=== PATIENT | male | born 1955 | race Caucasian/White ===

== ENCOUNTER 2022-03-17 12:44 | Outpatient (CLI) | payer BC, SELFPAY ==
--- NOTE | 2022-03-17 13:00 | CRLHL7_ITS ---
For Patients: As a result of the Century Cures Act, medical imaging exams and procedure reports are released immediately into your electronic medical record. You may view this report before your referring provider. If you have questions, please contact your health care provider. INDICATION: Malignant neoplasm of left kidney. TECHNIQUE: Multiplanar multisequence MR imaging acquired through the brain prior to and following intravenous contrast. COMPARISON: None. FINDINGS: Prominence of the ventricles and sulci compatible with mild diffuse cerebral volume loss. No mass effect or midline shift. Scattered T2 FLAIR hyperintensities in the supratentorial white matter, typical for mild chronic microvascular ischemic changes. No pathologic intracranial enhancement. No intracranial hemorrhage or pathologic extra-axial fluid collection. No diffusion restriction to suggest acute infarction. The major arterial flow voids of the skullbase are preserved. The globes are symmetric. Moderately severe right frontal and ethmoid sinus mucosal thickening. The mastoid air cells are clear. IMPRESSION: 1. No acute intracranial abnormality or evidence for intracranial metastatic disease. 2. Mild chronic microvascular changes and diffuse cerebral volume loss. Dictated by Luis M Bonner MD @ 03/17/2022 7:59:02 PM (Electronically Signed)
--- NOTE | 2022-03-17 14:00 | CRLHL7_ITS ---
For Patients: As a result of the Century Cures Act, medical imaging exams and procedure reports are released immediately into your electronic medical record. You may view this report before your referring provider. If you have questions, please contact your health care provider. Indication: MALIGNANT NEOPLASM OF LEFT URETER. ASSESS TREATMENT RESPONSE Technique: Postcontrast CT chest, abdomen and pelvis. 98 cc Isovue 370 intravenous contrast. Please note that all CT scans at this facility use dose modulation, iterative reconstruction, and/or weight-based dosing when appropriate to reduce radiation dose to as low as reasonably achievable. Comparison: 10/06/2021 Findings: In the chest, no significant change in 2 millimeter nodule left lower lobe, 83/141. Stable pleural-based density within the right anterior lung, 55/141. Mild atelectasis. Mild emphysematous changes in both lung apices. No dense infiltrate. No pleural effusion or pneumothorax. Stable appearance of incidental pericardial recess. No destructive osseous lesion or fracture. In the abdomen, no intrahepatic mass is present. Gallbladder normal. Spleen unremarkable. Similar appearance to the left retroperitoneum status post left nephrectomy. Stable tiny retroperitoneal lymph nodes are similar to the prior study. No enlarged lymph nodes. Stable simple renal cortical cysts on the right. Duplicated right renal collecting system with normal appearance of both right ureters. Pancreatic atrophy. Vascular calcifications. No bowel obstruction. Incidental ventral abdominal wall hernia in the supraumbilical space measuring 2.4 cm containing a non inflamed loop of bowel. In the pelvis, the bladder is normal. Normal prostate. Colonic diverticulosis involving the sigmoid colon. No diverticulitis. Postop changes appendectomy. No pelvic or inguinal adenopathy. Discogenic spurring. No fracture. Impression: Stable exam. No significant interval change in 2 millimeter left lower lobe pulmonary nodule and subcentimeter retroperitoneal lymph nodes status post left nephrectomy. Please note that all CT scans at this facility use dose modulation, iterative reconstruction, and/or weight-based dosing when appropriate to reduce radiation dose to as low as reasonably achievable. Dictated by Avelino Pacheco MD @ 03/17/2022 3:03:53 PM (Electronically Signed)
== END 2022-03-17 12:45 | disposition home or self-care (01) ==
LOC: MRI 12:45
PROVIDERS: PCP Family Medicine; Visit Provider Nurse Practitioner Family
DX: C64.2 Malignant neoplasm of left kidney, except renal pelvis (principal); C67.9 Malignant neoplasm of bladder, unspecified; I67.82 Cerebral ischemia; R91.8 Other nonspecific abnormal finding of lung field
CPT/HCPCS: 70553; 71260; 74177; A9575; Q9967

== ENCOUNTER 2022-03-23 10:45 | Outpatient (RCR) | payer BC, SELFPAY ==
--- OUTSIDE RECORDS SUMMARY | 2022-02-20 11:00 | XMS_ITS | Continuity of Care Document ---
:1955 Author Care Team Providers Name Role Phone MD Nusrat D Primary Care Physician MD Tanya H Attending Physician Allergies, Adverse Reactions, Alerts No known allergies Social History Smoking Status Status Start Date End Date Date of Observat ion Ex-smoker (finding) July 9:23am Additional Data Assigned Sex Male Problems Active Problems Medical Problem Onset Date Status Tobacco Use April 15, 2010 Active Erectile Dysfunction April 15, 2010 Active Ostructive Sleep Apnea April 15, 2010 Active PERSONAL HISTORY OF COLONIC April 15, 2010 Active POLYPS Obesity July 02, 2011 Active History of appendectomy July 02, 2011 Resolved Vasectomy July 02, 2011 Resolved Bladder Cancer November 16, 2012 Active White coat syndrome without Active hypertension Irritation of left eye Active HTN (hypertension) Active Hyperlipidemia Active Left renal mass Active Encounter for screening Active laboratory testing for COVID-19 virus 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 Renal insufficiency Active History of left nephrectomy Active Medications Medication Status Dose Units Route Directions Qty Days Start End Ins tructions Date Date Amlodipine Active 10 MG PO Daily 90 Decembe Besylate r 2020 9:01am Chlorthalidon Active 25 MG PO Daily 90 Decembe e r 2020 9:01am Ibuprofen Active 400 MG PO Twice A Day 30 as needed Lisinopril Active 5 MG PO Daily 30 Decembe r 2020 9:09am Lorazepam Active 0.5-1 MG PO Every 4 PRN Hours as NAUSEA/VOMI TI needed NG Potassium Active 20 MEQ PO Twice A Day August Chloride 2021 12:32pm Prochlorperaz Active 10 MG PO Every 4-6 30 P RN ine Maleate Hours as Nause a/vomiti needed ng Simvastatin Active 1 TABLET PO Bedtime 90 Decembe (Zocor) 20 Mg r 1st, TAB 2020 9:01am Tadalafil Active 10 MG PO Daily 10 Novembe limit 1 tab per 24 hrs. Take at least 1 hr prior to any planed (Cialis) 10 r , sexual activity. Mg TAB 2019 2:22pm Acetaminophen Disconti 500-1 MG PO Every 6 January N O MORE THAN (Tylenol nued 000 Hours as 6th, 4000 MG/ DAY Extra needed 2021 Strength) 500 1:49pm Mg TAB Amlodipine Disconti 10 MG PO Daily 30 Novem Decemb Besylate nued r , er 2020 08, 10:32am 2020 9:01am Amlodipine Disconti 10 MG PO Daily 90 Novem Novemb Besylate nued r , er 2019, 2:22pm 2020 10:32a m Amlodipine Disconti 10 MG PO Daily 90 mbe Novemb Besylate nued r , er 2019 07, 8:20am 2019 2:22pm Amlodipine Disconti 10 MG PO Daily Decemb Besylate nued y , er 2018, 2:40pm 2018 8:20am Amlodipine Disconti 10 MG PO Daily August Besylate nued , ry 2018, 10:23am 2018 2:40pm Amlodipine Disconti 10 MG PO Daily Mayuar Besylate nued , y 2017 8:10am 10:23a m Amlodipine Disconti 10 MG PO Daily May Octobe Besylate nued , r 2017, 12:21pm 2017 8:10am Amlodipine Disconti 10 MG PO Daily Octobe Besylate nued er r , 2017 12:21p 9:17am m Amlodipine Disconti 10 MG PO Daily Septem Besylate nued er valencia 2016, 9:45am 2016 9:17am Amlodipine Disconti 5 MG PO Daily 28 March Septem Besylate nued , valencia 2016 12, 9:19am 2016 9:45am Cephalexin Disconti 500 MG PO Three Times 17 January Novem nued A Day , er 2013, 11:12am 2013 9:52am Chlorthalidon Disconti 25 MG PO Daily 30 Decemb e nued r 24, er 2020 08, 10:32am 2020 9:01am Chlorthalidon Disconti 25 MG PO Daily b e nued r , er 2019, 2:22pm 2020 10:32a m Chlorthalidon Disconti 25 MG PO Daily 90 Decembe Novemb e nued r , er 2019 07, 8:20am 2019 2:22pm Chlorthalidon Disconti 25 MG PO Daily 90 Decembe Decemb e nued r , er 2017, 7:42am 2018 8:20am Chlorthalidon Disconti 25 MG PO Daily 30 Decemb e nued r , er 2018 01, 7:50am 2017 7:42am Chlorthalidon Disconti 12.5 MG PO Daily May e nued , er 2017, 8:10am 2017 7:50am Cpap Supplies Disconti 1 : One Time March b CPAP supplies nued 17, er 2009 09, 3:54pm 2010 12:47p m Diphtheria/Te Disconti 0.5 ML IM Once 1 Decembe Decemb tanus/Acell nued r , er Pertussis 2018, (Adacel) 0.5 8:20am 2018 Ml INJ 8:36am Fexofenadine Disconti 1 TABLET PO Twice A Day Mar ust Hcl/Pseudoeph nued , edr 2009 (Milady-D 12 2:33pm Hour) 60 Mg/120 Mg TABSR Hydrochloroth Disconti 12.5 MG PO Daily January iazide nued , 2011, 9:45am 2012 2:04pm Hydrochloroth Disconti 12.5 MG PO Daily August iazide nued , 2011 2:08pm 9:45am Influenza Disconti 0.7 ML IM Once 1 b Virus Vac nued r , er Split High 2020 07, (Fluzone 1:53pm 2019 High-Dose Pf 2:36pm 2019 0.7 Ml) 1 Inj INJ Influenza Disconti 0.5 ML IM Once 1 b Virus Vaccine nued r 28th, er (Fluzone Pf 2010, [id number] 2:08pm 2010 (0.5 Ml)) 0.5 2:23pm Ml INJ Influenza Disconti 0.5 ML IM Once 1 Virus Vaccine nued er valencia Split , , (Fluzone (3 2012 2012 Years And 1:32pm 1:52pm Older) [id number]) 1 Ml INJ Loperamide Disconti 2 MG PO as needed Februa Hcl (Imodium nued ry A-D) 2 Mg CAP 2021 2:00pm Lorazepam Disconti 0.5-1 MG PO Every 4 50 Novembe Februa DE N nued Hours as r , ry Nausea/vo miti needed for 2020, ng Nausea/Vomi 5:12pm 2021 ting 2:00pm No Home Meds Disconti October nued 2012 1:43pm Pneumococcal Disconti 0.5 ML IM Once 1 Decembe Decemb Polyvalent nued r , er Vaccine 2018, (Pneumovax 8:20am 2018) 25 8:36am Mcg/0.5 Ml INJ Pneumococcal Disconti 0.5 ML IM Once Mayobe Polyvalent nued , r Vaccine 2017, (Prevnar 13) 8:13am 2017 0.5 Ml INJ 8:20am Potassium Disconti 10 MEQ PO Daily 90 Decembe Auguar Chloride nued r , y 6th, (Potassium 2020 2021 Chloride Cr) 9:01am 9:01am 10 Meq TAB Potassium Disconti 10 MEQ PO Daily October Decemb Chloride nued , er (Potassium 2020 08, Chloride Cr) 8:45am 2020 10 Meq TAB 9:01am Potassium Disconti 10 MEQ PO Daily 90 Novemoctober Chloride nued r , , (Potassium 2019 2020 Chloride Cr) 2:22pm 8:45am 10 Meq TAB Potassium Disconti 10 MEQ PO Daily 90 Decembe Novemb Chloride nued r , er (Potassium 2019 07, Chloride Cr) 8:20am 2019 10 Meq TAB 2:22pm Potassium Disconti 10 MEQ PO Daily 90 ua Decemb Chloride nued y , er (Potassium 2018, Chloride Cr) 3:47pm 2018 10 Meq TAB 8:20am Prednisone Disconti 20 MG PO Twice A Day 10 mb nued er er , 2015 9:29am 7:57am Prochlorperaz Disconti 10 MG PO Every 4-6 30 Sep niyah PRN ine Maleate nued Hours as r , ry Mack sea/vomiti needed for 2020, ng Nausea/Vomi 5:12pm 2021 ting 2:00pm Simvastatin Disconti 1 TABLET PO Bedtime 90 mb (Zocor) 20 Mg nued r , er TAB 2019 08, 2:22pm 2020 9:01am Simvastatin Disconti 1 TABLET PO Bedtime 90 Novemb (Zocor) 20 Mg nued r , er TAB 2019 07, 8:20am 2019 2:22pm Simvastatin Disconti 1 TABLET PO Bedtime 30 Decemb (Zocor) 20 Mg nued r , er TAB 2018, 10:33am 2018 8:20am Simvastatin Disconti 1 TABLET PO Bedtime May (Zocor) 20 Mg nued , er TAB 2017 09, 8:13am 2018 10:33a m Simvastatin Disconti 1 TABLET PO Bedtime Octobe (Zocor) 20 Mg nued r , r TAB 2016, 11:05am 2017 7:22am Tadalafil Disconti 10 MG PO Daily 10 b limi t 1 tab per 24 hrs. Take at least 1 hr prior to any planed (Cialis) 10 nued r , er sexual activity. Mg TAB 2019 07, 8:20am 2019 2:22pm Tadalafil Disconti 10 MG PO Daily May limi t 1 tab per 24 hrs. Take at least 1 hr prior to any planed (Cialis) 10 , er sexual a ctivity. Mg TAB 2017, 8:10am 2018 8:20am Tadalafil Disconti 10 MG PO Daily Mayobe limi t 1 tab per 24 hrs. Take at least 1 hr prior to any planed (Cialis) 10 nued er , r sexual activity. Mg TAB 2016, 9:49am 2017 8:10am Tadalafil Disconti 1 TABLET PO Daily March PRN (Cialis) 20 nued 17th, er Mg TAB 2010 02, 3:24pm 2010 3:35pm Tadalafil Disconti 1 TABLET PO Daily May PRN (Cialis) 20 nued 8th, 17th, Mg TAB 2006 2009 3:13pm 2:33pm Tamsulosin Disconti 0.4 MG PO Daily 30 Novemb Hcl nued er 2013 9:52am Tamsulosin Disconti 0.4 MG PO Daily 30 Novem Februa Hcl (Flomax) nued r 7th, ry 0.4 Mg CAP 2010, 4:19pm 2012 2:03pm Varenicline Disconti 0.5 - MG PO As Directed a TAKE (Chantix nued 1 ry ACCORDING T O Starter Pack) PACKAG E 0.5 Mg/1 Mg 2012 DIRECTIO NS TAB 2:04pm Varenicline Disconti 0.5 - MG PO As Directed August niyah TAKE (Chantix nued 1 31, ry ACCORDING T O Starter Pack) 2011, PACKAG E 0.5 Mg/1 Mg 2:09pm 2011 DIRECTI ONS TAB 7:27am Varenicline Disconti 1 MG PO Twice A Day August niyah (Chantix nued 31st, ry Continuing 2011, Pack) 1 Mg 2:09pm 2011 KIRK 7:27am Varenicline Disconti 0.5 - MG PO As Directed 28 April Shant mb TAKE (Chantix nued 1 17, er ACCORDING T O Starter Pack) 2009 10, PACKAG E 0.5 Mg/1 Mg 3:23pm 2010 DIRECTI ONS TAB 2:33pm Varenicline Disconti 1 MG PO Twice A Day Marchhailee mb (Chantix nued 17th, er Continuing 2009 10, Pack) 1 Mg 3:23pm 2010 KIRK 2:33pm Varenicline Disconti 0.5 - MG PO As Directed May tem TAKE (Chantix nued 1 8th, valencia ACCORDING T O Starter Pack) 2006, PACKAG E 0.5 Mg/1 Mg 3:14pm 2008 DIRECTI ONS TAB 11:37a m Varenicline Disconti 1 MG PO Twice A Day Novembere m (Chantix nued 4th, valencia Continuing 2007, Pack) 1 Mg 10:11am 2008 KIRK 11:37a m Varenicline Disconti 1 MG PO Twice A Day May il (Chantix nued , 3rd, Continuing 2006 2007 Pack) 1 Mg 3:14pm 1:45pm KIRK Immunizations Immunization Event Date Not Given Dose Digital Marketing Assistant Lot Vac cine Reason Number Number Informatio n Statement (VIS) Deta il COVID-19 Pfizer November 12, PFIZER-BIONTECH [id number] 2020 COVID-19 Pfizer December 03, PFIZER-BIONTECH [id number] 2020 COVID-19 Pfizer July 02 [id number] 2020 Influenza June 30 Sanofi Pasteur [id number] 2010 Influenza September 08, [id number] 2012 Influenza May 02 Sanofi [id number] 2012 Influenza July 03 [id number] 2013 Influenza May 04 [id number] 2016 Influenza July 05 SANOFI [id number] 2019 Influenza July 06 [id number] 2020 Prevnar Adult June 23, WYETH [id number] 2017 Pneumovax Adult July 30 MERCK [id number] 2018 Tetanus/Diptheri February 11, 1 a 2009 Tdap February 11 (adolescent/adul 2009 t) Tdap July 31 SANOFI (adolescent/adul 2018 t) Relevant Diagnostic Tests and/or Laboratory Data Laboratory Results Test Date/Time Result Interpretation Reference Result Comment Performing Range Site White Blood February 02, 5.57 5.00-10.00 [facility] Count 2021 [address] [facility] 11:48am [facility] [address] Red Blood Count February 02, 4.10 4.32-5.72 [facility] 2021 [address] [facility] 11:48am [facility] [address] Hemoglobin February 02, 14.1 13.5-17.5 [facility] 2021 [address] [facility] 11:48am [facility] [address] Hematocrit February 02, 40.6 38.8-50.0 [facility] 2021 [address] [facility] 11:48am [facility] [address] Mean February 02, 99 81-95 [facility] Corpuscular 2021 1999 [facility] Volume 11:48[place] [address] Mean February 02, 34 27-34 [facility] Corpuscular 2021 1999 [facility] Hemoglobin 11:48[place] [address] Mean February 02, 35 32-36 [facility] Corpuscular 2021 [address] [facility] Hemoglobin 11:48[place] [address] Concent Platelet Count February 02, 164 150-450 [facility] 2021 [address] [facility] 11:48am [place] [address] RDW Coefficient February 02, 13.2 11.5-15.3 [facility] Lab of Variation 2021 1999 [facility] 11:48am [place] [address] Neutrophils (%) February 02, 69.4 50.0-70.0 [facility] Lab (Auto) 2021 [address] [facility] 11:48am [place] [address] Lymphocytes (%) February 02, 14.5 25.0-45.0 [facility] (Auto) 2021 [address] [facility] 11:48am [place] [address] Monocytes (%) February 02, 9.7 0.00-11.0 [facility] Lab (Auto) 2021 [address] [facility] 11:48am [place] [address] Eosinophils (%) February 02, 5.7 0.0-7.0 [facility] (Auto) 2021 [address] [facility] 11:48am [place] [address] Basophils (%) February 02, 0.5 0.0-3.0 [facility] Lab (Auto) 2021 [address] [facility] 11:48am [place] [address] Immature February 02, 0.2 [facility] Granulocyte % [address] [facility] (Auto) 11:48[place] [address] RDW Coefficient May 12.8 11.5-15.3 [facility] Lab of Variation 2020 [facility] 10:56am [place] [address] Neutrophils # February 02, 3.86 1.70-7.00 [facility] Lab (Auto) 2021 [address] [facility] 11:48am [place] [address] Lymphocytes # February 02, 0.81 0.90-2.90 [facility] Lab (Auto) 2021 [address] [facility] 11:48am [place] [address] Monocytes # February 02, 0.54 0.30-0.90 [facility] (Auto) 2021 [address] [facility] 11:48am [facility] [address] Eosinophils # February 02, 0.32 0.00-0.50 [facility] (Auto) 2021 [address] [facility] 11:48am [facility] [address] Basophils # February 02, 0.03 0.00-0.20 [facility] (Auto) 2021 [address] [facility] 11:48am [facility] [address] Immature February 02, 0.01 [facility] Granulocyte # [address] [facility] (Auto) 11:48am [facility] [address] Random Glucose February 09, 93 60-115 [facility] 2021 [address] [facility] 11:42am [place] [address] Blood Urea February 09, 22 7-30 [facility] Nitrogen 2021 [address] [facility] 11:42am [facility] [address] Creatinine February 09, 1.7 0.5-1.5 [facility] 2021 [address] [facility] 11:42am [place] [address] Estimated February 09, 40.650 [facility] Creatinine 2021 1999 [facility] Clearance 11:42am [facility] [address] Sodium Level February 09, 134 135-149 [facility] 2021 [address] [facility] 11:42am [place] [address] Potassium Level February 09, 4.0 3.6-5.1 [facility] 2021 [address] [facility] 11:42am [facility] [address] Chloride Level February 09, 99 96-114 [facility] 2021 [address] [facility] 11:42am [facility] [address] Carbon Dioxide February 09, 30 20-32 [facility] Level 2021 [address] [facility] 11:42am [facility] [address] Calcium Level February 09, 9.1 8.4-10.6 [facility] 2021 [address] [facility] 11:42am [facility] [address] Total Protein February 09, 6.9 6.0-8.3 The use of [facility] 2021 Eltrombopag, a [address] [facility] 11:42am [place] [address] stimulant used to treat thrombocytopenia and aplastic anemia, interferes with this measurement of total protein. A 5% bias has been observed. Albumin February 09, 4.0 3.3-5.0 [facility] 2021 [address] [facility] 11:42am [facility] [address] Total Bilirubin February 09, 1.1 0.1-1.5 [facility] 2021 [address] [facility] 11:42am [facility] [address] Aspartate Amino February 09 12-35 [facility] Transf 2021 [address] [facility] (AST/SGOT) 11:42am [facility] [address] Alanine February 09 4-50 [facility] Aminotransferas 2021 [address] [facility] e (ALT/SGPT) 11:42am [facility] [address] Alkaline February 09 40-150 [facility] Phosphatase 2021 [address] [facility] 11:42am [facility] [address] Thyroid January 05, 2.060 0.270-4.20 Patients taking a [facility] Stimulating 2021 0 high dose [address] [facility] Hormone (TSH) 11:40am (>5mg/day) of No [place] [id number] Biotin supplement (vitamin B7) will demonstrate a >10% negative bias for TSH testing. Advance Directives Advance Directive Response Recorded Date/Time Does Pt have Health Care No July 18, 2014 7:13am Directive? Has patient completed a Yes July 30 9:23am Health Care Directive? Insurance Providers Guarantor Aniceto Rincon Jr Address [id number] [place], [place] [address] Contact Info. Home Phone: CELL Payer Policy Id Coverage Id Subscriber's Subscriber Id Effective E xpiration Name Date Date Blue [id number] Mckenzie Machado, August 30 27 Aniceto Benton 2011 [id number] Encounters Encounter Location(s) Arrival/Admit Date Discharge/Depart Date Provider(s) Registered [place] February 09, 2022 [facility] 7:09am Plan of Treatment Future Tests Future scheduled test information is unavailable Pending Tests Pending diagnostic test information is unavailable Future Visits Future appointment information is unavailable Referrals to Other Providers Reason for Referral Start Provider Provider Contact Provider Address Referral Date Information Dmitri Silverio Work Phone: [facility] TYREL Carrillo MD [address] [facility] [phone] Future Procedures Future procedure information is unavailable Future Medications Future medication information is unavailable Patient Instructions Avelumab (By injection) Thrombocytopenia (DC) Thrombocytopenia (GEN)
--- NOTE | 2022-03-05 16:37 | ONC.NURNOTE ---
Authorization: User: Alicia Jamison Date: 02/10/22 12:46 Type: Eligibility Determination Note... Received request for prior authorization of Avelumab [id number]. Patient carries [employer] as primary insurance. Per [facility] Avelumab 800 mg every 2 weeks has been approved for total 8 treatments from 02/23/2022-06/15/2022 (800mg Days 1,15 Cycles 1,2,3,4) Amendment 1 - Alicia Jamison - 02/10/22 @ 1248 Order ID: [id number]
[2022-03-09 10:49] LABS: Basophils Absolute Auto 0.03 K/uL (0.00-0.30); Basophils Percent Auto 0.5 % (0.0-3.0); Eosinophils Absolute Auto 0.33 K/uL (0.00-0.50); Eosinophils Percent Auto 5.3 % (0.0-7.0); Hematocrit 39.7 % (37.0-53.0); Hemoglobin* 13.9 gm/dL (13.5-17.5); Mean Corpuscular HGB Conc 35 gm/dL (32-36); Mean Corpuscular Hemoglobin 35 pg (26-34); Mean Corpuscular Volume 100 fL (80-100); Monocytes Percent Auto 8.8 % (0.0-11.0); Neutrophils Absolute Auto 4.45 K/uL (1.7-7.0); Neutrophils Percent Auto 71.4 % (42.0-72.0); Platelet Count* 167 K/uL (140-440); RDW Coefficient of Variation % 14.5 % (11.5-15.5); Red Blood Count 3.98 m/uL (4.30-5.90); White Blood Count* 6.23 K/uL (4.50-11.00)
[2022-03-09 10:52] LABS: Slide Review Reflex No
[2022-03-09 12:29] VITALS: BP 149/76; PULSE 55; RESP 16; TEMP 36.3; O2SAT 95
[2022-03-09 13:11] LABS: Chloride* 103 mmol/L (96-114); Potassium* 3.5 mmol/L (3.6-5.1); Sodium* 132 mmol/L (135-149)
[2022-03-09 13:14] LABS: Alanine Aminotransferase* 21 U/L (4-50); Alkaline Phosphatase* 97 U/L (40-150); Aspartate Amino Transferase* 29 U/L (12-35); Blood Urea Nitrogen* 26 mg/dL (7-30); Carbon Dioxide* 24 mmol/L (20-32); Creatinine* 1.7 mg/dL (0.5-1.5); Est. Creatinine Clearance* 40.24; Estimated Glomerular Filt Rate 43.37; Glucose* 103 mg/dL (60-115); Total Protein* 7.1 g/dL (6.0-8.3)
[2022-03-09 13:15] LABS: Calcium* 9.4 mg/dL (8.4-10.6)
[2022-03-09] MEDS: ACETAMINOPHEN 325 MG TABLET 650 MG PO (13:34)
[2022-03-09] MEDS: FAMOTIDINE 20 MG, diphenhydrAMINE 50 MG in 0.9 % SODIUM CHLORIDE 100 ml 100 ML 412 MG IVPB (13:50)
[2022-03-23 10:28] LABS: Basophils Absolute Auto 0.03 K/uL (0.00-0.30); Basophils Percent Auto 0.6 % (0.0-3.0); Eosinophils Absolute Auto 0.22 K/uL (0.00-0.50); Hematocrit 39.8 % (37.0-53.0); Immature Granulocytes Abs Auto 0.01 K/uL (0.00-0.30); Lymphocytes Percent Auto 14.2 % (20-44); Mean Corpuscular HGB Conc 35 gm/dL (32-36); Mean Corpuscular Hemoglobin 36 pg (26-34); Mean Corpuscular Volume 101 fL (80-100); Monocytes Percent Auto 10.7 % (0.0-11.0); Neutrophils Absolute Auto 3.83 K/uL (1.7-7.0); Neutrophils Percent Auto 70.3 % (42.0-72.0); Platelet Count* 187 K/uL (140-440); RDW Coefficient of Variation % 14.5 % (11.5-15.5); Red Blood Count 3.94 m/uL (4.30-5.90); White Blood Count* 5.44 K/uL (4.50-11.00)
[2022-03-23 10:31] LABS: Slide Review Reflex No
[2022-03-23 10:41] LABS: Albumin* 3.9 g/dL (3.3-5.0)
[2022-03-23 10:42] LABS: Chloride* 101 mmol/L (96-114); Potassium* 3.9 mmol/L (3.6-5.1); Sodium* 132 mmol/L (135-149)
[2022-03-23 10:44] LABS: Aspartate Amino Transferase* 34 U/L (12-35); Bilirubin Total* 1.1 mg/dL (0.1-1.5); Carbon Dioxide* 23 mmol/L (20-32); Creatinine* 1.7 mg/dL (0.5-1.5); Est. Creatinine Clearance* 40.24; Estimated Glomerular Filt Rate 43 ml/min; Total Protein* 7.2 g/dL (6.0-8.3)
[2022-03-23 10:45] LABS: Alanine Aminotransferase* 19 U/L (4-50); Alkaline Phosphatase* 83 U/L (40-150); Blood Urea Nitrogen* 22 mg/dL (7-30); Calcium* 8.4 mg/dL (8.4-10.6); Glucose* 96 mg/dL (60-115)
[2022-03-23] MEDS: ACETAMINOPHEN 325 MG TABLET 650 MG PO (12:22)
== END 2022-03-29 23:59 | disposition home or self-care (01) ==
LOC: CCIC 10:45
PROVIDERS: Clinical Nurse Specialist; PCP Family Medicine; Visit Provider Nurse Practitioner Family
DX: Z51.11 Encounter for antineoplastic chemotherapy (principal); C66.2 Malignant neoplasm of left ureter
CPT/HCPCS: 36415; 80053; 84443; 85025; 96411; 96413; 99212; 99215; A9270; J1200; J7050; J9023; S0028

== ENCOUNTER 2022-08-13 10:56 | Outpatient (CLI) | payer BC, SELFPAY ==
--- OUTSIDE RECORDS SUMMARY | 2022-08-13 07:42 | XMS_ITS | Encounter Summary ---
:1955 Author Care Team Providers Name Role Phone Dmitri Silverio MD Primary Care Provider [phone] Reason for Visit None recorded. Assessment and Plan 1. Malignant tumor of kidney 1. Urothelial carcinoma - Left kidney ( pT3 Nx) and bladder (Ta - high grade, superficial) - s/p Left LEATHA nephroureterectomy (07/18) - margins were negative - last TUR-BT (05/22/13) - complete salvage XRT - (09/05/21) - no recurrence seen in bladder on Cysto scopy today - check urine cytology - reviewed CT scan (06/03/22) images - no convincing evidence of metastatic disease - has follow-up with Oncology - Follow-up in [address] scan (ab d/pelvis) withot IV dye, Cystoscopy, and urine cytology ? urinalysis, dipstick ? cystoscopy (PROC) ? CT, abdomen + pelvis, w/o contrast - f/u with Dr. Curry on 12/01/22 @ 2:20PM 2. Primary erectile dysfunction H/O ED - continue Cialis 20 mg prn ? tadalafil 20 mg tablet Discussion Note: None recorded.Patient educational handouts: No information available. Plan of Care Reminders Provider Appointments Ct Scan 30 12/01/2022 Ct 11:00AM ? Established 10 12/01/2022 Bala marino MD 2:20PM Lab Urinalysis, Dipstick 06/03/2022 [facility] Referral None recorded. ? ? Procedures Cystoscopy (PROC) 06/03/2022 ? Surgeries None recorded. ? ? Imaging CT, Abdomen + Pelvis, W/o 06/03/2022 [facility] Contrast Medications Name Start Date ? ? amlodipine 10 mg tablet ? TAKE 1 TABLET BY MOUTH DAILY amoxicillin 500 mg capsule ? TAKE 1 CAPSULE BY MOUTH THREE TIMES DAILY UNTIL ALL T AKEN amoxicillin 875 mg-potassium clavulanate 125 mg tablet ? TAKE 1 TABLET BY MOUTH TWICE DAILY UNTIL ALL TAKEN chlorhexidine gluconate 0.12 % mouthwash ? SWISH AND SPIT 1/2 OZ BY MOUTH TWICE DAILY FOR 7 DAYS chlorthalidone 25 mg tablet ? TAKE 1 TABLET BY MOUTH DAILY famotidine 20 mg tablet ? TAKE 1 TABLET BY MOUTH EVERY DAY hydrocodone 5 mg-acetaminophen 325 mg tablet ? TAKE 1 TABLET BY MOUTH EVERY 6 HOURS NEEDED FOR PA IN ibuprofen 600 mg tablet ? TAKE 1 TABLET BY MOUTH EVERY 6 HOURS NEEDED FOR PA IN lisinopril 5 mg tablet ? TAKE 1 TABLET BY MOUTH DAILY lorazepam 0.5 mg tablet ? TAKE 1 TO 2 TABLETS BY MOUTH EVERY 4 HOURS NEEDED FORNAUSEA AND VOMITING methylprednisolone 4 mg tablets in a dose pack ? TAKE PER PACKAGE DIRECTIONS. TAKE WITH FOOD ondansetron HCl 8 mg tablet ? TAKE 1 TABLET BY MOUTH EVERY 8 HOURS NEEDED FOR NAUSEA OR VOMITING. TAKE 45 MINUTES PRIOR TO DAILY RADIATION TREATMENTS TO PREVENT NAUSEA. potassium chloride ER 10 mEq tablet,extended release ? TAKE 1 TABLET BY MOUTH DAILY potassium chloride ER 20 mEq tablet,extended release(p art/cryst) ? TAKE 1 TABLET BY MOUTH TWICE DAILY prednisone 10 mg tablet ? prednisone 2.5 mg tablet ? prochlorperazine maleate 10 mg tablet ? TAKE 1 TABLET BY MOUTH EVERY 4 TO 6 HOURS NEEDED F OR NAUSEA OR VOMITING Senexon-S 8.6 mg-50 mg tablet ? simvastatin 20 mg tablet ? TAKE 1 TABLET BY MOUTH AT BEDTIME tadalafil 10 mg tablet ? tadalafil 20 mg tablet ? TAKE 1 TABLET BY MOUTH EVERY DAY Medications Administered None recorded. Vitals Height Weight BMI 5 ft 10 in 208 lbs 29.8 kg/m2 Results Lab Results Date Name Specimen Result Interpretation Description Value Range Status Address ? 06/03/2022 Urinalysis, ? Color-Status Yellow ? ? [facility]: [address], [place] Allergies Code Code System Name Reaction Severity Onset NKDA ? ? ? Problems None recorded. Procedures Date Name Performed by ? 07/18/2020 Nephroureterectomy, Hand Assisted Inform ation not available Laparoscopic (Surg) 06/19/2020 Cystoscopy, with Ureteroscopy (Surg) Inf ormation not available 08/30/2015 Colonoscopy Information not yamilka gonzalez Notes: done 5 yrs ago and getting one on 06/2021 ? Appendectomy Information not avai lable 06/03/2022 CT, Abdomen + Pelvis, W/o Contrast [facility] [address] [id number] (Work Place) Notes: bladder TURBT Vaccine List Vaccine Type influenza, injectable, quadrivalent 07/04/2020 Social History Tobacco Smoking Status Former Smoker Notes: 2012 What is your level of alcohol Occasional consumption? Marital status Single Are you sexually active? Y What was the date of your most recent 06/03/2022 tobacco screening? Do you or have you ever used any other N forms of tobacco or nicotine? What is your level of caffeine None consumption? Do you use any illicit or recreational N drugs? When did you quit smoking? 11-15yearssincelastcigarette Recreational Drug Use N Functional Status Unknown. Past Encounters Encounter Date Diagnosis Provider 06/03/2022 Malignant Tumor of Kidney; Primary Bala Curry MD: [address] [place] [address], Ph. History of Present Illness Note: <p>66 yo male with H/O 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 </p><div>- s/p TUR-BT - (08/03/11) - HG Ta</div><div>- s/p TUR-BT - (11/07/12) - HG Ta</div><div>- s/p TUR-BT - (05/22/13) - HG Ta</div><div>- BCG (6 weeks) - complete Jul 2013</div><div>- s/p Left LEATHA nephroureterectomy (07/18/20) - pT3 Nx - margins were negative</div><div>- s/p Salvage radiation (for periaoritc lymph nodes) - completed (09/05/21)</div><div>
</div><div>12/03/21 - He presents for follow-up on Urothelial carcinoma of the kidney (clinical stage IV). He is feeling better - more energy. He denies trouble with urination - no hematuria, urgency, or dysuria. </div><div>- UA - trace blood - no LE</div><div>- CT scan - no contrast (12/03/21) - no convincing evidence of metastatic diseases - 1.4 cm hypoattenuating cyst on Right mid-kidney (posterior)</div><div>
</div><div>06/03/22 - He presents for follow-up on Left kidney cancer / Bladder cancer (Urothelial cell carcinoma). He denies abdominal or flank pain. He denies gross hematuria - no complaints with urination. He does reports trouble with Bilateral hand cramps / arm cramps from his chemotherapy. </div><div>- UA - no blood - no LE</div><div>- CT (non-contrast) - no evidence of new disease - Right renal cysts (stable) -3.4 cm pulmonary nodule (left lower lung) - stable</div><div> __</div><div>PSA - 2.78 (09/26/14)</div><div>- 2.82 (10/14/16)</div><div>- 2.38 (04/29/20)</div><div>
</div><div>CT Urogram (05/08/20) - Left - 1.4 cm filling defect in lower pole and proximal ureter</div><div>- Right - duplicated collecting system - no hydronephrosis, stones, or filling defects</div><div>
</div><div>12/03/20 - CT scan - no hydronephrosis - Left kidney is absent</div><div>- no metastatic disease seen</div><div>
</div><div> CT scan (06/04/21) - enlarging (1.4 cm) Left sided retroperitoneal lymph node (near Left renal vascular stump)&l t;/div><div>
</div><div>CT scan - no contrast (12/03/21) - no convincing evidence of metastatic diseases - 1.4 cm hypoattenuating cyst on Right mid- kidney (posterior)</div> Review of Systems ? Comprehensive General Adult ROS Reported By: Patient Constitutional: Constitutional: no fever, no chills Eyes: Eyes: no dry eyes, no vision change, no irritation Endocrine: Endocrine: no fatigue, no in creased thirst Cardiovascular: Cardiovascular: no chest rupa n, no palpitations Integumentary: Skin: no rashes, no change i n skin color Respiratory: Respiratory: no wheezing, no cough, no shortness of breath Genitourinary: Genitourinary: no incontinen ce, no difficulty urinating Physical Exam ? Urology Male Reported By: Patient Constitutional: General Appearance: healthy- appearing, overweight. Level of Distress: no acute distress Abdomen: Inspection and Palpation: so ft, no tenderness, no masses, no CVA tenderness Male : Penis: no discharge, no lesi ons, circumcised. Scrotum: no cysts, no lesions, no edema, no tender ness. Testes: normal testes, no swelling Skin: General Appearance of extrem ities: no edema. Inspection and palpation: normal temperatur e, no rash, no lesions
--- OUTSIDE RECORDS SUMMARY | 2022-08-13 07:42 | XMS_ITS ---
:1955 Author Care Team Providers Name Role Phone KEN GOODMAN MD Primary Care Provider [phone] Allergies Code Code System Name Reaction Severity Status Onset NKDA ? Medications Name Status Start Date Stop Date ? ? amlodipine 10 mg tablet Active ? Not avai lable TAKE 1 TABLET BY MOUTH DAILY amoxicillin 500 mg capsule Active ? Not a vailable TAKE 1 CAPSULE BY MOUTH THREE TIMES DAILY UNTIL ALL TAKEN amoxicillin 875 mg-potassium clavulanate 125 mg tablet Active ? Not available TAKE 1 TABLET BY MOUTH TWICE DAILY UNTIL ALL TAKEN Bactrim DS 800 mg-160 mg tablet Completed ? 06/04/2021 Take 1 tablet twice a day by oral route. cefuroxime axetil 500 mg tablet Completed ? 06/04/2021 TAKE 1 TABLET BY MOUTH TWICE DAILY FOR 10 DAYS chlorhexidine gluconate 0.12 % mouthwash Active ? Not available SWISH AND SPIT 1/2 OZ BY MOUTH TWICE DAILY FOR 7 DAYS chlorthalidone 25 mg tablet Active ? Not available TAKE 1 TABLET BY MOUTH DAILY famotidine 20 mg tablet Active ? Not avai lable TAKE 1 TABLET BY MOUTH EVERY DAY hydrocodone 5 mg-acetaminophen 325 mg tablet Active ? Not available TAKE 1 TABLET BY MOUTH EVERY 6 HOURS NEEDED FOR PAIN ibuprofen 600 mg tablet Active ? Not avai lable TAKE 1 TABLET BY MOUTH EVERY 6 HOURS NEEDED FOR PAIN lisinopril 5 mg tablet Active ? Not avail able TAKE 1 TABLET BY MOUTH DAILY lorazepam 0.5 mg tablet Active ? Not avai lable TAKE 1 TO 2 TABLETS BY MOUTH EVERY 4 HOURS NEEDED FORNAUSEA AND VOMITING methylprednisolone 4 mg tablets in a dose pack Active ? Not available TAKE PER PACKAGE DIRECTIONS. TAKE WITH FOOD ondansetron HCl 8 mg tablet Active ? Not available TAKE 1 TABLET BY MOUTH EVERY 8 HOURS NEEDED FOR NAUSEA OR VOMITING. TAKE 45 MINUTES PRIOR TO DAILY RADIATION TREATMENTS TO PREVENT NAUSEA. oxycodone 5 mg tablet Completed ? 06/04/2021 potassium chloride ER 10 mEq tablet,extended release Active ? Not available TAKE 1 TABLET BY MOUTH DAILY potassium chloride ER 20 mEq tablet,extended release(part/cryst) Active ? Not available TAKE 1 TABLET BY MOUTH TWICE DAILY prednisone 10 mg tablet Active ? Not avai lable prednisone 2.5 mg tablet Active ? Not marita ilable prochlorperazine maleate 10 mg tablet Active ? Not available TAKE 1 TABLET BY MOUTH EVERY 4 TO 6 HOURS NEEDED FOR NAUSEA OR VOMITING Senexon-S 8.6 mg-50 mg tablet Active ? No t available simvastatin 20 mg tablet Active ? Not marita ilable TAKE 1 TABLET BY MOUTH AT BEDTIME tadalafil 10 mg tablet Active ? Not avail able tadalafil 20 mg tablet Active ? Not avail able TAKE 1 TABLET BY MOUTH EVERY DAY Problems None recorded. Procedures Date Name Performed by ? 07/18/2020 Nephroureterectomy, Hand Assisted Inform ation not available Laparoscopic (Surg) 06/19/2020 Cystoscopy, with Ureteroscopy (Surg) Inf ormation not available 08/30/2015 Colonoscopy Information not avai [facility] Notes: done 5 yrs ago and getting one on 06/2021 ? Appendectomy Information not avai lable 07/24/2020 CT, Cystogram Information not avai lable 11/28/2020 CT, Abdomen + Pelvis, W/ Contrast Inform ation not available 11/26/2021 CT, Abdomen + Pelvis, W/ Contrast Inform ation not available 12/03/2021 CT, Abdomen + Pelvis, W/ Contrast Inform ation not available 06/03/2022 CT, Abdomen + Pelvis, W/o Contrast [facility] [address] [phone] (Work Place) Notes: bladder TURBT Results Lab Results Date Name Specimen Result Interpretation Description Value Range Status Address ? 06/03/2022 Urinalysis, ? Color-Status Yellow ? ? [facility]: [address] 06/03/2022 Urinalysis, ? No observation ? ? ? Dipstick recorded. 12/03/2021 Urinalysis, ? Color-Status Yellow ? ? Dipstick ? ? ? pH-Status 5.0 ? Blood-Status Trace ? Leuko-Status Negative ? ? 12/03/2021 Urinalysis, ? No observation ? ? ? Dipstick recorded. 06/04/2021 Urinalysis, Urine ? Color-Status Yellow ? ? Dipstick ? ? Urine ? pH-Status 5.5 ? Urine ? Nitrates-Stat negative ? ? us ? ? Urine ? Blood-Status Trace ? Urine ? Leuko-Status Negative ? ? 06/04/2021 Urinalysis, ? No observation ? ? ? Dipstick recorded. 12/03/2020 Cytology, UR ? Apresult AP results ? Fin al [place] [facility] b: [address], [place] 07/18/2020 Pathology ? No observation ? ? ? Study recorded. Past Encounters Encounter Date Diagnosis Provider 06/03/2022 Malignant Tumor of Kidney; Primary Bala Curry MD: [address], [place] [address], Ph. [phone] 12/03/2021 Malignant Tumor of Kidney; Primary Bala Curry MD: [address], [place] [address], Ph. [phone] 06/04/2021 Malignant Tumor of Kidney; Renal Bala monisha Curry MD: [address]; [address], [place], [place] Dysfunction [address], Ph. [phone] Social History Tobacco Smoking Status Former Smoker Notes: 2012 Vaccine List Vaccine Type influenza, injectable, quadrivalent 07/04/2020 Plan of Care Reminders Provider Appointments None recorded. ? ? Lab None recorded. ? ? Referral None recorded. ? ? Procedures None recorded. ? ? Surgeries None recorded. ? ? Imaging None recorded. ? ? Vitals 06/03/2022 02:20PM ESTABLISHED 20 Height Weight BMI 5 ft 10 in 208 lbs 29.8 kg/m2 12/03/2021 01:30PM ESTABLISHED 20 Height Weight BMI 5 ft 10 in 208 lbs 29.8 kg/m2 06/04/2021 01:30PM ESTABLISHED 20 Height Weight BMI 5 ft 10 in 208 lbs 29.8 kg/m2 12/03/2020 02:10PM ESTABLISHED 10 Height Weight BMI 5 ft 10 in 210 lbs 30.1 kg/m2 07/30/2020 11:50AM POST OP 10 Height Weight BMI 5 ft 10 in 210 lbs 30.1 kg/m2 06/26/2020 03:30PM ESTABLISHED 10 Height Weight BMI 5 ft 10 in 205 lbs 29.4 kg/m2 05/29/2020 04:00PM CA TALK Height Weight BMI 5 ft 10 in 216 lbs 31 kg/m2
--- OUTSIDE RECORDS SUMMARY | 2022-08-13 07:42 | XMS_ITS | Clinical Summary ---
:1955 Author Organization [facility] Address [address] [place] [address] Care Team Providers Name Role Phone Dmitri Silverio Primary Care Provider Allergies No known active allergies Medications Medication Sig Dispensed Refills Start Date End Date Status simvastatin (ZOCOR) 20 Take 20 mg by 0 Active MG tablet mouth At Bedtime amLODIPine (NORVASC) 10 Take 10 mg by 0 Active MG tablet mouth daily POTASSIUM CHLORIDE PO Take 10 mEq by 0 Active mouth daily chlorthalidone Take 25 mg by 0 A ctive (HYGROTON) 25 MG tablet mouth daily tadalafil (CIALIS) 10 Take 10 mg by 0 Active MG tablet mouth daily as needed ibuprofen Take 400 mg by 0 Activ e (ADVIL/MOTRIN) 200 MG mouth 2 times tablet daily as needed for mild pain HYDROcodone-acetaminoph Take 1-2 tablets 15 tablet 0 0 Active en (NORCO) 5-325 MG by mouth every 6 tabletIndications: hours as needed Post-operative state for moderate to severe pain Social History Tobacco Use Types Packs/Day Years Used Date Smoking Tobacco: Former Cigarettes Smokeless Tobacco: Never Comments: 1 cigarettes every couple of [facility] Alcohol Use Standard Drinks/Week Comments Yes 0 (1 standard drink = 0.6 oz pure alcoho l) 3 per night wine Sex Assigned at Date Recorded Not on file Last Filed Vital Signs Vital Sign Reading Time Taken Comments Blood Pressure 157/86 06/19/2020 1:45 PM CDT Pulse 57 06/19/2020 1:00 PM CDT Temperature 36.4 ??C (97.5 ??F) 06/19/2020 1:00 PM CDT Respiratory Rate 16 06/19/2020 1:45 PM CDT Oxygen Saturation 96% 06/19/2020 1:45 PM CDT Inhaled Oxygen Concentration - - Weight 94.8 kg (209 lb 1.6 oz) 06/19/2020 9:04 AM CDT Height 177.8 cm (5' 10) 06/19/2020 9:04 AM CDT Body Mass Index 30 06/19/2020 9:04 AM CDT Plan of Treatment Health Maintenance Due Date Last Done Comments ADVANCE CARE PLANNING 1955 ANNUAL REVIEW OF HM ORDERS [address] CT COLONOGRAPHY 1955 FIT-DNA (Cologuard) 1955 FIT 1955 FLEX SIG 1955 COVID-19 Vaccine (#1) 1955 COLONOSCOPY 1963 COLORECTAL CANCER SCREENING 1963 HEPATITIS C SCREENING 1971 LIPID 1988 LUNG CANCER SCREENING 2003 ZOSTER IMMUNIZATION (1 of 2) 2003 AORTIC ANEURYSM SCREENING 2018 (SYSTEM ASSIGNED) FALL RISK ASSESSMENT 2018 MEDICARE ANNUAL WELLNESS 2018 VISIT DTAP/TDAP/TD IMMUNIZATION (2 02/12/2020 02/11/2010 - Td or Tdap) PHQ-2 (once per calendar 08/30/2021 year) INFLUENZA VACCINE (#1) 2022 05/12/2013, 09/08/2012, 07/27/2011 Pneumococcal Vaccine: 65+ Completed 08/21/2019, Years 06/23/2018 IPV IMMUNIZATION Aged Out No longer eligi ble based on patient's age to complete this to pic MENINGITIS IMMUNIZATION Aged Out No longe r eligible based on patient's age to complete this to pic Medical Devices Implanted Type Area Hog Dropper Device Shelf Model / Identifier Expiration Serial / Date Lot Stent Ureteral Contour Soft Percuflex [id number] Stent Left: DIMAS TON 04/05/2023 [id number] / Implanted: Qty: 1 on 06/19/2020 by Bala Cordero MD at [facility] [employer] / [id number] Insurance Payer Benefit Plan / Subscriber ID Effective Dates Phone Addre ss Type Group BCBS BCBS OUT OF [id number] 2019-Present [phone] [address] [address] [place] [address] Care Teams Teaching Assistant Relationship Specialty Start Date End Date Dmitri Silverio PCP - General Family Practice 06/10/20 [facility] [place] [address] [place] [address]
--- OUTSIDE RECORDS SUMMARY | 2022-08-13 07:42 | XMS_ITS | Encounter Summary ---
:1955 Author Organization [facility] Address [address] [place] [address]. [place] [address] Care Team Providers Name Role Phone Dmitri Silverio Primary Care Provider Reason for Visit Auth/Cert Specialty Diagnoses / Procedures Referred By Contact Refer red To Contact Surgery Diagnoses Bladder cancer (H) Bladder cancer (H) [C67.9] Sh Periop Services Procedures HC CYSTOSCOPY,INSERT URETERAL STENT HC CYSTOURETHROSCOPY W/ URETEROSCOPY &/OR PYELOSCOPY, DIAGNOSTIC HC UROGRAPHY, RETROGRADE W/WO KUB CYSTOSCOPY, LEFT URETEROSCOPY, POSSIBLE BIOPSY AND LEFT STENT INSERTION [address] [place] [address] Phone: Referral ID Status Reason Start Date Expiration Date Visits Requ ested Visits Authorized [id number] 1 1 Encounter Details Date Type Department Care Team Description 06/19/2020 Anesthesia Event [facility] Jaiver Aldridge [place] [facility] jarred [facility] [address] [place] [address] [facility] [place] [phone] [phone] [place] [address] Anesthesia Record Procedure Summary Procedure Name Responsible Anesthesia Start Anesthesia Stop Time Anesthesiologist Time CYSTOSCOPY, LEFT Javier Aldridge MD 06/19/20 1045 06/19/20 1211 URETEROSCOPY, LEFT RETROGRADE, LEFT KIDNEY BIOPSY, LEFT STENT INSERTION, BILATERAL URETERAL WASHINGS (Left: Urethra) Events Date Time Event Comment 06/19/2020 1020 1045 An Start 1045 An Start Data 1053 MD Present 1053 An Induction 1056 MD Present 1056 An LMA 1106 AN INCISION 1156 MD Present 1205 LMA Removed 1206 an stop data 1211 An Stop Electronically s igned by Rosalio J. Kraska, PERFORMANCE MANAGER [employer]DER on June 19, 2020 12:11 PM Name Total dexamethasone 4mg/mL 4 mg fentaNYL (SUBLIMAZE) injection 100 mcg lidocaine 2% 100 mg midazolam 1mg/mL 2 mg ondansetron 2mg/mL 4 mg propofol (DIPRIVAN) injection 10 mg/mL vial 200 mg ciprofloxacin (CIPRO) infusion 400 mg 400 mg Provider ordered ALTERNATE pre op antibiotic. 1 each LR 600 mL Agents Name NO HELIOX O2 N2O Air Exp Sevoflurane Exp Isoflurane Exp Desflurane Exp N2O O2 Delivery Device Ins Sevoflurane Ins Isoflurane Ins Desflurane O2 Auxiliary Blood No blood administrations on file. Lines, Drains, and Airways Type Details Placement Removal Peripheral IV 06/19/20; 0931; 20 G; 06/19/20 0931 by 06/19/20 1344 by Left; Hand; Brittany Shields RN Goldsby, Marilyn, RN Chlorhexidine; Injectable; Tolerated well Supraglottic Airway Placement Date: 06/19/20 1056 by 06/19/20 12 05 by 06/19/20; Placement Rosalio Miranda Kraska, E rik John, Time: 1056; Airway PERFORMANCE MANAGER [employer] DISPLAY BUILDER PERFORMANCE MANAGER [employer] DISPLAY BUILDER Type: Standard LMA; Mask Ventilation: 0; LMA Size: 5; Airway Brand: Classic; Attempts: 1 documented in this encounter Social History Tobacco Use Types Packs/Day Years Used Date Smoking Tobacco: Former Cigarettes Smokeless Tobacco: Never Comments: 1 cigarettes every couple of m [facility] Alcohol Use Standard Drinks/Week Comments Yes 0 (1 standard drink = 0.6 oz pure alcoho l) 3 per night wine Sex Assigned at Date Recorded Not on file COVID-19 Exposure Response Date Recorded In the last month, have you been in contact with No / Unsure 06/19/2020 8:30 AM CDT someone who was confirmed or suspected to have Coronavirus / COVID-19? documented as of this encounter OR Notes Anesthesia Postprocedure Evaluation - Javier Aldridge MD - 06/19/2020 1:30 PM CDT Patient: Reza Rincon Procedure(s): CYSTOSCOPY, LEFT URETEROSCOPY, LEFT RETROGRADE, LEFT KIDNEY BIOPSY, LEFT STENT INSERTION, BILATERAL URETERAL WASHINGS Biopsy kidney Diagnosis:Bladder cancer (H) [C67.9] Diagnosis Additional Information: No value filed. Anesthesia Type: General Note: Anesthesia Post Evaluation Patient location during evaluation: Bedside Patient participation: Able to fully participate in evaluation Level of consciousness: awake and alert Pain management: adequate Airway patency: patent Cardiovascular status: acceptable Respiratory status: acceptable Hydration status: acceptable PONV: none Last vitals: Vitals: 06/19/20 1230 06/19/20 1245 06/19/20 1300 BP: 139/85 (!) 141/82 (!) 145/83 Pulse: 59 56 57 Resp: 25 10 15 Temp: 36.6 ??C (97.9 ??F) 36.4 ??C (97.5 ??F) 36.4 ??C (97.5 ??F) SpO2: 93% 92% 93% Electronically Signed By: Javier Aldridge MD June 19, 2020 1:30 PM Anesthesia Preprocedure Evaluation - Javier Aldridge MD - 06/19/2020 7:45 AM CDT Anesthesia Pre-Procedure Evaluation Patient: Reza Rincon : 1955 Preoperative Diagnosis: Bladder cancer (H) [C67.9] Procedure(s): CYSTOSCOPY, LEFT URETEROSCOPY, POSSIBLE BIOPSY AND LEFT STENT INSERTION Past Medical History: Diagnosis Date ??? Bladder cancer (H) ??? Colon polyps ??? Erectile dysfunction ??? Hyperlipidemia ??? Irritation of left eye ??? Obese ??? Sleep apnea ??? White coat syndrome without hypertension Past Surgical History: Procedure Laterality Date ??? APPENDECTOMY ??? GENITOURINARY SURGERY vasectomy Anesthesia Evaluation . ROS/MED HX ENT/Pulmonary: (+)sleep apnea, tobacco use, Past use uses CPAP , . . (-) asthma and COPD Neurologic: (-) seizures, CVA and TIA Cardiovascular: (+) Dyslipidemia, hypertension----. : . . . :. . (-) CAD, CHF and arrhythmias METS/Exercise Tolerance: Hematologic: Musculoskeletal: GI/Hepatic: (-) GERD Renal/Genitourinary: (-) renal disease Endo: Comment: BMI 30 (+) Obesity, . (-) Type I DM and Type II DM Psychiatric: Infectious Disease: Malignancy: (+) Malignancy History of Other Other CA Bladder status post Other: Physical Exam Normal systems: dental Airway Mallampati: II TM distance: >3 FB Neck ROM: full Dental Cardiovascular Rhythm and rate: regular Pulmonary breath sounds clear to auscultation No results found for: WBC, HGB, HCT, PLT, CRP, SED, NA, POTASSIUM, CHLORIDE, CO2, BUN, CR, GLC, TAY,PHOS, MAG, ALBUMIN, PROTTOTAL, ALT, AST, GGT, ALKPHOS, BILITOTAL, BILIDIRECT, LIPASE, AMYLASE, RO[place]IE, PTT, INR, FIBR, TSH, T4, T3, HCG, HCGS, CKTOTAL, CKMB, TROPN Preop Vitals BP Readings from Last 3 Encounters: No data found for BP Pulse Readings from Last 3 Encounters: No data found for Pulse Resp Readings from Last 3 Encounters: No data found for Resp SpO2 Readings from Last 3 Encounters: No data found for SpO2 Temp Readings from Last 1 Encounters: No data found for Temp Ht Readings from Last 1 Encounters: No data found for Ht Wt Readings from Last 1 Encounters: No data found for Wt There is no height or weight on file to calculate BMI. Anesthesia Plan History & Physical Review History and physical reviewed and following examination; no interval change. ASA Status: 2 . NPO Status: > 8 hours Plan for General (LMA) with Intravenous and Propofol induction. Maintenance will be Balanced. PONV prophylaxis: Ondansetron (or other 5HT-3) and Dexamethasone or Solumedrol Postoperative Care Postoperative pain management: Multi-modal analgesia. Consents Anesthetic plan, risks, benefits and alternatives discussed with: Patient.. Javier Aldridge MD documented in this encounter Miscellaneous Notes Anesthesia Care Transfer Note - Rosalio Miranda APRN [employer]ILDER - 06/19/2020 12:10 PM CDT Patient: Reza Rincon Procedure(s): CYSTOSCOPY, LEFT URETEROSCOPY, LEFT RETROGRADE, LEFT KIDNEY BIOPSY, LEFT STENT INSERTION, BILATERAL URETERAL WASHINGS Biopsy kidney Diagnosis: Bladder cancer (H) [C67.9] Diagnosis Additional Information: No value filed. Anesthesia Type: General Note: Airway :Face Mask Patient transferred to:PACU Comments: At end of procedure, spontaneous respirations, adequate tidal volumes, followed commands to voice, LMA removed atraumatically, oropharynx suctioned, airway patent after LMA removal. Oxygen via facemask at 10 liters per minute to PACU. Oxygen tubing connected to wall O2 in PACU, SpO2, NiBP, and EKG monitors and alarms on and functioning, Meidna Hugger warmer connected to patient gown, report on patient's clinical status given to COOK JELLY, RN questions answered.Handoff Report: Identifed the Patient, Identified the Reponsible Provider, Reviewed the pertinent medical history, Discussed the surgical course, Reviewed Intra-OP anesthesia mangement and issues during anesthesia, Set expectations forpost-procedure period and Allowed opportunity for questions and acknowledgement of understanding Vitals: (Last set prior to Anesthesia Care Transfer) SCI[employer]ENTER DISPLAY BUILDER VITALS 06/19/2020 1136 - 06/19/2020 1210 06/19/2020 Resp Rate (observed): 16 EKG: Sinus rhythm Electronically Signed By: Rosalio Miranda APRN CRNA June 19, 2020 12:10 PM documented in this encounter Plan of Treatment Not on filedocumented as of this encounter Visit Diagnoses Not on filedocumented in this encounter Administered Medications Inactive Administered Medications - up to 3 most recent administrations Medication Order MAR Action Action Date Dose Rate Site ciprofloxacin (CIPRO) infusion Given 06/19/2020 10:59 AM CDT 400 mg 400 mg Routine, 400 mg, Intravenous, ONCE, On Wed06/19/20 at 0900, For 1 dose, Irritant., Indications: Perioperative Pharmacoprophylaxis, Pre-procedure dexamethasone (DECADRON) injection Given 06/19/2020 10:59 AM CDT 4 mg PRN, Administer over 1 Minutes, Starting on Wed06/19/20 at 1059, Anesthesia Intra-op fentaNYL (PF) (SUBLIMAZE) injection Given 06/19/2020 11:19 AM CDT 50 mcg PRN, Administer over 3-5 Minutes, Starting on Wed06/19/20 at 1054, Anesthesia Intra-op Given 06/19/2020 10:54 AM CDT 50 mcg lactated ringers infusion New Bag 06/19/2020 10:45 AM CDT Intravenous, CONTINUOUS PRN, Anesthesia Intra-op, Starting on Wed06/19/20 at 1045, Until Wed06/19/20 at 1211 lidocaine 2% injection (MDV) Given 06/19/2020 10:54 AM CDT 100 mg PRN, Starting on Wed06/19/20 at 1054, Anesthesia Intra-op midazolam (VERSED) injection Given 06/19/2020 10:46 AM CDT 2 mg Administer over 2 Minutes, PRN, Starting on Wed06/19/20 at 1046, Anesthesia Intra-op ondansetron (ZOFRAN) injection Given 06/19/2020 10:59 AM CDT 4 mg PRN, Administer over 2-5 Minutes, Starting on Wed06/19/20 at 1059, Anesthesia Intra-op propofol (DIPRIVAN) injection 10 mg/mL v ial Given 06/19/2020 10:54 AM CDT 200 mg PRN, Starting on Wed06/19/20 at 1054, Anesthesia Intra-op Provider ordered ALTERNATE pre op Given 06/19/2020 10:59 AM CDT 1 each antibiotic. CONTINUOUS, Starting on Wed06/19/20 at 0900, Until Wed06/19/20 at 1209, Pre-procedure documented in this encounter Care Teams Medical Administrative Relationship Specialty Start Date End Date Dmitri Silverio PCP - General Family Practice 06/10/[address] [address] documented as of this encounter
--- OUTSIDE RECORDS SUMMARY | 2022-08-13 07:42 | XMS_ITS | Encounter Summary ---
:1955 Author Organization [facility] Address [address] [place] [address]. [place] [address] Care Team Providers Name Role Phone Dmitri Silverio Primary Care Provider Encounter Details Date Type Department Care Team Description 06/19/2020 Travel Social History Tobacco Use Types Packs/Day Years Used Date Smoking Tobacco: Former Cigarettes Smokeless Tobacco: Never Comments: 1 cigarettes [facility] of [facility] Alcohol Use Standard Drinks/Week Comments Yes [...] / COVID-19? documented as of this encounter Plan of Treatment Not on filedocumented as of this encounter Visit Diagnoses Not on filedocumented in this encounter Care Teams Technical Recruiter Relationship Specialty Start Date End Date Dmitri Silverio PCP - General Family Practice 06/10/[address] [address] documented as of this encounter
--- OUTSIDE RECORDS SUMMARY | 2022-08-13 07:43 | XMS_ITS | Encounter Summary ---
:1955 Author Organization [facility] Address [address] [place] [address] Care Team Providers Name Role Phone Dmitri Silverio Primary Care Provider Reason for Visit Auth/Cert Specialty Diagnoses / Procedures Referred By Contact Refer red To Contact Surgery Diagnoses Bladder cancer (H) Bladder cancer (H) [C67.9] Periop Services Procedures HC CYSTOSCOPY,INSERT URETERAL STENT HC CYSTOURETHROSCOPY W/ URETEROSCOPY &/OR PYELOSCOPY, DIAGNOSTIC HC UROGRAPHY, RETROGRADE W/WO KUB CYSTOSCOPY, LEFT URETEROSCOPY, POSSIBLE BIOPSY AND LEFT STENT INSERTION [address] [place] [address] Phone: Referral ID Status Reason Start Date Expiration Date Visits Requ ested Visits Authorized [id number] 1 1 Encounter Details Date Type Department Care Team Description 06/19/2020 Surgery [facility] Bala Curry CYSTOSCOPY , LEFT [facility] PeriOP MD Evin URETEROSCOPY, LEFT Services [facility] RETROGRADE, LEFT KIDNEY [address] BIOPSY, LEFT STENT [address] [place] [address] INSERTION, BILATERAL [place] [address] URETERAL WASHINGS [phone] Surgery Details Date/Time Status Location OR Service Patient Case Class Case Tr auma Class Type Case? 06/19/20 10:55 Posted [facility] OR [facility] Urology Same Day AM Surgery Panel 1 Procedure LRB Anes Op Region Wound Class Commen ts CYSTOSCOPY, LEFT URETEROSCOPY, Left General Urethra II-Cl tg Contaminated LEFT RETROGRADE, LEFT KIDNEY BIOPSY, LEFT STENT INSERTION, BILATERAL URETERAL WASHINGS Biopsy kidney Kidney II-Clean Contaminated Surgeon Surgeon Role Service Panel Bala Curry MD Primary Urology 1 Special Needs DIGITAL FLEXIBLE URETEROSCOPELeft latera lity confirmed documented in this encounter Social History Tobacco Use Types Packs/Day Years Used Date Smoking Tobacco: Former Cigarettes Smokeless Tobacco: Never Comments: 1 cigarettes every couple of m [facility] Alcohol Use Standard Drinks/Week Comments Yes 0 [...] / COVID-19? documented as of this encounter Last Filed Vital Signs Vital Sign Reading Time Taken Comments Blood Pressure 141/90 06/19/2020 12:15 PM CDT Pulse 61 06/19/2020 12:15 PM CDT Temperature 36.6 ??C (97.9 ??F) 06/19/2020 12:15 PM CDT Respiratory Rate 14 06/19/2020 12:15 PM CDT Oxygen Saturation 98% 06/19/2020 12:15 PM CDT Inhaled Oxygen Concentration - - Weight 94.8 kg (209 lb 1.6 oz) 06/19/2020 9:04 AM CDT Height 177.8 cm (5' 10) 06/19/2020 9:04 AM CDT Body Mass Index 30 06/19/2020 9:04 AM CDT documented in this encounter Discharge Instructions Discharge InstructionsJuan Muro RN - 06/19/2020 12:05 PM CDT Today you were given 975 mg of Tylenol at 9:49am. The recommended daily maximum dose is 4000 mg. Same Day Surgery Discharge Instructions for Sedation and General Anesthesia ?? It's not unusual to feel dizzy, light-headed or faint for up to 24 hours after surgery or while taking pain medication. If you have these symptoms: sit for a few minutes before standing and have someone assist you when you get up to walk or use the bathroom. ?? You should rest and relax for the next 24 hours. We recommend you make arrangements to have an adult stay with you for at least 24 hours after your discharge. Avoid hazardous and strenuous activity. ?? DO NOT DRIVE any vehicle or operate mechanical equipment for 24 hours following the end of your surgery. Even though you may feel normal, your reactions may be affected by the medication you have received. ?? Do not drink alcoholic beverages for 24 hours following surgery. ?? Slowly progress to your regular diet as you feel able. It's not unusual to feel nauseated and/or vomit after receiving anesthesia. If you develop these symptoms, drink clear liquids (apple juice, aura carri, broth, 7-up, etc. ) until you feel better. If your nausea and vomiting persists for 24 hours, please notify your surgeon. ?? All narcotic pain medications, along with inactivity and anesthesia, can cause constipation. Drinking plenty of liquids and increasing fiber intake will help. ?? For any questions of a medical nature, call your surgeon. ?? Do not make important decisions for 24 hours. ?? If you had general anesthesia, you may have a sore throat for a couple of days related to the breathing tube used during surgery. You may use Cepacol lozenges to help with this discomfort. If it worsens or if you develop a fever, contact your surgeon. ?? If you feel your pain is not well managed with the pain medications prescribed by your surgeon, please contact your surgeon's office to let them know so they can address your concerns. CoVid 19 Information We want to give you information regarding Covid. Please consult your primary care provider with any questions you might have. Patient who have symptoms (cough, fever, or shortness of breath), need to isolate for 7 days from when symptoms started OR 72 hours after fever resolves (without fever reducing medications) AND improvement of respiratory symptoms (whichever is longer). ?? Isolate yourself at home (in own room/own bathroom if possible) ?? Do Not allow any visitors ?? Do Not go to work or school ?? Do Not go to orthodoxy, children's choir director centers, shopping, or other public places. ?? Do Not shake hands. ?? Avoid close and intimate contact with others (hugging, kissing). ?? Follow CDC recommendations for household cleaning of frequently touched services. After the initial 7 days, continue to isolate yourself from household members as much as possible. To continue decrease the risk of community spread and exposure, you and any members of your household should limit activities in public for 14 days after starting home isolation. You can reference the following CDC link for helpful home isolation/care tips: https://www.cdc.gov/coronavirus/2019-ncov/downloads/10Things.pdf Protect Others: ?? Cover Your Mouth and Nose with a mask, disposable tissue or wash cloth to avoid spreading germs to others. ?? Wash your hands and face frequently with soap and water Call Your Primary Doctor If: Breathing difficulty develops or you become worse. For more information about COVID19 and options for caring for yourself at home, please visit the CDCwebsite at https://www.cdc.gov/coronavirus/2019-ncov/about/luvyi-nqsu-news.html For more options for care at [facility], please visit our website at [email or web address] Because you had anesthesia today and your history of sleep apnea, it is extremely important that you use your CPAP machine for the next 24 hours while napping or sleeping. Cystoscopy and Stent Placement Discharge Instructions During surgery, a stent was placed in the ureter. The ureter is the tube that drains urine from the kidney to the bladder. The stent is placed to dilate (open) the ureter so the stone fragments can pass easily through the ureter or to decrease ureteral swelling after surgery, or to relieve an obstruction. The stent is made of rubber. The upper end of the stent curls in the kidney while the lower end rests in the bladder Diet: ??? Return to the diet that you were on before the procedure, unless you are given specific diet instructions. ??? It is important to drink 6-8 glasses of fluids per day at home - at least 3- 4 glasses should be water. Activity: ??? Walk short distances and increase as your strength allows. ??? You may climb stairs. ??? Do not do strenuous exercise or heavy lifting until approved by surgeon. ??? Do not drive while taking narcotic pain medications. Bathing: ??? You may take a shower. While the stent is in place you may experience the following symptoms: ??? Blood and/or small blood clots in urine. ??? Bladder spasm (frequency and urgency of urination). ??? Discomfort or aching in the back or side where the stent is. ??? Burning or discomfort at the end of urine stream. To decrease these symptoms you should: ??? Take pain medication as prescribed. ??? Drink plenty of fluids. ??? If you experience pain at the end of urination try not emptying your bladder completely. ??? If having discomfort in back or side, decrease activity. Call your physician if these signs/symptoms are present: ??? Pain that is not relieved by a short rest or ordered pain medications. ??? Temperature at or above 101.0??F or chills. ??? Inability or difficulty urinating. ??? Excessive blood in urine. ??? Any questions or concerns. If you have questions or concerns about your procedure, call Dr. Curry at [phone] documented in this encounter Medications at Time of Discharge Medication Sig Dispensed Refills Start Date End Date amLODIPine (NORVASC) 10 MG Take 10 mg by mouth 0 tablet daily chlorthalidone (HYGROTON) Take 25 mg by mouth 0 25 MG tablet daily HYDROcodone-acetaminophen Take 1-2 tablets by 15 tablet 0 1 (NORCO) 5-325 MG mouth every 6 hours tabletIndications: as needed for Post-operative state moderate to severe pain ibuprofen (ADVIL/MOTRIN) Take 400 mg by 0 200 MG tablet mouth 2 times daily as needed for mild pain POTASSIUM CHLORIDE PO Take 10 mEq by 0 mouth daily simvastatin (ZOCOR) 20 MG Take 20 mg by mouth 0 tablet At Bedtime tadalafil (CIALIS) 10 MG Take 10 mg by mouth 0 tablet daily as needed cefuroxime (CEFTIN) 500 MG Take 1 tablet (500 6 tablet 0 1 06/22/2020 tabletIndications: mg) by mouth 2 Post-operative state times daily for 3 days documented as of this encounter Nursing Notes Juan Muro, SURENDRA - 06/19/2020 1:01 PM CDT PNDS met, po per I&O sheet. Pt dressed, up in recliner and transported to Phase 2. documented in this encounter Miscellaneous Notes Op Note - Bala Curry MD - 06/19/2020 12:18 PM CDT Procedure Date: 06/19/2020 PREOPERATIVE DIAGNOSES: Hematuria, left renal tumor. POSTOPERATIVE DIAGNOSES: Hematuria, left renal tumor. PROCEDURES: Cystoscopy, bilateral ureteral washings, left ureteroscopy with biopsy of renal tumor, left retrograde pyelogram, and left ureteral stent placement. SURGEON: Bala Curry MD ANESTHESIA: General. ESTIMATED BLOOD LOSS: 3 mL. SPECIMENS: Ureteral washings from right and left ureter sent for cytology. Biopsy of Left renal tumor sent to Pathology. FINDINGS: Narrowing in the distal Left ureter at the ureterovesical junction. Multiple polypoid tumors seen in the left kidney, renal pelvis and in the mid pole jaspal. INDICATIONS: The patient is a 65-year-old gentleman with history of bladder cancer (Ta high-grade superficial) treated with a bladder tumor resection on 08/03/2011. He had recurrences resected twice [id number]. He was treated with a 6- week course of BCG therapy completed in 07/2013. Recent cystoscopy on 04/29/2020 showed no tumors. Urine cytology showed high-grade urothelial carcinoma. A CT urogram was performed on 05/08/2020 which showed a 1.4 cm filling defect in the lower pole of the left kidney. 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 He presents today to undergo further evaluation of the mass seen on the CT urogram. The risks and benefits of surgery were discussed with the patient prior to surgery. DESCRIPTION PROCEDURE: The patient was brought to the operating room, placed in a supine position. After undergoing general anesthetic, he was placed in a low lithotomy position. His genitalia were prepped and draped in the usual sterile fashion. A 22-Trinidadian rigid cystoscope was inserted in the bladder. There were no urethral lesions or strictures. The prostate shows 1+ lateral enlargement. Inspection of bladder showed normal trigone. The right ureteral orifice was quite wide in appearance from prior resection. There were no tumors seen in the bladder. A 6-Trinidadian ureteral catheter was used to perform ureteral washings in both the right and left ureter. Normal saline was irrigated into the appropriate ureters and then drainage was collected through the ureteral catheter. These were sent off for cytology (Pathology). Next, the left ureteral orifice was identified and a 0.035 Sensor wire was passed up the left ureterunder fluoroscopic guidance. The cystoscope was removed. Attempts were made to pass a dual-lumen catheter without success. It met significant resistance at the left ureterovesical junction. Next, a left rigid ureteroscope was advanced up into the bladder under direct vision. Left orifice was identified and the ureteroscope was advanced up the area. It was quite narrow in the distal ureter, but the scope could be advanced roughly 3 cm up. This end showed a more dilated ureter. The AmplatzSuper Stiff wire was then passed through the ureteroscope up the left ureter into the kidney under fluoroscopic guidance. The ureteroscope was removed. The left ureter was then dilated from 6-Trinidadian upto 10-Trinidadian using sequential ureteral dilators. This was also done under fluoroscopic imaging. The 12-Trinidadian dilator would not advance over the wire. Next, the digital flexible ureteroscope was advanced over the Super Stiff wire into the kidney under fluoroscopic guidance. The super stiff was then removed. The kidney was explored. Multiple polypoid tumors involving the renal pelvis and the mid/lowerpole jaspal. These have appearance of a urothelial cell carcinoma. The Escape basket was used to snare part of the tissue of the tumor and extract it. This was sent off to Pathology. In the process of removing the ureteroscope, the Sensor wire was dislodged into the bladder. The cystoscope was again inserted in the bladder. The 6-Trinidadian ureteral catheter was used to advance the Sensor wire up the leftureter into the kidney. With contrast in there, there was some extravasation from the ureter. A second Sensor wire was advanced up the ureter through a 6-Trinidadian ureteral catheter. The second Sensor wire was then exchanged for a 0.035 Super Stiff wire. The cystoscope was removed. The flexible ureteroscope was advanced over the wire again into the kidney under fluoroscopic guidance. The cystoscope was then removed. The kidney was reexplored. No significant bleeding was seen from the biopsy site of thetumor. The entire left ureter was visualized. I do not see any perforations or injury to the ureter.It is narrow in the distal portion near the bladder. Contrast was injected into the kidney to note the renal pelvis location. The ureteroscope was removed. The cystoscope was again inserted in the bladder. A 6 Trinidadian x 26 cm Contour stent was then placed in the left ureter. The stent could be seen curled in the kidney and in the bladder. The patient's bladder was emptied. Cystoscope was removed. He was placed back in a supine position, awoken from anesthesia, and transferred to the recovery room in good condition. PLAN: Await biopsy results. I am sure it will show urothelial carcinoma. Ward treatment would be a left nephroureterectomy. We will discuss this at followup. BALA CURRY MD MT: YOEL Name: ANICETO RINCON Account: [id number] : 1955 Procedure Date: 06/19/2020 Document: [id number] cc: Dmitri Silverio MD [facility] Brief Op Note - Bala Curry MD - 06/19/2020 12:07 PM CDT [facility] Brief Operative Note Pre-operative diagnosis: Hematuria Post-operative diagnosis: Same Tumor in Left kidney Procedure: Procedure(s): CYSTOSCOPY, LEFT URETEROSCOPY, LEFT RETROGRADE, LEFT KIDNEY BIOPSY, LEFT STENT INSERTION, BILATERAL URETERAL WASHINGS Biopsy kidney Surgeon: BALA CURRY MD Flight Operations Coordinator(s): None Anesthesia: General endotracheal anesthesia Estimated blood loss: Less than 10 ml Total IV fluids: (See anesthesia record) Blood transfusion: No transfusion was given during surgery Total urine output: Not measured Drains: None Specimens: Bilateral ureteral washings - cytology Biopsy of Left renal pelvic mass Implants: 6 Fr x 26 cm stent in Left ureter Findings: Numerous polypoid tumors in Left kidney Complications: None Condition: Stable Comments: See dictated operative report for full details documented in this encounter Plan of Treatment Not on filedocumented as of this encounter Procedures Procedure Name Priority Date/Time Associated Diagnosis Comme nts XR SURGERY ANTHONY Routine 06/19/2020 12:07 PM Resul ts for this FLUORO LESS THAN 5 CDT procedure are in MIN W STILLS the results section. SURGICAL PATHOLOGY Routine 06/19/2020 11:36 AM Re sults for this EXAM CDT procedure are i n the results section. CYTOLOGY NON SCRAPER MEAT Routine 06/19/2020 11:12 AM Resu lts for this CDT procedure are i n the results section. CYTOLOGY NON SCRAPER MEAT Routine 06/19/2020 11:10 AM Resu lts for this CDT procedure are i n the results section. BIOPSY, KIDNEY 06/19/2020 10:35 AM Bladder cancer (H) CDT Special Needs DIGITAL FLEXIBLE URETEROSCOP ELeft laterality confirmed CYSTOURETEROSCOPY, WITH RETROGRADE 06/19/2020 10:35 AM CDT Bladder cancer (H) PYELOGRAM AND STENT INSERTION Special Needs DIGITAL FLEXIBLE URETEROSCOP ELeft laterality confirmed LAB RESULT - HIM SCAN 06/14/2020 12:00 AM CDT LAB RESULT - HIM SCAN 06/11/2020 12:00 AM CDT documented in this encounter Results XR Surgery ANTHONY L/T 5 Min Fluoro w Stills (06/19/2020 12:07 PM CDT) Anatomical Region Laterality Modality Abdomen/Pelvis Radio Fluoroscopy Specimen (Source) Anatomical Location Collection Method / Collectio n Time Received Time / Laterality Volume Impressions 06/19/2020 1:21 PM CDT IMPRESSION: Five images during cystoscopy with retrograde opacification of the left ureter and sav al collecting system with subsequent retrograde stent placement. T here appears to be extravasation from the proximal location of the left ureteropelvic junction. Correlate with operative repor t. NORMA STERN MD Narrative 06/19/2020 1:21 PM CDT SURGERY C-ARM FLUORO LESS THAN 5 MIN W STILLS June 19, 2020 12:07 PM HISTORY: Bladder cancer. Fluoro time 44 seconds five images. COMPARISON: None. NUMBER OF IMAGES ACQUIRED: Five. VIEWS: AP. FLUOROSCOPY TIME: .8 Procedure Note Norma Stern MD - 06/19/2020Forma tting of this note might be different from the original. SURGERY C-ARM FLUORO LESS THAN 5 MIN W S TILLS June 19, 2020 12:07 PM HISTORY: Bladder cancer. Fluoro time 44 seconds five images. COMPARISON: None. NUMBER OF IMAGES ACQUIRED: Five. VIEWS: AP. FLUOROSCOPY TIME: .8 IMPRESSION: Five images during cystoscop y with retrograde opacification of the left ureter and sav al collecting system with subsequent retrograde stent placement. T here appears to be extravasation from the proximal location of the left ureteropelvic junction. Correlate with operative repor tTiti STERN MD Bala Curry MD IMG DIAGNOSTIC IMAGING ORDER BETHANY Surgical pathology exam (06/19/2020 11:36 AM CDT) Component Value Ref Test Analysis Performed At [facility] Range Method Time Signature Copath Report Patient Name: ANICETO RINCON MR#: [id number] Specimen #: [id number] Collected: 06/19/2020 Received: 06/19/2020 Reported: 06/20/2020 15:05 Ordering Phy(s): BALA CURRY For improved result formatting, select 'View Enhanced Report Format' under Linked Documents section. SPECIMEN(S): Left kidney tumor FINAL DIAGNOSIS: Kidney, left, biopsy: -High-grade, papillary pattern, urothelial carcinoma, noninv asive in tissue sample, multiple levels examined microscopically -Sample shows subepithelial connective tissue but no muscle Electronically signed out by: Mitzy Aquino M.D. CLINICAL HISTORY: Bladder cancer. ??Per surgical note as high grade and init ially resected in July 2011 with two subsequent resections in 2012. Recently, a 1.4 cm filling defect was id entified in the lower pole of the left kidney. GROSS: The specimen is received in formalin, labeled with the patie nt's name and date of , and designated left kidney tumor. It consists of a 0.4 cm pink-red soft tissue fragment. Entirely submitted in one cassette. (Dictated by: LOKI Begum([facility])CM 06/19/2020 02:03 PM ) MICROSCOPIC: A formal microscopic examination has been performed. The technical component of this testing was completed at the [facility], with the professional compo nent performed at the [facility], [address] [place] [address] ??[phone] ([phone]) CPT Codes: A: 68423-UE6 COLLECTION SITE: Client: [facility] Location: SHOR (S) Specimen (Source) Anatomical Collection Method Collection Time Re ceived Time Location / / Volume Laterality Tissue specimen LEFT KIDNEY 06/19/2020 11:36 (specimen) STRUCTURE / AM CDT Unknown [facility] Performing Organization Address City/State/ZIP Code Phon e Number [place] Cytology non urogynaecologist (06/19/2020 11:12 AM CDT) Component Value Ref Test Analysis Performed At [facility] gist Range Method Time Signature Copath Report Patient Name: ANICETO RINCON MR#: [id number] Specimen #: [id number] Collected: 06/19/2020 Received: 06/20/2020 Reported: 06/20/2020 15:22 Ordering Phy(s): BALA CURRY For improved result formatting, select 'View Enhanced Report Format' under Linked Documents section. SPECIMEN/STAIN PROCESS: Urinary tract, left ureteral wash , urine ? Pap-Cyto x 1 ---- CYTOLOGIC INTERPRETATION: Urinary tract, left ureteral wash , urine: ?? Atypical urot helial cells Specimen Adequacy: Satisfactory for evaluation. I have personally reviewed all specimens and/or slides, incl uding the listed special stains, and used them with my medical judgement to determine or confirm the final diagnosis. Electronically signed out by: Raheem Bradford M.D. CLINICAL HISTORY: , GROSS: Urinary tract, left ureteral wash , urine: ??Received 2 ml o f coloress,cloudy fluid, processed as 1 Pap stained Autocyte.. CPT Codes: A: 84378-[id number] COLLECTION SITE: Client: ??[facility] Location: ??[place] (S) The technical component of this testing was completed at the [facility], with the professional compo nent performed at the [facility], [address] [place] [phone] ) Specimen (Source) Anatomical Collection Method Collection Time Re ceived Time Location / / Volume Laterality Fluid specimen TOPOGRAPHY UNKNOWN 06/19/2020 11:12 (specimen) / Unknown AM CDT Bala Curry MD LAB - [facility] SPECIM EN Performing Organization Address City/State/ZIP Code Phon e Number BERTRAM Cytology non urogynaecologist (06/19/2020 11:10 AM CDT) Component Value Ref Test Analysis Performed At [facility] Range Method Time Signature Copath Report Patient Name: ANICETO RINCON MR#: [id number] Specimen #: [id number] Collected: 06/19/2020 Received: 06/20/2020 Reported: 06/20/2020 15:21 Ordering Phy(s): BALA CURRY For improved result formatting, select 'View Enhanced Report Format' under Linked Documents section. SPECIMEN/STAIN PROCESS: Urinary tract, right ureteral wash, urine ? Pap-Cyto x 1 ---- CYTOLOGIC INTERPRETATION: Urinary tract, right ureteral wash, urine: ?? Negative for High-Grade Urothelial Carcinoma Specimen Adequacy: Satisfactory for evaluation. I have personally reviewed all specimens and/or slides, incl uding the listed special stains, and used them with my medical judgement to determine or confirm the final diagnosis. Electronically signed out by: Raheem Bradford M.D. CLINICAL HISTORY: , GROSS: Urinary tract, right ureteral wash, urine: ??Received 2 ml o f colorless, cloudy fluid, processed as 1 Pap stained Autocyte.. CPT Codes: A: 11299-[id number] COLLECTION SITE: Client: ??[facility] Location: ??[place] (S) The technical component of this testing was completed at the [facility], with the professional compo nent performed at the [facility], [address] [place] [phone] ) Specimen (Source) Anatomical Collection Method Collection Time Re ceived Time Location / / Volume Laterality Fluid specimen TOPOGRAPHY UNKNOWN 06/19/2020 11:10 (specimen) / Unknown AM CDT Bala Curry MD LAB - [facility] SPEC[facility] EN Performing Organization Address City/State/ZIP Code Phon e Number [place] LAB RESULT - HIM SCAN (06/14/2020 12:00 AM CDT) Specimen (Source) Anatomical Location Collection Method / Collectio n Time Received Time / Laterality Volume 06/14/2020 Narrative This result has an attachment that is no t available. Provider Outside NON-BEAKER LAB TESTING LAB RESULT - HIM SCAN (06/11/2020 12:00 AM CDT) Specimen (Source) Anatomical Location Collection Method / Collectio n Time Received Time / Laterality Volume 06/11/2020 Narrative This result has an attachment that is no t available. Provider Outside NON-BEAKER LAB TESTING documented in this encounter Visit Diagnoses Diagnosis Post-operative state - Primary Other postprocedural status Bladder cancer (H) Malignant neoplasm of bladder, part unsp ecified documented in this encounter Administered Medications Inactive Administered Medications - up to 3 most recent administrations Medication Order MAR Action Action Date Dose Rate Site acetaminophen (TYLENOL) tablet 975 Given 06/19/2020 9:48 AM CDT 975 mg mg 975 mg, Oral, ONCE, On Wed06/19/20 at 0900, For 1 dose, Maximum acetaminophen dose from all sources = 75 mg/kg/day not to exceed 4 grams/day., Pre-procedure iopamidol (ISOVUE-300) IV solution 61% Given 06/19/2020 11:45 AM CDT 3 mLs PRN, Starting on Wed06/19/20 at 1145, Intra-procedure sodium chloride 0.9% Given 06/19/2020 11:21 AM 1,000 mLs Operative (bottle) irrigation CDT Site/Surgical S ite PRN, Starting on Wed06/19/20 at 1121, Intra-procedure sterile water (bottle) Given 06/19/2020 11:22 AM 3,000 mLs Operative irrigation CDT Site/Surgical S ite PRN, Intra-procedure, Starting on Wed06/19/20 at 1122, Until Wed06/19/20 at 1314 Given 06/19/2020 11:00 AM CDT 1,000 mLs Oper ative Site/Surgical Site documented in this encounter Active and Recently Administered Medications Times are shown in CDT. Scheduled Medication Order 06/17/2020 2020 06/19/2020 acetaminophen (TYLENOL) tablet 975 mg (COMPLETED) 0948 (Given - Provider: Brittany Shields RN) 975 mg, Oral, ONCE, Wed06/19/20 at 0900 , For 1 dose, Maximum acetaminophen dose from all sources = 75 mg/kg/day not to exceed 4 grams/day., Pre-procedure ciprofloxacin (CIPRO) infusion 400 mg (COMPLETED) 0948 (Handoff - Provider: Brittany Shields RN)1059 (Given - Provider: Rosalio Miranda APRN CRNA) Routine, 400 mg, Intravenous, ONCE, Wed06/19/20 at 0900, For 1 dose, Irritant., Indications: Perioperative Pharmacoprophylaxis, Pre-procedure HYDROcodone-acetaminophen (NORCO) 5-325 MG per tablet 1 tablet 1330 (Canceled Entry - Provider: Orders Generic Provider - Comment: Automatically canceled at discontinue of medication order) 1 tablet, Oral, ONCE, Wed06/19/20 at 13 30, For 1 dose, May administer ONCE as needed for pain control or improvement in physical function. Notify provider to assess for uncontrolled pain or??analgesic side effects. Maximum acetaminophen dose from all sources= 75 mg/kg/day not to exceed 4 grams, Post-procedure Continuous Medication Order 06/17/2020 2020 06/19/2020 Provider ordered ALTERNATE pre op antibiotic. (CANCELED) 1059 (Given - Provider: Rosalio Miranda APRN CRNA) CONTINUOUS, Starting Wed06/19/20 at 090 0, Until Wed06/19/20 at 1209, Pre-procedure PRN Medication Order 06/17/2020 2020 06/19/2020 iopamidol (ISOVUE-300) IV solution 61% (CANCELED) 1145 (Given - Provider: Bala Curry MD) PRN, Starting Wed06/19/20 at 1145, Intra-procedure opium-belladonna (B&O SUPPRETTES) 30-16.2 MG per suppository 1 s uppository 1 suppository, Rectal, ONCE PRN, Startin g Wed06/19/20 at 1317, For 1 dose, One time prior to discharge., moderate pain, Post-procedure sodium chloride 0.9% (bottle) irrigation (CANCELED) 1121 (Given - Provider: Bala Curry MD) PRN, Starting Wed06/19/20 at 1121, Intra-procedure sterile water (bottle) irrigation (CANCELED) 1100 (Given - Provider: Bala Curry MD - Comment: bottle)1122 (Given - Provider: Bala Curry MD - Comment: bag) PRN, Intra-procedure, Starting Wed06/19/20 at 1122, U ntil Wed06/19/20 at 1314 documented in this encounter Care Teams Electrolysis Operator Relationship Specialty Start Date End Date Dmitri Silverio PCP - General Family Practice 06/10/[address] [address] documented as of this encounter
--- OUTSIDE RECORDS SUMMARY | 2022-08-13 07:43 | XMS_ITS | Encounter Summary ---
:1955 Author Organization [facility] Address [address] [place] [address] Care Team Providers Name Role Phone Unavailable Primary Care Provider Unavailable Reason for Referral Radiation Therapy (Routine) - Closed Specialty Diagnoses / Procedures Referred By Contact Refer red To Contact Diagnoses Secondary Malignant Neoplasm Lymph Node (HCC) Matthias Purdy M.D. [facility] Procedures Management Visit [address] [place] [address] Referral ID Status Reason Start Date Expiration Date Visits Requ ested Visits Authorized [id number] Closed 07/16/2021 07/16/2022 10 10 ADMINISTRATOR Reason for Visit Radiation Therapy (Routine) - Closed Specialty Diagnoses / Procedures Referred By Contact Refer red To Contact Diagnoses Secondary Malignant Neoplasm Lymph Node (HCC) Matthias Purdy M.D. [facility] Procedures Management Visit [address] [place] [address] Referral ID Status Reason Start Date Expiration Date Visits Requ ested Visits Authorized [id number] Closed 07/16/2021 07/16/2022 10 10 Encounter Details Date Type Department Care Team Description 08/26/2021 Hospital Encounter Department of Maite Leung Malignant Radiation Oncology Lawrence Sawyer Neoplasm Lymph Node in [place], [address] [facility] ([facility]) [place], [place] [address] [facility] [address] [place], [place] [phone] (Work) [phone] Social History Tobacco Use Types Packs/Day Years Used Date Smoking Tobacco: Never Assessed Sex Assigned at Date Recorded Not on file documented as of this encounter Last Filed Vital Signs Vital Sign Reading Time Taken Comments Blood Pressure 136/86 08/26/2021 1:51 PM HOME ADMINISTRATOR Pulse 79 08/26/2021 1:51 PM HOME ADMINISTRATOR Temperature 35.9 ??C (96.7 ??F) 08/26/2021 1:51 PM HOME ADMINISTRATOR Respiratory Rate - - Oxygen Saturation - - Inhaled Oxygen Concentration - - Weight 93.4 kg (205 lb 14.6 oz) 08/26/2021 1:51 PM HOME ADMINISTRATOR Height - - Body Mass Index - - documented in this encounter Medications at Time of Discharge Medication Sig Dispensed Refills Start Date End Date amLODIPine (NORVASC) 10 amlodipine 10 mg tablet 0 12/18/2017 mg tablet TAKE 1 TABLET BY MOUTH DAILY chlorthalidone chlorthalidone 25 mg tablet 0 05/01 (HYGROTON) 25 mg tablet TAKE 1 TABLET BY MOUTH DAILY ibuprofen Take 400 mg by mouth. 0 (ADVIL,MOTRIN) 200 mg tablet lisinopriL Take 5 mg by mouth 0 07/30/2021 (PRINIVIL,ZESTRIL) 5 mg daily. tablet LORazepam (ATIVAN) 0.5 Every 4 Hours as 0 021 mg tablet needed for Nausea/Vomiting potassium chloride potassium chloride ER 10 mEq tablet,extended rel ease 0 02/27/2020 (KLORCON/K-TAB) 10 mEq TAKE 1 TABLET BY MOUTH DAILY ER tablet sennosides-docusate Senexon-S 8.6 mg-50 mg 0 07/01 sodium (Senexon-S) tablet 8.6-50 mg per tablet simvastatin (ZOCOR) 20 simvastatin 20 mg tablet 0 12/18/2019 mg tablet TAKE 1 TABLET BY MOUTH AT BEDTIME tadalafiL (CIALIS) 10 tadalafil 10 mg tablet 0 mg tablet ondansetron (ZOFRAN) 8 Take 1 tablet (8 mg 30 tablet 2 07/0107/21/2022 mg tablet total) by mouth every 8 (eight) hours as needed for nausea or vomiting. Take 45 minutes prior to daily radiation treatments to prevent nausea documented as of this encounter Progress Notes Maite Leung M.D. - 08/26/2021 1:45 PM CST ATTESTATION FOR MANAGEMENT VISIT I saw and evaluated the patient and participated in the jauregui portions of the service as noted below. I reviewed the documentation of Ms. Magui Kauffman RN and agree with the findings and plan. The patient appears well on exam. We will continue with radiation as planned and monitor weekly. Maite Leung M.D., 08/26/2021 SUBJECTIVE REASON FOR VISIT Evaluation for side effects while receiving radiation treatment for 1. Secondary Malignant Neoplasm Lymph Node (HCC) SUPERVISED BY: Dr. Leung HISTORY OF PRESENT ILLNESS Mr. Reza Rincon Jr. is a 66 y.o. male with margarita recurrence of urothelial carcinoma of the leftrenal pelvis. He is now undergoing intensity modulated radiotherapy. Weekly taxol and carbo are being administered under the care of Dr. Mcneill. Treatment Course: 1x Abdomen Plan ID Fractions Dose / Fraction (cGy) Dose Treated (cGy) Dose Planned (cGy) First Treatment Last Treatment Elapsed Days F1_Abdomen 225 [id number] 07/31/2021 08/26/2021 Course Summary 07/31/2021 08/26/2021 The patient was seen and examined today with Dr. Leung. The patient reports that he is doing well overall. He denies fevers, chills, vomiting, diarrhea, hematuria, rectal bleeding or changes in urination. Stools are looser. He has mild nausea and does have anti-emetics on hand. LABS August 07, 2021: WBC 3.42; Hgb 14.1; Plt 201,000; ANC 1.86 August 14, 2021: WBC 2.08; Hgb 14.1; Plt 127,000; ANC 1.28 PATIENT REPORTED SYMPTOM SCREEN FATIGUE (Scale: 0 = no fatigue; 10 = worst fatigue you can imagine): 5 PAIN (Scale: 0 = no pain; 10 = worst pain you can imagine): 0, lower back discomfort, abdomen gaseous bloating OVERALL QUALITY OF LIFE (Scale: 0 = as bad as can be; 10 = as good as can be): 6 OBJECTIVE BP 136/86 (BP Location: Right arm, Patient Position: Sitting, Cuff Size: Regular) Pulse 79 Temp (!) 35.9 ??C (Temporal) Wt 93.4 kg PHYSICAL EXAM General: Alert and oriented in no apparent distress. 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 He can continue to take Gas-X for gaseous bloating. We will review weekly labs from [facility]. He will contact us with any questions or concerns. We will continue with radiation treatment as planned. Signed by: Magui Kauffman R.N. 08/26/2021 2:09 PM HOME ADMINISTRATOR ADMINISTRATOR documented in this encounter Plan of Treatment Scheduled Orders Name Type Priority Associated Diagnoses Order S chedule Management Visit Radiation Oncology Routine Secondary Malignan t Once for 1 Neoplasm Lymph Node Occurren evelyn starting (HCC) 08/26/2021 unti l 08/26/2021 documented as of this encounter Visit Diagnoses Diagnosis Secondary Malignant Neoplasm Lymph Node (HCC) documented in this encounter
--- OUTSIDE RECORDS SUMMARY | 2022-08-13 07:43 | XMS_ITS | Encounter Summary ---
:1955 Author Organization [facility] Address [address] [place] [address] Care Team Providers Name Role Phone Unavailable Primary Care Provider Unavailable Reason for Visit Reason Comments Radiation Encounter Details Date Type Department Care Team Description 09/05/2021 Documentation Department of Radiation Matthias Purdy, [facility] [place] [address] [facility] [address] [place] [phone] (Wo rk) Social History Tobacco Use Types Packs/Day Years Used Date Smoking Tobacco: Never Assessed Sex Assigned at Date Recorded Not on file documented as of this encounter Miscellaneous Notes Radiation Completion Notes - Eugenia Alejo RLiliam - 09/05/2021 11:59 PM FILM PROCESS OPERATOR DIAGNOSIS: 1. Secondary Malignant Neoplasm Lymph Node (HCC) Attending Physician: Matthias Purdy M.D. ([phone]) Treatment Intent: Curative Concomitant Therapy: Chemotherapy Single Plan Treatment Course: 1x Abdomen Plan ID Fractions Dose / Fraction (cGy) Dose Treated (cGy) Dose Planned (cGy) First Treatment Last Treatment Elapsed Days F1_Abdomen 225 [id number] 07/31/2021 09/05/2021 36 Course Summary 07/31/2021 09/05/2021 36 Radiation Modality: Photons CLINICAL SUMMARY Mr. Reza Rincon Jr. completed radiation treatment as planned without interruptions. The course of treatment was tolerated well and with anticipated side effects. The patient experienced toxicitiesof grade 1 diarrhea, grade 1 anorexia, grade 1 fatigue, grade 1 nausea, and grade 1 abdominal pain. during radiation treatment. TREATMENT RESPONSE: Response to treatment will be determined by post-treatment imaging and/or laboratory work. RECOMMENDED FOLLOW UP: Primary Medical Oncologist. He has a follow-up 09/04/2021 with Kimberly Sorto CNP. He then has imaging and follow-up with Dr. Curry in early November. Signed by: Eugenia Alejo R.N., 09/18/2021 4:50 PM FILM PROCESS OPERATOR [facility] [address] [place] [address] PROCESS OPERATOR documented in this encounter Plan of Treatment Not on filedocumented as of this encounter Visit Diagnoses Not on filedocumented in this encounter
--- OUTSIDE RECORDS SUMMARY | 2022-08-13 07:43 | XMS_ITS | Encounter Summary ---
:1955 Author Organization [facility] Address [address] [place] [address] Care Team Providers Name Role Phone Unavailable Primary Care Provider Unavailable Reason for Visit Radiation Therapy (Routine) - Closed Specialty Diagnoses / Procedures Referred By Contact Refer red To Contact Radiation Oncology Diagnoses Secondary Malignant Neoplasm Lymph Node (HCC) Matthias Purdy McHs Rao Nfrt Procedures Prior Auth Rad Tx [place] [facility] [address] [place] [address] [address] [place] [phone] Referral ID Status Reason Start Date Expiration Date Visits Requ ested Visits Authorized [id number] Closed 07/16/2021 09/29/2021 25 25 Encounter Details Date Type Department Care Team Description 09/02/2021 Hospital Encounter Department of Radiation Roosevelt Pur[facility] [place] 200 [facility] 1 [place] [phone] Social History Tobacco Use Types Packs/Day Years Used Date Smoking Tobacco: Never Assessed Sex Assigned at Date Recorded Not on file documented as of this encounter Medications at Time of Discharge Medication Sig Dispensed Refills Start Date End Date amLODIPine (NORVASC) 10 amlodipine 10 mg tablet 0 12/18/2017 mg tablet TAKE 1 TABLET BY MOUTH DAILY chlorthalidone chlorthalidone 25 mg tablet 0 09/2 12/2018 (HYGROTON) 25 mg tablet TAKE 1 TABLET [...] prevent nausea documented as of this encounter Plan of Treatment Not on filedocumented as of this encounter Visit Diagnoses Not on filedocumented in this encounter
--- OUTSIDE RECORDS SUMMARY | 2022-08-13 07:43 | XMS_ITS | Encounter Summary ---
:1955 Author Organization [facility] Address [address] [place] [address] Care Team Providers Name Role Phone Unavailable Primary Care Provider Unavailable Reason for Visit Radiation Therapy (Routine) - Closed Specialty Diagnoses / Procedures Referred By Contact Refer red To Contact Radiation Oncology Diagnoses Secondary Malignant Neoplasm Lymph Node (HCC) Matthias Purdy McHs Rao Nfrt Procedures Prior Auth Rad Tx [place] [facility] [address] [place] [address] [address] [place] [phone] Referral ID Status Reason Start Date Expiration Date Visits Requ ested Visits Authorized [id number] Closed 07/16/2021 09/29/2021 25 25 Encounter Details Date Type Department Care Team Description 09/04/2021 Hospital Encounter Department of Radiation Roosevelt Pur[facility] [place] 200 [facility] 1 [place] [phone] Social History Tobacco Use Types Packs/Day Years [...]
--- OUTSIDE RECORDS SUMMARY | 2022-08-13 07:43 | XMS_ITS | Encounter Summary ---
:1955 Author Organization [facility] Address [address] [place] [address] Care Team Providers Name Role Phone Unavailable Primary Care Provider Unavailable Reason for Visit Radiation Therapy (Routine) - Closed Specialty Diagnoses / Procedures Referred By Contact Refer red To Contact Radiation Oncology Diagnoses Secondary Malignant Neoplasm Lymph Node (HCC) Matthias Purdy McHs Rao Nfrt Procedures Prior Auth Rad Tx [facility] [address] [place] [address] [address] [place] [phone] Referral ID Status Reason Start Date Expiration Date Visits Requ ested Visits Authorized [id number] Closed 07/16/2021 09/29/2021 25 25 Encounter Details Date Type Department Care Team Description 08/26/2021 Hospital Encounter Department of Radiation Roosevelt Purdy, [facility] [place] 200 [facility] 1 [place] [phone] Social History Tobacco Use Types Packs/Day Years [...]
--- OUTSIDE RECORDS SUMMARY | 2022-08-13 07:43 | XMS_ITS | Encounter Summary ---
:1955 Author Organization [facility] Address [address] [place] [address] Care Team Providers Name Role Phone Unavailable Primary Care Provider Unavailable Reason for Referral Radiation Therapy (Routine) - Closed Specialty Diagnoses / Procedures Referred By Contact Refer red To Contact Diagnoses Secondary Malignant Neoplasm Lymph Node (HCC) Matthias Purdy M.D. [facility] Procedures Management Visit [address] [place] [address] Referral ID Status Reason Start Date Expiration Date Visits Requ ested Visits Authorized [id number] Closed 07/16/2021 07/16/2022 10 10 YER HELPER Reason for Visit Radiation Therapy (Routine) - Closed Specialty Diagnoses / Procedures Referred By Contact Refer red To Contact Diagnoses Secondary Malignant Neoplasm Lymph Node (HCC) Matthias Purdy M.D. [facility] Procedures Management Visit [address] [place] [address] Referral ID Status Reason Start Date Expiration Date Visits Requ ested Visits Authorized [id number] Closed 07/16/2021 07/16/2022 10 10 Encounter Details Date Type Department Care Team Description 08/19/2021 Hospital Encounter Department of Matthias Purdy Malignant Radiation Oncology Lawrence Lemus Neoplasm Lymph Node in [place], [address] [facility] (H[facility]) [place], [place] [address] [facility] [address] [place], [place] [phone] (Work) [phone] Social History Tobacco Use Types Packs/Day Years Used Date Smoking Tobacco: Never Assessed Sex Assigned at Date Recorded Not on file documented as of this encounter Last Filed Vital Signs Vital Sign Reading Time Taken Comments Blood Pressure 122/74 08/19/2021 1:34 PM ASSAYER HELPER Pulse 74 08/19/2021 1:34 PM ASSAYER HELPER Temperature 36.9 ??C (98.4 ??F) 08/19/2021 1:34 PM ASSAYER HELPER Respiratory Rate - - Oxygen Saturation - - Inhaled Oxygen Concentration - - Weight 94.9 kg (209 lb 3.5 oz) 08/19/2021 1:34 PM ASSAYER HELPER Height - - Body Mass Index - [...] documented as of this encounter Progress Notes Matthias Purdy M.D. - 08/19/2021 1:30 PM CST SUBJECTIVE REASON FOR VISIT Evaluation for side effects while receiving radiation treatment for 1. Secondary Malignant Neoplasm Lymph Node (HCC) SUPERVISED BY: Dr. Purdy HISTORY OF PRESENT ILLNESS Mr. Reza Rincon [...] Treatment Last Treatment Elapsed Days F1_Abdomen 225 [id number] 07/31/2021 08/19/2021 19 Course Summary 07/31/2021 08/19/2021 19 The patient was seen and examined today with Dr. Purdy. The patient reports that he is doing well overall. He denies fevers, chills, vomiting or changes in urination. Diarrhea being well managed with diet modifications and Imodium AD. He has mild nausea anddoes have anti-emetics on hand. LABS August 07, 2021: WBC 3.42; Hgb 14.1; Plt 201,000; ANC 1.86 August 14, 2021: WBC 2.08; Hgb 14.1; Plt 127,000; ANC 1.28 PATIENT REPORTED SYMPTOM SCREEN FATIGUE (Scale: 0 = no fatigue; 10 = worst fatigue you can imagine): 5-6 PAIN (Scale: 0 = no pain; 10 = worst pain you can imagine): 3 OVERALL QUALITY OF LIFE (Scale: 0 = as bad as can be; 10 = as good as can be): 6 OBJECTIVE BP 122/74 (BP Location: Right arm, Patient Position: Sitting, Cuff Size: Small) Pulse 74 Temp 36.9 ??C (Temporal) Wt 94.9 kg PHYSICAL EXAM General: Alert and oriented in no apparent distress. 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 We will review weekly labs from [facility]. He will contact us with any questions or concerns. We will continue with radiation treatment as planned. Signed by: Magui Kauffman R.N. 08/19/2021 1:49 PM ASSAYER HELPER I saw and evaluated the patient and participated in the jauregui portions of the service. I reviewed the documentation of Magui Kauffman R.N. and agree with the findings and plan. The patient appears well onexam. He is tolerating treatment well. He will continue with treatment as planned. Signed by: Matthias Purdy M.D. 08/19/2021 5:39 PM ASSAYER HELPER [facility] [address] [place] [address] YER HELPER documented in this encounter Plan of Treatment Scheduled Orders Name Type Priority Associated Diagnoses Order S chedule Management Visit Radiation Oncology Routine Secondary Malignan t Once for 1 Neoplasm Lymph Node Occurren evelyn starting (HCC) 08/19/2021 unti l 08/19/2021 documented as of this encounter Visit Diagnoses Diagnosis Secondary Malignant Neoplasm Lymph Node (HCC) documented in this encounter
--- OUTSIDE RECORDS SUMMARY | 2022-08-13 07:43 | XMS_ITS | Encounter Summary ---
:1955 Author Organization [facility] Address [address] [place] [address] Care Team Providers Name Role Phone Unavailable Primary Care Provider Unavailable Reason for Visit Radiation Therapy (Routine) - Closed Specialty Diagnoses / Procedures Referred By Contact Refer red To Contact Radiation Oncology Diagnoses Secondary Malignant Neoplasm Lymph Node (HCC) Matthias Purdy McHs Rao Nfrt Procedures Prior Auth Rad [facility]x [place] [facility] [address] [place] [address] [address] [place] [phone] Referral ID Status Reason Start Date Expiration Date Visits Requ ested Visits Authorized [id number] Closed 07/16/2021 09/29/2021 25 25 Encounter Details Date Type Department Care Team Description 08/28/2021 Hospital Encounter Department of Radiation Roosevelt Purdy, [facility] [place] 200 [facility] 1 [place] [phone] Social History Tobacco Use Types Packs/Day Years [...]
--- OUTSIDE RECORDS SUMMARY | 2022-08-13 07:43 | XMS_ITS | Encounter Summary ---
:1955 Author Organization [facility] Address [address] [place] [address] Care Team Providers Name Role Phone Unavailable Primary Care Provider Unavailable Reason for Referral Radiation Therapy (Routine) - Closed Specialty Diagnoses / Procedures Referred By Contact Refer red To Contact Diagnoses Secondary Malignant Neoplasm Lymph Node (HCC) Matthias Purdy M.D. [facility] Procedures Management Visit [address] [place] [address] Referral ID Status Reason Start Date Expiration Date Visits Requ ested Visits Authorized [id number] Closed 07/16/2021 07/16/2022 10 10 SFORMATION CONSULTANT Reason for Visit Radiation Therapy (Routine) - Closed Specialty Diagnoses / Procedures Referred By Contact Refer red To Contact Diagnoses Secondary Malignant Neoplasm Lymph Node (HCC) Matthias Purdy M.D. [facility] Procedures Management Visit [address] [place] [address] Referral ID Status Reason Start Date Expiration Date Visits Requ ested Visits Authorized [id number] Closed 07/16/2021 07/16/2022 10 10 Encounter Details Date Type Department Care Team Description 08/12/2021 Hospital Encounter Department of Maite Leung Malignant Radiation Oncology Lawrence Sawyer Neoplasm Lymph Node in [place], [address] [facility] (HCC) [place], [place] [address] [facility] [address] [place], [place] [phone] [address] (Work) [phone] Social History Tobacco Use Types Packs/Day Years Used Date Smoking Tobacco: Never Assessed Sex Assigned at Date Recorded Not on file documented as of this encounter Last Filed Vital Signs Vital Sign Reading Time Taken Comments Blood Pressure - - Pulse - - Temperature 36.4 ??C (97.6 ??F) 08/12/2021 3:42 PM TRANSFORMATION CONSULTANT Respiratory Rate - - Oxygen Saturation - - Inhaled Oxygen Concentration - - Weight 96 kg (211 lb 10.3 oz) 08/12/2021 3:42 PM TRANSFORMATION CONSULTANT Height - - Body Mass Index - [...] encounter Progress Notes Maite Leung M.D. - 08/12/2021 3:30 PM CST ATTESTATION FOR MANAGEMENT VISIT I saw and evaluated the patient and participated in the jauregui portions of the service as noted below. I reviewed the documentation of Ms. Magui Kauffman RN and agree with the findings and plan. The patient appears well on exam. We will continue with radiation as planned and monitor weekly. Maite Leung M.D., 08/12/2021 SUBJECTIVE REASON FOR VISIT Evaluation for side [...] First Treatment Last Treatment Elapsed Days F1_Abdomen 2024 5625 07/31/2021 08/12/2021 12 Course Summary 07/31/2021 08/12/2021 12 The patient was seen and examined today with Dr. Leung. The patient reports that he is doing well overall. He denies fevers, chills, vomiting or changes in urination. Diarrhea being well managed with diet modifications. LABS August 07, 2021: WBC 3.42; Hgb 14.1; Plt 201,000; ANC 1.86 PATIENT REPORTED SYMPTOM SCREEN FATIGUE (Scale: 0 = no fatigue; 10 = worst fatigue you can imagine): a little PAIN (Scale: 0 = no pain; 10 = worst pain you can imagine): 0 OVERALL QUALITY OF LIFE (Scale: 0 = as bad as can be; 10 = as good as can be): 8 OBJECTIVE Temp 36.4 ??C (Temporal) Wt 96 kg PHYSICAL EXAM General: Alert and oriented in no apparent distress. ASSESSMENT / PLAN 1. 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 Stage III (rpT3, pNX, cM0) urothelial carcinoma of the left kidney/renal pelvis, status post margin negative nephrectomy on July 18, 2020 3. 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 Nicotine dependence with efforts at cessation 5. Intensity modulated radiotherapy to the para-aortic/common iliac lymph nodes initiated on July 31, 2021; anticipated completion on September 05, 2021 The patient is tolerating radiation treatment well overall. He will contact us with any questions orconcerns. We will continue with radiation treatment as planned. Signed by: Magui Kauffman R.N. 08/12/2021 3:54 PM TRANSFORMATION CONSULTANT SFORMATION CONSULTANT documented in this encounter Plan of Treatment Scheduled Orders Name Type Priority Associated Diagnoses Order S chedule Management Visit Radiation Oncology Routine Secondary Malignan t Once for 1 Neoplasm Lymph Node Occurren evelyn starting (HCC) 08/12/2021 unti l 08/12/2021 documented as of this encounter Visit Diagnoses Diagnosis Secondary Malignant Neoplasm Lymph Node (HCC) documented in this encounter
--- OUTSIDE RECORDS SUMMARY | 2022-08-13 07:43 | XMS_ITS | Encounter Summary ---
:1955 Author Organization [place] Address [address] [facility] [place] [address] Care Team Providers Name Role Phone Dmitri [...] URETEROSCOPY, POSSIBLE BIOPSY AND LEFT STENT INSERTION [address], [address] [place] [address] Phone: Referral ID Status Reason Start Date Expiration Date Visits Requ ested Visits Authorized [id number] 1 1 Encounter Details Date Type Department Care Team Description 06/19/[address] [facility] Bala Curry Post -operative [facility] Miladys Cleary MD (Primary Dx) PreOP/Phase II [place] [address], UROLOGY [address] [place] [address] S [phone] [place] [id number] Social History Tobacco Use Types Packs/Day Years Used Date Smoking Tobacco: Former Cigarettes Smokeless Tobacco: Never Comments: 1 cigarettes every couple of [facility] Alcohol Use Standard Drinks/Week Comments Yes [...] or school ?? Do Not go to [facility], child psychologist centers, shopping, or other public places. ?? [...] at home, please visit the CDCwebsite at https://www.cdc.gov/coronavirus/2019-ncov/about/zkbek-noqn-iyfy.html For more options for care at [facility], please visit our website at [email or web address] Because you had anesthesia today and your [...] about your procedure, call Dr. Curry at [phone] documented in this encounter Medications at Time [...] as of this encounter Nursing Notes Juan Muro RN - 06/19/2020 1:01 PM CDT PNDS met, po per I&O sheet. Pt dressed, up in recliner and transported to [facility] 2. documented in this encounter Miscellaneous Notes [...] on 08/03/2011. He had recurrences resected twice [id number]. He was treated with a 6- week [...] draped in the usual sterile fashion. A 22-Eritrean rigid cystoscope was inserted in the bladder. There were no urethral lesions or strictures. The prostate shows 1+ lateral enlargement. Inspection of bladder showed normal trigone. The right ureteral orifice was quite wide in appearance from prior resection. There were no tumors seen in the bladder. A 6-Eritrean ureteral catheter was used to perform ureteral [...] The left ureter was then dilated from 6-Eritrean upto 10-Eritrean using sequential ureteral dilators. This was also done under fluoroscopic imaging. The 12-Eritrean dilator would not advance over the wire. [...] was again inserted in the bladder. The 6-Eritrean ureteral catheter was used to advance the Sensor wire up the leftureter into the kidney. With contrast in there, there was some extravasation from the ureter. A second Sensor wire was advanced up the ureter through a 6-Eritrean ureteral catheter. The second Sensor wire was [...] again inserted in the bladder. A 6 Eritrean x 26 cm Contour stent was then [...] am sure it will show urothelial carcinoma. Tony treatment would be a left nephroureterectomy. We will discuss this at followup. BALA CURRY MD MT: YOEL Name: ANICETO RINCON MRN: [id number] Account: [id number] : 1955 Procedure Date: 06/19/2020 Document: [id number] cc: Dmitri Silverio MD [facility] Brief Op Note - Bala Curry MD - 06/19/2020 12:07 PM CDT [facility] Brief Operative Note Pre-operative diagnosis: Hematuria Post-operative diagnosis: Same Tumor in Left kidney Procedure: Procedure(s): CYSTOSCOPY, LEFT URETEROSCOPY, LEFT RETROGRADE, LEFT KIDNEY BIOPSY, LEFT STENT INSERTION, BILATERAL URETERAL WASHINGS Biopsy kidney Surgeon: BALA CURRY MD Blaster Helper(s): None Anesthesia: General endotracheal anesthesia Estimated blood [...] i n the results section. CYTOLOGY NON SCARFING MACHINE OPERATOR Routine 06/19/2020 11:12 AM Resu lts for this CDT procedure are i n the results section. CYTOLOGY NON SCARFING MACHINE OPERATOR Routine 06/19/2020 11:10 AM Resu lts for [...] with operative repor t. NORMA STERN MD Bala Curry MD IMG DIAGNOSTIC IMAGING ORDER BETHANY Surgical pathology exam (06/19/2020 11:36 AM CDT) Component Value Ref Test Analysis Performed At [facility] Method Time Signature Copath Report Patient Name: ANICETO RINCON MR#: [id number] Specimen #: [id number] Collected: 06/19/2020 Received: 06/19/2020 Reported: 06/20/2020 15:05 [...] submitted in one cassette. (Dictated by: LOKI Begum([facility]) 06/19/2020 02:03 PM ) MICROSCOPIC: A formal microscopic examination has been performed. The technical component of this testing was completed at the [facility], with the professional compo nent performed at the [facility], [address] [place] [address] ??[phone] ([phone]) CPT Codes: A: 69030-IP4 COLLECTION SITE: Client: [facility] Location: [place] (S) Specimen (Source) Anatomical Collection Method Collection Time Re ceived Time Location / / Volume Laterality Tissue specimen LEFT KIDNEY 06/19/2020 11:36 (specimen) STRUCTURE / AM CDT Unknown Bala Curry MD [facility] Performing Organization Address City/State/ZIP Code Phon e Number [place] Cytology non wildlife control agent (06/19/2020 11:12 AM CDT) Component Value Ref Test Analysis Performed At [facility] Range Method Time Signature Copath Report Patient Name: ANICETO RINCON MR#: [id number] Specimen #: [id number] Collected: 06/19/2020 Received: 06/20/2020 Reported: 06/20/2020 15:22 [...] 1 Pap stained Autocyte.. CPT Codes: A: 33366-NFNZWVE COLLECTION SITE: Client: ??[facility] Location: ??[place] (S) The technical component of this testing was completed at the [facility], with the professional compo nent performed at the [facility], [address] [place] [phone] ( [phone]) Specimen (Source) Anatomical Collection Method Collection Time Re ceived Time Location / / Volume Laterality Fluid specimen TOPOGRAPHY UNKNOWN 06/19/2020 11:12 (specimen) / Unknown AM CDT Bala Curry MD LAB - OPTIME CLINICAL SPECIM EN Performing Organization Address City/State/ZIP Code Phon e Number [place] Cytology non wildlife control agent (06/19/2020 11:10 AM CDT) Component Value Ref Test Analysis Performed At [facility] Method Time Signature Copath Report Patient Name: ANICETO RINCON MR#: [id number] Specimen #: [id number] Collected: 06/19/2020 Received: 06/20/2020 Reported: 06/20/2020 15:21 [...] 1 Pap stained Autocyte.. CPT Codes: A: 21445-WPLKRMK COLLECTION SITE: Client: ??[facility] Location: ??[place] (S) The technical component of this testing was completed at the [facility], with the professional compo nent performed at the [facility], [address] [place] [phone] ( [phone]) Specimen (Source) Anatomical Collection Method Collection Time [...] Post-operative state - Primary Other postprocedural status documented in this encounter Administered Medications Inactive Administered Medications - up to 3 most recent administrations Medication Order MAR Action Action Date Dose Rate Site acetaminophen (TYLENOL) tablet 975 Given 06/19/2020 9:48 AM CDT 975 mg mg 975 mg, Oral, ONCE, On Wed06/19/20 at 0900, For 1 dose, Maximum acetaminophen dose from all sources = 75 mg/kg/day not to exceed 4 grams/day., Pre-procedure documented in this encounter Active and Recently Administered Medications Times are shown in CDT. Scheduled Medication Order 06/17/2020 2020 06/19/2020 acetaminophen (TYLENOL) tablet 975 mg (COMPLETED) 0948 (Given - Provider: Brittany Shields, RN) 975 mg, Oral, ONCE, Wed06/19/20 at 0900 , For 1 dose, Maximum acetaminophen dose from all sources = 75 mg/kg/day not to exceed 4 grams/day., Pre-procedure ciprofloxacin (CIPRO) infusion 400 mg (COMPLETED) 0948 (Handoff - Provider: Brittany Shields, SURENDRA)1059 (Given - Provider: Rosalio Miranda APRN CRNA) [...] Provider ordered ALTERNATE pre op antibiotic. (CANCELED) 1052 (Given - Provider: Rosalio Miranda APRN CRNA) [...] 1314 documented in this encounter Care Teams Deployment Manager Relationship Specialty Start Date End Date Dmitri Silverio PCP - General Family Practice 06/10/[address] [address] documented as of this encounter
--- OUTSIDE RECORDS SUMMARY | 2022-08-13 07:43 | XMS_ITS | Encounter Summary ---
:1955 Author Organization [facility] Address [address] [place] [address] Care Team Providers Name Role Phone Unavailable Primary Care Provider Unavailable Reason for Visit Radiation Therapy (Routine) - Closed Specialty Diagnoses / Procedures Referred By Contact Refer red To Contact Radiation Oncology Diagnoses Secondary Malignant Neoplasm Lymph Node (HCC) Matthias Purdy McHs Rao Nfrt Procedures Prior Auth Rad [facility]x [place] [facility] [address] [place] [address] [address] [place] [phone] Referral ID Status Reason Start Date Expiration Date Visits Requ ested Visits Authorized [id number] Closed 07/16/2021 09/29/2021 25 25 Encounter Details Date Type Department Care Team Description 08/14/2021 Hospital Encounter Department of Radiation Roosevelt Purdy[facility] [place] [address] [facility] [address] [place] [phone] Social History Tobacco Use Types Packs/Day Years [...]
--- OUTSIDE RECORDS SUMMARY | 2022-08-13 07:43 | XMS_ITS | Encounter Summary ---
:1955 Author Organization [facility] Address [address] [place] [address] Care Team Providers Name Role Phone Unavailable Primary Care Provider Unavailable Encounter Details Date Type Department Care Team Description 09/05/2021 Hospital Encounter Department of Radiation Roosevelt Purdy, Oncology in [facility] [address] [facility] [address] [place] [phone] Social History Tobacco Use Types Packs/Day Years [...]
--- OUTSIDE RECORDS SUMMARY | 2022-08-13 07:43 | XMS_ITS | Encounter Summary ---
:1955 Author Organization [place] Address [address] [place] [address]. [place] [address] Care Team Providers Name Role Phone Dmitri Silverio Primary Care Provider Encounter Details Date Type Department Care Team Description 06/16/2020 Orders Only [facility] for screening [facility] for other viral diseases [address] [place] [address] Social History Tobacco Use Types Packs/Day Years Used Date Smoking Tobacco: Never Assessed Sex Assigned at Date Recorded Not on file COVID-19 Exposure Response Date Recorded In the last month, have you been in contact with No / Unsure 06/16/2020 11:00 AM CDT someone who was confirmed or suspected to have Coronavirus / COVID-19? documented as of this encounter Plan of Treatment Not on filedocumented as of this encounter Procedures Procedure Name Priority Date/Time Associated Diagnosis Comme nts COVID-19 VIRUS Routine 06/16/2020 11:11 AM Encounter for Resul ts for this (CORONAVIRUS) BY CDT screening for other proc edure are in PCR viral diseases the results section. documented in this encounter Results Asymptomatic COVID-19 Virus (Coronavirus) by PCR (06/16/2020 11:11 AM CDT) [facility] Method Time Signature COVID-19 Nasopharyngeal 06/16/2020 [facility] Virus PCR to 11:13 AM [facility]INICS [facility] - CD[facility] [place] Source COVID-19 Not Detected 06/17/2020 [facility] Virus PCR to 4:31 PM CDT [facility] - DIAGNOSTIC Result LABORATORY, [facility] Comment: Collection of multiple specimens from th e same patient may be necessary to detect the virus. The possibility of a f alse negative should be considered if the patient's recent exposure or clinica l presentation suggests 2019 nCOV infection and diagnostic tests for other causes of illness are negative. Repeat testing may be considered in this setting. Patient sample was heat inactivated and amplified using the HDPCR SARS-CoV-2 assay ([employer] The HDPCRTM OLLIE S-CoV-2 assay is a reverse seam checker real-time polymerase chain reaction (qRT-PCR) test intended for the qualitative detection of nucleic aci d from SARS-CoV-2 in human nasopharyngeal swabs, oropharyngeal swabs, anterior nasal swabs, mid-turbinate nasal swabs a s well as nasal aspirate, nasal wash, and bronchoalveolar lavage (BAL) specime ns from individuals who are suspected of COVID-19 by their healthcare provider . A negative result does not rule out the presence of real-time PCR inhibitors in the specimen or COVID-19 RNA in chinmay ntrations below the limit of detection of the assay. The possibility of a fals e negative should be considered if the patients recent exposure or clinical pr esentation suggests COVID-19. Additional testing or repeat testing req uires consultation with the laboratory. Nasopharyngeal specimen is the preferred choice for swab-based SARS CoV2 testing. When collection of a nasopharyn geal swab is not possible the following are acceptable alternatives: an oropharyngeal (OP) specimen collected by a healthcare professional, or a nasal mid-turbinate (NMT) swab collected by a healthcare professional or by onsite self-collection (using a flocked tapered swab), or an anterior nares specimen collected by a healthcare profe ssional or by onsite self-collection (using a round foam swab). (Centers for Disease Control) Testing performed by [facility] ([facility]) [address] [place] [address] [place] [phone] The test performance characteristics wer e determined by [facility]. It has not been cleared or approved by the FDA. The laboratory is regulated under the Cl inical Laboratory Improvement Amendments of 1988 (CLIA-88) as qualifie d to perform high-complexity testing. This test is used for clinical purposes. It should not be regarded as investigational or for research. Specimen (Source) Anatomical Collection Method Collection Time Re ceived Time Location / / Volume Laterality Specimen from 06/16/2020 11:11 06/16/2020 nasopharyngeal AM CDT 11:13 AM CDT structure (specimen) Bala Curry MD LAB - MICRO GENERAL ORDERABL ES Performing Organization Address City/State/ZIP Code Phon e Number [facility] [place] [address] DIAGNOSTIC LABORATORY, [address] [facility] [address] [place] [address] [place] [address] documented in this encounter Visit Diagnoses Diagnosis Encounter for screening for other viral diseases documented in this encounter Care Teams Tc Operator Relationship Specialty Start Date End Date Dmitri Silverio PCP - General Family Practice 06/10/20 [facility] [address] [place] [phone] documented as of this encounter
--- OUTSIDE RECORDS SUMMARY | 2022-08-13 07:43 | XMS_ITS | Encounter Summary ---
:1955 Author Organization [facility] Address [address] [place] [address] Care Team Providers Name Role Phone Unavailable Primary Care Provider Unavailable Reason for Visit Radiation Therapy (Routine) - Closed Specialty Diagnoses / Procedures Referred By Contact Refer red To Contact Radiation Oncology Diagnoses Secondary Malignant Neoplasm Lymph Node (HCC) Matthias Purdy McHs Rao Nfrt Procedures Prior Auth Rad Tx [place] [facility] [address] [place] [address] [address] [place] [phone] Referral ID Status Reason Start Date Expiration Date Visits Requ ested Visits Authorized [id number] Closed 07/16/2021 09/29/2021 25 25 Encounter Details Date Type Department Care Team Description 08/21/2021 Hospital Encounter Department of Radiation Roosevelt Purdy[facility] [place] [address] [facility] 1 [place] [phone] Social History Tobacco Use Types Packs/Day Years [...]
--- OUTSIDE RECORDS SUMMARY | 2022-08-13 07:43 | XMS_ITS | Encounter Summary ---
:1955 Author Organization [facility] Address [address] [place] [address] Care Team Providers Name Role Phone Unavailable Primary Care Provider Unavailable Reason for Visit Radiation Therapy (Routine) - Closed Specialty Diagnoses / Procedures Referred By Contact Refer red To Contact Radiation Oncology Diagnoses Secondary Malignant Neoplasm Lymph Node (HCC) Matthias Purdy McHs Rao Nfrt Procedures Prior Auth Rad Tx [place] IMRT [facility] [address] [place] [address] [address] [place] [phone] Referral ID Status Reason Start Date Expiration Date Visits Requ ested Visits Authorized [id number] Closed 07/16/2021 09/29/2021 25 25 Encounter Details Date Type Department Care Team Description 08/13/2021 Hospital Encounter Department of Radiation Roosevelt Pur[facility] [place] [address] [facility] 1 [place] [phone] Social History Tobacco Use Types Packs/Day Years [...]
--- OUTSIDE RECORDS SUMMARY | 2022-08-13 07:43 | XMS_ITS | Encounter Summary ---
:1955 Author Organization [facility] Address [address] [place] [address] Care Team Providers Name Role Phone Unavailable Primary Care Provider Unavailable Reason for Visit Radiation Therapy (Routine) - Closed Specialty Diagnoses / Procedures Referred By Contact Refer red To Contact Radiation Oncology Diagnoses Secondary Malignant Neoplasm Lymph Node (HCC) Matthias Purdy McHs Rao Nfrt Procedures Prior Auth Rad Tx [place] IMRT [facility] [address] [place] [address] [address] [place] [phone] Referral ID Status Reason Start Date Expiration Date Visits Requ ested Visits Authorized [id number] Closed 07/16/2021 09/29/2021 25 25 Encounter Details Date Type Department Care Team Description 08/15/2021 Hospital Encounter Department of Radiation Roosevelt Purdy, [facility] [place] [address] [facility] 1 [place] [phone] Social History Tobacco Use Types Packs/Day Years [...]
--- OUTSIDE RECORDS SUMMARY | 2022-08-13 07:43 | XMS_ITS | Encounter Summary ---
:1955 Author Organization [facility] Address [address] [place] [address] Care Team Providers Name Role Phone Unavailable Primary Care Provider Unavailable Reason for Visit Radiation Therapy (Routine) - Closed Specialty Diagnoses / Procedures Referred By Contact Refer red To Contact Radiation Oncology Diagnoses Secondary Malignant Neoplasm Lymph Node (HCC) Matthias Purdy McHs Rao Nfrt Procedures Prior Auth Rad Tx [place] [facility] [address] [place] [address] [address] [place] [phone] Referral ID Status Reason Start Date Expiration Date Visits Requ ested Visits Authorized [id number] Closed 07/16/2021 09/29/2021 25 25 Encounter Details Date Type Department Care Team Description 08/25/2021 Hospital Encounter Department of Radiation [facility] Pur[facility] [place] [address] [place] [phone] Social History Tobacco Use Types Packs/Day Years [...]
--- OUTSIDE RECORDS SUMMARY | 2022-08-13 07:43 | XMS_ITS | Encounter Summary ---
:1955 Author Organization [facility] Address [address] [place] [address] Care Team Providers Name Role Phone Unavailable Primary Care Provider Unavailable Reason for Visit Radiation Therapy (Routine) - Closed Specialty Diagnoses / Procedures Referred By Contact Refer red To Contact Radiation Oncology Diagnoses Secondary Malignant Neoplasm Lymph Node (HCC) Matthias Purdy McHs Rao Nfrt Procedures Prior Auth Rad [facility]x [place] [facility] [address] [place] [address] [address] [place] [phone] Referral ID Status Reason Start Date Expiration Date Visits Requ ested Visits Authorized [id number] Closed 07/16/2021 09/29/2021 25 25 Encounter Details Date Type Department Care Team Description 09/03/2021 Hospital Encounter Department of Radiation Roosevelt Purdy[facility] [place] [address] [facility] 1 [place] [phone] Social History Tobacco Use Types Packs/Day Years [...]
--- OUTSIDE RECORDS SUMMARY | 2022-08-13 07:43 | XMS_ITS | Encounter Summary ---
:1955 Author Organization [facility] Address [address] [facility] [address] Care Team Providers Name Role Phone Unavailable Primary Care Provider Unavailable Encounter Details Date Type Department Care Team Description 06/06/2020 Orders Only [employer] Bala Curry Encounter for Miladys Crowley OR MD Evin screening for other [address] [place] [facility] viral diseases CARLEY ASENCIO [address] [address] (Primary Dx) [phone] CARLEY ASENCIO [id number] Social History Tobacco Use Types Packs/Day Years Used Date Smoking Tobacco: Never Assessed Sex Assigned at Date Recorded Not on file documented as of this encounter Plan of Treatment Not on filedocumented as of this encounter Results Asymptomatic COVID-19 Virus (Coronavirus) by PCR (06/16/2020 11:11 AM CDT) [facility] Method Time Signature COVID-19 Nasopharyngeal 06/16/2020 TOM BEAN Virus PCR to 11:13 AM CLINICS [facility] - CDT LUTTS Source COVID-19 Not Detected 06/17/2020 ADVANCED Virus PCR to 4:31 PM CDT RESEARCH AND [facility] - DIAGNOSTIC Result LABORATORY, [facility] Comment: Collection of multiple specimens from th [...] and amplified using the HDPCR SARS-CoV-2 assay ([employer] The HDPCRTM OLLIE S-CoV-2 assay is a reverse server software engineer real-time polymerase chain reaction (qRT-PCR) test intended [...] (Centers for Disease Control) Testing performed by [facility] ([facility]) [address] [facility] [address] [facility] [address] The test performance characteristics wer e determined [...] Organization Address City/State/ZIP Code Phon e Number [facility] [address] DIAGNOSTIC LABORATORY, [address] [place] [address] [address] [address] documented in this encounter Visit Diagnoses Diagnosis Encounter for screening for other viral diseases - Primary documented in this encounter
--- OUTSIDE RECORDS SUMMARY | 2022-08-13 07:43 | XMS_ITS | Encounter Summary ---
:1955 Author Organization [facility] Address [address] [place] [address] Care Team Providers Name Role Phone Unavailable Primary Care Provider Unavailable Reason for Visit Radiation Therapy (Routine) - Closed Specialty Diagnoses / Procedures Referred By Contact Refer red To Contact Radiation Oncology Diagnoses Secondary Malignant Neoplasm Lymph Node (HCC) Matthias Purdy McHs Rao Nfrt Procedures Prior Auth Rad Tx [place] [facility] [address] [place] [address] 200 [place] [phone] Referral ID Status Reason Start Date Expiration Date Visits Requ ested Visits Authorized [id number] Closed 07/16/2021 09/29/2021 25 25 Encounter Details Date Type Department Care Team Description 08/18/2021 Hospital Encounter Department of Radiation [facility] Pur[facility] [place] [address] [facility] 1 [place] [phone] Social History Tobacco Use Types Packs/Day Years [...]
--- OUTSIDE RECORDS SUMMARY | 2022-08-13 07:43 | XMS_ITS | Encounter Summary ---
:1955 Author Organization [facility] Address [address] [place] [address] Care Team Providers Name Role Phone Unavailable Primary Care Provider Unavailable Reason for Visit Radiation Therapy (Routine) - Closed Specialty Diagnoses / Procedures Referred By Contact Refer red To Contact Radiation Oncology Diagnoses Secondary Malignant Neoplasm Lymph Node (HCC) Matthias Purdy McHs Rao Nfrt Procedures Prior Auth Rad Tx [place] [facility] [address] [place] [address] 200 [place] [phone] Referral ID Status Reason Start Date Expiration Date Visits Requ ested Visits Authorized [id number] Closed 07/16/2021 09/29/2021 25 25 Encounter Details Date Type Department Care Team Description 08/12/2021 Hospital Encounter Department of Radiation Roosevelt Pur[facility] [place] [address] [facility] 1 [place] [phone] Social History Tobacco Use Types Packs/Day Years [...]
--- OUTSIDE RECORDS SUMMARY | 2022-08-13 07:43 | XMS_ITS | Encounter Summary ---
:1955 Author Organization [facility] Address [address] [place] [address] Care Team Providers Name Role Phone Unavailable Primary Care Provider Unavailable Reason for Visit Radiation Therapy (Routine) - Closed Specialty Diagnoses / Procedures Referred By Contact Refer red To Contact Radiation Oncology Diagnoses Secondary Malignant Neoplasm Lymph Node (HCC) Matthias Purdy McHs Rao Nfrt Procedures Prior Auth Rad Tx [place] [facility] [address] [place] [address] 200 [place] [phone] Referral ID Status Reason Start Date Expiration Date Visits Requ ested Visits Authorized [id number] Closed 07/16/2021 09/29/2021 25 25 Encounter Details Date Type Department Care Team Description 08/19/2021 Hospital Encounter Department of Radiation Roosevelt Pur[facility] [place] 200 [facility] 1 [place] [phone] Social History Tobacco Use Types Packs/Day Years [...]
--- OUTSIDE RECORDS SUMMARY | 2022-08-13 07:43 | XMS_ITS | Encounter Summary ---
:1955 Author Organization [facility] Address [address] [place] [address]. [place] [address] Care Team Providers Name Role Phone Dmitri Silverio Primary Care Provider Encounter Details Date Type Department Care Team Description 06/16/2020 Travel Social History Tobacco Use Types Packs/Day [...] on filedocumented in this encounter Care Teams Pellet Machine Operator Relationship Specialty Start Date End Date Dmitri Silverio PCP - General Family Practice 06/10/[address] [address] documented as of this encounter
--- OUTSIDE RECORDS SUMMARY | 2022-08-13 07:43 | XMS_ITS | Encounter Summary ---
:1955 Author Organization [facility] Address [address] [place] [address] Care Team Providers Name Role Phone Unavailable Primary Care Provider Unavailable Reason for Visit Radiation Therapy (Routine) - Closed Specialty Diagnoses / Procedures Referred By Contact Refer red To Contact Radiation Oncology Diagnoses Secondary Malignant Neoplasm Lymph Node (HCC) Matthias Purdy McHs Rao Nfrt Procedures Prior Auth Rad Tx [place] [facility] [address] [place] [address] 200 [place] [phone] Referral ID Status Reason Start Date Expiration Date Visits Requ ested Visits Authorized [id number] Closed 07/16/2021 09/29/2021 25 25 Encounter Details Date Type Department Care Team Description 08/27/2021 Hospital Encounter Department of Radiation Roosevelt Pur[facility] [place] 200 [facility] 1 [place] [phone] Social History Tobacco Use Types Packs/Day Years [...]
--- OUTSIDE RECORDS SUMMARY | 2022-08-13 07:43 | XMS_ITS | Clinical Summary ---
:1955 Author Organization [facility] Address [address] [place] [address] Care Team Providers Name Role Phone Unavailable Primary Care Provider Unavailable Source Comments Patient records contain information from all sites at [facility]. For routine questions regarding patient records, call [phone] during business hours, M-F 8:00 AM - 5:00 PM Central Time. Record requests for emergency care only can be directed to [phone] at any time.[facility] Allergies No known active allergies Medications Medication Sig Dispensed Refills Start Date End Date Status amLODIPine (NORVASC) amlodipine 10 mg tablet 0 12/18 Active 10 mg tablet TAKE 1 TABLET BY MOUTH DAILY chlorthalidone chlorthalidone 25 mg tablet 0 019 Active (HYGROTON) 25 mg TAKE 1 TABLET BY MOUTH DAILY tablet ibuprofen Take 400 mg by 0 Activ e (ADVIL,MOTRIN) 200 mouth. mg tablet potassium chloride potassium chloride ER 10 mEq tablet,extended rel ease 0 02/27/2020 Active (KLORCON/K-TAB) 10 TAKE 1 TABLET BY MOUTH DAILY mEq ER tablet simvastatin (ZOCOR) simvastatin 20 mg tablet 0 12/17 Active 20 mg tablet TAKE 1 TABLET BY MOUTH AT BEDTIME tadalafiL (CIALIS) tadalafil 10 mg 0 02/27/2020 Active 10 mg tablet tablet sennosides-docusate Senexon-S 8.6 mg-50 0 07/19/2020 Active sodium (Senexon-S) mg tablet 8.6-50 mg per tablet lisinopriL Take 5 mg by mouth 0 07/30/2021 Active (PRINIVIL,ZESTRIL) 5 daily. mg tablet LORazepam (ATIVAN) Every 4 Hours as 0 07/21/2021 Active 0.5 mg tablet needed for Nausea/Vomiting ondansetron (ZOFRAN) Take 1 tablet (8 mg 30 tablet 2 1 8 mg tablet total) by mouth 2 every 8 (eight) hours as needed for nausea or vomiting. 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 Social History Tobacco Use Types Packs/Day Years Used Date Smoking Tobacco: Never Assessed Sex Assigned at Date Recorded Not on file Last Filed Vital Signs Vital Sign Reading Time Taken Comments Blood Pressure 126/69 09/03/2021 1:09 PM [employer] CLE[employer] PRESSER Pulse 65 09/03/2021 1:09 PM [employer] Temperature 36.3 ??C (97.4 ??F) 09/03/2021 1:09 PM [employer] PR[employer]ER Respiratory Rate - - Oxygen Saturation - - Inhaled Oxygen Concentration - - Weight 93 kg (205 lb 0.4 oz) 09/03/2021 1:09 PM [employer] PR[employer]ER Height - - Body Mass Index - - Plan of Treatment Health Maintenance Due Date Last Done Comments CT Colonography 1955 Cologuard 1955 Colonoscopy 1955 Colorectal Cancer Screening 1955 FIT 1955 Hepatitis C Screening 1955 Zoster Vaccines (1 of 2) 1972 Creatinine Level 07/19/2021 07/19/2020, 05/08/2020 Potassium Level 07/19/2021 07/19/2020 Sodium Level 07/19/2021 07/19/2020 Depression Screening (Annual 08/30/2021 PHQ-2) Fall Risk Screen (Annual) 08/30/2021 COVID-19 Vaccine (4 - Booster for 09/10/2021 07/16/2021, , Pfizer series) 11/12/2020 Influenza Vaccine (#1) 2022 07/16/2021, 07/11/2020, 07/04/2020, Additional history exists Fasting Glucose for Diabetes 07/19/2023 07/19/2020 Screening DTaP,Tdap,and Td Vaccines (2 - Td 08/21/2029 08/21/2019, or Tdap) Pneumococcal vaccine (65+ years) Completed 08/21/2019, Insurance Payer Benefit Plan / Subscriber ID Effective Dates Phone Addre ss Type Group [facility] [id number] 2019-Presen [phone] [address] [id number] PPO [facility] [address] [place] [address]
--- OUTSIDE RECORDS SUMMARY | 2022-08-13 07:43 | XMS_ITS ---
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 Past Plans No past plan information found. Radiation Treatments Plan Last Treated Elapsed Days Fractions Prescribed Prescribed Total On Treated Fraction Dose Dose F1_Abdomen 09/05/2021 36 25 of 25 225 cGy 5,625 cGy Reference Point Last Treated On Elapsed Days Session Dose Total Dos e [id number] 09/05/2021 36 225 cGy 5,625 cGy
--- OUTSIDE RECORDS SUMMARY | 2022-08-13 07:43 | XMS_ITS | Encounter Summary ---
:1955 Author Organization [facility] Address [address] [place] [address] Care Team Providers Name Role Phone Unavailable Primary Care Provider Unavailable Reason for Visit Radiation Therapy (Routine) - Closed Specialty Diagnoses / Procedures Referred By Contact Refer red To Contact Radiation Oncology Diagnoses Secondary Malignant Neoplasm Lymph Node (HCC) Matthias Purdy McHs Rao Nfrt Procedures Prior Auth Rad Tx [place] [facility] [address] [place] [address] [address] [place] [phone] Referral ID Status Reason Start Date Expiration Date Visits Requ ested Visits Authorized [id number] Closed 07/16/2021 09/29/2021 25 25 Encounter Details Date Type Department Care Team Description 08/20/2021 Hospital Encounter Department of Radiation Roosevelt Purdy[facility] [place] 200 [facility] 1 [place] [phone] Social History Tobacco Use Types Packs/Day Years [...]
--- OUTSIDE RECORDS SUMMARY | 2022-08-13 07:43 | XMS_ITS | Encounter Summary ---
:1955 Author Organization [facility] Address [address] [place] [address] Care Team Providers Name Role Phone Unavailable Primary Care Provider Unavailable Reason for Visit Radiation Therapy (Routine) - Closed Specialty Diagnoses / Procedures Referred By Contact Refer red To Contact Radiation Oncology Diagnoses Secondary Malignant Neoplasm Lymph Node (HCC) Matthias Purdy McHs Rao Nfrt Procedures Prior Auth Rad Tx [place] [facility] [address] [place] [address] 200 [place] [phone] Referral ID Status Reason Start Date Expiration Date Visits Requ ested Visits Authorized [id number] Closed 07/16/2021 09/29/2021 25 25 Encounter Details Date Type Department Care Team Description 09/01/2021 Hospital Encounter Department of Radiation Roosevelt Pur[facility] [place] 200 [facility] 1 [place] [phone] Social History Tobacco Use Types Packs/Day Years [...]
--- OUTSIDE RECORDS SUMMARY | 2022-08-13 07:43 | XMS_ITS | Encounter Summary ---
:1955 Author Organization [facility] Address [address] [place] [address] Care Team Providers Name Role Phone Unavailable Primary Care Provider Unavailable Reason for Referral Radiation Therapy (Routine) - Closed Specialty Diagnoses / Procedures Referred By Contact Refer red To Contact Diagnoses Secondary Malignant Neoplasm Lymph Node (HCC) Matthias Purdy [facility].D. [facility] Procedures Management Visit [address] [place], [place] [phone] Referral ID Status Reason Start Date Expiration Date Visits Requ ested Visits Authorized [id number] Closed 07/16/2021 07/16/2022 10 10 TZ MINER Reason for Visit Radiation Therapy (Routine) - Closed Specialty Diagnoses / Procedures Referred By Contact Refer red To Contact Diagnoses Secondary Malignant Neoplasm Lymph Node (HCC) Matthias Purdy [facility].D. [facility] Procedures Management Visit [address] [place], [place] [phone] Referral ID Status Reason Start Date Expiration Date Visits Requ ested Visits Authorized [id number] Closed 07/16/2021 07/16/2022 10 10 Encounter Details Date Type Department Care Team Description 09/03/2021 Hospital Encounter Department of Matthias Purdy Malignant Radiation Oncology [place] Neoplasm Lymph Node in [place], [address] [facility] (HCC) [place], [place] [address] [facility] [address] [place], [place] [phone] (Work) [phone] Social History Tobacco Use Types Packs/Day Years Used Date Smoking Tobacco: Never Assessed Sex Assigned at Date Recorded Not on file documented as of this encounter Last Filed Vital Signs Vital Sign Reading Time Taken Comments Blood Pressure 126/69 09/03/2021 1:09 PM QUARTZ MINER Pulse 65 09/03/2021 1:09 PM QUARTZ MINER Temperature 36.3 ??C (97.4 ??F) 09/03/2021 1:09 PM QUARTZ MINER Respiratory Rate - - Oxygen Saturation - - Inhaled Oxygen Concentration - - Weight 93 kg (205 lb 0.4 oz) 09/03/2021 1:09 PM QUARTZ MINER Height - - Body Mass Index - [...] encounter Progress Notes Matthias Purdy M.D. - 09/03/2021 1:10 PM CST SUBJECTIVE REASON FOR VISIT Evaluation [...] Treatment Last Treatment Elapsed Days [id number] 07/31/2021 09/03/2021 34 Course Summary 07/31/2021 09/03/2021 34 His oncologic history is as follows: 1. August 03, 2011: ??High-grade superficial bladder carcinoma status post TURBT. 2. 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 ??Muscular propria was present. ??Carcinoma in-situ was absent. 3. December 27, 2012 through January 31, 2013: BCG therapy x 6. 4. May 22, 2013: ??TURBT for recurrent high-grade TCC. ??No cis. 5. July 11, 2013 through August 15, 2013: ??BCG therapy x 6. 6. April 29, 2020: ??Appointment with Dr. Bala Curry where the patient reported intermittent grosshematuria and intermittent right flank pain. ??Cystoscopy was negative with no tumors or erythema noted. ??Urine cytology was positive for high-grade urothelial carcinoma. ??The UroVysion FISH Panel rev ealed a polysomy result. 7. May 08, 2020: ??CT urogram demonstrated an irregular filling defect within the left renal lower pole pelvis measuring 1.4 cm with additional filling defects in the left proximal ureter concerning for uroepithelial malignancy. ??No renal or ureteral stone. ??No hydronephrosis. ??Duplicated right renal collecting system. ??Incomplete bladder distension. ??Diffuse lateral wall thickening was present measuring up to 6 mm. ??Chronic sigmoid diverticulosis, diffuse hepatic steatosis, and left adrenal adenoma. 8. June 19, 2020: Cystoscopy, bilateral ureteral washings, left ureteroscopy with biopsy of renaltumor, left retrograde pyelogram, and left ureteral stent placement was performed by Dr. Curry. ??Pathology of the left kidney demonstrated high-grade, papillary pattern, urothelial carcinoma, noninvasive in tissue sample, multiple levels examined microscopically. ??Sample showed subepithelial connective tissue, but no muscle. 9. July 18, 2020: ??Left hand assisted nephroureterectomy with cystoscopy and resection of ureteral orifice was performed by Dr. Dinesh Johnson. ??Pathology demonstrated invasive, high-grade papillary urothelial carcinoma, forming mass lesion measuring 2.2 cm in greatest dimension with tumor invasion into underlying renal parenchyma (pT3). ??Two additional foci of noninvasive papillary urothelial carcinoma, high-grade within collecting system, 1.0 and 0.7 cm. ??Background urothelial carcinoma in-situ was present. ??Benign adrenal gland. ??Renal parenchyma showed changes consistent with hypertension. ??Surgical margins were negative for malignancy. ??pT3 pNX 10. June 04, 2021:?? CT scan of the abdomen and pelvis demonstrated a retroperitoneal left-sided lymph node that measured 1.4 x 1.0 cm, previously 0.6 cm. ??Other small retroperitoneal lymph nodes also appeared slightly increased in size. 11. June 26, 2021: PET/CT scan demonstrated retroperitoneal left periaortic lymph nodes with increased FDG uptake. ??Most prominent with SUV max 9.3 measured 0.9 cm. ??Smaller lymph node inferior tothis with SUV max 3.1 measured 0.7 cm. ??Faint small focus of mild FDG uptake in the medial aspect of the spleen with SUV max 3.6 measuring 0.6 cm. ??No additional sites of FDG avid metastases identified. 12. July 11, 2021: Appointment with Dr. Rincon who did not recommend CT- guided biopsy at this time. ??He discussed treatment options including systemic chemotherapy or possibly single agent immunotherapy. ??The patient inquired about possible radiation treatment. 13. July 31, 2021 anticipated through September 05, 2021: Patient treated with intensity modulated radiotherapy to the recurrent para-aortic and common iliac lymph nodes to a dose of 50??Gy in 25??fractions??as a simultaneous integrated boost with larger expansions to the regional lymph nodes to a dose of 45 Gy in 25 fractions. Concurrent weekly taxol and carbo concurrently administered under the care of Dr. Mcneill at [facility]. The patient was seen and examined today with Dr. Purdy. The patient reports that he is doing well overall. He denies fevers, chills, vomiting, hematuria, rectal bleeding, pelvic pain, rectal pain, dysuria, incontinence or changes in urination. Diarrhea up to 4 times a day. He is taking up to 2-3 Imodium a day. He has mild nausea and does have anti-emetics on hand. He does describe 3 out of 10 abdominal discomfort/bloating pain. Gas-X has not provided him relief. LABS August 07, 2021: WBC 3.42; Hgb [...] 10 = as good as can be): 7 OBJECTIVE BP 126/69 (BP Location: Left arm, Patient Position: Sitting, Cuff Size: Small) Pulse 65 Temp 36.3 ??C (Temporal) Wt 93 kg PHYSICAL EXAM General: Alert and oriented in no apparent distress. ASSESSMENT / PLAN #1 Superficial papillary urothelial carcinoma of the bladder, status post multiple TURBTs and BCG [id number] and 2012 #2 Stage III (rpT3, pNX, [...] tolerating radiation treatment well overall. He can take up to 4 tablets of Imodium as needed for further diarrhea management. Radiation related side effects should start to heal in the coming weeks. Kimberly Sorto CNP will see patient tomorrow at [facility]. We will hold off on ordering formal follow up in Radiation Oncology Clinic. He has been encouraged to contact us with any questions or concerns. We will continue with radiation treatment as planned. Patient stated a full understanding to the plan of care discussed today. Toxicities reviewed with Dr. Purdy today. Signed by: Magui Kauffman R.N. 09/03/2021 2:09 PM QUARTZ MINER I saw and evaluated the patient and participated in the jauregui portions of the service. I reviewed the documentation of Magui Kauffman R.N. and agree with the findings and plan. The patient appears well onexam. He finishes on Wednesday. He is tolerating treatment reasonably well with anticipated side effects including grade 1 diarrhea, grade 1 anorexia, grade 1 fatigue, grade 1 nausea, and grade 1 abdominal pain. He has a follow-up tomorrow with Kimberly Sorto CNP. He then has imaging and follow-up with Dr. Curry in early November. We will not schedule formal follow-up in Radiation Oncology Clinic, the patient knows he can contact us at any time with questions or concerns. He verbalized satisfaction with this plan. Signed by: Matthias Purdy M.D. 09/03/2021 5:02 PM QUARTZ MINER [facility] [address] [place] [address] TZ MINER documented in this encounter Miscellaneous Notes Addendum Note - Deirdre Mejia, C.N.A. - 09/03/2021 1:10 PM QUARTZ MINER Encounter addended by: Deirdre Mejia C.N.ATiti on: 09/04/2021 8:45 AM Actions taken: SmartForm saved, Letter saved TZ MINER documented in this encounter Plan of Treatment Scheduled Orders Name Type Priority Associated Diagnoses Order S chedule Management Visit Radiation Oncology Routine Secondary Malignan t Once for 1 Neoplasm Lymph Node Occurren evelyn starting (HCC) 09/03/2021 unti l 09/03/2021 documented as of this encounter Visit Diagnoses Diagnosis Secondary Malignant Neoplasm Lymph Node (HCC) documented in this encounter
--- OUTSIDE RECORDS SUMMARY | 2022-08-13 07:44 | XMS_ITS | Encounter Summary ---
:[address] [facility] Address [address] [place] [address] Care Team Providers Name Role Phone Unavailable Primary Care Provider Unavailable Encounter Details Date Type Department Care Team Description 07/29/2021 Clinical Communication Department of Matthias Purdy Radiation Oncology in [facility] [address] [facility] [address] [place] [phone] Social History Tobacco Use Types Packs/Day Years Used Date Smoking Tobacco: Never Assessed Sex Assigned at Date Recorded Not on file documented as of this encounter Miscellaneous Notes Telephone Encounter - Magui Kauffman R.N. - 07/30/2021 10:51 AM CST PLAN The following information was provided: I explained to patient that Zofran may potentially interact with his pre chemotherapy medications. Therefore, we want him to hold off on taking Zofran. He should pre medication before radiation treatments with Compazine instead. Information/Education: patient/caller able to teach back The following references were used: provider Yamilet Garza PA-C SOFTWARE ENGINEER Telephone Encounter - Alicia Claudio - 07/29/2021 3:17 PM CST Caller: Angela at [facility] Is there a valid authorization to speak with caller? Yes and n/a Primary Radiation Oncologist: Dr. Purdy Reason for call: Angela is calling with some questions regarding this mutual patient. Patient is starting radiation treatment on 07/31. Angela states we gave the patient a prescription for ondansetron but that the patient cannot take that medication due to its' interaction with the patient's chemo.She is also wondering if we want to adjust the patient's chemo to a different day. Please give her acall back to discuss. Phone number: [phone] Is it okay to leave a voicemail on answering machine with test results? No Pharmacy (if medication related): N/A Alicia Claudio SOFTWARE ENGINEER documented in this encounter Plan of Treatment Not on filedocumented as of this encounter Visit Diagnoses Not on filedocumented in this encounter
--- OUTSIDE RECORDS SUMMARY | 2022-08-13 07:44 | XMS_ITS | Encounter Summary ---
:1955 Author Organization [facility] Address [address] [place] [address] Care Team Providers Name Role Phone Unavailable Primary Care Provider Unavailable Reason for Referral Specialty Diagnoses / Procedures Referred By Contact Refer red To Contact Matthias Purdy M .D. 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 [address] [place] [phone] Secondary Malignant Radiation Oncology Magui Kauffman R.N. 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
--- OUTSIDE RECORDS SUMMARY | 2022-08-13 07:44 | XMS_ITS | Encounter Summary ---
:1955 Author Organization [facility] Address [address] [place] [address] Care Team Providers Name Role Phone Unavailable Primary Care Provider Unavailable Reason for Visit Radiation Therapy (Routine) - Closed Specialty Diagnoses / Procedures Referred By Contact Refer red To Contact Radiation Oncology Diagnoses Secondary Malignant Neoplasm Lymph Node (HCC) Matthias Purdy McHs Rao Nfrt Procedures Prior Auth Rad [facility]x [facility] [address] [place] [address] [address] [place] [phone] Referral ID Status Reason Start Date Expiration Date Visits Requ ested Visits Authorized [id number] Closed 07/16/2021 09/29/2021 25 25 Encounter Details Date Type Department Care Team Description 08/07/2021 Hospital Encounter Department of Radiation [facility] Pur[facility] [place] [address] [facility] [address] [place] [phone] Social History Tobacco Use Types Packs/Day Years [...]
--- OUTSIDE RECORDS SUMMARY | 2022-08-13 07:44 | XMS_ITS | Encounter Summary ---
:1955 Author Organization [facility] Address [address] [place] [address] Care Team Providers Name Role Phone Unavailable Primary Care Provider Unavailable Reason for Visit Radiation Therapy (Routine) - Closed Specialty Diagnoses / Procedures Referred By Contact Refer red To Contact Radiation Oncology Diagnoses Secondary Malignant Neoplasm Lymph Node (HCC) Matthias Purdy McHs Rao Nfrt Procedures Prior Auth Rad Tx [place] [facility] [address] [place] [address] [address] [place] [phone] Referral ID Status Reason Start Date Expiration Date Visits Requ ested Visits Authorized [id number] Closed 07/16/2021 09/29/2021 25 25 Encounter Details Date Type Department Care Team Description 08/04/2021 Hospital Encounter Department of Radiation Roosevelt Purdy[facility] [place] [address] [facility] 1 [place] [phone] Social History Tobacco Use Types Packs/Day Years [...]
--- OUTSIDE RECORDS SUMMARY | 2022-08-13 07:44 | XMS_ITS | Encounter Summary ---
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) (Primary Dx); Radiation Oncology Lawrence Lemus Malignant Neoplasm Of Kidney Pelvis Left (HCC) in [place], [address] [place], [place] [address] [facility] [address] [place], [place] [phone] (Work) [phone] Social History Tobacco Use Types Packs/Day Years Used Date Smoking Tobacco: Never Assessed Sex Assigned at Date Recorded Not on file documented as of this encounter Last Filed Vital Signs Vital Sign Reading Time Taken Comments Blood Pressure 136/72 07/21/2021 10:24 AM PROCESS INSPECTOR Pulse 63 07/21/2021 10:24 AM PROCESS INSPECTOR Temperature 36.4 ??C (97.6 ??F) 07/21/2021 10:24 AM PROCESS INSPECTOR Respiratory Rate - - Oxygen Saturation - - Inhaled Oxygen Concentration - - Weight 99.2 kg (218 lb 11.1 oz) 07/21/2021 10:24 AM PROCESS INSPECTOR Height - - Body Mass Index - - documented in this encounter Medications at Time of Discharge Medication Sig Dispensed Refills Start Date End Date amLODIPine (NORVASC) 10 amlodipine 10 mg tablet 0 12/18/2017 mg tablet TAKE 1 TABLET BY MOUTH DAILY chlorthalidone chlorthalidone 25 mg tablet 0 05/01 (HYGROTON) 25 mg tablet TAKE 1 TABLET BY MOUTH DAILY ibuprofen (ADVIL,MOTRIN) Take 400 mg by mouth. 0 200 mg tablet LORazepam (ATIVAN) 0.5 Every 4 Hours as needed 0 07/21/2021 mg tablet for Nausea/Vomiting potassium chloride potassium chloride ER 10 mEq tablet,extended rel ease 0 02/27/2020 (KLORCON/K-TAB) 10 mEq TAKE 1 TABLET BY MOUTH DAILY ER tablet sennosides-docusate Senexon-S 8.6 mg-50 mg 0 07/01 sodium (Senexon-S) tablet 8.6-50 mg per tablet simvastatin (ZOCOR) 20 simvastatin 20 mg tablet 0 12/18/2019 mg tablet TAKE 1 TABLET BY MOUTH AT BEDTIME tadalafiL (CIALIS) 10 mg tadalafil 10 mg tablet 0 02/27/2020 tablet documented as of this encounter Consult Notes Matthias Purdy M.D. - 07/21/2021 10:30 AM CST SUBJECTIVE REQUESTING PROVIDER Tim Rincon M.D. REASON FOR CONSULT 1. 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 Reza Rincon Jr. is a 66 y.o. male with margarita recurrence of urothelial carcinoma of the leftrenal pelvis. I am asked by Dr. Rincon to evaluate the patient for radiotherapy. His oncologic history is as follows: 1. August 03, 2011: High-grade superficial bladder carcinoma status post TURBT. 2. November 07, 2012: TURBT for recurrent high-grade noninvasive papillary urothelial carcinoma. Muscular propria was present. Carcinoma in-situ was absent. 3. December 27, 2012 through January 31, 2013: BCG therapy x 6. 4. May 22, 2013: TURBT for recurrent high-grade TCC. No cis. 5. July 11, 2013 through August 15, 2013: BCG therapy x 6. 6. April 29, 2020: Appointment with Dr. Bala Curry where the patient reported intermittent gross hematuria and intermittent right flank pain. Cystoscopy was negative with no tumors or erythema noted.Urine cytology was positive for high- grade urothelial carcinoma. The UroVysion FISH Panel revealed apolysomy result. 7. May 08, 2020: CT urogram demonstrated an irregular filling defect within the left renal lower pole pelvis measuring 1.4 cm with additional filling defects in the left proximal ureter concerningfor uroepithelial malignancy. No renal or ureteral stone. No hydronephrosis. Duplicated right renal collecting system. Incomplete bladder distension. Diffuse lateral wall thickening was present measuring up to 6 mm. Chronic sigmoid diverticulosis, diffuse hepatic steatosis, and left adrenal adenoma. 8. June 19, 2020: Cystoscopy, bilateral ureteral washings, left ureteroscopy with biopsy of renaltumor, left retrograde pyelogram, and left ureteral stent placement was performed by Dr. Curry. Pathology of the left kidney demonstrated high-grade, papillary pattern, urothelial carcinoma, noninvasive in tissue sample, multiple levels examined microscopically. Sample showed subepithelial connectivetissue, but no muscle. 9. July 18, 2020: Left hand assisted nephroureterectomy with cystoscopy and resection of ureteral orifice was performed by Dr. Dinesh Johnson. Pathology demonstrated invasive, high-grade papillary urothelial carcinoma, forming mass lesion measuring 2.2 cm in greatest dimension with tumor invasion into underlying renal parenchyma (pT3). Two additional foci of noninvasive papillary urothelial carcinoma, high-grade within collecting system, 1.0 and 0.7 cm. Background urothelial carcinoma in-situ was present. Benign adrenal gland. Renal parenchyma showed changes consistent with hypertension. Surgicalmargins were negative for malignancy. pT3 pNX 10. June 04, 2021: CT scan of the abdomen and pelvis demonstrated a retroperitoneal left-sided lymph node that measured 1.4 x 1.0 cm, previously 0.6 cm. Other small retroperitoneal lymph nodes also appeared slightly increased in size. 11. June 26, 2021: PET/CT scan demonstrated retroperitoneal left periaortic lymph nodes with increased FDG uptake. Most prominent with SUV max 9.3 measured 0.9 cm. Smaller lymph node inferior to this with SUV max 3.1 measured 0.7 cm. Faint small focus of mild FDG uptake in the medial aspect of the spleen with SUV max 3.6 measuring 0.6 cm. No additional sites of FDG avid metastases identified. 12. July 11, 2021: Appointment with Dr. Rincon who did not recommend CT- guided biopsy at this time. He discussed treatment options including systemic chemotherapy or possibly single agent immunotherapy. The patient inquired about possible radiation treatment. INTERVAL HISTORY The patient reports he is currently feeling well. He had microscopic hematuria earlier this summer that prompted his CT imaging. He denies any gross hematuria, dysuria, urinary incontinence, melena, hematochezia, abdominal pain, nausea, vomiting, fever, or chills. Lost approximately 30 pounds intentionally over the last 6 months. This has now stabilized. He has smoked cigarettes for approximately 54 years at on average 2 packs per day. Is cutting back and is down to 2-3 cigarettes per day. He has tried Chantix in the past but did not like the side effects. He is interested in quitting. He denies a history of prior radiation therapy, connective tissue disorders, or inflammatory bowel disease. His ECOG performance status is 0. ?? REVIEW OF SYSTEMS Review of systems was negative except as documented above. PATIENT REPORTED SYMPTOM SCREEN FATIGUE (Scale: 0 = no fatigue; 10 = worst fatigue you can imagine): 0 ?? PAIN (Scale: 0 = no pain; 10 = worst pain you can imagine): 0 ?? OVERALL QUALITY OF LIFE (Scale: 0 = as bad as can be; 10 = as good as can be): 8 PAST MEDICAL HISTORY 1. Hypertension 2. Hyperlipidemia 3. Tobacco abuse 4. Obstructive sleep apnea 5. Erectile dysfunction 6. Hyperplastic colon polyps 7. Urothelial carcinoma ?? PAST SURGICAL HISTORY 1. Appendectomy 2. TURBT 3. Left hand assisted nephroureterectomy with cystoscopy and resection of ureteral orifice, 2019 4. Vasectomy SOCIAL HISTORY He lives in [place], [place]. He has been twice. His significant other is Khadijah. He has 3 daughters. 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 He is a current every day smoker of 0.5 packs per day. He has been smoking since age 12. He drinks 4-6 beers a day. FAMILY HISTORY Negative OBJECTIVE BP 136/72 (BP Location: Right arm, Patient Position: Sitting, Cuff Size: Large) Pulse 63 Temp 36.4 ??C (Temporal) Wt 99.2 kg ?? PHYSICAL EXAM General: Patient is awake, alert, and oriented to person, place, and time. No apparent distress. Thepatient is here today with his significant other, Khadijah. ENT: Pupils equal, round, and reactive to light. Sclera anicteric. Oral cavity inspection reveals moist mucous membranes and no visible lesions. Neck: Supple. Lymph: No palpable cervical, supraclavicular, infraclavicular, or axillary adenopathy. Spine: There is no tenderness to palpation of the spine. Lungs: Clear to auscultation bilaterally. Heart: Regular rate and rhythm. Normal S1 and S2. No murmurs. Abdomen: Soft, non-tender, non-distended. Normal active bowel sounds are present. There is a well healed midline scar near the umbilicus. Extremities: No edema. Neurologic: Gait is normal. DIAGNOSTICS I reviewed the patient's pathology reports and imaging. ASSESSMENT / PLAN 1. Superficial papillary urothelial carcinoma of the bladder, status post multiple TURBTs and BCG [id number] and 2012 2. Stage III (rpT3, pNX, cM0) urothelial carcinoma of the left kidney/renal pelvis, status post margin negative nephrectomy on July 18, 2020 3. Periaortic lymph node recurrence noted on CT of the abdomen and pelvis June 04, 2021 and PET/CTscan on June 26, 2021 4. Nicotine dependence with efforts at cessation I had a detailed discussion with the patient and Khadijah regarding the risks, benefits, and alternatives of radiotherapy in this setting. ??I reviewed the NCCN guidelines in formulating my recommendations. ??I went over these with the patient. ??I recommend treatment to the periaortic lymph node recurrence to a dose of 50??Gy in 25??fractions??as a simultaneous integrated boost with larger expansions to the regional lymph nodes to a dose of 45 Gy in 25 fractions utilizing intensity modulated radiotherapy. IMRT is indicated to spare high radiation dose the patient's solitary right kidney and adjacentbowel, stomach, liver, spinal cord and cauda equina.?The patient is meeting with Dr. Mcneill tomorrow at [facility] to consider concurrent chemotherapy. ?? I discussed the logistics as well as the acute and chronic side effects of treatment in detail. ??The acute side effects are common and include gaseous bloating and discomfort, nausea and vomiting (prophylaxed??with ondansetron), diarrhea, pain or difficulty with eating that could result in hospitalization or IV fluids, and fatigue. ??Long-term side effects could include risk of small- bowel obstruction, gastric or duodenal ulceration, small-bowel stenosis requiring dilatation, very small risk of radiation myelitis, very small risk of radiation nephritis, and a very small risk (less than 0.2%) of secondary malignancy. ?? The patient will take pretreatment ondansetron (Zofran) 8 mg to prevent radiation induced nausea andvomiting. He will also limit his oral intake for 2 hours prior to each daily treatment. Patient is working at smoking cessation. I encouraged him in these efforts. We discussed setting a quit date. We will refer him to our nicotine dependence counselors. ?? After this discussion, I provided the patient with a written summary of my recommendations. His questions were answered to his verbalized satisfaction. The patient verbally stated that he would like toproceed with treatment and signed the consent form. He will undergo CT simulation today. We will endeavor to begin treatment on July. My thanks to Antoinette Bernard Sovell, and Nusrat for the opportunity to participate in this patient's care. ?? EDUCATION Ready to learn, no apparent learning barriers were identified; learning preferences include listening. Explained diagnosis and treatment plan; patient expressed understanding of the content. ?? CONSENT Discussed the risks, benefits, alternatives, and the necessity of other members of the healthcare team participating in the procedure. All questions answered and consent given. ?? I have spent 60 minutes with this patient today with 55 minutes spent in counseling the patient. ?? Signed by: Matthias Purdy M.D. 07/21/2021 1:56 PM PROCESS INSPECTOR Radiation Oncology [facility] [address] [place] [id number] ESS INSPECTOR documented in this encounter Miscellaneous Notes Addendum Note - Deirdre Mejia C.NVeronica - 07/21/2021 10:30 AM PROCESS INSPECTOR Encounter addended by: Deirdre Mejia C.NVeronica on: 07/21/2021 2:31 PM Actions taken: Letter saved ESS INSPECTOR Addendum Note - Matthias Purdy M.D. - 07/21/2021 10:30 AM PROCESS INSPECTOR Encounter addended by: Matthias Purdy M.D. 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
--- OUTSIDE RECORDS SUMMARY | 2022-08-13 07:44 | XMS_ITS | Encounter Summary ---
:1955 Author Organization [facility] Address [address] [place] [address] Care Team Providers Name Role Phone Unavailable Primary Care Provider Unavailable Reason for Referral Radiation Therapy (Routine) - Closed Specialty Diagnoses / Procedures Referred By Contact Refer red To Contact Diagnoses Secondary Malignant Neoplasm Lymph Node (HCC) Matthias Purdy M.D. [facility] Procedures Management Visit [address] [place], [place] [phone] Referral ID Status Reason Start Date Expiration Date Visits Requ ested Visits Authorized [id number] Closed 07/16/2021 07/16/2022 10 10 INE WIPER Reason for Visit Radiation Therapy (Routine) - Closed Specialty Diagnoses / Procedures Referred By Contact Refer red To Contact Diagnoses Secondary Malignant Neoplasm Lymph Node (HCC) Matthias Purdy M.D. [facility] Procedures Management Visit [address] [place], [place] [address] Referral ID Status Reason Start Date Expiration Date Visits Requ ested Visits Authorized [id number] Closed 07/16/2021 07/16/2022 10 10 Encounter Details Date Type Department Care Team Description 08/05/2021 Hospital Encounter Department of Matthias Purdy Malignant Radiation Oncology Lawrence Lemus Neoplasm Lymph Node in [place], [address] [facility] [place], [place] [address] [facility] [address] [place], [place] [phone] (Work) [phone] Social History Tobacco Use Types Packs/Day Years Used Date Smoking Tobacco: Never Assessed Sex Assigned at Date Recorded Not on file documented as of this encounter Last Filed Vital Signs Vital Sign Reading Time Taken Comments Blood Pressure 120/74 08/05/2021 10:27 AM MACHINE WIPER Pulse 69 08/05/2021 10:27 AM MACHINE WIPER Temperature 36.8 ??C (98.3 ??F) 08/05/2021 10:27 AM MACHINE WIPER Respiratory Rate - - Oxygen Saturation - - Inhaled Oxygen Concentration - - Weight 99 kg (218 lb 4.1 oz) 08/05/2021 10:27 AM MACHINE WIPER Height - - Body Mass Index - [...] encounter Progress Notes Matthias Purdy M.D. - 08/05/2021 10:15 AM CST SUBJECTIVE REASON FOR VISIT Evaluation for side effects while receiving radiation treatment for 1. Secondary Malignant Neoplasm Lymph Node (HCC) SUPERVISED BY: Matthias Purdy M.D. ([id number]) HISTORY OF PRESENT ILLNESS Mr. Reza Rincon [...] First Treatment Last Treatment Elapsed Days F1_Abdomen [id number] 07/31/2021 08/05/2021 5 Course Summary 07/31/2021 08/05/2021 5 The patient was seen and examined today with Dr. Purdy. The patient reports that he is doing well overall. He denies fevers, chills, vomiting, diarrhea or changes in urination. Nausea is being managed with prescribed anti-emetics. He does report dry skin toabdomen and back. PATIENT REPORTED SYMPTOM SCREEN FATIGUE (Scale: 0 = no fatigue; 10 = worst fatigue you can imagine): 3-4 PAIN (Scale: 0 = no pain; 10 = worst pain you can imagine): 0 OVERALL QUALITY OF LIFE (Scale: 0 = as bad as can be; 10 = as good as can be): 8 OBJECTIVE BP 120/74 (BP Location: Right arm, Patient Position: Sitting, Cuff Size: Small) Pulse 69 Temp 36.8 ??C (Temporal) Wt 99 kg PHYSICAL EXAM General: Alert and oriented in no apparent distress. ASSESSMENT / PLAN 1. Superficial papillary urothelial carcinoma of the bladder, status post multiple TURBTs and BCG [id number] and 2012 2. Stage III (rpT3, pNX, [...] is tolerating radiation treatment well overall. We discussed use of Aquaphor and Vanicream for dry skin today. He will contact us with any questions or concerns. We will continue with radiation treatment as planned. Signed by: Magui Kauffman R.N. 08/05/2021 11:02 AM MACHINE WIPER I saw and evaluated the patient and participated in the jauregui portions of the service. I reviewed the documentation of Magui Kauffman R.N. and agree with the findings and plan. The patient appears well onexam. He will continue with treatment as planned. Signed by: Matthias Purdy M.D. 08/05/2021 2:27 PM MACHINE WIPER [facility] [address] [place] [address] INE WIPER documented in this encounter Miscellaneous Notes Addendum Note - Deirdre Mejia, C.N.A. - 08/05/2021 10:15 AM MACHINE WIPER Encounter addended by: Deirdre Mejia C.N.A. on: 08/06/2021 6:59 AM Actions taken: Letter saved INE WIPER documented in this encounter Plan of Treatment Scheduled Orders Name Type Priority Associated Diagnoses Order S chedule Management Visit Radiation Oncology Routine Secondary Malignan t Once for 1 Neoplasm Lymph Node Occurren evelyn starting (HCC) 08/05/2021 unti l 08/05/2021 documented as of this encounter Visit Diagnoses Diagnosis Secondary Malignant Neoplasm Lymph Node (HCC) documented in this encounter
--- OUTSIDE RECORDS SUMMARY | 2022-08-13 07:44 | XMS_ITS | Encounter Summary ---
:1955 Author Organization [facility] Address [address] [place] [address] Care Team Providers Name Role Phone Unavailable Primary Care Provider Unavailable Reason for Referral Radiation Therapy (Routine) - Closed Specialty Diagnoses / Procedures Referred By Contact Refer red To Contact Diagnoses Secondary Malignant Neoplasm Lymph Node (HCC) Matthias Purdy M.D. [facility] Procedures Initial Rad Onc Treatment Planning CT Simulation [address] [place], [place] [address] Referral ID Status Reason Start Date Expiration Date Visits Requ ested Visits Authorized [id number] Closed 07/16/2021 07/16/2022 1 1 RIGGER Reason for Visit Radiation Therapy (Routine) - Closed Specialty Diagnoses / Procedures Referred By Contact Refer red To Contact Diagnoses Secondary Malignant Neoplasm Lymph Node (HCC) [facility]dy M.D. [facility] Procedures Initial Rad Onc Treatment Planning CT Simulation [address] [place], [place] [phone] Referral ID Status Reason Start Date Expiration Date Visits Requ ested Visits Authorized [id number] Closed 07/16/2021 07/16/2022 1 1 Encounter Details Date Type Department Care Team Description 07/21/2021 Hospital Encounter Department of Matthias Purdy Malignant Radiation Oncology Lawrence Lemus Neoplasm Lymph Node in [place], [address] [facility] [place], [place] [address] [facility] [address] [place], [place] [phone] (Work) [phone] Social History Tobacco Use Types Packs/Day Years [...] by mouth. 0 (ADVIL,MOTRIN) 200 mg tablet LORazepam (ATIVAN) 0.5 Every [...] prevent nausea documented as of this encounter Procedure Notes Mary Jane Nash, RTT - 07/21/2021 11:30 AM CSTAssociated Order(s): Initial Rad Onc Treatment Planning CT Simulation Pre-Procedure Diagnose(s): Secondary Malignant Neoplasm Lymph Node (HCC) Post-Procedure Diagnose(s): Secondary Malignant Neoplasm Lymph Node (HCC) Initial Rad Onc Treatment Planning CT Simulation Date/Time: 07/21/2021 12:07 PM Performed by: Matthias Purdy M.D. Authorized by: Matthias Purdy M.D. Simulation was performed under physician supervision based on physician order in preparation for radiation therapy. Physician was immediately available to provide assistance and direction throughout the procedure. Written consent for treatment was completed or confirmed. The patient was appropriately identified and placed in the treatment position using the necessary immobilization to ensure a reproducible treatment position. Reference waggoner were placed to facilitate marking of isocenter. Area scanned:Chest and Abdomen Contrast used for the simulation procedure: None Patient position:head first supine and arms up Custom immobilization: Vac-pato and Knee Cushion Motion management: None Bolus: No CT guidance: Following positioning of the patient, a series of slices was obtained to be utilized intreatment planning. CT images were transferred to the On The Flea treatment planning system, after a reference isocenter was determined and marked. Segmentation and treatment planning will take place priorto treatment delivery. Patient set up and imaging was appropriate and completed without incident. Staff Consultant use:No RIGGER documented in this encounter Plan of Treatment Not on filedocumented as of this encounter Procedures Procedure Name Priority Date/Time Associated Comments Diagnosis INITIAL RAD ONC Routine 07/21/2021 12:07 PM Secondary Malignan t Results for this TREATMENT PLANNING WIRE RIGGER Neoplasm Lymph Node pr ocedure are in CT SIMULATION (HCC) the results section. documented in this encounter Results Initial Rad Onc Treatment Planning CT Simulation (07/21/2021 12:07 PM WIRE RIGGER) Specimen (Source) Anatomical Location Collection Method / Collectio n Time Received Time / Laterality Volume Narrative [facility] - 07/21/2021 12:07 PM WIRE RIGGER Mary Jane Nash, RTT ? 07/21/2021 12:08 PM Initial Rad Onc Treatment Planning CT Si mulation Date/Time: 07/21/2021 12:07 PM Performed by: Matthias Purdy M.D. Authorized by: Matthias Purdy M.D. Matthias Purdy M.D. RADIATION ONCOLOGY ORDERABLE S Performing Organization Address City/State/ZIP Code Phon e Number [facility] na documented in this encounter Visit Diagnoses Diagnosis Secondary Malignant Neoplasm Lymph Node (HCC) documented in this encounter
--- OUTSIDE RECORDS SUMMARY | 2022-08-13 07:44 | XMS_ITS | Encounter Summary ---
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) [address] [place] [phone] Social History Tobacco Use Types Packs/Day Years Used Date Smoking Tobacco: Never Assessed Sex Assigned at Date Recorded Not on file documented as of this encounter Plan of Treatment Scheduled Referrals Name Type Priority Associated Diagnoses Order S georgiana Radiation Oncology Outpatient Referral Routine Malignant Neopl asm Expected: - consult Of Kidney Pelvis 07/16/2021 (clinic) Left (HCC) (Approximate), Secondary Malignant Expires: Neoplasm Lymph Node 07/16/20 24 Intra Abdominal (HCC) documented as of this encounter Visit Diagnoses Diagnosis 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
--- OUTSIDE RECORDS SUMMARY | 2022-08-13 07:44 | XMS_ITS | Encounter Summary ---
:1955 Author Organization [facility] Address [address] [place] [address] Care Team Providers Name Role Phone Unavailable Primary Care Provider Unavailable Reason for Referral Outpatient (Routine) - Closed Specialty Diagnoses / Procedures Referred By Contact Refer red To Contact Radiation Oncology Matthias Purdy M .D. [facility] 200 [place] [address] Referral ID Status Reason Start Date Expiration Date Visits Requ ested Visits Authorized [id number] Closed 07/16/2021 07/16/2022 10 10 OBIOLOGY TECHNICIAN Specialty Diagnoses / Procedures Referred By Contact Refer red To Contact Matthias Purdy M .D. [place] [facility] 200 [place] [address] Referral ID Status Reason Start Date Expiration Date Visits Requ ested Visits Authorized Scheduling Instructions Combined with management visit OBIOLOGY TECHNICIAN Radiation Therapy (Routine) - Closed Specialty Diagnoses / Procedures Referred By Contact Refer ashley To Contact Diagnoses Secondary Malignant Neoplasm Lymph Node (HCC) Matthias Purdy M.D. [facility] Procedures Management Visit [address] [place] [phone] Referral ID Status Reason Start Date Expiration Date Visits Requ ested Visits Authorized [id number] Closed 07/16/2021 07/16/2022 10 10 OBIOLOGY TECHNICIAN Radiation Therapy (Routine) - Closed Specialty Diagnoses / Procedures Referred By Contact Refer red To Contact Radiation Oncology Diagnoses Secondary Malignant Neoplasm Lymph Node (HCC) Matthias Purdy Mc[facility] Maciel Nfrt Procedures Prior Auth Rad Tx [place] IMRT [facility] [address] [place] [phone] Referral ID Status Reason Start Date Expiration Date Visits Requ ested Visits Authorized [id number] Closed 07/16/2021 09/29/2021 25 25 OBIOLOGY TECHNICIAN Radiation Therapy (Routine) - Closed Specialty Diagnoses / Procedures Referred By Contact Refer red To Contact Diagnoses Secondary Malignant Neoplasm Lymph Node (HCC) Matthias Purdy M.D. [facility] Procedures Initial Rad Onc Treatment Planning CT Simulation [address] [place] [address] Referral ID Status Reason Start Date Expiration Date Visits Requ ested Visits Authorized [id number] Closed 07/16/2021 07/16/2022 1 1 OBIOLOGY TECHNICIAN Encounter Details Date Type Department Care Team Description 07/16/2021 Orders Only Department of Matthias Purdy Radiation Oncology pita Lemus M.D. Neoplasm Lymph Node [facility] [address] [facility] (HCC) (Primary Dx) [address] [place] [phone] Social History Tobacco Use Types Packs/Day Years Used Date Smoking Tobacco: Never Assessed Sex Assigned at Date Recorded Not on file documented as of this encounter Plan of Treatment Scheduled Orders Name Type Priority Associated Order Schedule Diagnoses Prior Auth Rad Tx Radiation Oncology Routine Secondary Maligna nt Ordered: 07/16/2021 Neoplasm Lymph Node (HCC) Management Visit Radiation Oncology Routine Secondary Malignan t 10 Occurrences Neoplasm Lymph Node starting 07/16/2021 (HCC) until 2 Scheduled Referrals Name Type Priority Associated Order Schedule Diagnoses Radiation Oncology Outpatient Referral Routine Secondary Malig nant Expected: 07/16/2021 - Nurse education Neoplasm Lymph Node (Ap proximate), visit (clinic) (HCC) Expires: 06/30 Radiation Oncology Outpatient Referral Routine 10 Occurrences nurse visit starting 2020 (clinic) until 4 documented as of this encounter Results Initial Rad Onc Treatment Planning CT Simulation (07/21/2021 12:07 PM MICROBIOLOGY TECHNICIAN) Specimen (Source) Anatomical Location Collection Method / Collectio n Time Received Time / Laterality Volume Narrative JOSÉ ANTONIO PALACIOS - 07/21/2021 12:07 PM MICROBIOLOGY TECHNICIAN Mary Jane Nash, RTT ? 07/21/2021 12:08 PM Initial Rad Onc Treatment Planning CT Si mulation Date/Time: 07/21/2021 12:07 PM Performed by: Matthias Purdy M.D. Authorized by: Matthias Purdy M.D. Matthias Purdy M.D. RADIATION ONCOLOGY ORDERABLE S Performing Organization Address City/State/ZIP Code Phon e Number [place] documented in this encounter Visit Diagnoses Diagnosis Secondary Malignant Neoplasm Lymph Node (HCC) - Primary Secondary Malignant Neoplasm Lymph Node (HCC) documented in this encounter
--- OUTSIDE RECORDS SUMMARY | 2022-08-13 07:44 | XMS_ITS | Encounter Summary ---
:1955 Author Organization [facility] Address 200 [place] [address] Care Team Providers Name Role Phone Unavailable Primary Care Provider Unavailable Reason for Visit Radiation Therapy (Routine) - Closed Specialty Diagnoses / Procedures Referred By Contact Refer red To Contact Radiation Oncology Diagnoses Secondary Malignant Neoplasm Lymph Node (HCC) Matthias Purdy Mc[facility] Rao Nfrt Procedures Prior Auth Rad Tx [place] [facility] [address] [place] [address] 200 [place] [phone] Referral ID Status Reason Start Date Expiration Date Visits Requ ested Visits Authorized [id number] Closed 07/16/2021 09/29/2021 25 25 Encounter Details Date Type Department Care Team Description 08/06/2021 Hospital Encounter Department of Radiation Roosevelt Purdy, [facility] [place] 200 [facility] 1 [place] [phone] Social History Tobacco Use Types Packs/Day Years [...]
--- OUTSIDE RECORDS SUMMARY | 2022-08-13 07:44 | XMS_ITS | Encounter Summary ---
:1955 Author Organization [facility] Address [address] [place] [address] Care Team Providers Name Role Phone Unavailable Primary Care Provider Unavailable Reason for Visit Radiation Therapy (Routine) - Closed Specialty Diagnoses / Procedures Referred By Contact Refer red To Contact Radiation Oncology Diagnoses Secondary Malignant Neoplasm Lymph Node (HCC) Matthias Purdy McHs Rao Nfrt Procedures Prior Auth Rad Tx [place] [facility] [address] [place] [address] 200 [place] [phone] Referral ID Status Reason Start Date Expiration Date Visits Requ ested Visits Authorized [id number] Closed 07/16/2021 09/29/2021 25 25 Encounter Details Date Type Department Care Team Description 08/11/2021 Hospital Encounter Department of Radiation Roosevelt Purdy[facility] [place] 200 [facility] 1 [place] [phone] Social History Tobacco Use Types Packs/Day Years [...]
--- OUTSIDE RECORDS SUMMARY | 2022-08-13 07:44 | XMS_ITS | Clinical Summary ---
:1955 Author Organization [facility] [place] [address] Care Team Providers Name Role Phone Dmitri Silverio MD Primary Care Provider Bala Curry MD Unavailable Allergies No known active allergies Medications Medication Sig Dispensed Refills Start Date End Date Status amLODIPine (NORVASC) 10 Take 1 tablet by 0 8 Active mg tablet mouth once daily. chlorthalidone Take 25 mg by 0 05/24/2019 Active (HYGROTON) 25 mg tablet mouth every morning. simvastatin (ZOCOR) 20 Take 20 mg by 0 12/18/2019 Active mg tablet mouth once daily with evening meal. potassium chloride Take 10 mEq by 0 02/27/2020 Active (KLOR-CON 10; K-TAB) 10 mouth once daily mEq Controlled-Release with a meal. tablet tadalafiL (CIALIS) 10 TK 1 T PO QD TAKE 0 02/27/2020 Active mg tablet AT LEAST 1 HOUR PRIOR TO ANY PLANNED SEXUAL ACTIVITY oxyCODONE (ROXICODONE) Take 1 tablet by 12 tablet 0 07/19/2020 Active 5 mg immediate release mouth every 6 tabletIndications: hours if needed Malignant neoplasm of for Pain lateral wall of urinary bladder (HC) sennosides-docusate, Take 1-2 tablets 30 tablet 0 07/19/2020 Active 8.6-50 mg, (SENOKOT S) by mouth 2 times 8.6-50 mg daily if needed. 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 How many drinks containing alcohol do you have 1 or 2 04/29/2020 on a typical day when you are drinking? How often do you have six or more drinks on one Never 04/29/2020 occasion? Sex Assigned at Date Recorded Not on file Obstetrics History Last Filed Vital Signs Vital Sign Reading Time Taken Comments Blood Pressure 139/83 07/19/2020 7:58 AM THERAPY SITE COORDINATOR Pulse 61 07/19/2020 7:58 AM THERAPY SITE COORDINATOR Temperature 36.7 ??C (98 ??F) 07/19/2020 7:58 AM THERAPY SITE COORDINATOR Respiratory Rate 16 07/19/2020 7:58 AM THERAPY SITE COORDINATOR Oxygen Saturation 95% 07/19/2020 7:58 AM THERAPY SITE COORDINATOR Inhaled Oxygen Concentration - - Weight 94.3 kg (208 lb) 07/18/2020 11:46 AM THERAPY SITE COORDINATOR Height 177.8 cm (5' 10) 07/18/2020 11:46 AM THERAPY SITE COORDINATOR Body Mass Index 29.84 07/18/2020 11:46 AM THERAPY SITE COORDINATOR Plan of Treatment Health Maintenance Due Date Last Done Comments COVID-19 vaccine series (#1) 1955 Tdap 1964 Depression screening for age 12+ 1965 Hepatitis C screening for age 18-79 1971 Tetanus booster 1973 Colonoscopy through age 75 1998 Lipids for age 45-75 1998 Zoster (shingles) series for age 50+ (1 of 2) 2003 BMI (ht and wt on same day) for age 18+ 04/08/2017 04/08/20 16 Pneumococcal series for age 65+ (1 - PCV) 2018 Influenza for age 65+ 04/30/2022 Results Not on filefrom Last 3 Months Insurance Payer Benefit Plan / Subscriber ID Effective Dates Phone Addre ss Type Group BLUE CROSS BLUE [employer] OF [id number] 2019-Present [address] [address] [place] [address] [phone] (Work) Advance Directives Latest Code Status on File Code Status Date Activated Date Inactivated Comments Full Code 07/18/2020 11:39 AM 07/19/2020 6:17 PM Question Answer Comments Code Status Discussion: Not Discussed Care Teams Coil Winding Supervisor Relationship Specialty Start Date End Date Dmitri Sivlerio MD PCP - General Family Practice 11/05/171999 [place] [phone] Bala Curry MD Surgery - Urology 07/31/201999 [place] [phone]
--- OUTSIDE RECORDS SUMMARY | 2022-08-13 07:44 | XMS_ITS | Encounter Summary ---
:1955 Author Organization [facility] Address [address] [place] [address] Care Team Providers Name Role Phone Unavailable Primary Care Provider Unavailable Encounter Details Date Type Department Care Team Description 07/16/2021 Clinical Communication Department of Oncology Rosmery Rincon, in [facility] [address] [place] [phone] [phone] Social History Tobacco Use Types Packs/Day Years Used Date Smoking Tobacco: Never Assessed Sex Assigned at Date Recorded Not on file documented as of this encounter Miscellaneous Notes Telephone Encounter - Tim Rincon M.D. - 07/16/2021 12:04 PM CST I spoke with the patient by telephone. I had reviewed his case with Medical Oncology and Radiation Oncology. Radiation Oncology felt that local therapy was not unreasonable in his case. They offered possible treatment here in [place] verses locally in [place]. The patient feels he cannot consider treatment anywhere else but in [place]. I will go ahead and put in appointment for Radiation Oncology in [place]. We are happy to coordinate combination chemotherapy if radiation treatment is recommended. DELER documented in this encounter Plan of Treatment Not on filedocumented as of this encounter Visit Diagnoses Not on filedocumented in this encounter
--- OUTSIDE RECORDS SUMMARY | 2022-08-13 07:44 | XMS_ITS | Encounter Summary ---
:1955 Author Organization [facility] Address [address] [place] [address] Care Team Providers Name Role Phone Unavailable Primary Care Provider Unavailable Reason for Visit Radiation Therapy (Routine) - Closed Specialty Diagnoses / Procedures Referred By Contact Refer red To Contact Radiation Oncology Diagnoses Secondary Malignant Neoplasm Lymph Node (HCC) Matthias Purdy McHs Rao Nfrt Procedures Prior Auth Rad Tx [place] [facility] [address] [place] [address] 200 [place] [phone] Referral ID Status Reason Start Date Expiration Date Visits Requ ested Visits Authorized [id number] Closed 07/16/2021 09/29/2021 25 25 Encounter Details Date Type Department Care Team Description 08/05/2021 Hospital Encounter Department of Radiation Roosevelt Purdy[facility] [place] 200 [facility] 1 [place] [phone] Social History Tobacco Use Types Packs/Day Years [...]
--- OUTSIDE RECORDS SUMMARY | 2022-08-13 07:44 | XMS_ITS | Encounter Summary ---
:1955 Author Organization [facility] Address [address] [place] [address] Care Team Providers Name Role Phone Unavailable Primary Care Provider Unavailable Reason for Visit Radiation Therapy (Routine) - Closed Specialty Diagnoses / Procedures Referred By Contact Refer red To Contact Radiation Oncology Diagnoses Secondary Malignant Neoplasm Lymph Node (HCC) Matthias Purdy McHs Rao Nfrt Procedures Prior Auth Rad Tx [place] [facility] [address] [place] [address] 200 [place] [phone] Referral ID Status Reason Start Date Expiration Date Visits Requ ested Visits Authorized [id number] Closed 07/16/2021 09/29/2021 25 25 Encounter Details Date Type Department Care Team Description 07/31/2021 Hospital Encounter Department of Radiation Roosevelt Pur[facility], [facility] [place] 200 [facility] 1 [place] [phone] Social History Tobacco Use Types Packs/Day Years [...]
--- OUTSIDE RECORDS SUMMARY | 2022-08-13 07:44 | XMS_ITS | Encounter Summary ---
:1955 Author Organization [facility] [place] Address [address] [place] [address] Care Team Providers Name Role Phone Unavailable Primary Care Provider Unavailable Reason for Visit Radiation Therapy (Routine) - Closed Specialty Diagnoses / Procedures Referred By Contact Refer red To Contact Radiation Oncology Diagnoses Secondary Malignant Neoplasm Lymph Node (HCC) Matthias Purdy McHs Rao Nfrt Procedures Prior Auth Rad Tx [place] [facility] [address] [place] [address] 200 [place] [phone] Referral ID Status Reason Start Date Expiration Date Visits Requ ested Visits Authorized [id number] Closed 07/16/2021 09/29/2021 25 25 Encounter Details Date Type Department Care Team Description 08/01/2021 Hospital Encounter Department of Radiation Roosevelt Pur[facility], [facility] [place] 200 [facility] 1 [place] [phone] Social History Tobacco Use Types Packs/Day Years [...]
--- OUTSIDE RECORDS SUMMARY | 2022-08-13 07:44 | XMS_ITS | Encounter Summary ---
:1955 Author Organization [facility] Address [address] [place] [address] Care Team Providers Name Role Phone Unavailable Primary Care Provider Unavailable Reason for Visit Radiation Therapy (Routine) - Closed Specialty Diagnoses / Procedures Referred By Contact Refer red To Contact Radiation Oncology Diagnoses Secondary Malignant Neoplasm Lymph Node (HCC) Matthias Purdy McHs Rao Nfrt Procedures Prior Auth Rad Tx [facility] [address] [place] [address] [address] [place] [phone] Referral ID Status Reason Start Date Expiration Date Visits Requ ested Visits Authorized [id number] Closed 07/16/2021 09/29/2021 25 25 Encounter Details Date Type Department Care Team Description 08/08/2021 Hospital Encounter Department of Radiation Roosevelt Purdy, [facility] [place] 200 [facility] 1 [place] [phone] Social History Tobacco Use Types Packs/Day Years [...]
[2022-08-13 10:56] LABS: Albumin* 4.1 g/dL (3.3-5.0); Chloride* 103 mmol/L (96-114); Sodium* 137 mmol/L (135-149)
[2022-08-13 10:57] LABS: Potassium* 4.1 mmol/L (3.6-5.1)
[2022-08-13 10:59] LABS: Alanine Aminotransferase* 24 U/L (4-50); Alkaline Phosphatase* 91 U/L (40-150); Aspartate Amino Transferase* 33 U/L (12-35); Bilirubin Total* 0.7 mg/dL (0.1-1.5); Blood Urea Nitrogen* 31 mg/dL (7-30); Carbon Dioxide* 28 mmol/L (20-32); Cholesterol* 164 mg/dL (90-199); Creatinine* 2.2 mg/dL (0.5-1.5); Estimated Glomerular Filt Rate 32 ml/min; Glucose* 104 mg/dL (60-115); Total Protein* 6.9 g/dL (6.0-8.3); Triglycerides* 69 mg/dL (40-149)
[2022-08-13 11:00] LABS: Calcium* 9.2 mg/dL (8.4-10.6); HDL Cholesterol* 94 mg/dL (>=40); LDL Cholesterol Calculated 56 mg/dL (<100)
[2022-08-13 11:30] LABS: PSA Screen* 1.48 ng/mL (0.10-4.00)
== END 2022-08-13 10:57 | disposition home or self-care (01) ==
PROVIDERS: PCP Family Medicine; Visit Provider Family Medicine
DX: E78.5 Hyperlipidemia, unspecified (principal); I10 Essential (primary) hypertension; Z12.5 Encounter for screening for malignant neoplasm of prostate; E87.6 Hypokalemia
CPT/HCPCS: 80053; 80061; 84153

== ENCOUNTER 2022-09-03 07:49 | Outpatient (CLI) | payer BC, SELFPAY ==
--- NOTE | 2022-09-03 08:00 | CRLHL7_ITS ---
For Patients: As a result of the Century Cures Act, medical imaging exams and procedure reports are released immediately into your electronic medical record. You may view this report before your referring provider. If you have questions, please contact your health care provider. Indication: MALIGNANT NEOPLASM OF Left URETER Technique: Postcontrast CT chest, abdomen and pelvis. 118 cc Isovue 370 intravenous contrast. Please note that all CT scans at this facility use dose modulation, iterative reconstruction, and/or weight-based dosing when appropriate to reduce radiation dose to as low as reasonably achievable. Comparison: 03/17/2022, 06/03/2022 Findings: In the chest, stable 2 millimeter nodule left lower lobe, series 4, image 86. No pleural effusion. Mild areas of scarring. No new nodule. Visualized thyroid normal. No intrathoracic adenopathy. Vascular calcifications. No infiltrate or edema. No effusion or pneumothorax. No destructive osseous lesion. Mild degenerative changes. In the abdomen, stable postop changes of left nephrectomy. Mild residual soft tissue densities are present within the left retroperitoneal fat along with subcentimeter left upper retroperitoneal lymph nodes. No enlarged lymph nodes are present. Vascular calcifications are present with chronic prominence of the celiac artery. Simple right renal cortical cysts are present without hydronephrosis. 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 Fatty liver. No intrahepatic lesion. Gallbladder normal. Mild atrophy of the pancreas. Spleen unremarkable. Small anterior abdominal wall hernia in the supraumbilical region measuring 3.2 cm, unchanged. In the pelvis, prostate calcifications are present. The bladder is normal. Sigmoid diverticulosis is present. No bowel obstruction or free air. No free fluid. No inguinal or pelvic adenopathy. Degenerative changes are present. There is no fracture. Impression: Stable exam. Unchanged 2 millimeter pulmonary nodule left lower lobe. Unchanged subcentimeter upper left retroperitoneal lymph nodes with postoperative stranding. Please note that all CT scans at this facility use dose modulation, iterative reconstruction, and/or weight-based dosing when appropriate to reduce radiation dose to as low as reasonably achievable. Dictated by Avelino Pacheco MD @ 09/03/2022 11:25:50 AM (Electronically Signed)
[2022-09-03 08:26] LABS: Creatinine* 1.8 mg/dL (0.5-1.5); Estimated Glomerular Filt Rate 40 ml/min
== END 2022-09-03 07:50 | disposition home or self-care (01) ==
PROVIDERS: PCP Family Medicine; Visit Provider Internal Medicine Medical Oncology
DX: C66.2 Malignant neoplasm of left ureter (principal); R91.1 Solitary pulmonary nodule; Z51.12 Encounter for antineoplastic immunotherapy
CPT/HCPCS: 36415; 71260; 74177; 82565; Q9967

== ENCOUNTER 2022-09-07 07:30 | Outpatient (RCR) | payer BC, SELFPAY ==
[2022-04-06 10:42] LABS: Basophils Absolute Auto 0.02 K/uL (0.00-0.30); Basophils Percent Auto 0.3 % (0.0-3.0); Eosinophils Percent Auto 7.2 % (0.0-7.0); Hematocrit 41.8 % (37.0-53.0); Hemoglobin* 14.7 gm/dL (13.5-17.5); Immature Granulocytes Abs Auto 0.01 K/uL (0.00-0.30); Mean Corpuscular HGB Conc 35 gm/dL (32-36); Mean Corpuscular Hemoglobin 36 pg (26-34); Mean Corpuscular Volume 102 fL (80-100); Monocytes Percent Auto 9.6 % (0.0-11.0); Neutrophils Absolute Auto 4.49 K/uL (1.7-7.0); Neutrophils Percent Auto 70.7 % (42.0-72.0); Platelet Count* 173 K/uL (140-440); RDW Coefficient of Variation % 13.7 % (11.5-15.5); White Blood Count* 6.35 K/uL (4.50-11.00)
[2022-04-06 10:46] LABS: Slide Review Reflex No
[2022-04-06 10:55] LABS: Chloride* 101 mmol/L (96-114); Potassium* 3.8 mmol/L (3.6-5.1); Sodium* 135 mmol/L (135-149)
[2022-04-06 10:57] LABS: Aspartate Amino Transferase* 34 U/L (12-35); Bilirubin Total* 1.5 mg/dL (0.1-1.5); Carbon Dioxide* 23 mmol/L (20-32); Creatinine* 1.9 mg/dL (0.5-1.5); Estimated Glomerular Filt Rate 38 ml/min; Total Protein* 7.3 g/dL (6.0-8.3)
[2022-04-06 10:58] LABS: Alanine Aminotransferase* 22 U/L (4-50); Alkaline Phosphatase* 100 U/L (40-150); Blood Urea Nitrogen* 34 mg/dL (7-30); Calcium* 9.2 mg/dL (8.4-10.6); Glucose* 99 mg/dL (60-115)
[2022-04-06 13:00] VITALS: BP 121/76; PULSE 55; RESP 16; TEMP 36.1; O2SAT 94
[2022-04-06] MEDS: 0.9 % SODIUM CHLORIDE 1000 ml 1,000 ML IV (13:00)
[2022-04-06] MEDS: ACETAMINOPHEN 325 MG TABLET 650 MG PO (13:50)
[2022-04-06] MEDS: FAMOTIDINE 20 MG, diphenhydrAMINE 50 MG in 0.9 % SODIUM CHLORIDE 100 ml 100 ML 309 MG IVPB (14:07)
--- NOTE | 2022-04-06 16:17 | ONC.NURNOTE ---
Talked to Dr. Rincon before treatment today. pts creat. 1.9. Per Dr. Rincon, pt to have 1 L bolus of NS before treatment. Then ok to treat.
--- NOTE | 2022-04-17 10:29 | ONC.NURNOTE ---
Called to say he is having increased hand stiffness and pain that started 3 days ago. Kerrie CHENG aware and will be calling patient back.
[2022-04-17 13:35] LABS: Chloride* 103 mmol/L (96-114); Sodium* 136 mmol/L (135-149)
[2022-04-17 13:36] LABS: Basophils Absolute Auto 0.03 K/uL (0.00-0.30); Basophils Percent Auto 0.6 % (0.0-3.0); Eosinophils Percent Auto 8.1 % (0.0-7.0); Hematocrit 41.8 % (37.0-53.0); Hemoglobin* 14.4 gm/dL (13.5-17.5); Mean Corpuscular HGB Conc 34 gm/dL (32-36); Mean Corpuscular Hemoglobin 36 pg (26-34); Mean Corpuscular Volume 103 fL (80-100); Monocytes Percent Auto 10.8 % (0.0-11.0); Neutrophils Absolute Auto 3.31 K/uL (1.7-7.0); Neutrophils Percent Auto 67.5 % (42.0-72.0); Platelet Count* 179 K/uL (140-440); Potassium* 3.6 mmol/L (3.6-5.1); RDW Coefficient of Variation % 13.3 % (11.5-15.5); Red Blood Count 4.05 m/uL (4.30-5.90); White Blood Count* 4.91 K/uL (4.50-11.00)
[2022-04-17 13:38] LABS: Alkaline Phosphatase* 87 U/L (40-150); Aspartate Amino Transferase* 30 U/L (12-35); Bilirubin Total* 0.8 mg/dL (0.1-1.5); Carbon Dioxide* 24 mmol/L (20-32); Creatinine* 1.7 mg/dL (0.5-1.5); Estimated Glomerular Filt Rate 43 ml/min; Total Protein* 7.4 g/dL (6.0-8.3)
[2022-04-17 13:39] LABS: Alanine Aminotransferase* 22 U/L (4-50); Blood Urea Nitrogen* 28 mg/dL (7-30); Creatine Kinase* 139 U/L (54-186); Glucose* 103 mg/dL (60-115)
[2022-04-17 13:41] LABS: C Reactive Protein* 0.6 mg/dL (0.5-1.0); Slide Review Reflex No
--- NOTE | 2022-04-17 14:03 | CRLHL7_ITS ---
For Patients: As a result of the Century Cures Act, medical imaging exams and procedure reports are released immediately into your electronic medical record. You may view this report before your referring provider. If you have questions, please contact your health care provider. Indication: Left wrist pain Technique: Three views left wrist Comparison: None Findings: Tiny ossicle adjacent to the 1st carpometacarpal joint. Mild spurring at the radioscaphoid joint. No fracture or erosive changes. Carpal alignment normal. Impression: Mild degenerative joint disease left wrist. Dictated by Avelino Pacheco MD @ 04/17/2022 3:26:35 PM (Electronically Signed)
[2022-04-17 14:13] LABS: Erythrocyte SedimentationRate* 7 mm/hr (2-15)
[2022-04-18 13:56] LABS: Aldolase 4.6 U/L (1.2-7.6)
[2022-04-20 13:10] VITALS: BP 147/80; PULSE 60; RESP 16; TEMP 36.1; O2SAT 94
--- NOTE | 2022-04-20 15:45 | ONC.NURNOTE ---
Franklyn states just stared medrol dose pack today. States he would like to rest and skip treatment today. states hands still uncomfortable and he wants to go fishing. see Kerrie CHENG note. Also Creat. 1.[address] Rincon aware and 1 Liter NS bolus ordered. Pt. declined. enc him to drink plenty of water. Kerrie CHENG aware.
[2022-05-05 11:27] LABS: Basophils Absolute Auto 0.04 K/uL (0.00-0.30); Basophils Percent Auto 0.7 % (0.0-3.0); Eosinophils Absolute Auto 0.23 K/uL (0.00-0.50); Hematocrit 40.7 % (37.0-53.0); Hemoglobin* 14.4 gm/dL (13.5-17.5); Immature Granulocytes Abs Auto 0.01 K/uL (0.00-0.30); Lymphocytes Percent Auto 11.9 % (20-44); Mean Corpuscular HGB Conc 35 gm/dL (32-36); Mean Corpuscular Hemoglobin 36 pg (26-34); Mean Corpuscular Volume 101 fL (80-100); Monocytes Percent Auto 9.6 % (0.0-11.0); Neutrophils Percent Auto 73.6 % (42.0-72.0); Platelet Count* 175 K/uL (140-440); RDW Coefficient of Variation % 12.8 % (11.5-15.5); Red Blood Count 4.04 m/uL (4.30-5.90); White Blood Count* 5.72 K/uL (4.50-11.00)
[2022-05-05 11:33] LABS: Slide Review Reflex No
[2022-05-05 11:47] LABS: Albumin* 4.1 g/dL (3.3-5.0); Chloride* 98 mmol/L (96-114)
[2022-05-05 11:48] LABS: Potassium* 3.9 mmol/L (3.6-5.1); Sodium* 133 mmol/L (135-149)
[2022-05-05 11:50] LABS: Alkaline Phosphatase* 99 U/L (40-150); Aspartate Amino Transferase* 31 U/L (12-35); Bilirubin Total* 1.2 mg/dL (0.1-1.5); Blood Urea Nitrogen* 31 mg/dL (7-30); Carbon Dioxide* 26 mmol/L (20-32); Creatinine* 1.7 mg/dL (0.5-1.5); Estimated Glomerular Filt Rate 43 ml/min; Total Protein* 7.1 g/dL (6.0-8.3)
[2022-05-05 11:51] LABS: Alanine Aminotransferase* 24 U/L (4-50); Calcium* 9.3 mg/dL (8.4-10.6); Glucose* 98 mg/dL (60-115)
[2022-05-05 13:19] VITALS: BP 156/80; PULSE 66; RESP 16; TEMP 36.4; O2SAT 90
[2022-05-05] MEDS: ACETAMINOPHEN 325 MG TABLET 650 MG PO (14:05)
[2022-05-05] MEDS: FAMOTIDINE 20 MG, diphenhydrAMINE 50 MG in 0.9 % SODIUM CHLORIDE 100 ml 100 ML 309 MG IVPB (14:23)
--- NOTE | 2022-05-05 16:01 | ONC.NURNOTE ---
Pt here for Avelumab. Pt states he continues to have bilateral wrist pain, rates pain a 6-03/08 since he finished the medrol dose pack. Senior Policy Associate discussed with Kerrie Fam APRN, labs reviewed. Per Kerrie Fam APRN, treat today and pt instructed to call if the wrist pain worsens after receiving treatment today. Pt has f/u in 2 weeks with oncologist.
[2022-05-18 10:25] LABS: Basophils Absolute Auto 0.04 K/uL (0.00-0.30); Basophils Percent Auto 0.7 % (0.0-3.0); Eosinophils Absolute Auto 0.31 K/uL (0.00-0.50); Eosinophils Percent Auto 5.7 % (0.0-7.0); Hematocrit 39.4 % (37.0-53.0); Hemoglobin* 13.9 gm/dL (13.5-17.5); Immature Granulocytes Abs Auto 0.01 K/uL (0.00-0.30); Lymphocytes Percent Auto 16.9 % (20-44); Mean Corpuscular HGB Conc 35 gm/dL (32-36); Mean Corpuscular Hemoglobin 36 pg (26-34); Mean Corpuscular Volume 101 fL (80-100); Monocytes Percent Auto 14.3 % (0.0-11.0); Neutrophils Absolute Auto 3.39 K/uL (1.7-7.0); Neutrophils Percent Auto 62.2 % (42.0-72.0); Platelet Count* 190 K/uL (140-440); RDW Coefficient of Variation % 12.4 % (11.5-15.5); White Blood Count* 5.45 K/uL (4.50-11.00)
[2022-05-18 10:39] LABS: Slide Review Reflex No
[2022-05-18 10:44] LABS: Albumin* 3.8 g/dL (3.3-5.0); Chloride* 96 mmol/L (96-114)
[2022-05-18 10:45] LABS: Potassium* 3.7 mmol/L (3.6-5.1); Sodium* 130 mmol/L (135-149)
[2022-05-18 10:47] LABS: Alkaline Phosphatase* 91 U/L (40-150); Aspartate Amino Transferase* 30 U/L (12-35); Bilirubin Total* 0.8 mg/dL (0.1-1.5); Blood Urea Nitrogen* 29 mg/dL (7-30); Carbon Dioxide* 26 mmol/L (20-32); Creatinine* 1.8 mg/dL (0.5-1.5); Estimated Glomerular Filt Rate 40 ml/min
[2022-05-18 10:48] LABS: Alanine Aminotransferase* 19 U/L (4-50); Calcium* 8.6 mg/dL (8.4-10.6); Glucose* 87 mg/dL (60-115)
[2022-05-18] MEDS: ACETAMINOPHEN 325 MG TABLET 650 MG PO (12:27)
[2022-05-18] MEDS: FAMOTIDINE 20 MG, diphenhydrAMINE 50 MG in 0.9 % SODIUM CHLORIDE 100 ml 100 ML 309 MG IVPB (12:28)
[2022-05-18] MEDS: SODIUM CHLORIDE 0.9 % (FLUSH) 10 ML SYRINGE IVF (14:36)
[2022-05-18] MEDS: 0.9 % SODIUM CHLORIDE 250 ml IV (14:36)
--- NOTE | 2022-05-18 15:10 | ONC.NURNOTE ---
pt s neuropathy of upper extremities better. altho iv starts are more painful than in the past.
[2022-05-26 12:15] LABS: Basophils Absolute Auto 0.01 K/uL (0.00-0.30); Basophils Percent Auto 0.1 % (0.0-3.0); Eosinophils Absolute Auto 0.18 K/uL (0.00-0.50); Eosinophils Percent Auto 2.7 % (0.0-7.0); Hematocrit 40.1 % (37.0-53.0); Hemoglobin* 14.2 gm/dL (13.5-17.5); Immature Granulocytes Abs Auto 0.01 K/uL (0.00-0.30); Lymphocytes Percent Auto 7.8 % (20-44); Mean Corpuscular HGB Conc 35 gm/dL (32-36); Mean Corpuscular Hemoglobin 35 pg (26-34); Mean Corpuscular Volume 100 fL (80-100); Monocytes Percent Auto 8.5 % (0.0-11.0); Neutrophils Percent Auto 80.8 % (42.0-72.0); Platelet Count* 179 K/uL (140-440); RDW Coefficient of Variation % 12.4 % (11.5-15.5); Red Blood Count 4.01 m/uL (4.30-5.90); White Blood Count* 6.69 K/uL (4.50-11.00)
[2022-05-26 12:25] LABS: Albumin* 4.1 g/dL (3.3-5.0); Chloride* 99 mmol/L (96-114); Sodium* 133 mmol/L (135-149)
[2022-05-26 12:26] LABS: Potassium* 3.4 mmol/L (3.6-5.1); Slide Review Reflex No
[2022-05-26 12:27] LABS: Creatinine* 1.7 mg/dL (0.5-1.5); Estimated Glomerular Filt Rate 43 ml/min
[2022-05-26 12:28] LABS: Alkaline Phosphatase* 112 U/L (40-150); Aspartate Amino Transferase* 26 U/L (12-35); Bilirubin Total* 0.9 mg/dL (0.1-1.5); Carbon Dioxide* 24 mmol/L (20-32); Creatine Kinase* 151 U/L (54-186)
[2022-05-26 12:29] LABS: Alanine Aminotransferase* 18 U/L (4-50); Blood Urea Nitrogen* 23 mg/dL (7-30); Calcium* 9.2 mg/dL (8.4-10.6); Glucose* 112 mg/dL (60-115); Total Protein* 7.5 g/dL (6.0-8.3)
[2022-05-26 12:31] LABS: C Reactive Protein* 3.6 mg/dL (0.5-1.0)
[2022-05-26 12:59] LABS: Troponin I* < 0.01 ng/mL (0.01-0.04)
[2022-05-26 13:06] LABS: Erythrocyte SedimentationRate* 25 mm/hr (2-15)
[2022-05-27 14:03] LABS: Rheumatoid Factor < 10 IU/mL (0-14)
[2022-05-27 14:18] LABS: Aldolase 4.9 U/L (1.2-7.6)
[2022-05-27 22:25] LABS: Anti-Nuclear Ab(ANA)IgG ELISA None Detected (None Detected)
--- NOTE | 2022-06-03 15:00 | ONC.NURNOTE ---
Received phone call from stating that patient already has a CT authorization for [facility] so they are unable to get it approved here. Nursing called patient and found that patient had CT done today at [facility]. He has a disc in hand and will bring in tomorrow to be put into his chart. Hydrometeorological Technician asked if it was chest/abdomen/pelvis and he notes that it was. Hydrometeorological Technician contacted department to let them know that it was already done and to disregard, then talked with radiology to let them know that this was done and patient will bring in the disc to be uploaded to his chart.
[2022-06-15 09:29] LABS: Basophils Absolute Auto 0.04 K/uL (0.00-0.30); Basophils Percent Auto 0.5 % (0.0-3.0); Eosinophils Absolute Auto 0.11 K/uL (0.00-0.50); Eosinophils Percent Auto 1.3 % (0.0-7.0); Hematocrit 41.7 % (37.0-53.0); Hemoglobin* 14.3 gm/dL (13.5-17.5); Immature Granulocytes Abs Auto 0.02 K/uL (0.00-0.30); Lymphocytes Percent Auto 6.1 % (20-44); Mean Corpuscular HGB Conc 34 gm/dL (32-36); Mean Corpuscular Hemoglobin 36 pg (26-34); Mean Corpuscular Volume 104 fL (80-100); Monocytes Percent Auto 4.5 % (0.0-11.0); Neutrophils Percent Auto 87.4 % (42.0-72.0); Platelet Count* 177 K/uL (140-440); RDW Coefficient of Variation % 13.1 % (11.5-15.5); Red Blood Count 4.02 m/uL (4.30-5.90); White Blood Count* 8.71 K/uL (4.50-11.00)
[2022-06-15 09:32] LABS: Slide Review Reflex No
[2022-06-15 09:39] LABS: Albumin* 4.3 g/dL (3.3-5.0); Chloride* 98 mmol/L (96-114); Potassium* 4.1 mmol/L (3.6-5.1); Sodium* 134 mmol/L (135-149)
[2022-06-15 09:41] LABS: Estimated Glomerular Filt Rate 36 ml/min
[2022-06-15 09:42] LABS: Alanine Aminotransferase* 27 U/L (4-50); Alkaline Phosphatase* 85 U/L (40-150); Aspartate Amino Transferase* 29 U/L (12-35); Blood Urea Nitrogen* 39 mg/dL (7-30); Carbon Dioxide* 26 mmol/L (20-32); Glucose* 125 mg/dL (60-115); Total Protein* 7.5 g/dL (6.0-8.3)
[2022-06-15 09:43] LABS: Calcium* 9.3 mg/dL (8.4-10.6)
== END 2022-10-03 23:59 | disposition home or self-care (01) ==
LOC: CCIC 07:30
PROVIDERS: Clinical Nurse Specialist; Nurse Practitioner Family; PCP Family Medicine; Referring Provider Family Medicine; Visit Provider Internal Medicine Medical Oncology
DX: C66.2 Malignant neoplasm of left ureter (principal); C67.9 Malignant neoplasm of bladder, unspecified; C64.2 Malignant neoplasm of left kidney, except renal pelvis; R60.0 Localized edema; N18.9 Chronic kidney disease, unspecified
CPT/HCPCS: 36415; 73110; 80053; 82085; 82550; 84443; 84484; 85025; 85651; 86039; 86140; 86200; 86431; 96361; 96376; 96413; 99212; 99213; 99214; 99215; 99442; A9270; J1200; J7030; J7050; J9023; S0028

== ENCOUNTER 2022-09-23 08:06 | Outpatient (CLI) | payer BC, SELFPAY | END 2022-09-23 08:07 | disposition home or self-care (01) | LOC: NFLDREF 08:23 | PROVIDERS: PCP Family Medicine; Visit Provider Family Medicine | DX: E87.6 Hypokalemia (principal) | CPT/HCPCS: 84132 ==

== ENCOUNTER 2022-10-01 09:16 | Outpatient (CLI) | payer BC, SELFPAY ==
--- NOTE | 2022-10-01 11:24 | W.ANESCHARGE ---
Anesthesia Charges Start Date/Time Anesthesia Start Date: 10/01/22 Anesthesia Start Time: 10:42 Stop Date/Time Anesthesia Stop Date: 10/01/22 Anesthesia Stop Time: 11:18
--- NOTE | 2022-10-01 11:24 | W.ANESCHARGE ---
Anesthesia Charges Start Date/Time Anesthesia Start Date: 10/01/22 Anesthesia Start Time: 10:42 Stop Date/Time Anesthesia Stop Date: 10/01/22 Anesthesia Stop Time: 11:18
== END 2022-10-01 09:17 | disposition home or self-care (01) ==
LOC: OP CLINIC 09:17
PROVIDERS: PCP Family Medicine; Visit Provider Surgery
DX: Z12.11 Encounter for screening for malignant neoplasm of colon (principal); K63.5 Polyp of colon; K57.30 Diverticulosis of large intestine without perforation or abscess without bleeding
CPT/HCPCS: 00811; 45385; 88305; J2704

== ENCOUNTER 2022-11-09 13:53 | Outpatient (CLI) | payer BC, SELFPAY | END 2022-11-09 13:54 | disposition home or self-care (01) | LOC: NFLDREF 13:54 | PROVIDERS: PCP Family Medicine; Visit Provider Family Medicine | DX: I10 Essential (primary) hypertension (principal) | CPT/HCPCS: 80048 ==

== ENCOUNTER 2023-03-12 09:36 | Outpatient (CLI) | payer BC, SELFPAY ==
--- NOTE | 2023-03-12 10:00 | CRLHL7_ITS ---
For Patients: As a result of the Century Cures Act, medical imaging exams and procedure reports are released immediately into your electronic medical record. You may view this report before your referring provider. If you have questions, please contact your health care provider. Indication: MALIGNANT NEOPLASM OF LEFT KIDNEY Technique: Postcontrast CT chest, abdomen and pelvis. 100 cc Isovue 370 intravenous contrast. Please note that all CT scans at this facility use dose modulation, iterative reconstruction, and/or weight-based dosing when appropriate to reduce radiation dose to as low as reasonably achievable. Comparison: 12/01/2022, 09/03/2022 Findings: In the chest, the visualized thyroid is within normal limits. Incidental pericardial recess noted. Vascular calcifications. No hiatal hernia or pericardial effusion. No enlarged lymph nodes within the mediastinum, maggi or axilla. No pleural effusion. Mild dependent scarring noted bilaterally. No infiltrate or edema. No effusion or pneumothorax. No suspicious pulmonary nodule. Stable 2 millimeter nodule left lower lobe, . In the abdomen, there is no suspicious intrahepatic mass. Mild hepatic steatosis noted. Gallbladder normal. No biliary obstruction or calcified gallstones. Mild atrophy of the pancreas. Spleen is normal. Postop changes left nephrectomy. No adrenal lesion. No enlarged retroperitoneal lymph nodes. Stable simple cyst arising from the upper pole of the right kidney measuring 2.6 cm. Small cysts arising from the lower pole of the right kidney are also similar measuring 1.1 and 1.5 cm. Dense atherosclerotic calcifications are noted. Ectatic celiac artery is unchanged. Midline abdominal wall incision with focal weakening of the anterior abdominal wall fascia containing fat, unchanged. Similar appearance of the 3rd portion of the duodenum. In the pelvis, the bladder is normal. The prostate is mildly heterogeneous with adjacent calcifications. Sigmoid diverticulosis. No diverticulitis. No bowel obstruction. The appendix is absent. Terminal ileum normal. No small bowel obstruction. 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 No pelvic or inguinal adenopathy. Multilevel discogenic spurring. No fracture. Impression: Stable exam. Unchanged 2 millimeter left lower lobe pulmonary nodule and subcentimeter left retroperitoneal lymph nodes. Chronic sigmoid diverticulosis. Ectatic celiac artery with atherosclerotic disease, as before. Right renal cysts are unchanged. Duplicated right ureter. No hydronephrosis. Please note that all CT scans at this facility use dose modulation, iterative reconstruction, and/or weight-based dosing when appropriate to reduce radiation dose to as low as reasonably achievable. Dictated by Avelino Pacheco MD @ 03/12/2023 1:20:28 PM (Electronically Signed)
[2023-03-12 10:43] LABS: Creatinine* 1.5 mg/dL (0.5-1.5); Estimated Glomerular Filt Rate 50 ml/min
== END 2023-03-12 09:37 | disposition home or self-care (01) ==
PROVIDERS: PCP Family Medicine; Visit Provider Physician Assistant
DX: C64.2 Malignant neoplasm of left kidney, except renal pelvis (principal); K57.30 Diverticulosis of large intestine without perforation or abscess without bleeding; N28.1 Cyst of kidney, acquired
CPT/HCPCS: 36415; 71260; 74177; 82565; Q9967

== ENCOUNTER 2023-03-22 10:30 | Outpatient (RCR) | payer BC, SELFPAY ==
--- NOTE | 2022-11-27 11:40 | ONC.NURNOTE ---
Addendum entered by Linnette Colbert RN 12/03/22 09:21: Report obtained from [facility]. They will send images to radiology department. Addendum entered by Linnette Colbert RN 11/27/22 11:47: Order and information faxed to [phone] Original Note: Luggage Attendant talked with [facility] today, as patient is seeing them on 12/01/[address]22 for follow up and CT scan. Dr. Curry was willing to add on the chest to the CT scan ordered there, along with comparison. Patient notified of this and told to be sure to check on this when patient is in clinic on Wednesday.
[2023-03-22 10:40] LABS: Chloride* 102 mmol/L (96-114); Potassium* 4.4 mmol/L (3.6-5.1); Sodium* 137 mmol/L (135-149)
[2023-03-22 10:43] LABS: Blood Urea Nitrogen* 28 mg/dL (7-30); Calcium* 9.4 mg/dL (8.4-10.6); Carbon Dioxide* 25 mmol/L (20-32); Creatinine* 1.8 mg/dL (0.5-1.5); Estimated Glomerular Filt Rate 40 ml/min; Glucose* 104 mg/dL (60-115)
== END 2023-06-19 23:59 | disposition home or self-care (01) ==
LOC: CCIC 10:30
PROVIDERS: Physician Assistant; PCP Family Medicine; Visit Provider Internal Medicine Hematology & Oncology
DX: C66.2 Malignant neoplasm of left ureter (principal); C67.9 Malignant neoplasm of bladder, unspecified; C64.2 Malignant neoplasm of left kidney, except renal pelvis; N18.9 Chronic kidney disease, unspecified
CPT/HCPCS: 36415; 80048; 99212; 99214

== ENCOUNTER 2023-05-13 12:02 | Outpatient (CLI) | payer BC, SELFPAY ==
--- NOTE | 2023-05-13 12:15 | CRLHL7_ITS ---
For Patients: As a result of the Century Cures Act, medical imaging exams and procedure reports are released immediately into your electronic medical record. You may view this report before your referring provider. If you have questions, please contact your health care provider. INDICATION: LEFT LEG SWELLING COMPARISON: None. TECHNIQUE: A compression venous ultrasound exam was performed of the left lower extremity using tracy-scale imaging, color Doppler and spectral Doppler analysis. FINDINGS: Sonographic imaging of the left lower extremity demonstrates normal compressibility and color Doppler venous blood flow within the common femoral vein, deep femoral vein, and the proximal greater saphenous vein. Within the thigh, the femoral vein is patent and compressible. At a lower level, the popliteal and posterior tibial veins also show normal compressibility and color Doppler venous blood flow. Limited imaging of the contralateral groin demonstrates a normal spectral waveform and color Doppler venous blood flow within the right common femoral vein. IMPRESSION: Normal venous ultrasound exam. No evidence of deep vein thrombosis within the left lower extremity. Dictated by Avelino Pacheco MD @ 05/13/2023 12:34:35 PM (Electronically Signed)
== END 2023-05-13 12:03 | disposition home or self-care (01) ==
LOC: US 12:03
PROVIDERS: PCP Family Medicine; Visit Provider Family Medicine
DX: M79.89 Other specified soft tissue disorders (principal)
CPT/HCPCS: 93971

== ENCOUNTER 2023-05-31 09:27 | Outpatient (CLI) | payer BC, SELFPAY ==
--- NOTE | 2023-05-31 10:00 | CRLHL7_ITS ---
For Patients: As a result of the Century Cures Act, medical imaging exams and procedure reports are released immediately into your electronic medical record. You may view this report before your referring provider. If you have questions, please contact your health care provider. Indication: BLADDER CANCER FOLLOW UP Technique: Postcontrast CT chest, abdomen and pelvis. 112 cc Isovue 370 intravenous contrast. Please note that all CT scans at this facility use dose modulation, iterative reconstruction, and/or weight-based dosing when appropriate to reduce radiation dose to as low as reasonably achievable. Comparison: 03/12/2023, 12/01/2022, 09/03/2022 Findings: In the chest, calcifications are present within the coronary arteries. No pleural or pericardial effusion. Small hiatal hernia. No enlarged lymph nodes. No thyroid lesion. Stable 2 millimeter nodule left lower lobe. No infiltrate. No edema or pneumothorax. In the abdomen, no suspicious intrahepatic mass. Fatty infiltration of the liver. Gallbladder normal. Normal spleen. No adrenal lesion. Right kidney absent. Right renal cysts are similar. No hydronephrosis. Atherosclerotic changes in the aorta. Ectatic celiac artery is unchanged. No pancreatic lesion. Stable subcentimeter retroperitoneal lymph nodes. No bowel obstruction or free air. Supraumbilical abdominal wall hernia containing fat is unchanged. In the pelvis, the bladder appears unremarkable. Prostate calcifications are present. No pelvic or inguinal adenopathy. Sigmoid diverticulosis. No diverticulitis or bowel obstruction. Left inguinal hernia containing fat is unchanged. Degenerative changes. No fracture. Impression: No significant change. Stable 2 millimeter palmar nodule left lower lobe. No adenopathy. Please note that all CT scans at this facility use dose modulation, iterative reconstruction, and/or weight-based dosing when appropriate to reduce radiation dose to as low as reasonably achievable. Dictated by Avelino Pacheco MD @ 05/31/2023 12:45:45 PM (Electronically Signed)
[2023-05-31 10:01] LABS: Creatinine* 1.8 mg/dL (0.5-1.5); Estimated Glomerular Filt Rate 40 ml/min
== END 2023-05-31 09:28 | disposition home or self-care (01) ==
LOC: CT 09:27
PROVIDERS: PCP Family Medicine; Visit Provider Internal Medicine Hematology & Oncology
DX: C67.9 Malignant neoplasm of bladder, unspecified (principal)
CPT/HCPCS: 36415; 71260; 74177; 82565; Q9967

== ENCOUNTER 2023-06-11 11:27 | Emergency (ER) | payer BC, SELFPAY ==
[2023-06-11 11:37] VITALS: BP 151/94; PULSE 79; RESP 16; TEMP 36.6; O2SAT 97; BMI 32.5
--- NOTE | 2023-06-11 11:44 | CRLHL7_ITS ---
For Patients: As a result of the Century Cures Act, medical imaging exams and procedure reports are released immediately into your electronic medical record. You may view this report before your referring provider. If you have questions, please contact your health care provider. INDICATION: Left leg pain TECHNIQUE: Ultrasound venous duplex lower left extremity. Compression venous exam was performed using tracy-scale, color Doppler, and spectral Doppler analysis. COMPARISON: Ultrasound 05/13/2023 FINDINGS: Sonographic imaging demonstrates the left common femoral, deep femoral, superficial femoral, popliteal, posterior tibial and greater saphenous and the contralateral right common femoral veins to be fully compressible with normal color Doppler blood flow. IMPRESSION: Normal left lower extremity venous ultrasound, no sign of deep venous thrombosis. Dictated by Hector Jack MD @ 06/11/2023 1:23:26 PM (Electronically Signed)
[2023-06-11 12:07] LABS: Basophils Absolute Auto 0.02 K/uL (0.00-0.30); Basophils Percent Auto 0.3 % (0.0-3.0); Eosinophils Absolute Auto 0.23 K/uL (0.00-0.50); Eosinophils Percent Auto 3.5 % (0.0-7.0); Hematocrit 44.6 % (37.0-53.0); Hemoglobin* 15.1 gm/dL (13.5-17.5); Immature Granulocytes Abs Auto 0.01 K/uL (0.00-0.30); Immature Granulocytes Pct Auto 0.2 %; Lymphocytes Percent Auto 14.9 % (20-44); Mean Corpuscular HGB Conc 34 gm/dL (32-36); Mean Corpuscular Hemoglobin 35 pg (26-34); Mean Corpuscular Volume 104 fL (80-100); Monocytes Percent Auto 11.3 % (0.0-11.0); Neutrophils Absolute Auto 4.65 K/uL (1.7-7.0); Neutrophils Percent Auto 69.8 % (42.0-72.0); Platelet Count* 205 K/uL (140-440); RDW Coefficient of Variation % 13.1 % (11.5-15.5); Red Blood Count 4.27 m/uL (4.30-5.90); White Blood Count* 6.65 K/uL (4.50-11.00)
--- NOTE | 2023-06-11 12:13 | ED_ITS ---
HPI - General Adult General Chief complaint: Extremity Pain/Injury, Lower Stated complaint: L leg swelling, pain Time Seen by Provider: 06/11/23 11:30 Source: patient Mode of arrival: ambulatory Limitations: no limitations History of Present Illness HPI narrative: 67-year-old male coming in today complaining of left lower extremity pain swelling. Patient has been dealing with left lower extremity pain and swelling for about a month. He did have an ultrasound done 3-4 weeks ago of this extremity in this was negative for any DVT. It was thought that his problem was caused by significant varicose veins any does have an appointment with a vein specialist coming up. However in the last week he states that his pain has become unbearable, pain is worsening as well as the swelling. He states that he takes high doses of ibuprofen and Tylenol without relief of his pain. He denies any systemic symptoms like fevers chills or shortness of breath. Denies any coughing. Related Data Home Medications Medication Instructions Recorded Confirmed ibuprofen 600 mg tablet 600 mg PO Q6H PRN 02/26/22 05/13/23 Previous Rx's Medication Instructions Recorded chlorthalidone 25 mg tablet 25 mg PO DAILY #90 tabs 08/17/22 potassium chloride 20 mEq 20 meq PO BID #180 tabs 08/17/22 tablet,extended release(part/cryst) simvastatin 20 mg tablet 20 mg PO DAILY #90 tabs 08/17/22 tadalafil 20 mg tablet 20 mg PO DAILY PRN sexual activity 08/17/22 #10 tabs lisinopril 5 mg tablet 5 mg PO QDAY #90 tabs 03/24/23 Allergies Allergy/AdvReac Type Severity Reaction Status Date / Time No Known Drug Allergies Allergy Verified 05/13/23 09:12 Review of Systems Status of ROS: Reports: 10 or more systems reviewed and unremarkable except as noted in History and below [facility] Medical History RASHEL (obstructive sleep apnea) ?G47.33 - Obstructive sleep apnea (adult) (pediatric) (ICD-10) White coat syndrome without diagnosis of hypertension ?R03.0 - Elevated blood-pressure reading, without diagnosis of hypertension (ICD-10) Tobacco use (04/15/10) ?Z72.0 - Tobacco use (ICD-10) Personal history of colonic polyps (04/15/10) ?Z86.010 - Personal history of colonic polyps (ICD-10) Obesity (07/02/11) ?E66.9 - Obesity, unspecified (ICD-10) Hypertension ?I10 - Essential (primary) hypertension (ICD-10) Hyperlipidemia ?E78.5 - Hyperlipidemia, unspecified (ICD-10) Erectile dysfunction (04/15/10) ?N52.9 - Male erectile dysfunction, unspecified (ICD-10) Surgical History H/O vasectomy ?Z98.52 - Vasectomy status (ICD-10) History of left nephrectomy ?Z90.5 - Acquired absence of kidney (ICD-10) History of appendectomy (07/02/11) ?Z90.49 - Acquired absence of other specified parts of digestive tract (ICD- 10) Social History Leisure activities: fishing Smoking Status: Former smoker How many standard drinks containing alcohol do you have on a typical day: 3 or 4 AUDIT-C Alcohol total score: 1 Non-prescribed substance use: denies use Are you now , , , , never or living with a partner: Social isolation score (0-1 are the most socially isolated patients): 1 Little interest or pleasure in doing things: not at all Feeling down, depressed, or hopeless: not at all Exam Narrative: Exam Narrative: Overweight, well-developed patient in no acute distress. Alert and oriented. Answers questions appropriately. Mood and affect are appropriate. Thoughts are goal oriented and rational. No tangential or magical thinking noted. Patient speaks in full sentences without needing to catch his breath. HEENT: Normocephalic atraumatic. Pupils are equally round reactive to light. Extraocular muscles are intact. Conjunctivae are moist without any icterus noted. Moist mucous membranes. Cardiovascular: Heart is regular rate and rhythm . Lungs: Clear to auscultation bilaterally. Extremities: Bilateral lower extremities have varicosities. He does have 1+ pitting edema of the left lower extremity without pitting edema of the right. He has a lot of tenderness to palpation of the lower leg. Varicosities are worse on the left. Skin: Warm, dry, intact Const: Vital Signs, click to edit/add: Vital Signs - 24 hr 06/11/23 11:37 Temperature 97.9 F Pulse Rate [Right Pulse Oximeter] 79 Respiratory Rate 16 Blood Pressure [Ri ght Upper Arm] 151/94 H Pulse Oximetry 97 Oxygen Delivery Me thod Room Air Course Course ED Course: Given that his swelling and pain are both getting worse we opted to repeat the ultrasound. This did not show any evidence of DVT. Lab work was also done: CBC was unremarkable. Creatinine is elevated just slightly above his baseline, potassium was elevated at 5.3. Vital Signs Vital signs: Initial Vital Signs Temperature 97.9 F 06/11/23 11:37 Temperature Source Temporal Artery Scan 06/11/23 11:37 Pulse Rate 79 06/11/23 11:37 Pulse Rhythm Regular 06/11/23 11:37 Respiratory Rate 16 06/11/23 11:37 Blood Pressure 151/94 H 06/11/23 11:37 Blood Pressure Mean 113 H 06/11/23 11:37 Blood Pressure Position Sitting 06/11/23 11:37 Pulse Oximetry 97 06/11/23 11:37 Oxygen Delivery Method Room Air 06/11/23 11:37 Vital Signs Temperature 97.9 F 06/11/23 11:37 Pulse Rate 79 06/11/23 11:37 Respiratory Rate 16 06/11/23 11:37 Blood Pressure 151/94 H 06/11/23 11:37 Pulse Oximetry 97 06/11/23 11:37 Oxygen Delivery Method Room Air 06/11/23 11:37 Temperature 97.9 F 06/11/23 11:37 Pulse Rate 79 06/11/23 11:37 Respiratory Rate 16 06/11/23 11:37 Blood Pressure 151/94 H 06/11/23 11:37 Pulse Oximetry 97 06/11/23 11:37 Oxygen Delivery Method Room Air 06/11/23 11:37 Medical Decision Making MDM Narrative Medical decision making narrative: 67-year-old male with lower extremity pain secondary to varicose veins. DVT ruled out today. No evidence of infection or inflammation noted. Patient will be sent home with hydrocodone APAP to take as needed. Side effects of his medication were discussed with the patient. Patient will also hold his potassium tablets as his potassium was high at 5.3 today. Recommend follow-up with primary care provider. Medical Records Medical records reviewed: Yes I reviewed the patient's medical records Lab Data Lab results reviewed: Yes I reviewed the patient's lab results Labs: Lab Results 06/11/23 Range/Units 11:55 WBC 6.65 (4.50-11.00) K/uL RBC 4.27 L (4.30-5.90) m/uL Hgb 15.1 (13.5-17.5) gm/dL Hct 44.6 (37.0-53.0) % MCV 104 H (80-100) fL MCH 35 H (26-34) pg MCHC 34 (32-36) gm/dL RDW Coeff of Yonathan 13.1 (11.5-15.5) % Plt Count 205 (140-440) K/uL Neut % (Auto) 69.8 (42.0-72.0) % Lymph % (Auto) 14.9 L (20-44) % Darke % (Auto) 11.3 H (0.0-11.0) % Eos % (Auto) 3.5 (0.0-7.0) % Baso % (Auto) 0.3 (0.0-3.0) % Neut # (Auto) 4.65 (1.7-7.0) K/uL Lymph # (Auto) 1.00 (0.90-2.90) K/uL Darke # (Auto) 0.80 (0.00-0.90) K/UL Eos # (Auto) 0.23 (0.00-0.50) K/uL Baso # (Auto) 0.02 (0.00-0.30) K/uL Abs Immat Gran (auto) 0.01 (0.00-0.30) K/uL Imm/Tot Granulo (auto) 0.2 % Sodium 137 (135-149) mmol/L Potassium 5.3 H (3.6-5.1) mmol/L Chloride 101 (96-114) mmol/L Carbon Dioxide 26 (20-32) mmol/L Anion Gap 10 (7-15) mEq/L BUN 32 H (7-30) mg/dL Creatinine 2.1 H (0.5-1.5) mg/dL Estimated Creat Clear 36.44 Estimated GFR 33 ml/min Glucose 94 (60-115) mg/dL Calcium 9.7 (8.4-10.6) mg/dL C-Reactive Protein 1.5 H (0.5-1.0) mg/dL Imaging Data Venous US: Attestation: I have reviewed the pertinent imaging results. Radiologist's impression: TECHNIQUE: Ultrasound venous duplex lower left extremity. Compression venous exam was performed using tracy-scale, color Doppler, and spectral Doppler analysis. COMPARISON: Ultrasound 05/13/2023 FINDINGS: Sonographic imaging demonstrates the left common femoral, deep femoral, superficial femoral, popliteal, posterior tibial and greater saphenous and the contralateral right common femoral veins to be fully compressible with normal color Doppler blood flow. IMPRESSION: Normal left lower extremity venous ultrasound, no sign of deep venous thrombosis. Discharge Plan Discharge Clinical Impression: Varicose veins of bilateral lower extremities with pain, Hyperkalemia Patient Disposition: Home, Self-Care Condition: Stable Additional Instructions: No evidence of blood clots were found today. He will be sent home with pain medications to use as needed/as directed. These pain medications can cause constipation, recommend you take a daily stool softener such as Colace which can purchase [id number]. These medications can also make you feel lightheaded, you should not operate any heavy machinery or drive while you take this medication. Lastly, this medication does contain Tylenol in it. You should not take more than 3 g of Tylenol in a 24 hour period. Your potassium levels were high today: Recommend you hold your potassium tablets until you follow-up with your primary care provider. Prescriptions: No Action chlorthalidone 25 mg tablet 25 mg PO DAILY Qty: 90 3RF potassium chloride 20 mEq tablet,ER particles/crystals 20 meq PO BID Qty: 180 3RF simvastatin 20 mg tablet 20 mg PO DAILY Qty: 90 3RF tadalafil 20 mg tablet 20 mg PO DAILY PRN (Reason: sexual activity) Qty: 10 11RF lisinopril 5 mg tablet 5 mg PO QDAY Qty: 90 2RF ibuprofen 600 mg tablet 600 mg PO Q6H PRN Patient Comments: TAKE 1 TABLET BY MOUTH EVERY 6 HOURS NEEDED FOR PAIN Follow Up/Referrals: Dmitri Silverio MD [Primary Care Provider] - Stand Alone Forms: MyHealth Info Instructions
[2023-06-11 12:23] LABS: Slide Review Reflex No
[2023-06-11 12:27] LABS: Chloride* 101 mmol/L (96-114); Sodium* 137 mmol/L (135-149)
[2023-06-11 12:28] LABS: Potassium* 5.3 mmol/L (3.6-5.1)
[2023-06-11 12:30] LABS: Creatinine* 2.1 mg/dL (0.5-1.5); Est. Creatinine Clearance* 36.44; Estimated Glomerular Filt Rate 33 ml/min
[2023-06-11 12:31] LABS: Anion Gap 10 mEq/L (7-15); Blood Urea Nitrogen* 32 mg/dL (7-30); Calcium* 9.7 mg/dL (8.4-10.6); Carbon Dioxide* 26 mmol/L (20-32); Glucose* 94 mg/dL (60-115)
[2023-06-11 12:34] LABS: C Reactive Protein* 1.5 mg/dL (0.5-1.0)
== END 2023-06-11 12:57 | disposition home or self-care (01) ==
PROVIDERS: Emergency Provider Family Medicine; PCP Family Medicine
DX: I83.813 Varicose veins of bilateral lower extremities with pain (principal); E87.5 Hyperkalemia
CPT/HCPCS: 36415; 80048; 85025; 86140; 93971; 99283; 99284

== ENCOUNTER 2023-07-08 09:01 | Outpatient (CLI) | payer BC, SELFPAY ==
--- NOTE | 2023-07-08 09:15 | MR_ITS ---
[facility] [address] [address] Referring Physician Information: Daryl Reynolds M.D. [id number] [facility] [address] Patient: Reza Rincon D.O.B: 1955 Sex: Male Phone: [facility] Exam Date: 07/08/2023 EXAM: MRI of the LEFT KNEE, without contrast CLINICAL: Unspecified symptoms involving the left knee. COMPARISONS: X-rays dated 06/30/2023. TECHNICAL: Multiplanar multisequence MRI of the left knee was obtained. SEDATION: None. CONTRAST: None. FINDINGS: Ligaments: ACL: Intact and unremarkable. PCL: Intact and unremarkable. MCL: Increased soft tissue edema is noted about the MCL which is likely reactive to the underlying medial meniscal pathology. MCL otherwise appears intact. LCL: Intact and unremarkable. Posterolateral corner: Mild partial tearing of the distal iliotibial band as seen on axial series 9 image 22-25 with adjacent soft tissue edema noted. Popliteus tendon, distal biceps femoris tendon and the popliteofibular ligament appear intact. Posteromedial corner: Semimembranosus, pes anserine tendons and posterior oblique ligament appear intact. Extensor mechanism: Patellar tendon: Intact, without tendinopathy. Quadriceps tendon: Intact, without tendinopathy. Retinacula: Medial and lateral retinacula are intact. Fat pads: Unremarkable infrapatellar Hoffa's, quadriceps and prefemoral fat pads. Patellofemoral joint: Patella: There is full-thickness chondral loss involving the medial patellar facet extending into the patellar median ridge with minimal subchondral reactive edema. Trochlea: There is full-thickness chondral loss involving the central extending into the medial trochlea with underlying subchondral reactive edema. Medial compartment: Medial meniscus: There is complex tearing throughout the posterior horn extending into the posterior root with complex tearing also seen throughout the body segment extending into the junction with the anterior horn. There is mild displacement of torn meniscal tissue along the free edge of the posterior root on sagittal series 6 image 14. There is approximately 4 mm of inferior displacement of torn body segment meniscal tissue into the medial gutter as seen on coronal series 8 images 19. Medial cartilage: Full-thickness chondral loss involves the peripheral as well as the anterior weightbearing medial femoral condyle with full-thickness chondral loss also seen to involve the peripheral medial tibial plateau. Lateral compartment: Lateral meniscus: There is complex tearing throughout the entire lateral meniscus. There is lateral extrusion of the body segment with superior displacement of torn meniscal tissue along the body segment on coronal series 8 image 16-20. Lateral cartilage: Full-thickness chondral loss involves the lateral femoral condyle and lateral tibial plateau with underlying subchondral marrow edema. Knee joint: Effusion: Large partially visualized left knee effusion. Intra-articular bodies: Linear intra-articular bodies/displaced chondral fragments are seen within the posterior joint recess posterior to the PCL and posterior horn/root fibers medial meniscus. Scattered synovitis is also seen to involve the knee joint. Popliteal cyst: Small to moderate-sized popliteal cyst is present with internal complexity/synovitis. Bones: Subchondral fracture with articular surface depression involves the peripheral weightbearing extending into the posterior nonweightbearing lateral femoral condyle with associated adjacent bone marrow edema. There is increased bone marrow edema involving the lateral tibial plateau with a questionable faint developing subchondral fracture involving the central aspect of the lateral tibial plateau on coronal series 7 image 20 and sagittal series 5 image 23. Remaining imaged osseous structures appear intact. IMPRESSION: 1. Tearing of the medial and lateral menisci with displacement of torn meniscal tissue as above. 2. Subchondral fracture with articular surface depression involving the peripheral weightbearing extending into the posterior nonweightbearing lateral femoral condyle. Increased marrow edema also involves the lateral tibial plateau with possible faint developing subchondral fracture involving the central aspect of the lateral tibial plateau. 3. Full-thickness chondral loss involving all 3 compartments of the knee as above. 4. Mild partial tearing of the distal iliotibial band. 5. Large joint effusion with intra-articular bodies. 6. Small to moderate sized complex popliteal cyst. JCZ Electronically signed on 07/08/2023 1:28:00 PM by Loc Smith D.O. Radiologist Signature
== END 2023-07-08 09:02 | disposition home or self-care (01) ==
LOC: MRI 09:02
PROVIDERS: PCP Family Medicine; Visit Provider Orthopaedic Surgery
DX: M25.562 Pain in left knee (principal); M17.12 Unilateral primary osteoarthritis, left knee; S83.282A Other tear of lateral meniscus, current injury, left knee, initial encounter; S83.242A Other tear of medial meniscus, current injury, left knee, initial encounter; S82.142A Displaced bicondylar fracture of left tibia, initial encounter for closed fracture; M25.462 Effusion, left knee; M71.22 Synovial cyst of popliteal space [Baker], left knee
CPT/HCPCS: 73721

== ENCOUNTER 2023-10-01 12:23 | Outpatient (CLI) | payer OTHER, SELFPAY ==
--- OUTSIDE RECORDS SUMMARY | 2023-10-01 12:26 | XMS_ITS | Data Portability ---
Author Name Unknown Address [address] [place] [address] Phone [phone] Organization [facility] Address [address] [facility] [address] [place] [address] Assessment No assessment recorded. Plan of Treatment Reminders Order Date Submit Date Provider Last Modified By Organization Details Last Modified Time Details Appointments None recorde d. Lab urinaly sis, dipstic k 2022 023 [facility], [address], [place], [address], 11:28:14 urinaly sis, dipstic k 2022 023 [email or web address] [facility], [address], [place], [address], 15:27:51 urinaly sis, dipstic k 2021 022 [facility], [address], [place], [address], 15:37:32 urinaly sis, dipstic k 2021 022 Not available 14:30:42 urinaly sis, dipstic k 2020 021 Not available 14:50:02 cytolog y, urine - urine taken during cysto 2020 021 [facility], [address], [place], [address], 1 15:34:11 Referral oncolog ist referra l 2020 021 [email or web address] Keara Solorio MD, [address] [place], [address], 1 12:32:19 Procedures cystosc opy (PROC) 2022 023 [email or web address] Not available 3 12:12:10 cystosc opy (PROC) 2022 023 [email or web address] Not available 3 07:51:53 cystosc opy (PROC) 2021 022 [email or web address] Not available 2 07:30:17 cystosc opy (PROC) 2021 022 [email or web address] Not available 2 09:10:12 Surgeries nephrou reterec julia, hand assiste d laparos copic (SURG) 2019 020 [email or web address] Not available 0 10:24:55 cystosc opy, with uretero scopy (SURG) 2019 020 [email or web address] Not available 0 10:43:[address], chest + abdomen + pelvis, w/o contras t 2022 023 [email or web address] [facility] , [address] [place], [address], 3 09:25:32 CT, abdomen + pelvis, w/o contras t - f/u with Dr. Curry on 12/01/22 @ 2:20PM 2021 022 [email or web address] [facility] , [address] [place], [address], 2 16:13:02 CT, abdomen + pelvis, w/ contras t 2021 022 [email or web address] Not available 15:41:24 Medication Orders tadalaf il 20 mg tablet 2021 022 [id number], [address] [place], [place], [id number], 15:37:39 tadalaf il 20 mg tablet 2020 021 [facility] #[id number], [address] [place], [place], [phone], 03:39:41 Bactrim DS 800 mg-160 mg tablet 2019 020 [facility][id number], [address] [place], [place], [phone], 14:47:57 Patient TargetsNo targets recorded. Patient Instructions Encounter Date Encounter Id Patient Instructions Last Modified By Organization Details Last Modified Time 05/29/2020 [id number] H/O BPH - voidin g okay - PSA is normal Not available 05/29/2020 18:15:26 Reason for Referral Referring Physician: Bala gutierrez, Urology, Encounter Date: 06/04/2021 Results Created Date Observation Date Name Description Value Unit Range Abnormal Flag LastModifiedBy Organization Detail LastModifiedTime 12/04/19 21 12/03/2020 cytol ogy, urine apresult AP result s Not Available [facility] [address], [place], [address], 12/04/2020 15:34:11 06/04/20 21 06/04/2021 urina lysis , dipst ick Color-Status Yellow Not Available [facility] [address], [place], [address], 06/04/2021 14:49:36 06/04/20 21 06/04/2021 urina lysis , dipst ick pH-Status 5.5 Not Available [facility] [address], [place], [address], 06/04/2021 14:49:36 06/04/20 21 06/04/2021 urina lysis , dipst ick Nitrates-Sta tus negati ve Not Available [facility] [address], [place], [address], 06/04/2021 14:49:36 06/04/20 21 06/04/2021 urina lysis , dipst ick Blood-Status Trace Not Available [facility] [address], [place], [address], 06/04/2021 14:49:36 06/04/20 21 06/04/2021 urina lysis , dipst ick Leuko-Status Negati ve Not Available [facility] [address], [place], [address], 06/04/2021 14:49:36 12/04/19 22 12/03/2021 urina lysis , dipst ick Color-Status Yellow Not Available [facility] [address], [place], [address], 12/03/2021 14:30:21 12/04/19 22 12/03/2021 urina lysis , dipst ick pH-Status 5.0 Not Available [facility] [address], [place], [address], 12/03/2021 14:30:21 12/04/19 22 12/03/2021 urina lysis , dipst ick Blood-Status Trace Not Available [facility] [address], [place], [address], 12/03/2021 14:30:21 12/04/19 22 12/03/2021 urina lysis , dipst ick Leuko-Status Negati ve Not Available [facility] [address], [place], [address], 12/03/2021 14:30:21 06/03/20 22 06/03/2022 urina lysis , dipst ick Color-Status Yellow Not Available [facility] [address], [place], [address], 06/03/2022 15:24:34 12/02/19 23 12/01/2022 urina lysis , dipst ick Color-Status Yellow Not Available [facility] [address], [place], [address], 12/01/2022 15:27:24 12/02/19 23 12/01/2022 urina lysis , dipst ick Clarity-Stat us Clear Not Available [facility] [address], [place], [address], 12/01/2022 15:27:24 06/23/20 23 06/23/2023 urina lysis , dipst ick Color-Status Yellow Not Available [facility] [address], [place], [address], 06/23/2023 11:27:47 06/23/20 23 06/23/2023 urina lysis , dipst ick pH-Status 7.0 Not Available [facility] [address], [place], [address], 06/23/2023 11:27:47 06/23/20 23 06/23/2023 urina lysis , dipst ick Nitrates-Sta tus negati ve Not Available [facility] [address], [place], [address], 06/23/2023 11:27:47 06/23/20 23 06/23/2023 urina lysis , dipst ick Blood-Status Negati ve Not Available [facility] [address], [place], [address], 06/23/2023 11:27:47 06/23/2006/23/2023 urina lysis , dipst ick Leuko-Status Negati ve Not Available [facility] [address], [place], [address], 06/23/2023 11:27:47 05/31/20 CT, abdom en + pelvi s, w/wo contr ast No observ ation record ed. [email or web address] Not Available 05/31/2020 15:57:16 07/31/20 20 07/30/2020 CT, cysto gram No observ ation record ed. [email or web address] Not Available 08/02/2020 08:40:59 12/05/19 21 12/03/2020 CT, abdom en + pelvi s, w/ contr ast No observ ation record ed. [facility] [address], [place], [address], 12/05/2020 17:38:18 06/05/20 21 06/04/2021 CT, abdom en + pelvi s, w/ contr ast No observ ation record ed. [facility] [address], [place], [address], 06/05/2021 19:18:11 12/06/19 CT, abdom en + pelvi s, w/o contr ast No observ ation record ed. [facility] [address], [place], [address], 12/05/2021 12:08:02 06/04/20 22 06/03/2022 CT, abdom en + pelvi s, w/o contr ast No observ ation record ed. [email or web address] [facility] [address], [place], [place], [address], 2022 07:35:41 12/02/19 23 12/01/2022 CT, chest + abdom en + pelvi s, w/o contr ast EXAM: CT, CHEST + ABDOME N + PELVIS , W/O CONTRA ST LOCATI ON: [facility] [place] DATE/T CLARITZA: 12/02/19 23 11:00 AM INDICA TION: Left renal neopla sm. COMPAR VIRAL: CT abdome n and pelvis on 2021. TECHNI QUE: CT scan of the chest, abdome n, and pelvis was perfor med withou t intrav enous contra st. Multip lanar reform ats were obtain ed. Dose reduct ion techni ques were used. FINDIN GS: MEDIAS TINUM/ AXILLA E: No cardio megaly . Trace perica rdial effusi on. Mild aneury smal dilata tion of the ascend ing thorac ic aorta measur ing 4 cm in diamet er. No signif icant medias tinal, hilar or axilla ry lympha denopa thy. LUNGS AND PLEURA : No pleura l effusi on or pneumo thorax . Few scatte red pulmon hue nodule s includ ing two adjace nt 2 mm left upper lobe nodule s (serie s 4 image 34) and 2 mm left lower lobe nodule (serie s 4 image 85). Few nodula r opacit ies along the fissur es, for exampl e 4 mm nodule along the anteri or aspect of the right minor fissur e (serie s 4 image 69), likely repres ent benign intraf issura l lymph node. PEREZ RY ARTERY CALCIF ICATIO N: Modera te. ABDOME N/PELV IS: Limite d evalua tion of the abdomi nal organs due to lack of intrav enous contra st, within this limita tion, there is; HEPATO BILIAR Y: The unenha nced liver and gallbl adder are grossl y unrema rkable . PANCRE : The unenha nced pancre as is grossl y unrema rkable . SPLEEN : No spleno megaly . ADRENA L GLANDS : No adrena l nodule s. KIDNEY S/BLAD KIM: Postsu rgical change s of left nephre ctomy. No radiod ense right kidney /urete ral stones or hydron ephros is. Multip le renal cysts includ ing 2.6 cm cyst at the upper pole of the right kidney (serie s 12 image 53), 1.5 cm cyst at the lower pole of the right kidney (serie s 12 image 86) and 1.3 cm cyst at the lower pole of the right kidney (serie s 12 image 91). Diffus e urinar y bladde r wall thicke sarika, could be due to underd istent ion versus chroni c bladde r outlet obstru ction versus chroni c cystit is. BOWEL: No abnorm ally dilate d bowel loops. Coloni c divert iculos is predom inantl y in the sigmoi d colon withou t CT eviden ce of acute divert iculit is. PERITO NEUM: No eviden ce of free fluid in the abdome n and pelvis . No free perito phoenix or portal venous gas. PELVIC ORGANS : The prosta te gland is enlarg ed measur ing 5.7 cm in transv erse diamet er. VASCUL ATURE: Modera te athero sclero tic vascul ar calcif icatio n of the abdomi nal aorta and iliac vessel s. LYMPH NODES: Unrema rkable . MUSCUL OSKELE LAW: Multil evel degene rative change s of the spine. No suspic ious osseou s lesion . Small fat-co ntaini ng ventra l and left inguin al hernia . IMPRES JORGE: In this patien t with histor y of renal neopla sm status post left nephre ctomy, and within the limita tion of noncon trast exam, there is; 1. No convin cing eviden ce of metast atic diseas e in the chest, abdome n or pelvis . 2. Few scatte red small pulmon hue nodule s, are indete rminat e but less likely metast atic given their small size, recomm end attent ion on follow -up. 3. Coloni c divert iculos is withou t CT eviden ce of acute divert iculit is. 4. Prosta tomega ly and mild diffus e urinar y bladde r wall thicke sarika, nonspe cific, can be seen with chroni c bladde r outlet obstru ction or chroni c cystit is. This report was electr onical ly interp reted by: Carmen herrera MD on 2022 at 15:21 [facility] [address], [place], [address], 12/10/2022 22:25:21 Result Notes Documentation Provider Name and Address Organization Details Recorded Time Ct, Chest + Abdomen + Pelvis, W/o Contrast : EXAM: CT, CHEST + ABDOMEN + PELVIS, W/O CONTRAST LOCATION: [facility] DATE/TIME: 12/01/2022 11:00 AM INDICATION: Left renal neoplasm. COMPARISON: CT abdomen and pelvis on 06/03/2022. TECHNIQUE: CT scan of the chest, abdomen, and pelvis was performed without intravenous contrast. Multiplanar reformats were obtained. Dose reduction techniques were used. FINDINGS: MEDIASTINUM/AXILLAE: No cardiomegaly. Trace pericardial effusion. Mild aneurysmal dilatation of the ascending thoracic aorta measuring 4 cm in diameter. No significant mediastinal, hilar or axillary lymphadenopathy. LUNGS AND PLEURA: No pleural effusion or pneumothorax. Few scattered pulmonary nodules including two adjacent 2 mm left upper lobe nodules (series 4 image 34) and 2 mm left lower lobe nodule (series 4 image 85). Few nodular opacities along the fissures, for example 4 mm nodule along the anterior aspect of the right minor fissure (series 4 image 69), likely represent benign intrafissural lymph node. CORONARY ARTERY CALCIFICATION: Moderate. ABDOMEN/PELVIS: Limited evaluation of the abdominal organs due to lack of intravenous contrast, within this limitation, there is; HEPATOBILIARY: The unenhanced liver and gallbladder are grossly unremarkable. PANCREAS: The unenhanced pancreas is grossly unremarkable. SPLEEN: No splenomegaly. ADRENAL GLANDS: No adrenal nodules. KIDNEYS/BLADDER: Postsurgical changes of left nephrectomy. No radiodense right kidney/ureteral stones or hydronephrosis. Multiple renal cysts including 2.6 cm cyst at the upper pole of the right kidney (series 12 image 53), 1.5 cm cyst at the lower pole of the right kidney (series 12 image 86) and 1.3 cm cyst at the lower pole of the right kidney (series 12 image 91). Diffuse urinary bladder wall thickening, could be due to underdistention versus chronic bladder outlet obstruction versus chronic cystitis. BOWEL: No abnormally dilated bowel loops. Colonic diverticulosis predominantly in the sigmoid colon without CT evidence of acute diverticulitis. PERITONEUM: No evidence of free fluid in the abdomen and pelvis. No free peritoneal or portal venous gas. PELVIC ORGANS: The prostate gland is enlarged measuring 5.7 cm in transverse diameter. VASCULATURE: Moderate atherosclerotic vascular calcification of the abdominal aorta and iliac vessels. LYMPH NODES: Unremarkable. MUSCULOSKELETAL: Multilevel degenerative changes of the spine. No suspicious osseous lesion. Small fat-containing ventral and left inguinal hernia. IMPRESSION: In this patient with history of renal neoplasm status post left nephrectomy, and within the limitation of noncontrast exam, there is; 1. No convincing evidence of metastatic disease in the chest, abdomen or pelvis. 2. Few scattered small pulmonary nodules, are indeterminate but less likely metastatic given their small size, recommend attention on follow-up. 3. Colonic diverticulosis without CT evidence of acute diverticulitis. 4. Prostatomegaly and mild diffuse urinary bladder wall thickening, nonspecific, can be seen with chronic bladder outlet obstruction or chronic cystitis. This report was electronically interpreted by: Carmen Nieves MD on 12/01/2022 at 15:21 Bala Curry MD [address] [place] [address],[address], [address], [facility] 12/10/2022 22:25:21 Procedures Surgical History Date Name Laterality Status Provider Name and Address Organization Details Recorded Time 06/23/20 23 Cystoscopy- male completed Bala Curry MD [address] [place] [address],[address], [address], [facility] 06/23/2023 12:05:05 06/23/20 23 Keflex post Cysto completed Bala Curry MD [address] [place] [address],[address], [address], [facility] 06/23/2023 11:27:40 12/02/19 23 Cystoscopy- male completed Bala Curry MD [address] [place] [address],[address], [place], [address], [facility] 12/01/2022 17:59:36 06/03/20 22 Cystoscopy- male completed Bala Curry MD [address] [place] [address],[address], [place], [address], [facility] 06/03/2022 18:07:44 12/04/19 22 Cystoscopy- male completed Bala Curry MD [address] [place] [address],[address], [place], [address], [facility] 12/04/2021 20:59:27 12/04/19 22 Keflex post Cysto completed Bala Curry MD [address] [place] [address],[address], [place], [address], [facility] 12/03/2021 14:30:10 12/04/19 22 Cytology completed Bala Curry MD [address] [place] [address],[address], [place], [address], [facility] 12/03/2021 14:30:51 06/04/20 21 Cystoscopy- male completed Bala Curry MD [address] [place] [address],[address], [place], [address], [facility] 06/05/2021 20:55:14 06/04/20 21 Keflex post Cysto [facility] 06/04/2021 14:52:52 12/04/19 21 Cystoscopy- male completed Bala Curry MD [address] [place] [address],[address], [place], [address], [facility] 12/03/2020 15:51:18 07/30/20 20 Fill and Pull/Voiding Trial/TOV completed Nerissa portillo [facility] 07/30/2020 12:53:30 07/18/20 20 NEPHROURETERECTO MY, HAND ASSISTED LAPAROSCOPIC (SURG) completed Alicia portillo [facility] 07/23/2020 09:18:58 06/26/20 20 Cystoscopy with foreign body/stent removal completed Bala Curry MD [address] [place] [address],[address], [place], [address], [facility] 06/27/2020 21:40:50 06/19/20 20 CYSTOSCOPY, WITH [facility]OS[facility]SURG) [facility] 11:41:18 08/30/19 16 Colonoscopy completed Bala Curry MD [address] [facility],[address], [place], [address], [facility] 06/04/2021 14:48:59 Appendectomy completed Bala Curry MD [address] [facility],[address], [place], [address], [facility] 05/29/2020 17:07:20 Imaging Results Imaging Date Name Status LastModified by Organiz ation Details LastModified Time 05/31/2020 CT, abdomen + pelvis, w/wo contrast completed [email or web address] Information not available 05/31/2020 15:57:16 07/30/2020 CT, cystogram completed [email or web address] Informatio n not available 08/02/2020 08:40:59 12/03/2020 CT, abdomen + pelvis, w/ contrast completed [facility] [address], [place], [address], 12/05/2020 17:38:18 06/04/2021 CT, abdomen + pelvis, w/ contrast completed [facility] [address], [place], [address], 06/05/2021 19:18:11 12/05/2021 CT, abdomen + pelvis, w/o contrast completed [facility] [address], [place], [address], 12/05/2021 12:08:02 06/03/2022 CT, abdomen + pelvis, w/o contrast completed [facility] [address], [place], [address], 2022 07:35:41 12/01/2022 CT, chest + abdomen + pelvis, w/o contrast completed [email or web address] [facility] [address] [place], [address], 12/10/2022 22:25:21 Procedure Notes None recorded. Medical Equipment None Reported. Allergies No known drug allergies Medications Name Sig Start Date Stop Date Status Note LastModified by Organization Details LastModified Time amoxicillin 500 mg capsule TAKE 1 CAPSULE BY MOUTH THREE TIMES DAILY UNTIL ALL TAKEN 06/23 completed Not Available Not Available Not Available prednisone 10 mg tablet active Not Available Not Available Not Available hydrocodone 5 mg-acetamin ophen 325 mg tablet TAKE 1 TO 2 TABLETS BY MOUTH TWICE DAILY NEEDED FOR PAIN active Not Available Not Available No t Available ondansetron HCl 8 mg tablet TAKE 1 TABLET BY MOUTH EVERY 8 HOURS NEEDED FOR NAUSEA OR VOMITING. TAKE 45 MINUTES PRIOR TO DAILY RADIATION TREATMENT S TO PREVENT NAUSEA. 06/23 completed Not Available Not Available Not Available potassium chloride ER 10 mEq tablet,exte nded release TAKE 1 TABLET BY MOUTH DAILY 06/23 completed Not Available Not Available Not Available chlorthalid one 25 mg tablet TAKE 1 TABLET BY MOUTH DAILY active Not Available Not Available No t Available prochlorper azine maleate 10 mg tablet TAKE 1 TABLET BY MOUTH EVERY 4 TO 6 HOURS NEEDED FOR NAUSEA OR VOMITING 06/23 completed Not Available Not Available Not Available peg-electro lyte solution 420 gram oral solution DRINK 240ML BY MOUTH EVERY 10 MINUTES UNTIL FECAL EFFLUENT IS CLEAR 06/23 completed Not Available Not Available Not Available potassium chloride ER 20 mEq tablet,exte nded release(par t/cryst) TAKE 1 TABLET BY MOUTH TWICE DAILY active Not Available Not Available No t Available famotidine 20 mg tablet TAKE 1 TABLET BY MOUTH EVERY DAY active Not Available Not Available No t Available lorazepam 0.5 mg tablet TAKE 1 TO 2 TABLETS BY MOUTH EVERY 4 HOURS NEEDED FORNAUSEA AND VOMITING 06/23 completed Not Available Not Available Not Available amlodipine 10 mg tablet TAKE 1 TABLET BY MOUTH DAILY 12/01 completed Not Available Not Available Not Available prednisone 2.5 mg tablet active Not Available Not Available Not Available simvastatin 20 mg tablet TAKE 1 TABLET BY MOUTH DAILY active Not Available Not Available No t Available lisinopril 10 mg tablet TAKE 1 TABLET BY MOUTH EVERY DAY active Not Available Not Available No t Available lisinopril 5 mg tablet TAKE 1 TABLET BY MOUTH EVERY DAY active Not Available Not Available No t Available ibuprofen 600 mg tablet TAKE 1 TABLET BY MOUTH EVERY 6 HOURS NEEDED FOR PAIN active Not Available Not Available No t Available cefuroxime axetil 500 mg tablet TAKE 1 TABLET BY MOUTH TWICE DAILY FOR 10 DAYS 06/04 completed Not Available Not Available Not Available methylpredn isolone 4 mg tablets in a dose pack TAKE PER PACKAGE DIRECTION S. TAKE WITH FOOD 06/23 completed Not Available Not Available Not Available lisinopril 2.5 mg tablet TAKE 1 TABLET BY MOUTH EVERY DAY 12/01 completed Not Available Not Available Not Available amoxicillin 875 mg-potassiu m clavulanate 125 mg tablet TAKE 1 TABLET BY MOUTH TWICE DAILY UNTIL ALL TAKEN 06/23 completed Not Available Not Available Not Available oxycodone 5 mg tablet 06/04 completed Not Available Not Available Not Available Bactrim DS 800 mg-160 mg tablet Take 1 tablet twice a day by oral route. 06/04 completed Not Available Not Available Not Available tadalafil 10 mg tablet 06/23 completed Not Available Not Available Not Available tadalafil 20 mg tablet TAKE 1 TABLET BY MOUTH DAILY SEXUAL ACTIVITY NEEDED active Not Available Not Available No t Available chlorhexidi ne gluconate 0.12 % mouthwash SWISH AND SPIT 1/2 OZ BY MOUTH TWICE DAILY FOR 7 DAYS 06/23 completed Not Available Not Available Not Available Senexon-S 8.6 mg-50 mg tablet 06/23 completed Not Available Not Available Not Available Vitals Date Recorded Body height Body mass index (BMI) Body weight Provider Name and Address Organization Details Last Updated DateTime 06/03/2022 177.8 cm 29.8 kg/m2 01683.21 g Bala Curry MD [address] [place] [address],[address], [address], [facility] 06/03/2022 15:24:07 Date Recorded Body weight Body mass index (BMI) Body height Provider Name and Address Organization Details Last Updated DateTime 05/29/2020 42318.95 g 31 kg/m2 177.8 cm Bala Curry MD [address] [place] [address],[address] [address], [facility] 05/29/2020 17:05:58 Date Recorded Body height Body mass index (BMI) Body weight Provider Name and Address Organization Details Last Updated DateTime 12/01/2022 177.8 cm 33 kg/m2 186299.25 g Monica [facility], [facility] 12/01/2022 15:25:30 Date Recorded Body height Provider Name an d Address Organization Details Last Updated DateTime 06/23/2023 177.8 cm Nerissa Gorman lindsey, [facility] 06/23/2023 11:23:18 Date Recorded Body mass index (BMI) Body weight Provider Name and Address Organization Details Last Updated DateTime 06/23/2023 32 kg/m2 390755.1 g Bala Curry MD [address] [place] [address],[address], [address], [facility] 06/23/2023 11:28:47 Date Recorded Body height Body mass index (BMI) Body weight Provider Name and Address Organization Details Last Updated DateTime 06/26/2020 177.8 cm 29.4 kg/m2 01632.44 g Bala Curry MD [address] [place] [address],[place] [phone], [facility] 06/26/2020 16:42:22 Date Recorded Body height Body mass index (BMI) Body weight Provider Name and Address Organization Details Last Updated DateTime 07/30/2020 177.8 cm 30.1 kg/m2 35273.4 g Bala Curry MD [address] [place] [address],[address], [address], [facility] 07/30/2020 12:27:09 Date Recorded Body height Body mass index (BMI) Body weight Provider Name and Address Organization Details Last Updated DateTime 12/03/2020 177.8 cm 30.1 kg/m2 78784.4 g [facility] 12/03/2020 15:12:54 Date Recorded Body height Body mass index (BMI) Body weight Provider Name and Address Organization Details Last Updated DateTime 06/04/2021 177.8 cm 29.8 kg/m2 93788.21 g Bala Curry MD [address] [place] [address],[address] [place] [address], [address], [facility] 06/04/2021 14:47:44 Date Recorded Body height Body mass index (BMI) Body weight Provider Name and Address Organization Details Last Updated DateTime 12/03/2021 177.8 cm 29.8 kg/m2 47711.21 g Bala Curry MD [address] [facility],[address], [place], [address] 12/03/2021 14:29:16 Social History Question Answer Notes LastModified by Organizat ion Details LastModified Time Tobacco Smoking Status Former Smoker 2012 Bala Curry MD [address] [facility] [address], [place], [address], [facility] 05/29/2020 17:06:47 What Is Your Level Of Alcohol Consumption? Occasional Information not available 07/30/2020 What Is Your Level Of Caffeine Consumption? None Information not available 07/30/2020 When Did You Quit Smoking? 11-15yearssinc elastcigarette Information not available 06/04/2021 Recreational Drug Use No Information not available 07/30/2020 Marital Status Single Informatio n not available 07/30/2020 What Was The Date Of Your Most Recent Tobacco Screening? 06/23/2023 Information not available 06/23/2023 Are You Sexually Active? Yes Information not available 07/30/2020 Do You Use Any Illicit Or Recreational Drugs? No Information not available 06/04/2021 Do You Or Have You Ever Used Any Other Forms Of Tobacco Or Nicotine? No Information not available 06/04/2021 Sex: Male Functional Status None recorded. Mental Status None recorded. Family History Nothing Reported. Medical History Condition Response Diabetes N Other N Bleeding Disorder N High Blood Pressure Y Kidney Stones N Cancer Y Lung Disease N Depression N High Cholesterol Y GERD/Acid Reflux N Heart Disease N Immunizations Vaccine Type Date Status Provider Name and Address Organization Details Recorded Time influenza, injectable, quadrivalent 07/04/2020 completed Bala Curry MD [address] [facility],[address], [place], [address], [facility] 07/30/2020 12:28:01 Past Encounters Encounter ID Performer Location Encounter Start Date Encounter Closed Date Diagnosis/Indication [id number] MD Lia Quigley [address] [place] [address] 05/29/2020 16:55:45 05/30/2020 09:06:49 History of malignant neoplasm of bladder [id number] MD Lia Quigley [address] [place] [address] 06/26/2020 16:07:27 06/28/2020 08:42:18 History of malignant neoplasm of bladder [id number] MD PURVI Quigley_Salvatore [address] [place] [address] 07/30/2020 12:21:31 08/01/2020 16:33:43 Renal cell carcinoma [id number] MD Lia Quigley [address] [place] [address] 12/03/2020 15:06:56 12/04/2020 10:06:09 Renal cell carcinoma Primary erectile dysfunction [id number] MD Lia Quigley [address] [place] [address] 06/04/2021 14:25:23 06/06/2021 09:09:06 Renal cell carcinoma Primary erectile dysfunction Malignant tumor of kidney [id number] MD Lia Quigley [address] [place] [address] 12/03/2021 14:20:18 12/08/2021 10:12:25 Malignant tumor of kidney Primary erectile dysfunction [id number] MD Lia Quigley [address] [place] [address] 06/03/2022 15:14:22 06/04/2022 16:13:01 Malignant tumor of kidney Primary erectile dysfunction [id number] MD Lia Quigley [address] [place] [address] 12/01/2022 15:14:02 12/04/2022 12:07:05 Malignant tumor of kidney Primary erectile dysfunction [id number] MD Lia Quigley [address] [place] [address] 06/23/2023 11:14:57 07/05/2023 14:04:08 Malignant tumor of kidney Primary erectile dysfunction Health Concerns Section Related Observation LastModified by Organization Detai ls LastModified Time None Recorded Concern Status LastModified by Organization Details LastModified Time None Recorded Advance Directives Directive None Recorded Payers Encounter Date Sequence Insurance Name Policy Number Policy Zaman Covered Member ID Zaman Member ID Guarantor Name 06/23/2023 1 [employer] [id number] 4 Reza Liang Koktavy [id number] Reza Liang Koktavy 12/01/2022 1 [place] [id number] 4 Reza R Koktavy [id number] Reza Liang Koktavy 06/03/2022 1 [place] [id number] 4 Reza R Koktavy [id number] Reza Liang Koktavy 12/03/2021 1 [place] [id number] 4 Reza R Koktavy [id number] Reza Liang Koktavy 06/04/2021 1 [place] [id number] 4 Reza R Koktavy [id number] 27 Reza Liang Koktavy 12/03/2020 1 [place] [id number] 4 Reza R Koktavy [id number] Reza Liang Koktavy 07/30/2020 1 [place] [id number] 4 Reza R Koktavy [id number] Reza Liang Koktavy 06/26/2020 1 [place] [id number] 4 Reza R Koktavy [id number] 27 Reza Liang Koktavy 05/29/2020 1 [place] [id number] 4 Reza R Koktavy [id number] 27 Reza Liang Koktavy Notes Date Note Type Note Provider Name and Address Organization Details Recorded Time 05/29/2020 text/html HPI Notes: 64 yo male with H/O Bladder cancer - Ta (high grade - superficial) - no CIS - TUR-BT on 08/03/11. He had a recurrence - TUR-BT on 11/07/12 and 05/22/13. He completed a 6 weeks course of BCG in July 2013. Cytology was atypical and FISH + in March 2016 and September 2016. Cystoscopy with bladder bxs and Bilateral ureteral washings (04/05/17) were negative - mild chronic cystitis on 2 bxs. Cystoscopy (04/29/20) - no tumors seen. Cytology (04/29/20) - + high grade urothelial carcinoma. CT Urogram (05/08/20) - Left - 1.4 cm filling defect in lower pole and proximal ureter - Right - duplicated collecting system 05/29/20 - He presents today for follow-up on his bladder cancer / CT scan findings. He reports Right flank pain - his intermittent gross hematuria (pink) has resolved. He has no complaints with urination. He denies hesitancy, urgency, or dysuria. PSA - 2.78 (09/26/14) - 2.82 (10/14/16) - 2.38 (04/29/20) CT Urogram (05/08/20) - Left - 1.4 cm filling defect in lower pole and proximal ureter - Right - duplicated collecting system - no hydronephrosis, stones, or filling defects Bala Curry MD [address] [place] [address],[address], [place], [address], [facility] 05/30/2020 14:19:08 06/26/2020 text/html HPI Notes: 65 yo male with H/O Bladder cancer - Ta (high grade - superficial) - no CIS - TUR-BT on 08/03/11. He had a recurrence - TUR-BT on 11/07/12 and 05/22/13. He completed a 6 weeks course of BCG in July 2013. Cytology was atypical and FISH + in March 2016 and September 2016. Cystoscopy with bladder bxs and Bilateral ureteral washings (04/05/17) were negative - mild chronic cystitis on 2 bxs. Cystoscopy (04/29/20) - no tumors seen. Cytology (04/29/20) - + high grade urothelial carcinoma. CT Urogram (05/08/20) - Left - 1.4 cm filling defect in lower pole and proximal ureter - Right - duplicated collecting system. He underwent Left ureteroscopy with biopsy on 06/19/20 - + high grade, non-invasive urothelial carcinoma - Right ureteral cytology was negative. 05/29/20 - He presents today for follow-up on his bladder cancer / CT scan findings. He reports Right flank pain - his intermittent gross hematuria (pink) has resolved. He has no complaints with urination. He denies hesitancy, urgency, or dysuria. 06/26/20 - He presents for follow-up on kidney cancer and stent removal. He reports moderate bladder and Left flank irritation from the stent. He states his hematuria has resolved. He denies dysuria. PSA - 2.78 (09/26/14) - 2.82 (10/14/16) - 2.38 (04/29/20) CT Urogram (05/08/20) - Left - 1.4 cm filling defect in lower pole and proximal ureter - Right - duplicated collecting system - no hydronephrosis, stones, or filling defects Bala Curry MD [address] [place] [address],[address], [place], [address], [facility] 06/27/2020 21:45:17 07/30/2020 text/html HPI Notes: 65 yo male with H/O Left kidney urothelial carcinoma (pT3 Nx - s/p Left LEATHA nephroureterectomy with negative margins - 07/18/20) and Bladder cancer - Ta (high grade - superficial) - no CIS - TUR-BT on 08/03/11. He had a recurrence - TUR-BT on 11/07/12 and 05/22/13. He completed a 6 weeks course of BCG in July 2013. Cytology was atypical and FISH + in March 2016 and September 2016. Cystoscopy with bladder bxs and Bilateral ureteral washings (04/05/17) were negative - mild chronic cystitis on 2 bxs. Cystoscopy (04/29/20) - no tumors seen. Cytology (04/29/20) - + high grade urothelial carcinoma. CT Urogram (05/08/20) - Left - 1.4 cm filling defect in lower pole and proximal ureter - Right - duplicated collecting system. 07/30/20 - He presents for post-op follow-up after Left LEATHA nephroureterectomy (07/18/20) - pT3 Nx - margins were negative. He still has some incisional discomfort. He denies hematuria. - CT Urogram - no leakage PSA - 2.78 (09/26/14) - 2.82 (10/14/16) - 2.38 (04/29/20) CT Urogram (05/08/20) - Left - 1.4 cm filling defect in lower pole and proximal ureter - Right - duplicated collecting system - no hydronephrosis, stones, or filling defects Bala Curry MD [address] [place] [address],[address], [place], [address], [facility] 08/01/2020 12:49:21 12/03/2020 text/html HPI Notes: 65 yo male with H/O Left kidney urothelial carcinoma (pT3 Nx - s/p Left LEATHA nephroureterectomy with negative margins - 07/18/20) and Bladder cancer - Ta (high grade - superficial) - no CIS - TUR-BT on 08/03/11. He had a recurrence - TUR-BT on 11/07/12 and 05/22/13. He completed a 6 weeks course of BCG in July 2013. Cytology was atypical and FISH + in March 2016 and September 2016. Cystoscopy with bladder bxs and Bilateral ureteral washings (04/05/17) were negative - mild chronic cystitis on 2 bxs. Cystoscopy (04/29/20) - no tumors seen. Cytology (04/29/20) - + high grade urothelial carcinoma. CT Urogram (05/08/20) - Left - 1.4 cm filling defect in lower pole and proximal ureter - Right - duplicated collecting system. 07/30/20 - He presents for post-op follow-up after Left LEATHA nephroureterectomy (07/18/20) - pT3 Nx - margins were negative. He still has some incisional discomfort. He denies hematuria. - CT Urogram - no leakage 12/03/20 - He presents for follow-up on kidney urothelial carcinoma. He has no complaints with urination - was dehydrated this weekend. He denies abdominal or flank pain. He does report difficulty obtaining and maintaining erections. He is using Cialis 10 mg prn. - CT scan - no hydronephrosis - Left kidney is absent - no metastatic disease seen PSA - 2.78 (09/26/14) - 2.82 (10/14/16) - 2.38 (04/29/20) CT Urogram (05/08/20) - Left - 1.4 cm filling defect in lower pole and proximal ureter - Right - duplicated collecting system - no hydronephrosis, stones, or filling defects Bala Curry MD [address] [facility],[address], [place], [address], [facility] 12/03/2020 15:53:47 06/04/2021 text/html HPI Notes: 65 yo male with H/O Left kidney urothelial carcinoma (pT3 Nx - s/p Left LEATHA nephroureterectomy with negative margins - 07/18/20) and Bladder cancer - Ta (high grade - superficial) - no CIS - TUR-BT on 08/03/11. He had a recurrence - TUR-BT on 11/07/12 and 05/22/13. He completed a 6 weeks course of BCG in July 2013. Cytology was atypical and FISH + in March 2016 and September 2016. Cystoscopy with bladder bxs and Bilateral ureteral washings (04/05/17) were negative - mild chronic cystitis on 2 bxs. Cystoscopy (04/29/20) - no tumors seen. Cytology (04/29/20) - + high grade urothelial carcinoma. CT Urogram (05/08/20) - Left - 1.4 cm filling defect in lower pole and proximal ureter - Right - duplicated collecting system. 07/30/20 - He presents for post-op follow-up after Left LEATHA nephroureterectomy (07/18/20) - pT3 Nx - margins were negative. He still has some incisional discomfort. He denies hematuria. - CT Urogram - no leakage 12/03/20 - He presents for follow-up on kidney urothelial carcinoma. He has no complaints with urination - was dehydrated this weekend. He denies abdominal or flank pain. He does report difficulty obtaining and maintaining erections. He is using Cialis 10 mg prn. 06/04/21 - He presents for follow-up on urothelial carcinoma of the kidney. He denies abdominal or flank pain. He denies urinary urgency, dysuria, or hematuria - UA - trace blood - no LE - CT scan (06/04/21) - enlarging (1.4 cm) Left sided retroperitoneal lymph node (near Left renal vascular stump) PSA - 2.78 (09/26/14) - 2.82 (10/14/16) - 2.38 (04/29/20) CT Urogram (05/08/20) - Left - 1.4 cm filling defect in lower pole and proximal ureter - Right - duplicated collecting system - no hydronephrosis, stones, or filling defects 12/03/20 - CT scan - no hydronephrosis - Left kidney is absent - no metastatic disease seen Bala Curry MD [address] [facility],[address], [place], [address], [facility] 06/05/2021 20:59:30 12/03/2021 text/html HPI Notes: 66 yo male with H/O 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 He had a recurrence - TUR-BT on 11/07/12 and 05/22/13. He completed a 6 weeks course of BCG in July 2013. Cytology was atypical and FISH + in March 2016 and September 2016. Cystoscopy with bladder bxs and Bilateral ureteral washings (04/05/17) were negative - mild chronic cystitis on 2 bxs. Cystoscopy (04/29/20) - no tumors seen. Cytology (04/29/20) - + high grade urothelial carcinoma. CT Urogram (05/08/20) - Left - 1.4 cm filling defect in lower pole and proximal ureter - Right - duplicated collecting system. - s/p TUR-BT - (08/03/11) - HG Ta - s/p TUR-BT - (11/07/12) - HG Ta - s/p TUR-BT - (05/22/13) - HG Ta - BCG (6 weeks) - complete Jul 2013 - s/p Left LEATHA nephroureterectomy (07/18/20) - pT3 Nx - margins were negative - s/p Salvage radiation (for periaoritc lymph nodes) - completed (09/05/21) 12/03/21 - He presents for follow-up on Urothelial carcinoma of the kidney (clinical stage IV). He is feeling better - more energy. He denies trouble with urination - no hematuria, urgency, or dysuria. - UA - trace blood - no LE - CT scan - no contrast (12/03/21) - no convincing evidence of metastatic diseases - 1.4 cm hypoattenuating cyst on Right mid-kidney (posterior) PSA - 2.78 (09/26/14) - 2.82 (10/14/16) - 2.38 (04/29/20) CT Urogram (05/08/20) - Left - 1.4 cm filling defect in lower pole and proximal ureter - Right - duplicated collecting system - no hydronephrosis, stones, or filling defects 12/03/20 - CT scan - no hydronephrosis - Left kidney is absent - no metastatic disease seen CT scan (06/04/21) - enlarging (1.4 cm) Left sided retroperitoneal lymph node (near Left renal vascular stump) CT scan - no contrast (12/03/21) - no convincing evidence of metastatic diseases - 1.4 cm hypoattenuating cyst on Right mid-kidney (posterior) Bala Curry MD [address] [facility],[address], [place], [address], [facility] 12/04/2021 21:04:54 06/03/2022 text/html HPI Notes: 66 yo male with H/O 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 - s/p TUR-BT - (08/03/11) - HG Ta - s/p TUR-BT - (11/07/12) - HG Ta - s/p TUR-BT - (05/22/13) - HG Ta - BCG (6 weeks) - complete Jul 2013 - s/p Left LEATHA nephroureterectomy (07/18/20) - pT3 Nx - margins were negative - s/p Salvage radiation (for periaoritc lymph nodes) - completed (09/05/21) 12/03/21 - He presents for follow-up on Urothelial carcinoma of the kidney (clinical stage IV). He is feeling better - more energy. He denies trouble with urination - no hematuria, urgency, or dysuria. - UA - trace blood - no LE - CT scan - no contrast (12/03/21) - no convincing evidence of metastatic diseases - 1.4 cm hypoattenuating cyst on Right mid-kidney (posterior) 06/03/22 - He presents for follow-up on Left kidney cancer / Bladder cancer (Urothelial cell carcinoma). He denies abdominal or flank pain. He denies gross hematuria - no complaints with urination. He does reports trouble with Bilateral hand cramps / arm cramps from his chemotherapy. - UA - no blood - no LE - CT (non-contrast) - no evidence of new disease - Right renal cysts (stable) - 3.4 cm pulmonary nodule (left lower lung) - stable PSA - 2.78 (09/26/14) - 2.82 (10/14/16) - 2.38 (04/29/20) CT Urogram (05/08/20) - Left - 1.4 cm filling defect in lower pole and proximal ureter - Right - duplicated collecting system - no hydronephrosis, stones, or filling defects 12/03/20 - CT scan - no hydronephrosis - Left kidney is absent - no metastatic disease seen CT scan (06/04/21) - enlarging (1.4 cm) Left sided retroperitoneal lymph node (near Left renal vascular stump) CT scan - no contrast (12/03/21) - no convincing evidence of metastatic diseases - 1.4 cm hypoattenuating cyst on Right mid-kidney (posterior) Bala Curry MD [address] [facility],[address], [place], [address], [facility] 06/03/2022 18:09:48 12/01/2022 text/html HPI Notes: 67 yo male with H/O 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 - s/p TUR-BT - (08/03/11) - HG Ta - s/p TUR-BT - (11/07/12) - HG Ta - s/p TUR-BT - (05/22/13) - HG Ta - BCG (6 weeks) - complete Jul 2013 - s/p Left LEATHA nephroureterectomy (07/18/20) - pT3 Nx - margins were negative - s/p Salvage radiation (for periaoritc lymph nodes) - completed (09/05/21) 12/03/21 - He presents for follow-up on Urothelial carcinoma of the kidney (clinical stage IV). He is feeling better - more energy. He denies trouble with urination - no hematuria, urgency, or dysuria. - UA - trace blood - no LE - CT scan - no contrast (12/03/21) - no convincing evidence of metastatic diseases - 1.4 cm hypoattenuating cyst on Right mid-kidney (posterior) 06/03/22 - He presents for follow-up on Left kidney cancer / Bladder cancer (Urothelial cell carcinoma). He denies abdominal or flank pain. He denies gross hematuria - no complaints with urination. He does reports trouble with Bilateral hand cramps / arm cramps from his chemotherapy. 12/01/22 - He presents for follow-up on left kidney cancer/bladder cancer (Urothelial cell Carcinoma). He has stopped chemo/immunotherapy. He has no complaints with urination currently - no blood or dysuria. - UA - no blood - no LE - CT (12/01/22) - no renal masses - no hydronephrosis - no lymphadenopathy PSA - 2.78 (09/26/14) - 2.82 (10/14/16) - 2.38 (04/29/20) CT Urogram (05/08/20) - Left - 1.4 cm filling defect in lower pole and proximal ureter - Right - duplicated collecting system - no hydronephrosis, stones, or filling defects 12/03/20 - CT scan - no hydronephrosis - Left kidney is absent - no metastatic disease seen CT scan (06/04/21) - enlarging (1.4 cm) Left sided retroperitoneal lymph node (near Left renal vascular stump) CT scan - no contrast (12/03/21) - no convincing evidence of metastatic diseases - 1.4 cm hypoattenuating cyst on Right mid-kidney (posterior) Bala Curry MD [address] [place] [address],[address], [place], [address], [facility] 12/01/2022 18:00:48 06/23/2023 text/html HPI Notes: 68 yo male with H/O 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 - s/p TUR-BT - (08/03/11) - HG Ta - s/p TUR-BT - (11/07/12) - HG Ta - s/p TUR-BT - (05/22/13) - HG Ta - BCG (6 weeks) - complete Jul 2013 - s/p Left LEATHA nephroureterectomy (07/18/20) - pT3 Nx - margins were negative - s/p Salvage radiation (for syeda-aortic lymph nodes) - completed (09/05/21) 06/03/22 - He presents for follow-up on Left kidney cancer / Bladder cancer (Urothelial cell carcinoma). He denies abdominal or flank pain. He denies gross hematuria - no complaints with urination. He does reports trouble with Bilateral hand cramps / arm cramps from his chemotherapy. 12/01/22 - He presents for follow-up on left kidney cancer/bladder cancer (Urothelial cell Carcinoma). He has stopped chemo/immunotherapy. He has no complaints with urination currently - no blood or dysuria. 06/23/23 - He presents for follow-up on Urothelial carcinoma (bladder and Left kidney). He has no complaints with urination currently - no blood or dysuria. He does report Left leg pain from varicose veins. - UA - no blood - no LE - CT (05/31/23) - no renal masses - no hydronephrosis - no lymphadenopathy ___ PSA - 2.78 (09/26/14) - 2.82 (10/14/16) - 2.38 (04/29/20) CT Urogram (05/08/20) - Left - 1.4 cm filling defect in lower pole and proximal ureter - Right - duplicated collecting system - no hydronephrosis, stones, or filling defects 12/03/20 - CT scan - no hydronephrosis - Left kidney is absent - no metastatic disease seen CT scan (06/04/21) - enlarging (1.4 cm) Left sided retroperitoneal lymph node (near Left renal vascular stump) CT scan - no contrast (12/03/21) - no convincing evidence of metastatic diseases - 1.4 cm hypoattenuating cyst on Right mid-kidney (posterior) CT (05/31/23) - no renal masses - no hydronephrosis - no lymphadenopathy Bala Curry MD [address] [facility],[address], [place], [address], [facility] 06/23/2023 12:05:50
--- OUTSIDE RECORDS SUMMARY | 2023-10-01 12:26 | XMS_ITS | Clinical Summary ---
Author Name Unknown Organization [facility] Address [address] [place] [id number] Care Team Providers Care Cinetechnician Name Role Phone Dmitri Silverio MD Primary Care Provider [phone] Allergies No known active allergies Medications Medication Sig Dispensed Refills Start Date End Date Status simvastatin (ZOCOR) 20 MG tablet Take 20 mg by mouth At Bedtime 0 Active amLODIPine (NORVASC) 10 MG tablet Take 10 mg by mouth daily 0 Active POTASSIUM CHLORIDE PO Take 10 mEq by mouth daily 0 Active chlorthalidone (HYGROTON) 25 MG tablet Take 25 mg by mouth daily 0 Active tadalafil (CIALIS) 10 MG tablet Take 10 mg by mouth daily as needed 0 Active ibuprofen (ADVIL/MOTRIN) 200 MG tablet Take 400 mg by mouth 2 times daily as needed for mild pain 0 Active HYDROcodone-acetamin ophen (NORCO) 5-325 MG tabletIndications:Po st-operative state Take 1-2 tablets by mouth every 6 hours as needed for moderate to severe pain 15 tablet 0 06/19/2020 Active Social History Tobacco Use Types Packs/Day Years Used Date Smoking Tobacco: Former Cigarettes Smokeless Tobacco: Never Comments:1 cigarettes every couple of months Alcohol Use Standard Drinks/Week Comments Yes 0 (1 standard drink = 0.6 oz pur e alcohol) 3 per night wine Sex and Gender Information Value Date Recorded Sex Assigned at Not on file Gender Identity Not on file Sexual Orientation Not on file Last Filed Vital Signs Vital Sign Reading Time Taken Comments Blood Pressure 157/86 06/19/2020 1:45 PM CDT Pulse 57 06/19/2020 1:00 PM CDT Temperature 36.4 ??C (97.5 ??F) 06/19/2020 1:00 PM CD T Respiratory Rate 16 06/19/2020 1:45 PM CDT Oxygen Saturation 96% 06/19/2020 1:45 PM CDT Inhaled Oxygen Concentration - - Weight 94.8 kg (209 lb 1.6 oz) 06/19/2020 9:04 A M CDT Height 177.8 cm (5' 10) 06/19/2020 9:04 AM CDT Body Mass Index 30 06/19/2020 9:04 AM CDT Plan of Treatment Not on file Medical Devices Implanted Type Area Teacher Early Childhood Development Device Identifier Shelf Expiration Date Model / Serial / Lot Stent Ureteral Contour Soft Percuflex [id number] Implanted:Qty: 1 on 06/19/2020 by Bala Curry MD at [facility] Stent Left: Urethra [employer] 04/05/2023 [id number] / / [id number] Care Teams Cinetechnician Relationship Specialty Start Date End Date Dmitri Silverio MD PCP - General Family Practice 06/10/20
--- OUTSIDE RECORDS SUMMARY | 2023-10-01 12:26 | XMS_ITS | Clinical Summary ---
Author Name Unknown Organization [employer] [facility] [employer] [employer] Address [place], [place] [address] Care Team Providers Care Design Leader Name Role Phone Dmitri Silverio MD Primary Care Provider [phone] Bala Curry MD Unavailable [phone] Allergies No known active allergies Medications Medication Sig Dispensed Refills Start Date End Date Status amLODIPine (NORVASC) 10 mg tablet Take 1 tablet by mouth once daily. 0 12/18/2017 Active chlorthalidone (HYGROTON) 25 mg tablet Take 25 mg by mouth every morning. 0 05/24/2019 Active simvastatin (ZOCOR) 20 mg tablet Take 20 mg by mouth once daily with evening meal. 0 12/18/2019 Active potassium chloride (KLOR-CON 10; K-TAB) 10 mEq Controlled-Release tablet Take 10 mEq by mouth once daily with a meal. 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 Family History Medical History Relation Name Comments Lung cancer Paternal Grandfather Relation Name Status Comments Paternal Grandfather Social History Tobacco Use Types Packs/Day Years Used Date Smoking Tobacco: Former Cigarettes 2 20 0 05/21/1993 - 05/21/2013 Smokeless Tobacco: Never Tobacco Cessation:Counseling Given: Yes Alcohol Use Standard Drinks/Week Comments Yes 0 (1 standard drink = 0.6 oz pure alcohol) 4 glasses of wine a day, maybe a shalom Sex and Gender Information Value Date Recorded Sex Assigned at Not on file Gender Identity Not on file Sexual Orientation Not on file Obstetrics History Last Filed Vital Signs Vital Sign Reading Time Taken Comments Blood Pressure 139/83 07/19/2020 7:58 AM 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 Pulse 61 07/19/2020 7:58 AM 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 Temperature 36.7 ??C (98 ??F) 07/19/2020 7:58 AM 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 Respiratory Rate 16 07/19/2020 7:58 AM 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 Oxygen Saturation 95% 07/19/2020 7:58 AM 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 Inhaled Oxygen Concentration - - Weight 94.3 kg (208 lb) 07/18/2020 11:46 AM 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 Height 177.8 cm (5' 10) 07/18/2020 11:46 AM 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 Body Mass Index 29.84 07/18/2020 11:46 AM 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 Plan of Treatment Health Maintenance Due Date Last Done Comments COVID-19 vaccine series (#1) 1953 Tdap 1964 Depression screening for age 12+ 1965 Hepatitis C screening for age 18-79 1971 Tetanus booster 1973 Colonoscopy through age 75 1998 Lipids for age 45-75 1998 Zoster (shingles) series for age 50+ (1 of 2) 06/18/20 03 BMI (ht and wt on same day) for age 18+ 04/08/2017 0 04/08/2016 Pneumococcal series for age 65+ (1 of 1 - PCV) 018 Influenza for age 65+ 04/30/2023 Advance Directives Latest Code Status on File Code Status Date Activated Date Inactivated Comments Full Code 07/18/2020 11:39 AM 07/19/2020 6:17 PM Question Answer Comments Code Status Discussion: Not Discussed Care Teams Design Leader Relationship Specialty Start Date End Date Dmitri Silverio MD [address] [facility] [place] [id number] PCP - General Family Practice 11/05/17 Bala Curry MD [address] [place] [place] [address] Surgery - Urology 07/31/20
--- OUTSIDE RECORDS SUMMARY | 2023-10-01 12:26 | XMS_ITS | Referral Summary ---
Author Name Unknown Organization [facility] Address [address] [place] [id number] Care Team Providers Care Kennel Manager Dog Track Name Role Phone Dmitri Silverio MD Primary Care Provider [phone] Allergies No known active allergies Medications Medication [...] on file Medical Devices Implanted Type Area Nursing Program Coordinator Device Identifier Shelf Expiration Date Model / Serial / Lot Stent Ureteral Contour Soft Percuflex [id number] Implanted:Qty: 1 on 06/19/2020 by Bala Curry MD at [facility] Stent Left: Urethra [employer] 04/05/2023 [id number] / / [id number] Care Teams Kennel Manager Dog Track Relationship Specialty Start Date End Date Dmitri Silverio MD PCP - General Family Practice 06/10/20
--- NOTE | 2023-10-01 13:00 | CRLHL7_ITS ---
For Patients: As a result of the Century Cures Act, medical imaging exams and procedure reports are released immediately into your electronic medical record. You may view this report before your referring provider. If you have questions, please contact your health care provider. Indication: LT URETER NEOPLASM Technique: CT Chest/Abd/Pelvis W/ 109CC ISOVUE 370 Please note that all CT scans at this facility use dose modulation, iterative reconstruction, and/or weight-based dosing when appropriate to reduce radiation dose to as low as reasonably achievable. Comparison: 05/31/2023 Findings: In the chest, there is a stable nodular density within the right anterior lung associated with the fissure. Tiny pulmonary nodules within the left upper lobe are similar, series 3, image 28. Stable calcified granuloma within the left upper lobe posteriorly. Stable perifissural density on the left, series 3, image 52. No infiltrate or edema. No effusion or pneumothorax. Visualized thyroid is normal. Atherosclerotic changes. No adenopathy. No fracture. In the abdomen, there is diffuse hepatic steatosis. No suspicious intrahepatic mass. No splenomegaly. Postop changes to the left retroperitoneum including left nephrectomy. Stable simple cyst arising from the upper pole of the right kidney. Stable smaller cysts elsewhere within the right kidney. No hydronephrosis. Mild pancreatic atrophy. Gallbladder is incompletely distended. Similar appearance of the celiac artery with ectatic morphology measuring up to 1.4 cm. No enlarged retroperitoneal lymph nodes. In the pelvis, stable appearance of the left hemiscrotum. Bladder is similar. Sigmoid diverticulosis. No diverticulitis. No free air or free fluid. The no pelvic or inguinal adenopathy. Degenerative changes. No vertebral body compression fracture. Stable cystic changes to the left acetabulum related to degenerative joint disease. Impression: Stable tiny pulmonary nodules. Stable postop changes left upper retroperitoneum. No significant change since the prior exam. Please note that all CT scans at this facility use dose modulation, iterative reconstruction, and/or weight-based dosing when appropriate to reduce radiation dose to as low as reasonably achievable. Dictated by Avelino Pacheco MD @ 10/01/2023 2:40:23 PM (Electronically Signed)
[2023-10-01 13:06] LABS: Creatinine* 1.6 mg/dL (0.5-1.5); Estimated Glomerular Filt Rate 46 ml/min
== END 2023-10-01 12:24 | disposition home or self-care (01) ==
LOC: CT 12:24
PROVIDERS: PCP Family Medicine; Visit Provider Internal Medicine Hematology & Oncology
DX: C66.2 Malignant neoplasm of left ureter (principal); C64.2 Malignant neoplasm of left kidney, except renal pelvis; C67.9 Malignant neoplasm of bladder, unspecified; R91.8 Other nonspecific abnormal finding of lung field
CPT/HCPCS: 36415; 71260; 74177; 80048; 82565; Q9967

== ENCOUNTER 2023-10-06 09:00 | Outpatient (RCR) | payer BC, OTHER, SELFPAY | END 2023-12-18 23:59 | disposition home or self-care (01) | LOC: CCIC 09:00 | PROVIDERS: PCP Family Medicine; Visit Provider Internal Medicine Hematology & Oncology | DX: C66.2 Malignant neoplasm of left ureter (principal); C67.9 Malignant neoplasm of bladder, unspecified; C64.2 Malignant neoplasm of left kidney, except renal pelvis; N18.9 Chronic kidney disease, unspecified; R05.9 Cough, unspecified; R60.9 Edema, unspecified; Z90.5 Acquired absence of kidney | CPT/HCPCS: 99212; 99214; G0463 ==

== ENCOUNTER 2023-10-14 07:30 | Outpatient (CLI) | payer OTHER, SELFPAY ==
--- OUTSIDE RECORDS SUMMARY | 2023-10-15 07:29 | XMS_ITS | Data Portability ---
Author Name Unknown Address [address] [place] [address] Phone [phone] Organization [facility], [facility] Address [address] [facility] [address] [place] [address] Assessment No assessment recorded. Plan of Treatment Reminders Order Date Submit Date Provider Last Modified By Organization Details Last Modified Time Details Appointments None recorde d. Lab urinaly sis, dipstic k 2022 023 [facility], [address], [place], [address], 3 11:28:14 urinaly sis, dipstic k 2022 023 [facility], [address], [place], [address], 15:27:51 urinaly sis, dipstic k 2021 022 [facility], [address], [place], [address], 15:37:32 urinaly sis, dipstic k 2021 022 Not available 14:30:42 urinaly sis, dipstic k 2020 021 Not available 14:50:02 cytolog y, urine - urine taken during cysto 2020 021 [facility], [address], [place], [address], 1 15:34:11 Referral oncolog ist referra l 2020 021 [email or web address] Keara Solorio MD, [address] [place], [address], 1 12:32:19 Procedures cystosc opy (PROC) 2022 023 [email or web address] Not available 3 12:12:10 cystosc opy (PROC) 2022 023 [email or web address] Not available 3 07:51:53 cystosc opy (PROC) 2021 022 [email or web address] Not available 2 07:30:17 cystosc opy (PROC) 2021 022 [email or web address] Not available 2 09:10:12 Surgeries nephrou reterec julia, hand assiste d laparos copic (SURG) 2019 020 [email or web address] Not available 0 10:24:55 cystosc opy, with uretero scopy (SURG) 2019 020 [email or web address] Not available 0 10:43:[address], chest + abdomen + pelvis, w/o contras t 2022 023 [email or web address] [facility] , [address] [place], [address], 3 09:25:32 CT, abdomen + pelvis, w/o contras t - f/u with Dr. Curry on 12/01/22 @ 2:20PM 2021 022 [email or web address] [facility] , [address] [place], [address], 2 16:13:02 CT, abdomen + pelvis, w/ contras t 2021 022 [email or web address] Not available 15:41:24 Medication Orders tadalaf il 20 mg tablet 2021 022 [id number], [address] [place], [place], [id number], 15:37:39 tadalaf il 20 mg tablet 2020 021 [facility] #51383, [address] [place], [place], [id number], 03:39:41 Bactrim DS 800 mg-160 mg tablet 2019 020 [facility][id number], [address] [place], [place], [id number], 14:47:57 Patient TargetsNo targets recorded. Patient Instructions Encounter Date Encounter Id Patient Instructions Last Modified By Organization Details Last Modified Time 05/29/2020 [id number] H/O BPH - voidin g okay - PSA is normal Not available 05/29/2020 18:15:26 Reason for Referral Referring Physician: Bala gutierrez, Urology, Encounter Date: 06/04/2021 Results Created Date Observation Date Name Description Value Unit Range Abnormal Flag LastModifiedBy Organization Detail LastModifiedTime 12/04/19 21 12/03/2020 cytol ogy, urine apresult AP result s Not Available [facility] [address], [place], [address], 12/04/2020 15:34:11 06/04/20 21 06/04/2021 urina lysis , dipst ick Color-Status Yellow Not Available [facility] [address], [place], [address], 06/04/2021 14:49:36 06/04/20 21 06/04/2021 urina lysis , dipst ick pH-Status 5.5 Not Available [facility] [address], [place], [address], 06/04/2021 14:49:36 06/04/20 21 06/04/2021 urina lysis , dipst ick Nitrates-Sta tus negati ve Not Available [facility] [address], [place], [address], 06/04/2021 14:49:36 06/04/20 21 06/04/2021 urina lysis , dipst ick Blood-Status Trace Not Available [facility] [address], [place], [address], 06/04/2021 14:49:36 06/04/20 21 06/04/2021 urina lysis , dipst ick Leuko-Status Negati ve Not Available [facility] [address], [place], [address], 06/04/2021 14:49:36 12/04/19 22 12/03/2021 urina lysis , dipst ick Color-Status Yellow Not Available [facility] [address], [place], [address], 12/03/2021 14:30:21 12/04/19 22 12/03/2021 urina lysis , dipst ick pH-Status 5.0 Not Available [facility] [address], [place], [address], 12/03/2021 14:30:21 12/04/19 22 12/03/2021 urina lysis , dipst ick Blood-Status Trace Not Available [facility] [address], [place], [address], 12/03/2021 14:30:21 12/04/19 22 12/03/2021 urina lysis , dipst ick Leuko-Status Negati ve Not Available [facility] [address], [place], [address], 12/03/2021 14:30:21 06/03/20 22 06/03/2022 urina lysis , dipst ick Color-Status Yellow Not Available [facility] [address], [place], [address], 06/03/2022 15:24:34 12/02/19 23 12/01/2022 urina lysis , dipst ick Color-Status Yellow Not Available [facility] [address], [place], [address], 12/01/2022 15:27:24 12/02/19 23 12/01/2022 urina lysis , dipst ick Clarity-Stat us Clear Not Available [facility] [address], [place], [address], 12/01/2022 15:27:24 06/23/20 23 06/23/2023 urina lysis , dipst ick Color-Status Yellow Not Available [facility] [address], [place], [address], 06/23/2023 11:27:47 06/23/20 23 06/23/2023 urina lysis , dipst ick pH-Status 7.0 Not Available [facility] [address], [place], [address], 06/23/2023 11:27:47 06/23/20 23 06/23/2023 urina lysis , dipst ick Nitrates-Sta tus negati ve Not Available [facility] [address], [place], [address], 06/23/2023 11:27:47 06/23/20 23 06/23/2023 urina lysis , dipst ick Blood-Status Negati ve Not Available [facility] [address], [place], [address], 06/23/2023 11:27:47 06/23/2006/23/2023 urina lysis , dipst ick Leuko-Status Negati ve Not Available [facility] [address], [place], [address], 06/23/2023 11:27:47 05/31/20 CT, abdom en + pelvi s, w/wo contr ast No observ ation record ed. Not Available 05/31/2020 15:57:16 07/31/20 20 07/30/2020 CT, cysto gram No observ ation record ed. [email or web address] Not Available 08/02/2020 08:40:59 12/05/19 21 12/03/2020 CT, abdom en + pelvi s, w/ contr ast No observ ation record ed. [facility] [address], [place], [address], 12/05/2020 17:38:18 06/05/20 21 06/04/2021 CT, abdom en + pelvi s, w/ contr ast No observ ation record ed. [facility] [address], [place], [address], 06/05/2021 19:18:11 12/06/19 CT, abdom en + pelvi s, w/o contr ast No observ ation record ed. [facility] [address], [place], [address], 12/05/2021 12:08:02 06/04/20 22 06/03/2022 CT, abdom en + pelvi s, w/o contr ast No observ ation record ed. [email or web address] [facility] [address], [place], [place], [address], 2022 07:35:41 12/02/19 23 12/01/2022 CT, chest + abdom en + pelvi s, w/o contr ast EXAM: CT, CHEST + ABDOME N + PELVIS , W/O CONTRA ST [place]AT[place]: [place] [place] DATE/T CLARITZA: 12/02/19 23 [...] Carmen herrera MD on 2022 at 15:21 [facility] [address], [place], [address], 12/10/2022 22:25:21 Result Notes Documentation Provider Name and Address Organization Details Recorded Time Ct, Chest + Abdomen + Pelvis, W/o Contrast : EXAM: CT, CHEST + ABDOMEN + PELVIS, W/O CONTRAST LOCATION: [facility] DATE/TIME: 12/01/2022 11:00 AM INDICATION: Left renal [...] on 12/01/2022 at 15:21 Bala Curry MD [address] [place] [address],[address], [place], [address], [facility] 12/10/2022 22:25:21 Procedures Surgical History Date Name Laterality Status Provider Name and Address Organization Details Recorded Time 06/23/20 23 Cystoscopy- male completed Bala Curry MD [address] [place] [address],[address], [place], [address], [facility] 06/23/2023 12:05:05 06/23/20 23 Keflex post Cysto completed Bala Curry MD [address] [place] [address],[address], [place], [address], [facility] 06/23/2023 11:27:40 12/02/19 23 Cystoscopy- male completed Bala Curry MD [address] [place] [address],[address], [place], [address], [facility] 12/01/2022 17:59:36 06/03/20 22 Cystoscopy- male completed Bala Curry MD [address] [place] [address],[address], [place], [address], [facility] 06/03/2022 18:07:44 12/04/19 22 Cystoscopy- male completed Bala Curry MD [address] [place] [address],[address], [place], [address], [facility] 12/04/2021 20:59:27 12/04/19 22 Keflex post Cysto completed Bala Curry MD [address] [place] [address],[address], [place], [address], [facility] 12/03/2021 14:30:10 12/04/19 22 Cytology completed Bala Curry MD [address] [place] [address],[address], [place], [address], [facility] 12/03/2021 14:30:51 06/04/20 21 Cystoscopy- male completed Bala Curry MD [address] [place] [address],[address], [place], [address], [facility] 06/05/2021 20:55:14 06/04/20 21 Keflex post Cysto completed [facility]erissa portillo [facility] 06/04/2021 14:52:52 12/04/19 21 Cystoscopy- male completed Bala Curry MD [address] [place] [address],[address], [place], [address], [facility] 12/03/2020 15:51:18 07/30/20 20 Fill and Pull/Voiding Trial/TOV completed Nerissa portillo [facility] 07/30/2020 12:53:30 07/18/20 20 NEPHROURETERECTO MY, HAND ASSISTED LAPAROSCOPIC (SURG) completed Alicia portillo [facility] 07/23/2020 09:18:58 06/26/20 20 Cystoscopy with foreign body/stent removal completed Bala Curry MD [address] [place] [address],[address], [place], [address], [facility] 06/27/2020 21:40:50 06/19/20 20 CYSTOSCOPY, WITH [facility]RETEROSCOPY (SURG) [facility]2020 11:41:18 08/30/19 16 Colonoscopy completed Bala Curry MD [address] [facility],[address], [place], [address], [facility] 06/04/2021 14:48:59 Appendectomy completed Bala Curry MD [address] [facility],[address], [place], [address], [facility] 05/29/2020 17:07:20 Imaging Results Imaging Date Name Status LastModified by Organiz ation Details LastModified Time 05/31/2020 CT, abdomen + pelvis, w/wo contrast completed [email or web address] Information not available 05/31/2020 15:57:16 07/30/2020 CT, cystogram completed [email or web address] Informatio n not available 08/02/2020 08:40:59 12/03/2020 CT, abdomen + pelvis, w/ contrast completed [facility] [address], [place], [address], 12/05/2020 17:38:18 06/04/2021 CT, abdomen + pelvis, w/ contrast completed [facility] [address], [place], [address], 06/05/2021 19:18:11 12/05/2021 CT, abdomen + pelvis, w/o contrast completed [facility] [address], [place], [address], 12/05/2021 12:08:02 06/03/2022 CT, abdomen + pelvis, w/o contrast completed [email or web address] [facility] [address], [place], [address], 2022 07:35:41 12/01/2022 CT, chest + abdomen + pelvis, w/o contrast completed [email or web address] [facility] [address] [place], [address], 12/10/2022 22:25:21 Procedure Notes None recorded. Medical [...] Updated DateTime 06/03/2022 177.8 cm 29.8 kg/m2 76646.21 g Bala Curry MD [address] [place] [address],[address], [address], [facility] 06/03/2022 15:24:07 Date Recorded Body weight Body mass index (BMI) Body height Provider Name and Address Organization Details Last Updated DateTime 05/29/2020 10945.95 g 31 kg/m2 177.8 cm Bala Curry MD [address] [place] [address],[address] [address], [facility] 05/29/2020 17:05:58 Date Recorded Body height Body mass index (BMI) Body weight Provider Name and Address Organization Details Last Updated DateTime 12/01/2022 177.8 cm 33 kg/m2 135540.25 g Monica [facility], [facility] 12/01/2022 15:25:30 Date Recorded Body height Provider Name an d Address Organization Details Last Updated DateTime 06/23/2023 177.8 cm Nerissa Gorman lindsey, [facility] 06/23/2023 11:23:18 Date Recorded Body mass index (BMI) Body weight Provider Name and Address Organization Details Last Updated DateTime 06/23/2023 32 kg/m2 973038.1 g Bala Curry MD [address] [place] [address],[address], [address], [facility] 06/23/2023 11:28:47 Date Recorded Body height Body mass index (BMI) Body weight Provider Name and Address Organization Details Last Updated DateTime 06/26/2020 177.8 cm 29.4 kg/m2 11925.44 g Bala Curry MD [address] [place] [address],[place] [address], [facility] 06/26/2020 16:42:22 Date Recorded Body height Body mass index (BMI) Body weight Provider Name and Address Organization Details Last Updated DateTime 07/30/2020 177.8 cm 30.1 kg/m2 40805.4 g Bala Curry MD [address] [place] [address],[address], [address], [facility] 07/30/2020 12:27:09 Date Recorded Body height Body mass index (BMI) Body weight Provider Name and Address Organization Details Last Updated DateTime 12/03/2020 177.8 cm 30.1 kg/m2 14147.4 g [facility] 12/03/2020 15:12:54 Date Recorded Body height Body mass index (BMI) Body weight Provider Name and Address Organization Details Last Updated DateTime 06/04/2021 177.8 cm 29.8 kg/m2 72413.21 g Bala Curry MD [address] [place] [address],[address] [place] [address], [address], [facility] 06/04/2021 14:47:44 Date Recorded Body height Body mass index (BMI) Body weight Provider Name and Address Organization Details Last Updated DateTime 12/03/2021 177.8 cm 29.8 kg/m2 72099.21 g Bala Curry MD [address] [facility],[address], [place], [address] 12/03/2021 14:29:16 Social History Question Answer Notes LastModified by Organizat ion Details LastModified Time Tobacco Smoking Status Former Smoker 2012 Bala Curry MD [address] [facility] [address], [place], [address], [facility] 05/29/2020 17:06:47 What Is Your Level [...] Of Your Most Recent Tobacco Screening? 06/23/2023 [email or web address] Information not available 06/23/2023 Are You Sexually [...] Reported. Medical History Condition Response Diabetes N Bleeding Disorder N Other N High Blood Pressure Y Kidney Stones N Cancer Y Depression N Lung Disease N High Cholesterol Y GERD/Acid Reflux N Heart Disease N Immunizations Vaccine Type Date Status Provider Name and Address Organization Details Recorded Time influenza, injectable, quadrivalent 07/04/2020 completed Bala Curry MD [address] [facility],[address], [place], [address], [facility] 07/30/2020 12:28:01 Past Encounters Encounter ID Performer Location Encounter Start Date Encounter Closed Date Diagnosis/Indication [id number] MD Lia Quigley [address] [place] [address] 05/29/2020 16:55:45 05/30/2020 09:06:49 History of malignant neoplasm of bladder [id number] MD Lia Quigley [address] [place] [address] 06/26/2020 16:07:27 06/28/2020 08:42:18 History of malignant neoplasm of bladder [id number] MD PURVI [facility] [address] [place] [address] 07/30/2020 12:21:31 08/01/2020 16:33:43 Renal cell carcinoma [id number] MD Lia Quigley [address] [place] [address] 12/03/2020 15:06:56 12/04/2020 10:06:09 Renal cell carcinoma Primary erectile dysfunction [id number] MD Lia Quigley [address] [place] [address] 06/04/2021 14:25:23 06/06/2021 09:09:06 Renal cell carcinoma Primary erectile dysfunction Malignant tumor of kidney [id number] MD Lia Quigley [address] [place] [address] 12/03/2021 14:20:18 12/08/2021 10:12:25 Malignant tumor of kidney Primary erectile dysfunction [id number] MD Lia Quigley [address] [place] [address] 06/03/2022 15:14:22 06/04/2022 16:13:01 Malignant tumor of kidney Primary erectile dysfunction [id number] MD Lia Quigley [address] [place] [address] 12/01/2022 15:14:02 12/04/2022 12:07:05 Malignant tumor of kidney Primary erectile dysfunction [id number] MD Lia Quigley [address] [place] [address] 06/23/2023 11:14:57 07/05/2023 14:04:08 Malignant tumor of [...] 06/23/2023 1 [employer]: [place] [id number] 4 Reza Liang [place] [id number] 27 Reza Liang [place] 12/01/2022 1 [employer] [id number] 4 Reza R [place] [id number] 27 Reza Liang [place] 06/03/2022 1 [employer] [id number] 4 Reza R [place] [id number] 27 Reza Liang [place] 12/03/2021 1 [place] [id number] 4 Reza R [place] [id number] 27 Reza Liang [place] 06/04/2021 1 [place] [id number] 4 Reza R [place] [id number] 27 Reza Liang [place] 12/03/2020 1 [place] [id number] 4 Reza R [place] [id number] 27 Reza Liang [place] 07/30/2020 1 [place] [id number] 4 Reza R [place] [id number] 27 Reza Liang [place] 06/26/2020 1 [place] [id number] 4 Reza R [place] [id number] 27 Reza Liang [place] 05/29/2020 1 [place] [id number] 4 Reza R [place] [id number] 27 Reza Liang [place] Notes Date Note [...] stones, or filling defects Bala Curry MD [address] [place] [address],[address], [place], [address], [facility] 05/30/2020 14:19:08 06/26/2020 text/html HPI Notes: [...] stones, or filling defects Bala Curry MD [address] [place] [address],[address], [place], [address], [facility] 06/27/2020 21:45:17 07/30/2020 text/html HPI Notes: [...] stones, or filling defects Bala Curry MD [address] [place] [address],[address], [place], [address], [facility] 08/01/2020 12:49:21 12/03/2020 text/html HPI Notes: [...] or filling defects Bala Curry MD [address] [facility],[address], [place], [address], [facility] 12/03/2020 15:53:47 06/04/2021 text/html HPI Notes: [...] metastatic disease seen Bala Curry MD [address] [facility],[address], [place], [address], [facility] 06/05/2021 20:59:30 12/03/2021 text/html HPI Notes: [...] Right mid-kidney (posterior) Bala Curry MD [address] [facility],[address], [place], [address], [facility] 12/04/2021 21:04:54 06/03/2022 text/html HPI Notes: [...] on Right mid-kidney (posterior) Bala Curry MD [address] [facility],[address], [place], [address], [facility] 06/03/2022 18:09:48 12/01/2022 text/html HPI Notes: [...] on Right mid-kidney (posterior) Bala Curry MD [address] [place] [address],[address], [place], [address], [facility] 12/01/2022 18:00:48 06/23/2023 text/html HPI Notes: [...] - no lymphadenopathy Bala Curry MD [address] [facility],[address], [place], [address], [facility] 06/23/2023 12:05:50
--- OUTSIDE RECORDS SUMMARY | 2023-10-15 07:30 | XMS_ITS | Clinical Summary ---
Author Name Unknown Organization [employer] [facility] Address [place], [place] [address] Care Team Providers Care Clip Coater Name Role Phone Dmitri Silverio MD Primary [...] Comments Blood Pressure 139/83 07/19/2020 7:58 AM GOLF BALL TRIMMER Pulse 61 07/19/2020 7:58 AM GOLF BALL TRIMMER Temperature 36.7 ??C (98 ??F) 07/19/2020 7:58 AM GOLF BALL TRIMMER Respiratory Rate 16 07/19/2020 7:58 AM GOLF BALL TRIMMER Oxygen Saturation 95% 07/19/2020 7:58 AM GOLF BALL TRIMMER Inhaled Oxygen Concentration - - Weight 94.3 kg (208 lb) 07/18/2020 11:46 AM GOLF BALL TRIMMER Height 177.8 cm (5' 10) 07/18/2020 11:46 AM GOLF BALL TRIMMER Body Mass Index 29.84 07/18/2020 11:46 AM GOLF BALL TRIMMER Plan of Treatment Health Maintenance Due Date [...] Code Status Discussion: Not Discussed Care Teams Clip Coater Relationship Specialty Start Date End Date Dmitri Silverio MD [address] [facility] [place] [address] PCP - General Family Practice 11/05/17 Bala Curry MD [address] [facility] [place] [address] Surgery - Urology 07/31/20
--- OUTSIDE RECORDS SUMMARY | 2023-10-15 07:30 | XMS_ITS | Referral Summary ---
Author Name Unknown Organization [facility] Address [address] [place] [address] Care Team Providers Care Local City Driver Name Role Phone Dmitri Silverio MD Primary Care Provider [phone] Allergies No known active allergies Medications Medication [...] on file Medical Devices Implanted Type Area Art Display Maker Device Identifier Shelf Expiration Date Model / Serial / Lot Stent Ureteral Contour Soft Percuflex [id number] Implanted:Qty: 1 on 06/19/2020 by Bala Curry MD at [facility] Stent Left: Urethra [employer] 04/05/2023 [id number] / / [id number] Care Teams Local City Driver Relationship Specialty Start Date End Date Dmitri Silverio MD PCP - General Family Practice 06/10/20
--- OUTSIDE RECORDS SUMMARY | 2023-10-15 07:30 | XMS_ITS | Clinical Summary ---
Author Name Unknown Organization [facility] Address [address] [place] [address] Care Team Providers Care Smoking Pipe Coater Name Role Phone Dmitri Silverio MD Primary Care Provider [phone] Allergies No known active allergies Medications Medication [...] on file Medical Devices Implanted Type Area Front Office Developer Device Identifier Shelf Expiration Date Model / Serial / Lot Stent Ureteral Contour Soft Percuflex [id number] Implanted:Qty: 1 on 06/19/2020 by Bala Curry MD at [facility] Stent Left: Urethra [employer] 04/05/2023 [id number] / / [id number] Care Teams Smoking Pipe Coater Relationship Specialty Start Date End Date Dmitri Silverio MD PCP - General Family Practice 06/10/20
== END 2023-10-14 07:31 | disposition home or self-care (01) ==
LOC: NFLDREF 10-15 07:28
PROVIDERS: PCP Family Medicine; Referring Provider Family Medicine; Visit Provider Family Medicine
DX: Z01.818 Encounter for other preprocedural examination (principal); M17.12 Unilateral primary osteoarthritis, left knee
CPT/HCPCS: 80048; 80053; 80061; G0103

== ENCOUNTER 2023-10-19 06:02 | Day surgery (SDC) | payer OTHER, SELFPAY ==
[2023-10-19] VITALS (19 sets, daily range): BP systolic 114–172; BP diastolic 68–114; PULSE 48–70; RESP 16; TEMP 36.3–36.7; O2SAT 94–98; BMI 31.8
--- OUTSIDE RECORDS SUMMARY | 2023-10-19 06:05 | XMS_ITS | Referral Summary ---
Author Name Unknown Organization [place] Address [address] [place] [address] Care Team Providers Care Dance Master Name Role Phone Dmitri Silverio MD Primary Care Provider [phone] Allergies No known active allergies Medications Medication [...] on file Medical Devices Implanted Type Area Fur Coat Sewer Device Identifier Shelf Expiration Date Model / Serial / Lot Stent Ureteral Contour Soft Percuflex [id number] Implanted:Qty: 1 on 06/19/2020 by Bala Curry MD at [facility] Stent Left: Urethra [employer] 04/05/2023 [id number] / / [id number] Care Teams Dance Master Relationship Specialty Start Date End Date Dmitri Silverio MD PCP - General Family Practice 06/10/20
--- OUTSIDE RECORDS SUMMARY | 2023-10-19 06:05 | XMS_ITS | Clinical Summary ---
Author Name Unknown Organization [employer] Address [place], [place] [address] Care Team Providers Care Arc And Gas Welder Name Role Phone Dmitri Silverio MD Primary Care Provider [phone] Bala Curry MD Unavailable [phone] Allergies No known active allergies Medications Medication [...] Comments Blood Pressure 139/83 07/19/2020 7:58 AM DRYWALL APPLICATION SUPERVISOR Pulse 61 07/19/2020 7:58 AM DRYWALL APPLICATION SUPERVISOR Temperature 36.7 ??C (98 ??F) 07/19/2020 7:58 AM DRYWALL APPLICATION SUPERVISOR Respiratory Rate 16 07/19/2020 7:58 AM DRYWALL APPLICATION SUPERVISOR Oxygen Saturation 95% 07/19/2020 7:58 AM DRYWALL APPLICATION SUPERVISOR Inhaled Oxygen Concentration - - Weight 94.3 kg (208 lb) 07/18/2020 11:46 AM DRYWALL APPLICATION SUPERVISOR Height 177.8 cm (5' 10) 07/18/2020 11:46 AM DRYWALL APPLICATION SUPERVISOR Body Mass Index 29.84 07/18/2020 11:46 AM DRYWALL APPLICATION SUPERVISOR Plan of Treatment Health Maintenance Due Date [...] Code Status Discussion: Not Discussed Care Teams Arc And Gas Welder Relationship Specialty Start Date End Date Dmitri Silverio MD [address] [facility] [place] [address] PCP - General Family Practice 11/05/17 Bala Curry MD [address] [facility] [place] [place] [address] Surgery - Urology 07/31/20
--- OUTSIDE RECORDS SUMMARY | 2023-10-19 06:05 | XMS_ITS | Data Portability ---
Author Name Unknown Address [address] [place] [address] Phone [phone] Organization [facility] Address [address] [facility] [address] [place] [address] Assessment No assessment recorded. Plan of Treatment Reminders Order Date Submit Date Provider Last Modified By Organization Details Last Modified Time Details Appointments None recorde d. Lab urinaly sis, dipstic k 2022 023 [facility], [address], [place], [address], 11:28:14 urinaly sis, dipstic k 2022 023 [email or web address] [facility], [address], [place], [address], 15:27:51 urinaly sis, dipstic k 2021 022 [facility], [address], [place], [address], 15:37:32 urinaly sis, dipstic k 2021 022 Not available 14:30:42 urinaly sis, dipstic k 2020 021 Not available 14:50:02 cytolog y, urine - urine taken during cysto 2020 021 [facility], [address], [address], [place], [address], 1 15:34:11 Referral oncolog ist referra l 2020 021 [email or web address] Keara Solorio MD, [address] [place], [address], 1 12:32:19 Procedures cystosc opy (PROC) 2022 023 [email or web address] Not available 3 12:12:10 cystosc opy (PROC) 2022 023 rebbert Not available 3 07:51:53 cystosc opy (PROC) 2021 022 [email or web address] Not available 2 07:30:17 cystosc opy (PROC) 2021 022 [email or web address] Not available 2 09:10:12 Surgeries nephrou reterec julia, hand assiste d laparos copic (SURG) 2019 020 [email or web address] Not available 0 10:24:55 cystosc opy, with uretero scopy (SURG) 2019 020 [email or web address] Not available 0 10:43:[address], chest + abdomen + pelvis, w/o contras t 2022 023 [email or web address] [facility] , [address] [place], [address], 3 09:25:32 CT, abdomen + pelvis, w/o contras t - f/u with Dr. Curry on 12/01/22 @ 2:20PM 2021 022 [email or web address] [facility] , [address] [place], [address], 2 16:13:02 CT, abdomen + pelvis, w/ contras t 2021 022 [email or web address] Not available 15:41:24 Medication Orders tadalaf il 20 mg tablet [address] [id number], [address] [place], [place], [id number], 15:37:39 tadalaf il 20 mg tablet [address] [facility] #05325, [address] [place], [place], [id number], 03:39:41 Bactrim DS 800 mg-160 mg tablet 2019 020 [facility]51592, [address] [place], [place], [id number], 14:47:57 Patient TargetsNo targets recorded. Patient Instructions Encounter Date Encounter Id Patient Instructions Last Modified By Organization Details Last Modified Time 05/29/2020 [id number] H/O BPH - voidin g okay - PSA is normal Not available 05/29/2020 18:15:26 Reason for Referral Referring Physician: Bala gutierrez, Urology, Encounter Date: 06/04/2021 Results Created Date Observation Date Name Description Value Unit Range Abnormal Flag LastModifiedBy Organization Detail LastModifiedTime 12/04/19 21 12/03/2020 cytol ogy, urine apresult AP result s Not Available [facility] [address], [place], [address], 12/04/2020 15:34:11 06/04/20 21 06/04/2021 urina lysis , dipst ick Color-Status Yellow Not Available [facility] [address], [place], [address], 06/04/2021 14:49:36 06/04/20 21 06/04/2021 urina lysis , dipst ick pH-Status 5.5 Not Available [facility] [address], [place], [address], 06/04/2021 14:49:36 06/04/20 21 06/04/2021 urina lysis , dipst ick Nitrates-Sta tus negati ve Not Available [facility] [address], [place], [address], 06/04/2021 14:49:36 06/04/20 21 06/04/2021 urina lysis , dipst ick Blood-Status Trace Not Available [facility] [address], [place], [address], 06/04/2021 14:49:36 06/04/20 21 06/04/2021 urina lysis , dipst ick Leuko-Status Negati ve Not Available [facility] [address], [place], [address], 06/04/2021 14:49:36 12/04/19 22 12/03/2021 urina lysis , dipst ick Color-Status Yellow Not Available [facility] [address], [place], [address], 12/03/2021 14:30:21 12/04/19 22 12/03/2021 urina lysis , dipst ick pH-Status 5.0 Not Available [facility] [address], [place], [address], 12/03/2021 14:30:21 12/04/19 22 12/03/2021 urina lysis , dipst ick Blood-Status Trace Not Available [facility] [address], [place], [address], 12/03/2021 14:30:21 12/04/19 22 12/03/2021 urina lysis , dipst ick Leuko-Status Negati ve Not Available [facility] [address], [place], [address], 12/03/2021 14:30:21 06/03/20 22 06/03/2022 urina lysis , dipst ick Color-Status Yellow Not Available [facility] [address], [place], [address], 06/03/2022 15:24:34 12/02/19 23 12/01/2022 urina lysis , dipst ick Color-Status Yellow Not Available [facility] [address], [place], [address], 12/01/2022 15:27:24 12/02/19 23 12/01/2022 urina lysis , dipst ick Clarity-Stat us Clear Not Available [facility] [address], [place], [address], 12/01/2022 15:27:24 06/23/20 23 06/23/2023 urina lysis , dipst ick Color-Status Yellow Not Available [facility] [address], [place], [address], 06/23/2023 11:27:47 06/23/20 23 06/23/2023 urina lysis , dipst ick pH-Status 7.0 Not Available [facility] [address], [place], [address], 06/23/2023 11:27:47 06/23/20 23 06/23/2023 urina lysis , dipst ick Nitrates-Sta tus negati ve Not Available [facility] [address], [place], [address], 06/23/2023 11:27:47 06/23/20 23 06/23/2023 urina lysis , dipst ick Blood-Status Negati ve Not Available [facility] [address], [place], [address], 06/23/2023 11:27:47 06/23/2006/23/2023 urina lysis , dipst ick Leuko-Status Negati ve Not Available [facility] [address], [place], [address], 06/23/2023 11:27:47 05/31/20 CT, abdom en + pelvi s, w/wo contr ast No observ ation record ed. [email or web address] Not Available 05/31/2020 15:57:16 07/31/20 20 07/30/2020 CT, cysto gram No observ ation record ed. [email or web address] Not Available 08/02/2020 08:40:59 12/05/19 21 12/03/2020 CT, abdom en + pelvi s, w/ contr ast No observ ation record ed. [facility] [address], [place], [address], 12/05/2020 17:38:18 06/05/20 21 06/04/2021 CT, abdom en + pelvi s, w/ contr ast No observ ation record ed. [facility] [address], [place], [address], 06/05/2021 19:18:11 12/06/19 CT, abdom en + pelvi s, w/o contr ast No observ ation record ed. [facility] [address], [place], [address], 12/05/2021 12:08:02 06/04/20 22 06/03/2022 CT, abdom en + pelvi s, w/o contr ast No observ ation record ed. [email or web address] [facility] [address], [place], [place], [address], 2022 07:35:41 12/02/19 23 12/01/2022 CT, chest + abdom en + pelvi s, w/o contr ast EXAM: CT, CHEST + ABDOME N + PELVIS , W/O CONTRA ST LOCATI ON: [place] [place] DATE/T CLARITZA: 12/02/19 23 [...] Carmen herrera MD on 2022 at 15:21 [facility] [address], [place], [address], 12/10/2022 22:25:21 Result Notes Documentation Provider Name and Address Organization Details Recorded Time Ct, Chest + Abdomen + Pelvis, W/o Contrast : EXAM: CT, CHEST + ABDOMEN + PELVIS, W/O CONTRAST LOCATION: [facility] DATE/TIME: 12/01/2022 11:00 AM INDICATION: [...] on 12/01/2022 at 15:21 Bala Curry MD [address] [place] [address],[address], [place], [address], [facility] 12/10/2022 22:25:21 Procedures Surgical History Date Name Laterality Status Provider Name and Address Organization Details Recorded Time 06/23/20 23 Cystoscopy- male completed Bala Curry MD [address] [place] [address],[address], [place], [address], [facility] 06/23/2023 12:05:05 06/23/20 23 Keflex post Cysto completed Bala Curry MD [address] [place] [address],[address], [place], [address], [facility] 06/23/2023 11:27:40 12/02/19 23 Cystoscopy- male completed Bala Curry MD [address] [place] [address],[address], [place], [address], [facility] 12/01/2022 17:59:36 06/03/20 22 Cystoscopy- male completed Bala Curry MD [address] [place] [address],[address], [place], [address], [facility] 06/03/2022 18:07:44 12/04/19 22 Cystoscopy- male completed Bala Curry MD [address] [place] [address],[address], [place], [address], [facility] 12/04/2021 20:59:27 12/04/19 22 Keflex post Cysto completed Bala Curry MD [address] [place] [address],[address], [place], [address], [facility] 12/03/2021 14:30:10 12/04/19 22 Cytology completed Bala Curry MD [address] [place] [address],[address], [place], [address], [facility] 12/03/2021 14:30:51 06/04/20 21 Cystoscopy- male completed Bala Curry MD [address] [place] [address],[address], [place], [address], [facility] 06/05/2021 20:55:14 06/04/20 21 Keflex post Cysto [facility] 06/04/2021 14:52:52 12/04/19 21 Cystoscopy- male completed Bala Curry MD [address] [place] [address],[address], [place], [address], [facility] 12/03/2020 15:51:18 07/30/20 20 Fill and Pull/Voiding Trial/TOV completed Nerissa portillo [facility] 07/30/2020 12:53:30 07/18/20 20 NEPHROURETERECTO MY, HAND ASSISTED LAPAROSCOPIC (SURG) completed Alicia portillo [facility] 07/23/2020 09:18:58 06/26/20 20 Cystoscopy with foreign body/stent removal completed Bala Curry MD [address] [place] [address],[address], [place], [address], [facility] 06/27/2020 21:40:50 06/19/20 20 CYSTOSCOPY, WITH URETEROSCOPY (SURG) [facility]/21/2020 11:41:18 08/30/19 16 Colonoscopy completed Bala Curry MD [address], [place], [address], [facility] 06/04/2021 14:48:59 Appendectomy completed Bala Curry MD [address], [place], [address], [facility] 05/29/2020 17:07:20 Imaging Results Imaging Date Name Status LastModified by Organiz ation Details LastModified Time 05/31/2020 CT, abdomen + pelvis, w/wo contrast completed [email or web address] Information not available 05/31/2020 15:57:16 07/30/2020 CT, cystogram completed Informatio n not available 08/02/2020 08:40:59 12/03/2020 CT, abdomen + pelvis, w/ contrast completed [facility] [address], [place], [address], 12/05/2020 17:38:18 06/04/2021 CT, abdomen + pelvis, w/ contrast completed [facility] [address], [place], [address], 06/05/2021 19:18:11 12/05/2021 CT, abdomen + pelvis, w/o contrast completed [facility] [address], [place], [address], 12/05/2021 12:08:02 06/03/2022 CT, abdomen + pelvis, w/o contrast completed [email or web address] [facility] [address], [place], [address], 2022 07:35:41 12/01/2022 CT, chest + abdomen + pelvis, w/o contrast completed [email or web address] [facility] [address] [place], [address], 12/10/2022 22:25:21 Procedure Notes None recorded. Medical [...] Updated DateTime 06/03/2022 177.8 cm 29.8 kg/m2 03875.21 g Bala Curry MD [address] [place] [address],[address], [address], [facility] 06/03/2022 15:24:07 Date Recorded Body weight Body mass index (BMI) Body height Provider Name and Address Organization Details Last Updated DateTime 05/29/2020 30011.95 g 31 kg/m2 177.8 cm Bala Curry MD [address] [place] [address],[address] [place] [address], [facility] 05/29/2020 17:05:58 Date Recorded Body height Body mass index (BMI) Body weight Provider Name and Address Organization Details Last Updated DateTime 12/01/2022 177.8 cm 33 kg/m2 574786.25 g Monica Wilsons [facility], [facility] 12/01/2022 15:25:30 Date Recorded Body height Provider Name an d Address Organization Details Last Updated DateTime 06/23/2023 177.8 cm Nerissa Gorman lindsey, [facility] 06/23/2023 11:23:18 Date Recorded Body mass index (BMI) Body weight Provider Name and Address Organization Details Last Updated DateTime 06/23/2023 32 kg/m2 338124.1 g Bala Curry MD [address] [place] [address],[address], [address], [facility] 06/23/2023 11:28:47 Date Recorded Body height Body mass index (BMI) Body weight Provider Name and Address Organization Details Last Updated DateTime 06/26/2020 177.8 cm 29.4 kg/m2 64974.44 g Bala Curry MD [address] [place] [address],[place] [address], [facility] 06/26/2020 16:42:22 Date Recorded Body height Body mass index (BMI) Body weight Provider Name and Address Organization Details Last Updated DateTime 07/30/2020 177.8 cm 30.1 kg/m2 17224.4 g Bala Curry MD [address] [place] [address],[address], [address], [facility] 07/30/2020 12:27:09 Date Recorded Body height Body mass index (BMI) Body weight Provider Name and Address Organization Details Last Updated DateTime 12/03/2020 177.8 cm 30.1 kg/m2 94175.4 g [facility] 12/03/2020 15:12:54 Date Recorded Body height Body mass index (BMI) Body weight Provider Name and Address Organization Details Last Updated DateTime 06/04/2021 177.8 cm 29.8 kg/m2 53177.21 g Bala Curry MD [address] [place] [address],[address] [place] [address], [address], [facility] 06/04/2021 14:47:44 Date Recorded Body height Body mass index (BMI) Body weight Provider Name and Address Organization Details Last Updated DateTime 12/03/2021 177.8 cm 29.8 kg/m2 50808.21 g Bala Curry MD [address], [place], [address] 12/03/2021 14:29:16 Social History Question Answer Notes LastModified by Organizat ion Details LastModified Time Tobacco Smoking Status Former Smoker 2012 Bala Curry MD [address],[facility] [address], [place], [address], [facility] 05/29/2020 17:06:47 What Is Your [...] quadrivalent 07/04/2020 completed Bala Curry MD [address], [place], [address], [facility] 07/30/2020 12:28:01 Past Encounters Encounter ID Performer Location Encounter Start Date Encounter Closed Date Diagnosis/Indication [id number] MD Lia Quigley [address] [place] [address] 05/29/2020 16:55:45 05/30/2020 09:06:49 History of malignant neoplasm of bladder [id number] MD Lia Quigley [address] [place] [address] 06/26/2020 16:07:27 06/28/2020 08:42:18 History of malignant neoplasm of bladder [id number] MD PURVI [facility] [address] [place] [address] 07/30/2020 12:21:31 08/01/2020 16:33:43 Renal cell carcinoma [id number] MD Lia Quigley [address] [place] [address] 12/03/2020 15:06:56 12/04/2020 10:06:09 Renal cell carcinoma Primary erectile dysfunction [id number] MD Lia Quigley [address] [place] [address] 06/04/2021 14:25:23 06/06/2021 09:09:06 Renal cell carcinoma Primary erectile dysfunction Malignant tumor of kidney [id number] MD Lia Quigley [address] [place] [address] 12/03/2021 14:20:18 12/08/2021 10:12:25 Malignant tumor of kidney Primary erectile dysfunction [id number] MD Lia Quigley [address] [place] [address] 06/03/2022 15:14:22 06/04/2022 16:13:01 Malignant tumor of kidney Primary erectile dysfunction [id number] MD Lia Quigley [address] [place] [address] 12/01/2022 15:14:02 12/04/2022 12:07:05 Malignant tumor of kidney Primary erectile dysfunction [id number] MD Lia Quigley [address] [place] [address] 06/23/2023 11:14:57 07/05/2023 14:04:08 Malignant tumor of [...] 06/23/2023 1 [employer]: [place] [id number] 4 Reza Liang [place] [id number] 27 Reza Liang [place] 12/01/2022 1 [employer] [id number] 4 Reza R [place] [id number] 27 Reza Liang [place] 06/03/2022 1 [place] [id number] 4 Reza R [place] [id number] 27 Reza Liang [place] 12/03/2021 1 [place] [id number] 4 Reza R [place] [id number] 27 Reza Liang [place] 06/04/2021 1 [place] [id number] 4 Reza R [place] [id number] 27 Reza Liang [place] 12/03/2020 1 [place] [id number] 4 Reza R [place] [id number] 27 Reza Liang [place] 07/30/2020 1 [place] [id number] 4 Reza R [place] [id number] 27 Reza Liang [place] 06/26/2020 1 [place] [id number] 4 Reza R [place] [id number] 27 Reza Liang [place] 05/29/2020 1 [place] [id number] 4 Reza R [place] [id number] 27 Reza Liang [place] Notes Date Note [...] stones, or filling defects Bala Curry MD [address] [place] [address],[address], [place], [address], [facility] 05/30/2020 14:19:08 06/26/2020 text/html HPI Notes: [...] stones, or filling defects Bala Curry MD [address] [place] [address],[address], [place], [address], [facility] 06/27/2020 21:45:17 07/30/2020 text/html HPI Notes: [...] stones, or filling defects Bala Curry MD [address] [place] [address],[address], [place], [address], [facility] 08/01/2020 12:49:21 12/03/2020 text/html HPI Notes: [...] or filling defects Bala Curry MD [address], [place], [address], [facility] 12/03/2020 15:53:47 06/04/2021 text/html HPI Notes: [...] metastatic disease seen Bala Curry MD [address], [place], [address], [facility] 06/05/2021 20:59:30 12/03/2021 text/html HPI Notes: [...] Right mid-kidney (posterior) Bala Curry MD [address], [place], [address], [facility] 12/04/2021 21:04:54 06/03/2022 text/html HPI Notes: [...] on Right mid-kidney (posterior) Bala Curry MD [address], [place], [address], [facility] 06/03/2022 18:09:48 12/01/2022 text/html HPI Notes: [...] on Right mid-kidney (posterior) Bala Curry MD [address] [place] [address],[address], [place], [address], [facility] 12/01/2022 18:00:48 06/23/2023 text/html HPI Notes: [...] - no lymphadenopathy Bala Curry MD [address], [place], [address], [facility] 06/23/2023 12:05:50
--- OUTSIDE RECORDS SUMMARY | 2023-10-19 06:05 | XMS_ITS | Clinical Summary ---
Author Name Unknown Organization [facility] Address [address] [place] [address] Care Team Providers Care Bryologist Name Role Phone Dmitri Silverio MD Primary Care Provider [phone] Allergies No known active allergies Medications Medication [...] on file Medical Devices Implanted Type Area Manager Event Device Identifier Shelf Expiration Date Model / Serial / Lot Stent Ureteral Contour Soft Percuflex [id number] Implanted:Qty: 1 on 06/19/2020 by Bala Curry MD at [facility] Stent Left: Urethra [employer] 04/05/2023 [id number] / / [id number] Care Teams Bryologist Relationship Specialty Start Date End Date Dmitri Silverio MD PCP - General Family Practice 06/10/20
[2023-10-19] MEDS: SODIUM CHLORIDE 0.9 % (FLUSH) 10 ML SYRINGE IVF (06:45)
[2023-10-19] MEDS: LACTATED RINGERS 1000 ML 1,000 ML 100 ML IV ×2 (06:45→09:31)
--- NOTE | 2023-10-19 06:58 | SUR.PREOP ---
TIME?OUT:?0658 PT/RN/MDA?VERIFICATION?OF?SURGICAL?SITE,?PROCEDURE,?AND?CONSENT OBTAINED?PRIOR?TO?INVASIVE?PROCEDURE.
[2023-10-19] MEDS: fentaNYL 100 MCG/2 ML inj IVP (07:00)
[2023-10-19] MEDS: MIDAZOLAM HCL 1 MG/ML inj IVP (07:00)
[2023-10-19] MEDS: ACETAMINOPHEN 500 MG TABLET 1000 MG PO ×2 (07:08→13:15)
[2023-10-19] MEDS: OXYCODONE (CR) 10 MG TAB.ER.12H PO (07:08)
[2023-10-19] MEDS: CEFAZOLIN 2 GM INJ IVP (07:33)
[2023-10-19] MEDS: TRANEXAMIC ACID 100 MG/ML INJ 1000 MG IV (07:36)
--- NOTE | 2023-10-19 07:54 | SUR.OPER ---
PATIENT QUESTIONS ANSWERED SATISFACTORILY PREOPERATIVELY.? PATIENT BROUGHT TO OR #2 PER CART AFTER ADMINISTRATION OF A BLOCK.? Patient positioned supine on OR #2 bed.? The perioperative?team supported arms bilaterally on arm boards.? Final approval of positioning by surgeon
--- NOTE | 2023-10-19 08:38 | XR_ITS ---
Final Report Patient: ANICETO HARRIS Facility:?[facility] Patient ID:?[id number] Site Patient ID:?[id number]. Site :?[id number] Study:?XRay Extremity Left 2V KNEE-10/19/2023 9:35:05 AM Ordering Physician:?DR. HITCHCOCK Final Report: Indication: POST OP Technique: Two views left knee Findings/Impression: Hardware from a left total knee arthroplasty is in satisfactory position. Bone alignment is normal. No sign of acute fracture. Postop changes are within normal limits. Dictated by Avelino Pacheco MD @ 10/19/2023 11:55:07 AM (Electronic Signature)
--- NOTE | 2023-10-19 08:40 | PM.ORPRC ---
Procedure Note Date of procedure: 10/19/23 Procedure: PREOPERATIVE DIAGNOSIS: Left knee osteoarthritis POSTOPERATIVE DIAGNOSIS: Left knee osteoarthritis NAME OF OPERATION: Left total knee arthroplasty SURGEON: Daryl Reynolds MD ALLERGIST/MD: TUNDE Thompson ANESTHESIA: Spinal ESTIMATED BLOOD LOSS: 0 mL COMPLICATIONS: None SPECIMENS: None DRAINS: None PREOPERATIVE ANTIBIOTICS: Ancef 2 grams IMPLANTS: 1. J&J Attune # 7 posterior stabilized femur 2. # 8 fixed-bearing tibia 3. # 7 posterior stabilized, 5 mm fixed-bearing polyethylene 4. 41 patella INDICATIONS: The patient is a 68-year-old with a longstanding history of severe, unrelenting left knee pain secondary to end-stage (grade IV) left knee osteoarthritis. Despite appropriate nonoperative management, including activity modification, anti-inflammatories, [id number] pain medication, bracing, physical therapy, and injections they continue to have pain and disability. Operative intervention was offered. The risks, benefits and expected outcomes were discussed in detail. These included but were not limited to: Infection, bleeding, injury to blood vessel or nerve, venous thromboembolism. All questions were answered to their satisfaction. Use of an assistant laboratory director was necessary throughout the case for patient positioning and safety, soft tissue retraction, and closure. PROCEDURE: Spinal anesthesia was administered. The patient was placed supine on the operating table. The assistant laboratory director made sure the patient was positioned appropriately. The lower extremity was prepped and draped in the usual sterile fashion. The limb was exsanguinated with the Junior bandage. The pneumatic tourniquet was inflated to 300 mmHg. A standard anterior incision was made with the knee in flexion. Subcutaneous dissection was sharply taken through fascial layer #1. Full-thickness medial and lateral flaps were elevated. The assistant laboratory director retracted the soft tissues and protected them throughout the case. A standard subvastus approach was made. The patella was everted. The infrapatellar fat pad was preserved. The menisci and cruciate ligaments were sharply d?brided. Marginal osteophytes were d?brided with the rongeur. The drill was used to penetrate the femoral canal. The canal was aspirated and irrigated with pulse lavage. The intramedullary femoral guide was placed for a 5-degree valgus cut, removing 12 mm off the distal femur. The saw was used to make the cut. Whitesides line and the trans epicondylar axis were marked. The femoral sizing guide was pinned onto the distal femur. Three degrees of external rotation nicely parallels the transepicondylar axis. Pins were placed for posterior referencing. The four-in-one cutting guide was pinned onto the distal femur. The anterior, posterior, and chamfer cuts were made. The assistant laboratory director protected the collateral ligaments. The box cutting guide was pinned. The box cuts were made. The boxed trial was placed and was an excellent fit. Drill holes for the lugs were made. Attention was then turned to the proximal tibia. The extramedullary tibial guide was placed for a neutral varus/valgus cut with 5 degrees of posterior slope, removing 2 mm based off the medial tibial surface. The assistant laboratory director protected the collateral ligaments and the neurovascular bundle. The saw was used to make the cut. Trial components were placed. The knee was nicely balanced in both flexion and extension. The trial components were removed. The tray was placed in appropriate rotation, parallel to our tibial cutting pins. It was pinned by the assistant laboratory director and the drill and the punch were used. The tray was removed. The punch was used again. We placed a bone plug in the femoral canal. Attention was then turned to the patella. Sioux patellar thickness was 24 mm. The lobster claw resection guide was used with the 9.5 mm cheyenne. The saw was used to make the cut. Drill holes were made by the assistant laboratory director. The trial was placed and was an excellent fit. Cancellous surfaces were irrigated with pulse lavage and thoroughly dried by the assistant laboratory director. We cemented the tibial component, then the femoral component. We impacted the 5 mm polyethylene onto the tibial tray. The knee was brought into full extension. We then cemented the patellar component. Excessive cement was removed. The cement was allowed to harden. The knee was taken through a range of motion and was found to be nicely balanced in both flexion and extension. The patella tracks centrally. The assistant laboratory director did a three minute dilute Betadine solution soak. The assistant laboratory director irrigated the wound with 3 liters of normal saline via pulse lavage. The assistant laboratory director reapproximated the extensor mechanism with #1 Vicryl in an interrupted [id number] fashion. The assistant laboratory director then ran the extensor mechanism with a #1 PDO Stratafix. The assistant laboratory director closed the subcutaneous tissues with a 3-0 Stratafix and the skin with a running 3-0 Stratafix in a subcuticular fashion. Glue was used to seal the skin. The assistant laboratory director placed a dry dressing, JERALD stocking, and Polar Care. Sponge and needle counts were correct x2. The patient tolerated the procedure well. There were no apparent complications. They were carefully transferred to the hospital bed and taken to the postanesthesia care unit in satisfactory condition. PLAN: The patient will be mobilized with physical therapy. Aspirin will be used for DVT prophylaxis. They will be discharged to home once medically appropriate.
--- NOTE | 2023-10-19 09:23 | W.ANESCHARGE ---
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
--- NOTE | 2023-10-19 10:43 | P.NB_ITS ---
Nerve Block Nerve Block Time Seen by Provider: 07:04 Date Seen: 10/19/23 Type of block requested by surgeon for post-operative analgesia: adductor canal Side: left Time out performed: Yes Verification of patient name: Yes Verification of date of : Yes Site marking: site marked Name of person performing procedure: Bruce Continuous monitoring Was continuous monitoring of O2 sat, B/P, gambling monitor, recorded every 15 minutes?: Yes Procedure Checklist: sterile prep, needles and gloves Ultrasound guided. Images saved: Yes Medications given in 5ml increments after negative aspiration: Ropivicaine %: 0.5 mL: 20 Needle gauge: 20 Decadron (mg): 10 Precedex (mcg): 25 Patient tolerated procedure well: Yes Additional comments: Needle noted adjacent to nerve Block Charges Block Charge (with Pro Fee): Femoral Nerve Use of Ultrasound Machine for Block: Yes- US Guidance/pain block
--- NOTE | 2023-10-19 10:43 | W.ANESCHARGE ---
Anesthesia Charges Start Date/Time Anesthesia Start Date: 10/19/23 Anesthesia Start Time: 07:21 Stop Date/Time Anesthesia Stop Date: 10/19/23 Anesthesia Stop Time: 09:23 Summary Extremes of Age - Over 70 or under 1: MDA
--- NOTE | 2023-10-19 10:43 | W.PM.NB ---
Nerve Block Nerve Block Time Seen by Provider: 07:04 Date Seen: 10/19/23 Type of block requested by surgeon for post-operative analgesia: geniculars Side: left Time out performed: Yes Verification of patient name: Yes Verification of date of : Yes Site marking: site marked Name of person performing procedure: Bruce Continuous monitoring Was continuous monitoring of O2 sat, B/P, mental telepathist, recorded every 15 minutes?: Yes Procedure Checklist: sterile prep, needles and gloves Medications given in 5ml increments after negative aspiration: Ropivicaine %: 0.5 mL: 9 Needle gauge: 25 Patient tolerated procedure well: Yes Block Charges Block Charge (with Pro Fee): Genicular Nerve Block Use of Ultrasound Machine for Block: No
[2023-10-19] MEDS: OXYCODONE 5 MG TABLET PO (13:15)
== END 2023-10-19 14:21 | disposition home or self-care (01) ==
PROVIDERS: PCP Family Medicine; Visit Provider Orthopaedic Surgery
PROC: (CPT 27447; principal; 2023-10-19 07:15)
DX: M17.12 Unilateral primary osteoarthritis, left knee (principal); G89.18 Other acute postprocedural pain
CPT/HCPCS: 27447; 01402; 64447; 64454; 73560; 76942; 97110; 97116; 97161; 97530; 99100; A9270; C1776; J0690; J1100; J2250; J2371; J2704; J2795; J3010; J3490; J7120

== ENCOUNTER 2023-12-10 09:00 | Outpatient (RCR) | payer OTHER, SELFPAY ==
--- NOTE | 2023-10-12 08:18 | PT.OPEX ---
PT [facility] Eval PT [facility] Outpatient Eval Start: 10/12/23 07:01 Freq: Status: Active Protocol: Document 10/12/23 07:02 MLS (Rec: 10/12/23 08:16 MLS [id number]) E-signed By Cecilia Cordova DPT Physical Therapy Outpatient Evaluation Insurance Information Recert Due Date 01/09/24 Insurance Name Medicare B,[facility] Medical Diagnosis M17.12 Unilateral OA, left knee Z96.652 Left artificial knee Treating Diagnosis Left TKA 10/19/[address] Reynolds Subjective Subjective Patient is a 68 year old male who presents to physical therapy for his pre-op appointment prior to a left total knee replacement on 10/19. He reports pain in left knee for about 6 months and getting worse. Significant past medical history includes bladder, kidney cancer in remission. He reports some right knee and hip pain from compensation. He also states that he has a Bakers cyst behind his left knee. Patient's goal for physical therapy is to make his pain go away. 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 Time was spent discussing home modifications, Assistive devices, pain control, fall prevention, hospital stay time line, and assist needed for activities post surgically. Pt questions were answered and demonstrated understanding. Functional Test Performed & Score LEFS at post-op appointment Assessment Assessment/Impression Pt is a 68 year old male who presents to physical therapy for his pre-op appointment prior to a left total knee replacement on 10/19/23. Skilled PT intervention is necessary for use of therapeutic exercise manual therapy, neuromuscular re- education, gait training, and therapeutic activity. See appropriate sections of PT eval for complete list of goals and POC. D/C plan and criteria is for pt to achieve the goals as listed below or until max rehab potential is met. Pt was agreeable with plan of care and goals established. Primary Functional Limitations standing walking driving exercising ADLs sleeping Plan of Care Rehabilitation Potential Good Rehabilitation Potential Comments Severe 8-10/10 pain today at pre-op evaluation. Unable to muscle test secondary to pain Physical Therapy Goals STG: (prior to surgery) !. Pt will demonstrate independence in performance of home exercise program with the use of video and/or handouts in order to optimize functional mobility and reduce risk for re-injury. 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 4) Patient will ambulate at least 15 minutes with single point cane, minimal antalgic gait for improved community mobility 5) Patient will demonstrate/ report ability to walk for 20 minutes w/o AD with pain level <1/10, to allow for community and household ambulation. Coordination/Communication With Referral Source Treatment Plan/Direct Interventions Gait Training,Manual Therapy, Neuromuscular Re-ed, Therapeutic Activities, Therapeutic Exercises Patient Will Be Discharged From Therapy Independently Progressing Evaluation Billing Untimed Code Treatment Minutes 30 Complexity Low Certification Information Physician Comment/Change : Physician NPI Number #
== END 2023-12-14 10:13 | disposition home or self-care (01) ==
PROVIDERS: PCP Family Medicine; Visit Provider Orthopaedic Surgery
DX: M17.12 Unilateral primary osteoarthritis, left knee (principal); Z96.652 Presence of left artificial knee joint; Z51.89 Encounter for other specified aftercare
CPT/HCPCS: 97110; 97140; 97161; 97164

== ENCOUNTER 2024-02-04 07:37 | Outpatient (CLI) | payer OTHER, SELFPAY ==
--- OUTSIDE RECORDS SUMMARY | 2024-02-04 07:40 | XMS_ITS | Clinical Summary ---
Author Organization [facility] Address [place], [place] [address] Care Team Providers Care Senior Water Resources Engineer Name Role Phone Dmitri Silverio MD Primary Care Provider [phone] Bala Curry MD Unavailable Allergies No known active allergies Medications Medication Sig Dispensed Refills Start Date End Date Status amLODIPine (NORVASC) 10 mg tablet Take 1 tablet by mouth once daily. 12/18/2017 Active chlorthalidone (HYGROTON) 25 mg tablet Take 25 mg by mouth every morning. 05/24/2019 Active simvastatin (ZOCOR) 20 mg tablet Take 20 mg by mouth once daily with evening meal. 12/18/2019 Active potassium chloride (KLOR-CON 10; K-TAB) 10 mEq Controlled-Release tablet Take 10 mEq by mouth once daily with a meal. 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 Pulse 61 07/19/2020 7:58 AM ECOMMERCE MERCHANDISING MANAGER Temperature 36.7 ??C (98 ??F) 07/19/2020 7:58 AM [employer]COMMER[employer] MERCHANDISING MANAGER Respiratory Rate 16 07/19/2020 7:58 AM ECOMMER[employer] MERCHANDISING MANAGER Oxygen Saturation 95% 07/19/2020 7:58 AM ECOMMERCE MERCHANDISING MANAGER Inhaled Oxygen Concentration - - Weight 94.3 kg (208 lb) 07/18/2020 11:46 AM ECOMMERCE MERCHANDISING MANAGER Height 177.8 cm (5' 10) 07/18/2020 11:46 AM ECOMMER[employer] MERCHANDISING MANAGER Body Mass Index 29.84 07/18/2020 11:46 AM ECOMMERCE MERCHANDISING MANAGER Plan of Treatment Health Maintenance Due Date Last Done Comments Tdap 1964 Depression screening for age 12+ 1965 Hepatitis C screening for age 18-79 1971 Tetanus booster 1973 Colonoscopy through age 75 1998 Lipids for age 45-75 1998 Zoster (shingles) series for age 50+ (1 of 2) 06/18/20 03 BMI (ht and wt on same day) for age 18+ 04/08/2017 0 04/08/2016 Pneumococcal series for age 65+ (1 of 1 - PCV) 018 COVID-19 vaccine series ( - 2022- season) 3 Influenza for age 65+ 04/30/2024 Advance Directives * Full Code (Latest Code Status on File) Date Activated Date Inactivated Comments 07/18/2020 11:39 AM 07/19/2020 6:17 PM Question Answer Comments Code Status Discussion: Not Discussed Care Teams Senior Water Resources Engineer Relationship Specialty Start Date End Date Dmitri Silverio MD [address] [place] [address] PCP - General Family Practice 11/05/17 Bala Curry MD [address] [place] [id number] Surgery - Urology 07/31/20
--- OUTSIDE RECORDS SUMMARY | 2024-02-04 07:40 | XMS_ITS | Clinical Summary ---
Author Organization [facility] Address [address] [place] [address]. [place] [address] Care Team Providers Care Harnessmaker Apprentice Name Role Phone Dmitri Silverio MD Primary Care Provider [phone] Allergies No known active allergies Medications Medication Sig Dispensed Refills Start Date End Date Status simvastatin (ZOCOR) 20 MG tablet Take 20 mg by mouth At Bedtime Active amLODIPine (NORVASC) 10 MG tablet Take 10 mg by mouth daily Active POTASSIUM CHLORIDE PO Take 10 mEq by mouth daily Active chlorthalidone (HYGROTON) 25 MG tablet Take 25 mg by mouth daily Active tadalafil (CIALIS) 10 MG tablet Take 10 mg by mouth daily as needed Active ibuprofen (ADVIL/MOTRIN) 200 MG tablet Take 400 mg by mouth 2 times daily as needed for mild pain Active HYDROcodone-acetamin ophen (NORCO) 5-325 MG tabletIndications:Po st-operative state Take 1-2 tablets by mouth every 6 hours as needed for moderate to severe pain 15 tablet 06/19/2020 Active Social History Tobacco Use Types [...] on file Medical Devices Implanted Type Area Coil Cleaner Device Identifier Shelf Expiration Date Model / Serial / Lot Stent Ureteral Contour Soft Percuflex [id number] Implanted:Qty: 1 on 06/19/2020 by Bala Curry MD at [facility] Stent Left: Urethra [employer] 04/05/2023 [id number] / / [id number] Care Teams Harnessmaker Apprentice Relationship Specialty Start Date End Date Dmitri Silverio MD PCP - General Family Practice 06/10/20
--- OUTSIDE RECORDS SUMMARY | 2024-02-04 07:40 | XMS_ITS | Referral Summary ---
Author Organization [facility] Address [address] [place] [address]. 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
--- OUTSIDE RECORDS SUMMARY | 2024-02-04 07:40 | XMS_ITS | Data Portability ---
Author Organization [place] [facility] Address [address] [facility] [address] [place] [address] Assessment No assessment recorded. Plan of Treatment Reminders Order Date Submit Date Provider Last Modified By Organization Details Last Modified Time Details Appointments None recorde d. Lab urinaly sis, dipstic k 2022 023 [facility], [address], [place], [address], 3 11:28:14 urinaly sis, dipstic k 2022 023 [email or web address] [facility], [address], [place], [address], 3 15:27:51 urinaly sis, dipstic k 2021 022 [facility], [address], [place], [address], 2 15:37:32 urinaly sis, dipstic k 2021 022 Not available 14:30:42 urinaly sis, dipstic k 2020 021 Not available 14:50:02 cytolog y, urine - urine taken during cysto 2020 021 [facility], [address], [place], [address], 1 15:34:11 Referral oncolog ist referra l 2020 021 [email or web address] Keara Solorio MD, [address], [place], [address], 1 12:32:19 Procedures cystosc opy (PROC) 2022 023 [email or web address] Not available 3 12:12:10 cystosc opy (PROC) 2022 023 [email or web address] Not available 3 07:51:53 cystosc opy (PROC) 2021 022 [email or web address] Not available 2 07:30:17 cystosc opy (PROC) 2021 022 [email or web address] Not available 2 09:10:12 Surgeries nephrou reterec julia, hand assiste d laparos copic (SURG) 2019 020 [email or web address] Not available 0 10:24:55 cystosc opy, with uretero scopy (SURG) 2019 020 [email or web address] Not available 0 10:43:[address], chest + abdomen + pelvis, w/o contras t 2022 023 [email or web address] [facility] , [address] [place], [address], 3 09:25:32 CT, abdomen + pelvis, w/o contras t - f/u with Dr. Curry on 12/01/22 @ 2:20PM 2021 022 [email or web address] [facility] , [address] [place], [address], 2 16:13:02 CT, abdomen + pelvis, w/ contras t 2021 [email or web address] Not available 15:41:24 Medication Orders tadalaf il 20 mg tablet 2021 022 [id number], [address] [place], [place], [id number], 15:37:39 tadalaf il 20 mg tablet 2020 021 [facility]57531, [address] [place], [place], [id number], 03:39:41 Bactrim DS 800 mg-160 mg tablet 2019 020 [facility][id number], [address] [place], [place], [id number], 14:47:57 Patient TargetsNo targets recorded. Patient Instructions Encounter Date Encounter Id Patient Instructions Last Modified By Organization Details Last Modified Time 05/29/2020 [id number] H/O BPH - voidin g okay - PSA is normal Not available 05/29/2020 18:15:26 Reason for Referral Referring Physician: Bala gutierrez, Urology, Encounter Date: 06/04/2021 Results Created Date Observation Date Name Description Value Unit Range Abnormal Flag LastModifiedBy Organization Detail LastModifiedTime 12/04/1912/03/2020 cytol ogy, urine apresult AP result s Not Available [facility] [address], [place], [address], 12/04/2020 15:34:11 06/04/20 21 06/04/2021 urina lysis , dipst ick Color-Status Yellow Not Available [facility] [address], [place], [address], 06/04/2021 14:49:36 06/04/2006/04/2021 urina lysis , dipst ick pH-Status 5.5 Not Available [facility] [address], [place], [address], 06/04/2021 14:49:36 06/04/20 21 06/04/2021 urina lysis , dipst ick Nitrates-Sta tus negati ve Not Available [facility] [address], [place], [address], 06/04/2021 14:49:36 06/04/20 21 06/04/2021 urina lysis , dipst ick Blood-Status Trace Not Available [facility] [address], [place], [address], 06/04/2021 14:49:36 06/04/20 21 06/04/2021 urina lysis , dipst ick Leuko-Status Negati ve Not Available [facility] [address], [place], [address], 06/04/2021 14:49:36 12/04/19 22 12/03/2021 urina lysis , dipst ick Color-Status Yellow Not Available [facility] [address], [place], [address], 12/03/2021 14:30:21 12/04/19 22 12/03/2021 urina lysis , dipst ick pH-Status 5.0 Not Available [facility] [address], [place], [address], 12/03/2021 14:30:21 12/04/19 22 12/03/2021 urina lysis , dipst ick Blood-Status Trace Not Available [facility] [address], [place], [address], 12/03/2021 14:30:21 12/04/19 22 12/03/2021 urina lysis , dipst ick Leuko-Status Negati ve Not Available [facility] [address], [place], [address], 12/03/2021 14:30:21 06/03/20 22 06/03/2022 urina lysis , dipst ick Color-Status Yellow Not Available [facility] [address], [place], [address], 06/03/2022 15:24:34 12/02/19 23 12/01/2022 urina lysis , dipst ick Color-Status Yellow Not Available [facility] [address], [place], [address], 12/01/2022 15:27:24 12/02/19 23 12/01/2022 urina lysis , dipst ick Clarity-Stat us Clear Not Available [facility] [address], [place], [address], 12/01/2022 15:27:24 06/23/20 23 06/23/2023 urina lysis , dipst ick Color-Status Yellow Not Available [facility] [address], [place], [address], 06/23/2023 11:27:47 06/23/20 23 06/23/2023 urina lysis , dipst ick pH-Status 7.0 Not Available [facility] [address], [place], [address], 06/23/2023 11:27:47 06/23/20 23 06/23/2023 urina lysis , dipst ick Nitrates-Sta tus negati ve Not Available [facility] [address], [place], [address], 06/23/2023 11:27:47 06/23/2006/23/2023 urina lysis , dipst ick Blood-Status Negati ve Not Available [facility] [address], [place], [address], 06/23/2023 11:27:47 06/23/2006/23/2023 urina lysis , dipst ick Leuko-Status Negati ve Not Available [facility] [address], [place], [address], 06/23/2023 11:27:47 05/31/20 CT, abdom en + pelvi s, w/wo contr ast No observ ation record ed. [email or web address] Not Available 05/31/2020 15:57:16 07/31/2007/30/2020 CT, cysto gram No observ ation record ed. [email or web address] Not Available 08/02/2020 08:40:59 12/05/19 21 12/03/2020 CT, abdom en + pelvi s, w/ contr ast No observ ation record ed. [facility] [address], [place], [address], 12/05/2020 17:38:18 06/05/20 21 06/04/2021 CT, abdom en + pelvi s, w/ contr ast No observ ation record ed. [facility] [address], [place], [address], 06/05/2021 19:18:11 12/06/19 CT, abdom en + pelvi s, w/o contr ast No observ ation record ed. [facility] [address], [place], [address], 12/05/2021 12:08:02 06/04/20 22 06/03/2022 CT, abdom en + pelvi s, w/o contr ast No observ ation record ed. [email or web address] [facility] [address], [place], [address], 2022 07:35:41 12/02/19 23 12/01/2022 CT, chest + abdom en + pelvi s, w/o contr ast EXAM: CT, CHEST + ABDOME N + PELVIS , W/O CONTRA ST LOCATI ON: [facility] DATE/T CLARITZA: 12/02/19 23 [...] herrera MD on 2022 at 15:21 [facility] [address], [place], [address], 12/10/2022 22:25:21 Result Notes Documentation Provider Name and Address Organization Details Recorded Time Ct, Chest + Abdomen + Pelvis, W/o Contrast : EXAM: CT, CHEST + ABDOMEN + PELVIS, W/O CONTRAST LOCATION: [facility] DATE/TIME: 12/01/2022 11:00 AM [...] on 12/01/2022 at 15:21 Bala Curry MD [address] [place] [address],[address], [place], [address], [facility] 12/10/2022 22:25:21 Procedures Surgical History Date Name Laterality Status Provider Name and Address Organization Details Recorded Time 06/23/20 23 Cystoscopy- male completed Bala Curry MD [address] [place] [address],[address], [place], [address], [facility] 06/23/2023 12:05:05 06/23/20 23 Keflex post Cysto completed Bala Curry MD [address] [place] [address],[address], [place], [address], [facility] 06/23/2023 11:27:40 12/02/19 23 Cystoscopy- male completed Bala Curry MD [address] [place] [address],[address] [place] [address], [address], [facility] 12/01/2022 17:59:36 06/03/20 22 Cystoscopy- male completed Bala Curry MD [address] [place] [address],[address], [place], [address], [facility] 06/03/2022 18:07:44 12/04/19 22 Cystoscopy- male completed Bala Curry MD [address] [place] [address],[address], [place], [address], [facility] 12/04/2021 20:59:27 12/04/19 22 Keflex post Cysto completed Bala Curry MD [address] [place] [address],[address], [place], [address], [facility] 12/03/2021 14:30:10 12/04/19 22 Cytology completed Bala Curry MD [address] [place] [address],[address], [place], [address], [facility] 12/03/2021 14:30:51 06/04/20 21 Cystoscopy- male completed Bala Curry MD [address] [place] [address],[address], [place], [address], [facility] 06/05/2021 20:55:14 06/04/20 21 Keflex post Cysto [facility] 06/04/2021 14:52:52 12/04/19 21 Cystoscopy- male completed Bala Curry MD [address] [place] [address],[address], [place], [address], [facility] 12/03/2020 15:51:18 07/30/20 20 Fill and Pull/Voiding Trial/TOV completed Nerissa portillo [facility] 07/30/2020 12:53:30 07/18/20 20 NEPHROURETERECTO MY, HAND ASSISTED LAPAROSCOPIC (SURG) completed [facility] 07/23/2020 09:18:58 06/26/20 20 Cystoscopy with foreign body/stent removal completed Bala Curry MD [address] [place] [address],[address], [place], [address], [facility] 06/27/2020 21:40:50 06/19/20 20 CYSTOSCOPY, WITH URETEROSCOPY (SURG) completed Rani portillo, [facility] 06/21/2020 11:41:18 08/30/19 16 Colonoscopy completed Bala Curry MD [address] [facility],[address], [place], [address], [facility] 06/04/2021 14:48:59 Appendectomy completed Bala Curry MD [address] [facility],[address], [place], [address], [facility] 05/29/2020 17:07:20 Imaging Results Imaging Date Name Status LastModified by [facility] Details LastModified Time 05/31/2020 CT, abdomen + pelvis, w/wo contrast completed [email or web address] Information not available 05/31/2020 15:57:16 07/30/2020 CT, cystogram completed [email or web address] Informatio n not available 08/02/2020 08:40:59 12/03/2020 CT, abdomen + pelvis, w/ contrast completed [facility] [address], [place], [address], 12/05/2020 17:38:18 06/04/2021 CT, abdomen + pelvis, w/ contrast completed [facility] [address], [place], [address], 06/05/2021 19:18:11 12/05/2021 CT, abdomen + pelvis, w/o contrast completed [facility] [address], [place], [address], 12/05/2021 12:08:02 06/03/2022 CT, abdomen + pelvis, w/o contrast completed [facility] [address] [place], [address], 2022 07:35:41 12/01/2022 CT, chest + abdomen + pelvis, w/o contrast completed [facility] [address] [place], [address], 12/10/2022 22:25:21 Procedure Notes None recorded. Medical [...] Updated DateTime 06/03/2022 177.8 cm 29.8 kg/m2 39358.21 g Bala Curry MD [address] [place] [address], [address], [facility] 06/03/2022 15:24:07 Date Recorded Body weight Body mass index (BMI) Body height Provider Name and Address Organization Details Last Updated DateTime 05/29/2020 40839.95 g 31 kg/m2 177.8 cm Bala Curry MD [address] [place] [address],[address], [address], [facility] 05/29/2020 17:05:58 Date Recorded Body height Body mass index (BMI) Body weight Provider Name and Address Organization Details Last Updated DateTime 12/01/2022 177.8 cm 33 kg/m2 675952.25 g Monica Alcala [facility] 12/01/2022 15:25:30 Date Recorded Body height Provider Name an d Address Organization Details Last Updated DateTime 06/23/2023 177.8 cm Nerissa Gorman [facility] 06/23/2023 11:23:18 Date Recorded Body mass index (BMI) Body weight Provider Name and Address Organization Details Last Updated DateTime 06/23/2023 32 kg/m2 767390.1 g Bala Curry MD [address] [place] [address],[place] [address], [facility] 06/23/2023 11:28:47 Date Recorded Body height Body mass index (BMI) Body weight Provider Name and Address Organization Details Last Updated DateTime 06/26/2020 177.8 cm 29.4 kg/m2 23794.44 leslie Curry MD [address] [place] [address],[address] 06/26/2020 16:42:22 Date Recorded Body height Body mass index (BMI) Body weight Provider Name and Address Organization Details Last Updated DateTime 07/30/2020 177.8 cm 30.1 kg/m2 85169.4 g Bala Curry MD [address] [place] [address],[place] [address], [facility] 07/30/2020 12:27:09 Date Recorded Body height Body mass index (BMI) Body weight Provider Name and Address Organization Details Last Updated DateTime 12/03/2020 177.8 cm 30.1 kg/m2 64316.4 g [facility] 12/03/2020 15:12:54 Date Recorded Body height Body mass index (BMI) Body weight Provider Name and Address Organization Details Last Updated DateTime 06/04/2021 177.8 cm 29.8 kg/m2 13889.21 g Bala Curry MD [address] [place] [address],[place] [address], [facility] 06/04/2021 14:47:44 Date Recorded Body height Body mass index (BMI) Body weight Provider Name and Address Organization Details Last Updated DateTime 12/03/2021 177.8 cm 29.8 kg/m2 69459.21 g Bala Curry MD [address] [place] [address],[place] [phone] [place] [address] [facility] 12/03/2021 14:29:16 Social History Question Answer Notes LastModified by Organizat ion Details LastModified Time Tobacco Smoking Status Former Smoker 2012 Bala Curry MD [address] [place] [address] [phone] [place] [address] [facility] 05/29/2020 17:06:47 What Is Your Level Of [...] Of Your Most Recent Tobacco Screening? 06/23/2023 [email or web address] Information not available 06/23/2023 Are You Sexually [...] Name and Address Organization Details Recorded Time Influenza, split virus, quadrivalent, preservative 07/04/2020 completed Bala Curry MD [address] [place] [address],[address] [address], [facility] 07/30/2020 12:28:01 Past Encounters Encounter ID Performer Location Encounter Start Date Encounter Closed Date Diagnosis/Indication Diagnosis SNOMED-CT Code [id number] Bala Curry MD [facility] [address] [place] [address] 05/29/2020 16:55:45 05/30/2020 09:06:49 History of malignant neoplasm of bladder [id number] Bala Curry MD [facility] [address] [place] [address] 06/26/2020 16:07:27 06/28/2020 08:42:18 History of malignant neoplasm of bladder [id number] [id number] Bala Curry MD [place] [address] [place] [address] 07/30/2020 12:21:31 08/01/2020 16:33:43 Renal cell carcinoma [id number] Bala [facility] MD [facility] [address] [place] [address] 12/03/2020 15:06:56 12/04/2020 10:06:09 Renal cell carcinoma [id number] Primary er ectile dysfunction [id number] Bala Curry MD [place] [address] [address] 06/04/2021 14:25:23 06/06/2021 09:09:06 Renal cell carcinoma 129967438 Primary er ectile dysfunction 156726252 Malignant tumor of kidney [id number] [id number] Bala Curry MD [address] [place] [address] 12/03/2021 14:20:18 12/08/2021 10:12:25 Malignant tumor of kidney 978804272 Primary er ectile dysfunction [id number] Bala Curry MD [address] [place] [address] 06/03/2022 15:14:22 06/04/2022 16:13:01 Malignant tumor of kidney 376365744 Primary er ectile dysfunction 472887846 [id number] Bala Curry MD [facility] [address] [place] [address] 12/01/2022 15:14:02 12/04/2022 12:07:05 Malignant tumor of kidney 830785099 Primary er ectile dysfunction 358860098 [id number] Bala Curry MD [facility] [address] [facility] [address] [place] [address] 06/23/2023 11:14:57 07/05/2023 14:04:08 Malignant tumor of kidney 795751689 Primary er ectile dysfunction 900116523 Health Concerns Section Related Observation LastModified by Organization Detai ls LastModified Time None Recorded Concern Status LastModified by Organization Details LastModified Time None Recorded Advance Directives Directive None Recorded Payers Encounter Date Sequence Insurance Name Policy Number Policy Zaman Covered Member ID Zaman Member ID Guarantor Name 06/23/2023 1 [employer] [id number] 4 Reza Liang Koktavy [id number] 27 Reza Liang Koktavy 12/01/2022 1 [place] [id number] 4 Reza R Koktavy [id number] Reza Liang Koktavy 06/03/2022 1 [place] [id number] 4 Reza R [place] [id number] Reza Liang Koktavy 12/03/2021 1 [place] [id number] 4 Reza R [place] [id number] 27 Reza Liang Koktavy 06/04/2021 1 [place] [id number] 4 Reza R Koktavy [id number] 27 Reza Liang Koktavy 12/03/2020 1 [place] [id number] 4 Reza R Kokt[place] [id number] 27 Reza Liang Koktavy 07/30/2020 1 [place] [id number] 4 Reza R [place] [id number] 27 Reza Liang Koktavy 06/26/2020 1 [place] [id number] 4 Reza R [place] [id number] 27 Reza Liang Koktavy 05/29/2020 1 [place] [id number] 4 Reza R [place] [id number] 27 Reza Liang Koktavy Notes Date Note [...] stones, or filling defects Bala Curry MD [address] [place] [address],[address], [place], [address], [facility] 05/30/2020 14:19:08 06/26/2020 text/html [...] stones, or filling defects Bala Curry MD [address] [place] [address],[address], [place], [address] 06/27/2020 21:45:17 07/30/2020 text/html [...] stones, or filling defects Bala Curry MD [address] [place] [address],[address], [place], [address], [facility] 08/01/2020 12:49:21 12/03/2020 text/html [...] stones, or filling defects Bala Curry MD [address] [place] [address],[address], [place], [address], [facility] 12/03/2020 15:53:47 06/04/2021 text/html [...] no metastatic disease seen Bala Curry MD [address] [place] [address],[address], [place], [address], [facility] 06/05/2021 20:59:30 12/03/2021 text/html [...] on Right mid-kidney (posterior) Bala Curry MD [address] [facility],[address], [place], [address], [place] [facility] 12/04/2021 21:04:54 06/03/2022 text/html [...] Right mid-kidney (posterior) Bala Curry MD [address] [facility],[address], [place], [address], [facility] 06/03/2022 18:09:48 12/01/2022 text/html [...] Right mid-kidney (posterior) Bala Curry MD [address] [facility],[address], [place], [address], [facility] 12/01/2022 18:00:48 06/23/2023 text/html [...] - no lymphadenopathy Bala Curry MD [address] [facility],[address], [place], [address], [facility] 06/23/2023 12:05:50
--- NOTE | 2024-02-04 08:00 | CRLHL7_ITS ---
For Patients: As a result of the Century Cures Act, medical imaging exams and procedure reports are released immediately into your electronic medical record. You may view this report before your referring provider. If you have questions, please contact your health care provider. INDICATION: Malignant neoplasm of left kidney. TECHNIQUE: CT chest, abdomen and pelvis acquired with 100 cc Isovue 370 IV contrast. COMPARISON: October 01, 2023. FINDINGS: CHEST Lungs and pleura: Lungs are clear. No suspicious nodules or infiltrates. No effusions, thickening, or pneumothorax. Heart and vasculature: Heart size is normal. Thoracic aorta and pulmonary artery are normal in caliber. Lymph node/mediastinum: No mediastinal, hilar, or axillary adenopathy. Chest wall: Normal. Bones: No suspicious bone lesions. ABDOMEN AND PELVIS: Liver: Normal in caliber and attenuation. No masses. Gallbladder and bile ducts: Unremarkable. Pancreas: Unremarkable. Spleen: Normal in caliber. No masses. Adrenal glands: Unremarkable. No masses. Kidneys: Stable benign right renal cysts. Left kidney has been resected. No recurrent retroperitoneal mass. GI tract: Normal in caliber and appearance. No sign of mass or inflammation. 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 Mesenteric arteries are patent. Lymph nodes: No lymphadenopathy. Omentum/peritoneum/retroperitoneum/abdominal wall: No masses or infiltration. No free air or significant free fluid. Small ventral midline fat containing ventral hernia is unchanged. Pelvic organs: Unremarkable. Bones: No suspicious bone lesions. IMPRESSION: No changes from the prior exam. No sign of recurrent or metastatic renal cancer. Please note that all CT scans at this facility use dose modulation, iterative reconstruction, and/or weight-based dosing when appropriate to reduce radiation dose to as low as reasonably achievable. Dictated by Basim Guadarrama MD @ 02/07/2024 7:00:27 AM (Electronically Signed)
== END 2024-02-04 07:38 | disposition home or self-care (01) ==
LOC: CT 07:38
PROVIDERS: PCP Family Medicine; Visit Provider Internal Medicine Hematology & Oncology
DX: C64.2 Malignant neoplasm of left kidney, except renal pelvis (principal)
CPT/HCPCS: 71260; 74177; Q9967

== ENCOUNTER 2024-05-02 07:31 | Outpatient (CLI) | payer OTHER, SELFPAY ==
--- OUTSIDE RECORDS SUMMARY | 2024-05-02 07:34 | XMS_ITS | Data Portability ---
Author Organization [place] [facility] Address [address] [place] [address] Assessment No assessment recorded. Plan of Treatment Reminders Order Date Submit Date Provider Last Modified By Organization Details Last Modified Time Details Appointments None recorde d. Lab urinaly sis, dipstic k 2020 021 Not available 14:50:02 urinaly sis, dipstic k 2021 022 Not available 14:30:42 urinaly sis, dipstic k 2021 022 [facility], [address], [place], [address], 2 15:37:32 urinaly sis, dipstic k 2022 023 [email or web address] [facility], [address], [place], [address], 3 15:27:51 urinaly sis, dipstic k 2022 023 [facility], [address], [place], [address], 3 11:28:14 Referral oncolog ist referra l 2020 021 [email or web address] Keara Solorio MD, [address] [place], [address], 12:32:19 Procedures cystosc opy (PROC) 2021 022 [email or web address] Not available 09:10:12 cystosc opy (PROC) 2021 022 [email or web address] Not available 07:30:17 cystosc opy (PROC) 2022 023 rebbert Not available 3 07:51:53 cystosc opy (PROC) 2022 023 rebbert Not available 3 12:12:10 Surgeries None recorde d. Imaging CT, abdomen + pelvis, w/ contras t 2021 022 [email or web address] Not available 15:41:24 CT, abdomen + pelvis, w/o contras t - f/u with Dr. Curry on 12/01/22 @ 2:20PM 2021 022 [email or web address] [facility] , [facility] [place], [address], 16:13:02 CT, chest + abdomen + pelvis, w/o contras t 2022 023 [email or web address] [facility] , [facility] [place], [address], 3 09:25:32 Medication Orders tadalaf il 20 mg tablet 2021 DEBBIE [id number], [address] [place], [place], [id number], 15:37:39 Patient TargetsNo targets recorded. Patient InstructionsNo instructions recorded. Reason for Referral Referring Physician: Bala gutierrez, Urology, Encounter Date: 06/04/2021 Results Created Date Observation Date Name Description Value Unit Range Abnormal Flag Note LastModifiedBy Organization Detail LastModifiedTime 06/04/20 21 06/04/2021 urina lysis , dipst ick Color-Status Yellow Not Available [facility] [address], [place], [address], 06/04/2021 14:49:36 06/04/20 21 06/04/2021 urina lysis , dipst ick pH-Status 5.5 Not Available [facility] [address], [place], [address], 06/04/2021 14:49:36 06/04/20 21 06/04/2021 urina lysis , dipst ick Nitrates-Sta tus negati ve Not Available [facility] [address], [place], [address], 06/04/2021 14:49:36 06/04/20 21 06/04/2021 urina lysis , dipst ick Blood-Status Trace Not Available [facility] [address], [place], [address], 06/04/2021 14:49:36 06/04/20 21 06/04/2021 urina lysis , dipst ick Leuko-Status Negati ve Not Available [facility] [address], [place], [address], 06/04/2021 14:49:36 12/04/19 22 12/03/2021 urina lysis , dipst ick Color-Status Yellow Not Available [facility] [address], [place], [address], 12/03/2021 14:30:21 12/04/19 22 12/03/2021 urina lysis , dipst ick pH-Status 5.0 Not Available [facility] [address], [place], [address], 12/03/2021 14:30:21 12/04/19 22 12/03/2021 urina lysis , dipst ick Blood-Status Trace Not Available [facility] [address], [place], [address], 12/03/2021 14:30:21 12/04/19 22 12/03/2021 urina lysis , dipst ick Leuko-Status Negati ve Not Available [facility] [address], [place], [address], 12/03/2021 14:30:21 06/03/20 22 06/03/2022 urina lysis , dipst ick Color-Status Yellow Not Available [facility] [address], [place], [address], 06/03/2022 15:24:34 12/02/19 23 12/01/2022 urina lysis , dipst ick Color-Status Yellow Not Available [facility] [address], [place], [address], 12/01/2022 15:27:24 12/02/19 23 12/01/2022 urina lysis , dipst ick Clarity-Stat us Clear Not Available [facility] [address], [place], [address], 12/01/2022 15:27:24 06/23/20 23 06/23/2023 urina lysis , dipst ick Color-Status Yellow Not Available [facility] [address], [place], [address], 06/23/2023 11:27:47 06/23/20 23 06/23/2023 urina lysis , dipst ick pH-Status 7.0 Not Available [facility] [address], [place], [address], 06/23/2023 11:27:47 06/23/20 23 06/23/2023 urina lysis , dipst ick Nitrates-Sta tus negati ve Not Available [facility] [address], [place], [address], 06/23/2023 11:27:47 06/23/20 23 06/23/2023 urina lysis , dipst ick Blood-Status Negati ve Not Available [facility] [address], [place], [address], 06/23/2023 11:27:47 06/23/20 23 06/23/2023 urina lysis , dipst ick Leuko-Status Negati ve Not Available [facility] [address], [place], [address], 06/23/2023 11:27:47 06/05/20 21 06/04/2021 CT, abdom en + pelvi s, w/ contr ast No observ ation record ed. [facility] [address], [place], [address], 06/05/2021 19:18:11 12/06/[address], abdom en + pelvi s, w/o contr ast No observ ation record ed. [facility] [address], [place], [address], 12/05/2021 12:08:02 06/04/20 22 06/03/2022 CT, abdom en + pelvi s, w/o contr ast No observ ation record ed. [email or web address] [facility] [address], [place], [address], 2022 07:35:41 12/02/19 23 12/01/2022 CT, chest + abdom en + pelvi s, w/o contr ast EXAM: CT, CHEST + ABDOME N + PELVIS , W/O CONTRA ST [facility] DATE/T CLARITZA: 12/02/19 23 11:00 AM INDICA [...] Carmen herrera MD on 2022 at 15:21 [facility] [address] [place], [address], 12/10/2022 22:25:21 Result Notes Documentation Provider Name and Address Organization Details Recorded Time Ct, Chest + Abdomen + Pelvis, W/o Contrast : EXAM: CT, CHEST + ABDOMEN + PELVIS, W/O CONTRAST LOCATION: [facility] DATE/TIME: 12/01/2022 11:00 AM INDICATION: Left [...] on 12/01/2022 at 15:21 Bala Curry MD [address] [place] [address],[address] [place] [address], [address], [facility] 12/10/2022 22:25:21 Procedures Surgical History Date Name Laterality Status Provider Name and Address Organization Details Recorded Time 06/23/20 23 Cystoscopy- male completed Bala Curry MD [address] [place] [address],[address] [place] [address], [address], [facility] 06/23/2023 12:05:05 06/23/20 23 Keflex post Cysto completed Bala Curry MD [address] [place] [address],[address], [address], [facility] 06/23/2023 11:27:40 12/02/19 23 Cystoscopy- male completed Bala Curry MD [address] [place] [address],[address], [address], [facility] 12/01/2022 17:59:36 06/03/20 22 Cystoscopy- male completed Bala Curry MD [address] [place] [address],[address] [place] [address], [address], [facility] 06/03/2022 18:07:44 12/04/19 22 Cystoscopy- male completed Bala Curry MD [address] [facility],[address], [place], [address], [facility] 12/04/2021 20:59:27 12/04/19 22 Keflex post Cysto completed Bala Curry MD [address] [place] [address],[address], [place], [address], [facility] 12/03/2021 14:30:10 12/04/19 22 Cytology completed Bala Curry MD [address] [place] [address],[address], [place], [address], [facility] 12/03/2021 14:30:51 06/04/20 21 Cystoscopy- male completed Bala Curry MD [address] [place] [address],[address], [place], [address], [facility] 06/05/2021 20:55:14 06/04/20 21 Keflex post Cysto completed [facility] 06/04/2021 14:52:52 12/04/19 21 Cystoscopy- male completed Bala Curry MD [address] [place] [address],[address], [place], [address], [facility] 12/03/2020 15:51:18 07/30/20 20 Fill and Pull/Voiding Trial/TOV completed Nerissa portillo [facility] 07/30/2020 12:53:30 07/18/20 20 NEPHROURETERECTO MY, HAND ASSISTED LAPAROSCOPIC (SURG) completed Alicia portillo [facility] 07/23/2020 09:18:58 06/26/20 20 Cystoscopy with foreign body/stent removal completed Bala Curry MD [address] [place] [address],[address], [place], [address], [facility] 06/27/2020 21:40:50 06/19/20 20 CYSTOSCOPY, WITH URETEROSCOPY (SURG) completed Rani portillo [facility] 06/21/2020 11:41:18 08/30/19 16 Colonoscopy completed Bala Curry MD [address] [place] [address],[address], [place], [address], [facility] 06/04/2021 14:48:59 Appendectomy completed Bala Curry MD [address] [facility],[address], [place], [address], [facility] 05/29/2020 17:07:20 Imaging Results Imaging Date Name Status LastModified by Organiz atformerly [facility], [facility] Details LastModified Time 06/04/2021 CT, abdomen + pelvis, w/ contrast completed [facility] [address], [place], [address], 06/05/2021 19:18:11 12/05/2021 CT, abdomen + pelvis, w/o contrast completed [facility] [address], [place], [address], 12/05/2021 12:08:02 06/03/2022 CT, abdomen + pelvis, w/o contrast completed [email or web address] [facility] [address], [place], [address], 2022 07:35:41 12/01/2022 CT, chest + abdomen + pelvis, w/o contrast completed [facility] [address], [place], [address], 12/10/2022 22:25:21 Procedure Notes None recorded. Medical [...] Updated DateTime 06/03/2022 177.8 cm 29.8 kg/m2 94031.21 leslie Curry MD [address] [place] [address],[address] [place] [address] 06/03/2022 15:24:07 Date Recorded Body height Body mass index (BMI) Body weight Provider Name and Address Organization Details Last Updated DateTime 12/01/2022 177.8 cm 33 kg/m2 866697.25 leslie Monica [facility] 12/01/2022 15:25:30 Date Recorded Body height Provider Name an d Address Organization Details Last Updated DateTime 06/23/2023 177.8 cm Nerissa Gorman [facility] 06/23/2023 11:23:18 Date Recorded Body mass index (BMI) Body weight Provider Name and Address Organization Details Last Updated DateTime 06/23/2023 32 kg/m2 935896.1 leslie Curry MD [address] [place] [address],[address] 06/23/2023 11:28:47 Date Recorded Body height Body mass index (BMI) Body weight Provider Name and Address Organization Details Last Updated DateTime 06/04/2021 177.8 cm 29.8 kg/m2 09861.21 leslie Curry MD [address] [place] [address],[address] [place], [place] [address] 06/04/2021 14:47:44 Date Recorded Body height Body mass index (BMI) Body weight Provider Name and Address Organization Details Last Updated DateTime 12/03/2021 177.8 cm 29.8 kg/m2 42063.21 g Bala Curry MD [address] [place] [address], [address] [place] [address] Urolog 12/03/2021 14:29:16 Social History Question Answer Notes LastModified by Organizat ion Details LastModified Time Tobacco Smoking Status Former Smoker 2012 Bala Curry MD [address] [place] [address], [address], [facility] 05/29/2020 17:06:47 What Is Your Level [...] Of Your Most Recent Tobacco Screening? 06/23/2023 [email or web address] Information not available 06/23/2023 Are You Sexually Active? Yes Information not available 07/30/2020 Do You Use Any Illicit Or Recreational Drugs? No Information not available 06/04/2021 Do You Or Have You Ever Used Any Other Forms Of Tobacco Or Nicotine? No Information not available 06/04/2021 Sex: Unknown Functional Status None recorded. Mental Status None [...] quadrivalent, preservative 07/04/2020 completed Bala Curry MD [address] [place] [address],[address], [address], [facility] 07/30/2020 12:28:01 Past Encounters Encounter ID Performer Location Encounter Start Date Encounter Closed Date Diagnosis/Indication Diagnosis SNOMED-CT Code Diagnosis ICD10 Code [id number] Bala Curry MD [facility] [address] [place], [place] [address] 05/29/2020 16:55:45 05/30/2020 09:06:49 History of malignant neoplasm of bladder 393473816 C68.9 [id number] [facility] [address] [place] [address] 06/26/2020 16:07:27 06/28/2020 08:42:18 History of malignant neoplasm of bladder 363399438 C68.9 [id number] [facility] [address] [place] [address] 07/30/2020 12:21:31 08/01/2020 16:33:43 Renal cell carcinoma 362948979 C64.9 [id number] [facility] [address] [place] [address] 12/03/2020 15:06:56 12/04/2020 10:06:09 Renal cell carcinoma 249069973 C64.9 Primary er ectile dysfunction 154976757 N52.9 [id number] MD [facility] [address] [place] [address] 06/04/2021 14:25:23 06/06/2021 09:09:06 Renal cell carcinoma 551786089 C64.9 Primary er ectile dysfunction 730522915 N52.9 Malignant tumor of kidney 891553111 C64.9 [id number] MD [facility] [address] [place] [address] 12/03/2021 14:20:18 12/08/2021 10:12:25 Malignant tumor of kidney 173004083 C64.9 Primary er ectile dysfunction 113177167 N52.9 [id number] MD [facility] [address] [place] [address] 06/03/2022 15:14:22 06/04/2022 16:13:01 Malignant tumor of kidney 158786544 C64.9 Primary er ectile dysfunction 907107046 N52.9 [id number] MD [facility] [address] [place] [address] 12/01/2022 15:14:02 12/04/2022 12:07:05 Malignant tumor of kidney 034069483 C64.9 Primary er ectile dysfunction 282546693 N52.9 [id number] Bala Curry MD [facility] [address] [place] [address] 06/23/2023 11:14:57 07/05/2023 14:04:08 Malignant tumor of kidney 104170025 C64.9 Primary er ectile dysfunction 920852047 N52.9 Health Concerns Section Related Observation LastModified by Organization Detai ls LastModified Time None Recorded Concern Status LastModified by Organization Details LastModified Time None Recorded Advance Directives Directive None Recorded Payers Encounter Date Sequence Insurance Name Policy Number Policy Zaman Covered Member ID Zaman Member ID Guarantor Name 06/04/2021 1 [place] [id number] 4 Reza R Koktavy [id number] 27 Reza Liang Koktavy 12/03/2021 1 [place] [id number] 4 Reza R Koktavy [id number] 27 Reza Liang Koktavy 06/03/2022 1 [place] [id number] 4 Reza R Koktavy [id number] 27 Reza Liang Koktavy 12/01/2022 1 [place] [id number] 4 Reza R Koktavy [id number] 27 Reza Liang Koktavy 06/23/2023 1 [employer] [id number] 4 Reza Liang Koktavy [id number] 27 Reza Liang Koktavy Notes Date Note Type Note Provider Name and Address Organization Details Recorded Time 06/04/2021 text/html HPI Notes: 65 yo male [...] no metastatic disease seen Bala Curry MD [address] [place] [address],[address], [place], [address], [place] [facility] [facility] 06/05/2021 20:59:30 12/03/2021 text/html HPI Notes: [...] Right mid-kidney (posterior) Bala Curry MD [address] [facility],[address], [place], [address], [facility] - [facility] 12/04/2021 21:04:54 06/03/2022 text/html HPI Notes: [...] on Right mid-kidney (posterior) Bala Curry MD [address] [place] [address],[address], [place], [address], [facility] - [facility] 06/03/2022 18:09:48 12/01/2022 text/html HPI Notes: [...] Right mid-kidney (posterior) Bala Curry MD [address] [facility],[address], [place], [address], [facility] - [facility] 12/01/2022 18:00:48 06/23/2023 text/html HPI Notes: [...] hydronephrosis - no lymphadenopathy Bala Curry MD [address] [facility],[address], [place], [address], [place] [facility] [facility] 06/23/2023 12:05:50
--- OUTSIDE RECORDS SUMMARY | 2024-05-02 07:34 | XMS_ITS | Clinical Summary ---
Author Organization [facility] Address [address] [place] [address]. [place] [address] Care Team Providers Care Superintendent Drivers Name Role Phone Dmitri Silverio MD Primary Care Provider [phone] Allergies No known active allergies Medications Medication [...] on file Medical Devices Implanted Type Area Manifest Clerk Device Identifier Shelf Expiration Date Model / Serial / Lot Stent Ureteral Contour Soft Percuflex [id number] Implanted:Qty: 1 on 06/19/2020 by Bala Curry MD at [facility] Stent Left: Urethra [employer] 04/05/2023 [id number] / / [id number] Care Teams Superintendent Drivers Relationship Specialty Start Date End Date Dmitri Silverio MD PCP - General Family Practice 06/10/20
--- OUTSIDE RECORDS SUMMARY | 2024-05-02 07:34 | XMS_ITS | Referral Summary ---
Author Organization [facility] Address [address] [place] [address]. [place] [address] Care Team Providers Care Maintenance Of Way Clerk Name Role Phone Dmitri Silverio MD Primary Care Provider [phone] Allergies No known active allergies Medications Medication [...] on file Medical Devices Implanted Type Area Fence Maker Device Identifier Shelf Expiration Date Model / Serial / Lot Stent Ureteral Contour Soft Percuflex [id number] Implanted:Qty: 1 on 06/19/2020 by Bala Curry MD at [facility] Stent Left: Urethra [employer] 04/05/2023 [id number] / / [id number] Care Teams Maintenance Of Way Clerk Relationship Specialty Start Date End Date Dmitri Silverio MD PCP - General Family Practice 06/10/20
--- OUTSIDE RECORDS SUMMARY | 2024-05-02 07:34 | XMS_ITS | Clinical Summary ---
Author Organization [facility] Address [place], [place] [address] Care Team Providers Care Integrity Consultant Name Role Phone Dmitri Silverio MD Primary Care Provider [phone] Bala Curry MD Unavailable [phone] Allergies No known active allergies Medications Medication [...] Comments Blood Pressure 139/83 07/19/2020 7:58 AM OPTICAL DESIGNER Pulse 61 07/19/2020 7:58 AM OPTICAL DESIGNER Temperature 36.7 ??C (98 ??F) 07/19/2020 7:58 AM OPTICAL DESIGNER Respiratory Rate 16 07/19/2020 7:58 AM OPTICAL DESIGNER Oxygen Saturation 95% 07/19/2020 7:58 AM OPTICAL DESIGNER Inhaled Oxygen Concentration - - Weight 94.3 kg (208 lb) 07/18/2020 11:46 AM OPTICAL DESIGNER Height 177.8 cm (5' 10) 07/18/2020 11:46 AM OPTICAL DESIGNER Body Mass Index 29.84 07/18/2020 11:46 AM OPTICAL DESIGNER Plan of Treatment Health Maintenance Due Date [...] COVID-19 vaccine series ( - 2022- season) 4 Influenza for age 65+ 04/30/2024 Advance Directives * Full Code (Latest Code Status on File) Date Activated Date Inactivated Comments 07/18/2020 11:39 AM 07/19/2020 6:17 PM Question Answer Comments Code Status Discussion: Not Discussed Care Teams Integrity Consultant Relationship Specialty Start Date End Date Dmitri Silverio MD [address] [place] [address] PCP - General Family Practice 11/05/17 Bala Curry MD [address] [place] [address] Surgery - Urology 07/31/20
--- NOTE | 2024-05-02 08:00 | CRLHL7_ITS ---
For Patients: As a result of the Century Cures Act, medical imaging exams and procedure reports are released immediately into your electronic medical record. You may view this report before your referring provider. If you have questions, please contact your health care provider. INDICATION: Follow-up kidney cancer. TECHNIQUE: CT chest, abdomen and pelvis acquired with 115 mL Isovue 370 COMPARISON: CT 10/01/2023 FINDINGS: CHEST: Cardiovascular structures: Heart size is normal. Thoracic aorta and main pulmonary artery are normal in caliber. Mediastinum and maggi: No mass or adenopathy. Lungs and pleura: No new suspicious nodules are seen. Chest wall and axilla: No mass or adenopathy. ABDOMEN AND PELVIS: Liver: Unremarkable. Gallbladder and bile ducts: Unremarkable. Pancreas: Unremarkable. Spleen: Unremarkable. Adrenal glands: Unremarkable. Kidneys: Left nephrectomy. Too small to characterize low-attenuation lesions in the right kidney there is a renal cyst as well. GI tract: Unremarkable. Diverticulosis. Vascular structures: Abdominal aorta is normal in caliber. Lymph nodes: Unremarkable. Miscellaneous: Small fat containing inguinal hernias. Small fat containing ventral hernia Pelvic Organs: Enlarged prostate gland. Bones: No suspicious bone lesions. Unremarkable for age. IMPRESSION: 1. No findings for recurrence or metastatic disease. Please note that all CT scans at this facility use dose modulation, iterative reconstruction, and/or weight-based dosing when appropriate to reduce radiation dose to as low as reasonably achievable. Dictated by Rosalva Pena MD @ 05/02/2024 12:01:13 PM (Electronically Signed)
== END 2024-05-02 07:32 | disposition home or self-care (01) ==
LOC: CT 07:32
PROVIDERS: PCP Family Medicine; Visit Provider Internal Medicine Hematology & Oncology
DX: C64.2 Malignant neoplasm of left kidney, except renal pelvis (principal)
CPT/HCPCS: 71260; 74177; Q9967

== ENCOUNTER 2024-05-10 10:30 | Outpatient (RCR) | payer OTHER, SELFPAY ==
[2024-02-04 08:00] LABS: Basophils Absolute Auto 0.03 K/uL (0.00-0.30); Basophils Percent Auto 0.6 % (0.0-3.0); Hematocrit 46.1 % (37.0-53.0); Hemoglobin* 15.7 gm/dL (13.5-17.5); Lymphocytes Percent Auto 13.9 % (20-44); Mean Corpuscular HGB Conc 34 gm/dL (32-36); Mean Corpuscular Hemoglobin 35 pg (26-34); Mean Corpuscular Volume 104 fL (80-100); Monocytes Percent Auto 10.7 % (0.0-11.0); Neutrophils Absolute Auto 3.51 K/uL (1.7-7.0); Neutrophils Percent Auto 66.8 % (42.0-72.0); Platelet Count* 183 K/uL (140-440); RDW Coefficient of Variation % 13.3 % (11.5-15.5); Red Blood Count 4.43 m/uL (4.30-5.90); White Blood Count* 5.25 K/uL (4.50-11.00)
[2024-02-04 08:02] LABS: Slide Review Reflex No
[2024-02-04 08:11] LABS: Albumin* 4.2 g/dL (3.3-5.0); Chloride* 107 mmol/L (96-114); Potassium* 4.6 mmol/L (3.6-5.1); Sodium* 137 mmol/L (135-149)
[2024-02-04 08:14] LABS: Alanine Aminotransferase* 23 U/L (4-50); Alkaline Phosphatase* 92 U/L (40-150); Anion Gap 7 mEq/L (7-15); Aspartate Amino Transferase* 29 U/L (12-35); Bilirubin Total* 0.7 mg/dL (0.1-1.5); Blood Urea Nitrogen* 30 mg/dL (7-30); Carbon Dioxide* 23 mmol/L (20-32); Creatinine* 1.6 mg/dL (0.5-1.5); Estimated Glomerular Filt Rate 46 ml/min; Glucose* 121 mg/dL (60-115); Total Protein* 7.4 g/dL (6.0-8.3)
[2024-02-04 08:15] LABS: Calcium* 9.1 mg/dL (8.4-10.6)
[2024-05-02 07:48] LABS: Basophils Absolute Auto 0.03 K/uL (0.00-0.30); Basophils Percent Auto 0.5 % (0.0-3.0); Eosinophils Absolute Auto 0.27 K/uL (0.00-0.50); Eosinophils Percent Auto 4.9 % (0.0-7.0); Hematocrit 46.4 % (37.0-53.0); Hemoglobin* 15.5 gm/dL (13.5-17.5); Lymphocytes Percent Auto 14.1 % (20-44); Mean Corpuscular HGB Conc 33 gm/dL (32-36); Mean Corpuscular Hemoglobin 35 pg (26-34); Mean Corpuscular Volume 104 fL (80-100); Monocytes Percent Auto 11.2 % (0.0-11.0); Neutrophils Absolute Auto 3.85 K/uL (1.7-7.0); Neutrophils Percent Auto 69.3 % (42.0-72.0); Platelet Count* 179 K/uL (140-440); RDW Coefficient of Variation % 13.1 % (11.5-15.5); Red Blood Count 4.48 m/uL (4.30-5.90); White Blood Count* 5.55 K/uL (4.50-11.00)
[2024-05-02 07:52] LABS: Slide Review Reflex No
[2024-05-02 08:02] LABS: Albumin* 4.3 g/dL (3.3-5.0); Chloride* 102 mmol/L (96-114); Sodium* 134 mmol/L (135-149)
[2024-05-02 08:03] LABS: Potassium* 4.9 mmol/L (3.6-5.1)
[2024-05-02 08:05] LABS: Alanine Aminotransferase* 27 U/L (4-50); Alkaline Phosphatase* 95 U/L (40-150); Anion Gap 6 mEq/L (7-15); Aspartate Amino Transferase* 34 U/L (12-35); Blood Urea Nitrogen* 21 mg/dL (7-30); Carbon Dioxide* 26 mmol/L (20-32); Creatinine* 1.8 mg/dL (0.5-1.5); Estimated Glomerular Filt Rate 40 ml/min; Glucose* 114 mg/dL (60-115); Total Protein* 7.6 g/dL (6.0-8.3)
[2024-05-02 08:06] LABS: Calcium* 9.2 mg/dL (8.4-10.6)
== END 2024-08-07 23:59 | disposition home or self-care (01) ==
LOC: CCIC 10:30
PROVIDERS: PCP Family Medicine; Referring Provider Family Medicine; Visit Provider Internal Medicine Hematology & Oncology
DX: C66.2 Malignant neoplasm of left ureter (principal); C64.2 Malignant neoplasm of left kidney, except renal pelvis; N18.9 Chronic kidney disease, unspecified; Z90.5 Acquired absence of kidney
CPT/HCPCS: 36415; 80053; 85025; 99214; G0463

== ENCOUNTER 2024-08-09 07:23 | Outpatient (CLI) | payer OTHER, SELFPAY ==
--- OUTSIDE RECORDS SUMMARY | 2024-08-09 07:26 | XMS_ITS | Clinical Summary ---
Author Organization [facility] Address [place], [place] [address] Care Team Providers Care Product Manager Financial Services Name Role Phone Dmitri Silverio MD Primary Care Provider [phone] Bala Curry MD Unavailable [phone] Allergies No known active allergies Medications amLODIPine (NORVASC) 10 mg tablet Take 1 tablet by mouth once daily. 12/18/2017 Active chlorthalidone (HYGROTON) 25 mg tablet Take 25 mg by mouth every morning. 05/24/2019 Active simvastatin (ZOCOR) 20 mg tablet Take 20 mg by mouth once daily with evening meal. 12/18/2019 Active potassium chloride (KLOR-CON 10; K-TAB) 10 mEq Controlled-Rele ase tablet Take 10 mEq by mouth once daily with a meal. 02/27/2020 Active tadalafiL (CIALIS) 10 mg tablet TK 1 T PO QD TAKE AT LEAST 1 HOUR PRIOR TO ANY PLANNED SEXUAL ACTIVITY 02/27/2020 Active oxyCODONE (ROXICODONE) 5 mg immediate release tabletIndicatio ns:Malignant neoplasm of lateral wall of urinary bladder (HC) Take 1 tablet by mouth every 6 hours if needed for Pain 12 tablet 07/19/2020 9:36 AM NEGOTIATOR 07/19/2020 Active sennosides-docu sate, 8.6-50 mg, (SENOKOT S) 8.6-50 mg tabletIndicatio ns:Malignant neoplasm of lateral wall of urinary bladder (HC) Take 1-2 tablets by mouth 2 times daily if needed. 30 tablet 07/19/2020 9:36 AM NEGOTIATOR 07/19/2020 Active Active Problems Problem Noted Date [...] Recorded Sex Assigned at Not on file Legal Sex Male 5:27 AM NEGOTIATOR Gender Identity Not on file Sexual Orientation Not on file Obstetrics History Last Filed Vital Signs Vital Sign Reading Time Taken Comments Blood Pressure 139/83 07/19/2020 7:58 AM NEGOTIATOR Pulse 61 07/19/2020 7:58 AM NEGOTIATOR Temperature 36.7 C (98 F) 07/19/2020 7:58 AM NEGOTIATOR Respiratory Rate 16 07/19/2020 7:58 AM NEGOTIATOR Oxygen Saturation 95% 07/19/2020 7:58 AM NEGOTIATOR Inhaled Oxygen Concentration - - Weight 94.3 kg (208 lb) 07/18/2020 11:46 AM NEGOTIATOR Height 177.8 cm (5' 10) 07/18/2020 11:46 AM NEGOTIATOR Body Mass Index 29.84 07/18/2020 11:46 AM NEGOTIATOR Plan of Treatment Health Maintenance Due Date [...] PCV) 018 COVID-19 vaccine series ( - 2023-25 season) 4 Influenza for age 65+ 04/30/2024 RSV vaccine for adults or pr egnancy (1 - 1-dose 75+ series) 2028 Insurance [employer] Advance Directives * Full Code (Latest Code Status on File) Date Activated Date Inactivated Comments 07/18/2020 11:39 AM 07/19/2020 6:17 PM Question Answer Comments Code Status Discussion: Not Discussed Care Teams Product Manager Financial Services Relationship Specialty Start Date End Date Dmitri Silverio MD [address] [place] [phone] PCP - General Family Practice 11/05/17 Bala Curry MD [address] [place] [phone] Surgery - Urology 07/31/20
--- OUTSIDE RECORDS SUMMARY | 2024-08-09 07:26 | XMS_ITS | Data Portability ---
Author Organization MD - [facility], [facility] Address [address] [place] [address] Assessment No assessment recorded. Plan of Treatment Reminders Order Date Submit Date Provider Last Modified By Organization Details Last Modified Time Details Appointments None recorde d. Lab urinaly sis, dipstic k 2020 021 Not available 1 14:50:02 urinaly sis, dipstic k 2021 022 Not available 14:30:42 urinaly sis, dipstic k 2021 022 [facility], [address], [place], [address], 2 15:37:32 urinaly sis, dipstic k 2022 023 [facility], [address], [place], [address], 3 15:27:51 urinaly sis, dipstic k 2022 023 [facility], [address], [place], [address], 3 11:28:14 Referral oncolog ist referra l 2020 021 [email or web address] Keara Solorio MD, [address] [place], [address], 12:32:19 Procedures cystosc opy (PROC) 2021 022 [...] on 12/01/22 @ 2:20PM 2021 022 [email or web address] , [facility] [place], [address], 16:13:02 CT, chest + abdomen + pelvis, w/o contras t 2022 023 [email or web address] , [facility] [place], [address], 3 09:25:32 Medication Orders tadalaf il 20 mg tablet 2021 DEBBIE [id number], [address] [place], [place], [id number], 15:37:39 Patient TargetsNo targets recorded. Patient InstructionsNo instructions recorded. Reason for Referral Referring Physician: Bala gutierrez, Urology, Encounter Date: 06/04/2021 Results Created Date Observation Date Name Description Value Unit Range Abnormal Flag Note LastModifiedBy Organization Detail LastModifiedTime 06/04/20 21 06/04/2021 urina lysis , dipst ick Color-Status Yellow Not Available [facility] [address], [place], [address], 06/04/2021 14:49:36 06/04/20 21 06/04/2021 urina lysis , dipst ick pH-Status 5.5 Not Available [facility] [address], [place], [address], 06/04/2021 14:49:36 06/04/20 21 06/04/2021 urina lysis , dipst ick Nitrates-Sta tus negati ve Not Available [facility] [address], [place], [address], 06/04/2021 14:49:36 06/04/20 21 06/04/2021 urina lysis , dipst ick Blood-Status Trace Not Available [facility] [address], [place], [address], 06/04/2021 14:49:36 06/04/20 21 06/04/2021 urina lysis , dipst ick Leuko-Status Negati ve Not Available [facility] [address], [place], [address], 06/04/2021 14:49:36 12/04/19 22 12/03/2021 urina lysis , dipst ick Color-Status Yellow Not Available [facility] [address], [place], [address], 12/03/2021 14:30:21 12/04/19 22 12/03/2021 urina lysis , dipst ick pH-Status 5.0 Not Available [facility] [address], [place], [address], 12/03/2021 14:30:21 12/04/19 22 12/03/2021 urina lysis , dipst ick Blood-Status Trace Not Available [facility] [address], [place], [address], 12/03/2021 14:30:21 12/04/19 22 12/03/2021 urina lysis , dipst ick Leuko-Status Negati ve Not Available [facility] [address], [place], [address], 12/03/2021 14:30:21 06/03/20 22 06/03/2022 urina lysis , dipst ick Color-Status Yellow Not Available [facility] [address], [place], [address], 06/03/2022 15:24:34 12/02/19 23 12/01/2022 urina lysis , dipst ick Color-Status Yellow Not Available [facility] [address], [place], [address], 12/01/2022 15:27:24 12/02/19 23 12/01/2022 urina lysis , dipst ick Clarity-Stat us Clear Not Available [facility] [address], [place], [address], 12/01/2022 15:27:24 06/23/20 23 06/23/2023 urina lysis , dipst ick Color-Status Yellow Not Available [facility] [address], [place], [address], 06/23/2023 11:27:47 06/23/20 23 06/23/2023 urina lysis , dipst ick pH-Status 7.0 Not Available [facility] [address], [place], [address], 06/23/2023 11:27:47 06/23/20 23 06/23/2023 urina lysis , dipst ick Nitrates-Sta tus negati ve Not Available [facility] [address], [place], [address], 06/23/2023 11:27:47 06/23/20 23 06/23/2023 urina lysis , dipst ick Blood-Status Negati ve Not Available [facility] [address], [place], [address], 06/23/2023 11:27:47 06/23/20 23 06/23/2023 urina lysis , dipst ick Leuko-Status Negati ve Not Available [facility] [address], [place], [address], 06/23/2023 11:27:47 06/05/20 21 06/04/2021 CT, abdom en + pelvi s, w/ contr ast No observ ation record ed. [facility] [address], [place], [address], 06/05/2021 19:18:11 12/06/[address], abdom en + pelvi s, w/o contr ast No observ ation record ed. [facility] [address], [place], [address], 12/05/2021 12:08:02 06/04/20 22 06/03/2022 CT, abdom en + pelvi s, w/o contr ast No observ ation record ed. [email or web address] [facility] [address], [place], [address], 2022 07:35:41 12/02/19 23 12/01/2022 CT, chest + abdom en + pelvi s, w/o contr ast EXAM: CT, CHEST + ABDOME N + PELVIS , W/O CONTRA ST LOCATI ON: [facility] DATE/T CLARITZA: 12/02/19 23 11:00 AM INDICA [...] Carmen herrera MD on 2022 at 15:21 [facility] [address] [place], [address], 12/10/2022 22:25:21 Result Notes None recorded. Procedures Surgical History Date Name Laterality Status Provider Name and Address Organization Details Recorded Time 06/23/20 23 Cystoscopy- male completed Bala Curry MD [address] [place] [address],[address], [place], [address], [facility] 06/23/2023 12:05:05 06/23/20 23 Keflex post Cysto completed Bala Curry MD [address] [place] [address],[address], [place], [address], [facility] 06/23/2023 11:27:40 12/02/19 23 Cystoscopy- male completed Bala Curry MD [address] [place] [address],[address], [place], [address], [facility] 12/01/2022 17:59:36 06/03/20 22 Cystoscopy- male completed Bala Curry MD [address] [place] [address],[address], [place], [address], [facility] 06/03/2022 18:07:44 12/04/19 22 Cystoscopy- male completed Bala Curry MD [address] [place] [address],[address], [place], [address], [facility] 12/04/2021 20:59:27 12/04/19 22 Keflex post Cysto completed Bala Curry MD [address] [place] [address],[address], [place], [address], [facility] 12/03/2021 14:30:10 12/04/19 22 Cytology completed Bala Curry MD [address] [place] [address],[address], [place], [address], [facility] 12/03/2021 14:30:51 06/04/20 21 Cystoscopy- male completed Bala Curry MD [address] [place] [address],[address], [place], [address], [facility] 06/05/2021 20:55:14 06/04/20 21 Keflex post Cysto completed Nerissa Gorman [facility] 06/04/2021 14:52:52 12/04/19 21 Cystoscopy- male completed Bala Curyr MD [address] [place] [address],[address], [place], [address], [facility] 12/03/2020 15:51:18 07/30/20 20 Fill and Pull/Voiding Trial/TOV completed Nerissa Gorman [facility] 07/30/2020 12:53:30 07/18/20 20 NEPHROURETERECTO MY, HAND ASSISTED LAPAROSCOPIC (SURG) completed Alicia Medina [facility] 07/23/2020 09:18:58 06/26/20 20 Cystoscopy with foreign body/stent removal completed Bala Curry MD [address] [place] [address],[address], [place], [address], [facility] 06/27/2020 21:40:50 06/19/20 20 CYSTOSCOPY, WITH URETEROSCOPY (SURG) completed Rani Garza [facility] 06/21/2020 11:41:18 08/30/19 16 Colonoscopy completed Bala Curry MD [address] [place] [address],[address], [place], [address], [facility] 06/04/2021 14:48:59 Appendectomy completed Bala Curry MD [address] [place] [address],[address], [place], [address], [facility] 05/29/2020 17:07:20 Imaging Results Imaging Date Name Status LastModified by Organiz [facility] Details LastModified Time 06/04/2021 CT, abdomen + pelvis, w/ contrast completed [facility] [address], [place], [address], 06/05/2021 19:18:11 12/05/2021 CT, abdomen + pelvis, w/o contrast completed [facility] [address], [place], [address], 12/05/2021 12:08:02 06/03/2022 CT, abdomen + pelvis, w/o contrast [email or web address] [address] [place], [address], 2022 07:35:41 12/01/2022 CT, chest + abdomen + pelvis, w/o contrast completed [facility] [address] [place], [address], 12/10/2022 22:25:21 Procedure Notes None recorded. Medical [...] Updated DateTime 06/03/2022 177.8 cm 29.8 kg/m2 74263.21 g Bala Curry MD [address] [facility],[address], [address], [place] - [facility] 06/03/2022 15:24:07 Date Recorded Body height Body mass index (BMI) Body weight Provider Name and Address Organization Details Last Updated DateTime 12/01/2022 177.8 cm 33 kg/m2 822763.25 g Monica Alcala [facility] 12/01/2022 15:25:30 Date Recorded Body height Provider Name an d Address Organization Details Last Updated DateTime 06/23/2023 177.8 cm Nerissa Gorman [facility] 06/23/2023 11:23:18 Date Recorded Body mass index (BMI) Body weight Provider Name and Address Organization Details Last Updated DateTime 06/23/2023 32 kg/m2 714230.1 g Bala Curry MD [address] [place] [address],[address] [address] [place] [address] 06/23/2023 11:28:47 Date Recorded Body height Body mass index (BMI) Body weight Provider Name and Address Organization Details Last Updated DateTime 06/04/2021 177.8 cm 29.8 kg/m2 52491.21 g Bala Curry MD [address] [place] [address],[address] [address] [place] [address] 06/04/2021 14:47:44 Date Recorded Body height Body mass index (BMI) Body weight Provider Name and Address Organization Details Last Updated DateTime 12/03/2021 177.8 cm 29.8 kg/m2 15174.21 g Bala Curry MD [address] [place] [address],[address] [address] [place] [address] 12/03/2021 14:29:16 Social History Question Answer Notes LastModified by Organizat ion Details LastModified Time Tobacco Smoking Status Former Smoker 2012 Bala Curry MD [address] [place] [address],[address], [address], [facility] 05/29/2020 17:06:47 What Is Your Level Of [...] Of Your Most Recent Tobacco Screening? 06/23/2023 [email or web address] Information not available 06/23/2023 Are You Sexually Active? Yes Information not available 07/30/2020 Do You Use Any Illicit Or Recreational Drugs? No Information not available 06/04/2021 Do You Or Have You Ever Used Any Other Forms Of Tobacco Or Nicotine? No Information not available 06/04/2021 Sex: Unknown Functional Status None recorded. Mental Status None recorded. Family History Nothing Reported. Medical History Condition Response Other N High Blood Pressure Y Kidney Stones N Depression N Cancer Y Bleeding Disorder N Lung Disease N GERD/Acid Reflux N High Cholesterol Y Diabetes N Heart Disease N Immunizations Vaccine Type Date Status Note Provider Nam e and Address Organization Details Recorded Time Influenza, split virus, quadrivalent, preservative 0 completed Bala Curry MD [address] [place] [address],[address], [place], [address] 07/30/2020 12:28:01 Past Encounters Encounter ID Performer Location Encounter Start Date Encounter Closed Date Diagnosis/Indication Diagnosis SNOMED-CT Code Diagnosis ICD10 Code [id number] MD Lia Quigley. [place] [address] 05/29/2020 16:55:45 05/30/2020 09:06:49 History of malignant neoplasm of bladder 910835498 C68.9 [id number] MD Lia Quigley. [place] [address] 06/26/2020 16:07:27 06/28/2020 08:42:18 History of malignant neoplasm of bladder 003433687 C68.9 [id number] MD Lai Quigley. [place] [address] 07/30/2020 12:21:31 08/01/2020 16:33:43 Renal cell carcinoma 516840876 C64.9 [id number] MD Lia Quigley. [place] [id number] 12/03/2020 15:06:56 12/04/2020 10:06:09 Renal cell carcinoma 915338984 C64.9 Primary er ectile dysfunction 129452481 N52.9 [id number] Bala Curry MD [facility] [address] [place] [address] 06/04/2021 14:25:23 06/06/2021 09:09:06 Renal cell carcinoma 803297335 C64.9 Primary er ectile dysfunction 074251423 N52.9 Malignant tumor of kidney 228990787 C64.9 [id number] Bala Curry MD [facility] [address] [place] [address] 12/03/2021 14:20:18 12/08/2021 10:12:25 Malignant tumor of kidney 669537202 C64.9 Primary er ectile dysfunction 444389168 N52.9 [id number] Bala Curry MD [facility] [address] [place] [address] 06/03/2022 15:14:22 06/04/2022 16:13:01 Malignant tumor of kidney 688375859 C64.9 Primary er ectile dysfunction 037060068 N52.9 [id number] Bala Curry MD [facility] [address] [place] [address] 12/01/2022 15:14:02 12/04/2022 12:07:05 Malignant tumor of kidney 136483775 C64.9 Primary er ectile dysfunction 146308621 N52.9 [id number] Bala Curry MD [facility] [address] [place] [address] 06/23/2023 11:14:57 07/05/2023 14:04:08 Malignant tumor of kidney 331969847 C64.9 Primary er ectile dysfunction 435939509 N52.9 Health Concerns Section Related Observation LastModified by Organization Detai ls LastModified Time None Recorded Concern Status LastModified by Organization Details LastModified Time None Recorded Advance Directives Directive None Recorded Payers Encounter Date Sequence Insurance Name Policy Number Policy Zaman Covered Member ID Zaman Member ID Guarantor Name 06/04/2021 1 [facility] [id number] 4 Reza Rincon [id number] 27 Reza Rincon 12/03/2021 1 [place] [id number] Reza Rincon [id number] Reza Kauravy 06/03/2022 1 [place] [id number] 4 Reza Rincon [id number] Reza Rincon 12/01/2022 1 [place] [id number] 4 Reza Rincon [id number] 27 Reza Kauravy 06/23/2023 1 [employer] [place] [id number] 4 Reza Rincon [id number] 27 Reza Rincon Notes Date Note Type Note Provider Name and Address Organization Details Recorded Time 06/04/2021 text/html 65 yo male with H/O Left kidney [...] still has some incisional discomfort. He denies hematuria.- CT Urogram - no leakage 12/03/20 - [...] pain. He denies urinary urgency, dysuria, or hematuria- UA - trace blood - no LE- CT scan (06/04/21) - enlarging (1.4 cm) Left sided retroperitoneal lymph node (near Left renal vascular stump) PSA - 2.78 (09/26/14)- 2.82 (10/14/16)- 2.38 (04/29/20) CT Urogram (05/08/20) - Left - 1.4 cm filling defect in lower pole and proximal ureter- Right - duplicated collecting system - no hydronephrosis, stones, or filling defects 12/03/20 - CT scan - no hydronephrosis - Left kidney is absent- no metastatic disease seen Bala Curry MD [address] [place] [address],[address], [place], [address], [facility] - [facility] 06/05/2021 20:59:30 12/03/2021 text/html 66 yo male with H/O Left kidney [...] - s/p TUR-BT - (08/03/11) - HG Ta- s/p TUR-BT - (11/07/12) - HG Ta- s/p TUR-BT - (05/22/13) - HG Ta- BCG (6 weeks) - complete Jul 2013- s/p Left LEATHA nephroureterectomy (07/18/20) - pT3 Nx - margins were negative- s/p Salvage radiation (for periaoritc lymph nodes) - completed (09/05/21) 12/03/21 - He presents for follow-up on Urothelial carcinoma of the kidney (clinical stage IV). He is feeling better - more energy. He denies trouble with urination - no hematuria, urgency, or dysuria.- UA - trace blood - no LE- CT scan - no contrast (12/03/21) - no convincing evidence of metastatic diseases - 1.4 cm hypoattenuating cyst on Right mid-kidney (posterior) PSA - 2.78 (09/26/14)- 2.82 (10/14/16)- 2.38 (04/29/20) CT Urogram (05/08/20) - Left - 1.4 cm filling defect in lower pole and proximal ureter- Right - duplicated collecting system - no hydronephrosis, stones, or filling defects 12/03/20 - CT scan - no hydronephrosis - Left kidney is absent- no metastatic disease seen CT scan (06/04/21) - enlarging (1.4 cm) Left sided retroperitoneal lymph node (near Left renal vascular stump) CT scan - no contrast (12/03/21) - no convincing evidence of metastatic diseases - 1.4 cm hypoattenuating cyst on Right mid-kidney (posterior) Bala Curry MD [address] [facility],[address], [place], [address], [facility] - [facility] 12/04/2021 21:04:54 06/03/2022 text/html 66 yo male with H/O 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- s/p TUR-BT - (08/03/11) - HG Ta- s/p TUR-BT - (11/07/12) - HG Ta- s/p TUR-BT - (05/22/13) - HG Ta- BCG (6 weeks) - complete Jul 2013- s/p Left LEATHA nephroureterectomy (07/18/20) - pT3 Nx - margins were negative- s/p Salvage radiation (for periaoritc lymph nodes) - completed (09/05/21) 12/03/21 - He presents for follow-up on Urothelial carcinoma of the kidney (clinical stage IV). He is feeling better - more energy. He denies trouble with urination - no hematuria, urgency, or dysuria.- UA - trace blood - no LE- CT scan - no contrast (12/03/21) - [...] hand cramps / arm cramps from his chemotherapy.- UA - no blood - no LE- CT (non-contrast) - no evidence of new disease - Right renal cysts (stable) - 3.4 cm pulmonary nodule (left lower lung) - stable PSA - 2.78 (09/26/14)- 2.82 (10/14/16)- 2.38 (04/29/20) CT Urogram (05/08/20) - Left - 1.4 cm filling defect in lower pole and proximal ureter- Right - duplicated collecting system - no hydronephrosis, stones, or filling defects 12/03/20 - CT scan - no hydronephrosis - Left kidney is absent- no metastatic disease seen CT scan (06/04/21) - enlarging (1.4 cm) Left sided retroperitoneal lymph node (near Left renal vascular stump) CT scan - no contrast (12/03/21) - no convincing evidence of metastatic diseases - 1.4 cm hypoattenuating cyst on Right mid-kidney (posterior) Bala Curry MD [address] [facility],[address], [place], [address], [facility] - [facility] 06/03/2022 18:09:48 12/01/2022 text/html 67 yo male with H/O 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- s/p TUR-BT - (08/03/11) - HG Ta- s/p TUR-BT - (11/07/12) - HG Ta- s/p TUR-BT - (05/22/13) - HG Ta- BCG (6 weeks) - complete Jul 2013- s/p Left LEATHA nephroureterectomy (07/18/20) - pT3 Nx - margins were negative- s/p Salvage radiation (for periaoritc lymph nodes) - completed (09/05/21) 12/03/21 - He presents for follow-up on Urothelial carcinoma of the kidney (clinical stage IV). He is feeling better - more energy. He denies trouble with urination - no hematuria, urgency, or dysuria.- UA - trace blood - no LE- CT scan - no contrast (12/03/21) - [...] with urination currently - no blood or dysuria.- UA - no blood - no LE- CT (12/01/22) - no renal masses - no hydronephrosis - no lymphadenopathy P SA - 2.78 (09/26/14)- 2.82 (10/14/16)- 2.38 (04/29/20) CT Urogram (05/08/20) - Left - 1.4 cm filling defect in lower pole and proximal ureter- Right - duplicated collecting system - no hydronephrosis, stones, or filling defects 12/03/20 - CT scan - no hydronephrosis - Left kidney is absent- no metastatic disease seen CT scan (06/04/21) - enlarging (1.4 cm) Left sided retroperitoneal lymph node (near Left renal vascular stump) CT scan - no contrast (12/03/21) - no convincing evidence of metastatic diseases - 1.4 cm hypoattenuating cyst on Right mid-kidney (posterior) Bala Curry MD [address] [facility],[address], [place], [address], [facility] - [facility] 12/01/2022 18:00:48 06/23/2023 text/html 68 yo male with H/O 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- s/p TUR-BT - (08/03/11) - HG Ta- s/p TUR-BT - (11/07/12) - HG Ta- s/p TUR-BT - (05/22/13) - HG Ta- BCG (6 weeks) - complete Jul 2013- s/p Left LEATHA nephroureterectomy (07/18/20) - pT3 Nx - margins were negative- s/p Salvage radiation (for syeda-aortic lymph nodes) [...] does report Left leg pain from varicose veins.- UA - no blood - no LE- CT (05/31/23) - no renal masses - no hydronephrosis - no lymphadenopathy PSA - 2.78 (09/26/14)- 2.82 (10/14/16)- 2.38 (04/29/20) CT Urogram (05/08/20) - Left - 1.4 cm filling defect in lower pole and proximal ureter- Right - duplicated collecting system - no hydronephrosis, stones, or filling defects 12/03/20 - CT scan - no hydronephrosis - Left kidney is absent- no metastatic disease seen CT scan (06/04/21) - enlarging (1.4 cm) Left sided retroperitoneal lymph node (near Left renal vascular stump) CT scan - no contrast (12/03/21) - no convincing evidence of metastatic diseases - 1.4 cm hypoattenuating cyst on Right mid-kidney (posterior)CT (05/31/23) - no renal masses - no hydronephrosis - no lymphadenopathy Bala Curry MD [address] [facility],[address], [place], [address], [facility] - [facility] 06/23/2023 12:05:50
--- OUTSIDE RECORDS SUMMARY | 2024-08-09 07:26 | XMS_ITS | Referral Summary ---
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 Gender Identity Not on file Sexual Orientation Not on file Last Filed Vital Signs Vital Sign Reading Time Taken Comments Blood Pressure 157/86 06/19/2020 1:45 PM CDT Pulse 57 06/19/2020 1:00 PM CDT Temperature 36.4 C (97.5 F) 06/19/2020 1:00 PM CDT Respiratory Rate 16 06/19/2020 1:45 PM CDT Oxygen Saturation 96% 06/19/2020 1:45 PM CDT Inhaled Oxygen Concentration - - Weight 94.8 kg (209 lb 1.6 oz) 06/19/2020 9:04 A M CDT Height 177.8 cm (5' 10) 06/19/2020 9:04 AM CDT Body Mass Index 30 06/19/2020 9:04 AM CDT Plan of Treatment Not on file Medical Devices Implanted Type Area Head Control Clerk Device Identifier Shelf Expiration Date Model / Serial / Lot Stent Ureteral Contour Soft Percuflex [id number] Implanted:Qty: 1 on 06/19/2020 by Bala Curry MD at [facility] Stent Left: Urethra [employer] 04/05/2023 [id number] 0 [id number] Insurance BCBS OUT OF STATE Care Teams Supervisor Mechanic Boilermaking Relationship Specialty Start Date End Date Dmitri Silverio MD PCP - General Family Practice 06/10/20
--- OUTSIDE RECORDS SUMMARY | 2024-08-09 07:26 | XMS_ITS | Clinical Summary ---
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
--- NOTE | 2024-08-09 08:00 | CRLHL7_ITS ---
For Patients: As a result of the Century Cures Act, medical imaging exams and procedure reports are released immediately into your electronic medical record. You may view this report before your referring provider. If you have questions, please contact your health care provider. INDICATION: Follow-up kidney/ureter cancer TECHNIQUE: CT chest, abdomen and pelvis acquired with 124 mL Isovue 370 IV contrast. COMPARISON: 05/02/2024, 10/01/2023 chest abdomen pelvis CTs FINDINGS: CHEST: Cardiovascular structures: Heart size is normal. Thoracic aorta and main pulmonary artery are normal in caliber. Mediastinum and maggi: No mass or adenopathy. Lungs and pleura: Lungs and pleural spaces are clear. No suspicious nodules, infiltrates, or effusions. Chest wall and axilla: No mass or adenopathy. Bones: No suspicious bone lesions. Unremarkable for age. ABDOMEN AND PELVIS: Liver: Steatosis. No mass. Gallbladder and bile ducts: Unremarkable. Pancreas: Unremarkable. Spleen: Unremarkable. Adrenal glands: Unremarkable. Kidneys: Left nephrectomy. Benign-appearing cysts in the right kidney. 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 GI tract: Colonic diverticulosis. 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 Aortoiliac atherosclerosis. Lymph nodes: Unremarkable. Miscellaneous: Unremarkable. No free air or significant free fluid. Pelvic Organs: Unremarkable. Bones: No suspicious bone lesions. Unremarkable for age. IMPRESSION: 1. Left nephrectomy. No evidence for metastatic disease. 2. 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 Please note that all CT scans at this facility use dose modulation, iterative reconstruction, and/or weight-based dosing when appropriate to reduce radiation dose to as low as reasonably achievable. Dictated by Joe White MD @ 08/09/2024 11:51:34 AM (Electronically Signed)
[2024-08-09 08:20] LABS: Creatinine* 1.8 mg/dL (0.5-1.5); Estimated Glomerular Filt Rate 40 ml/min
== END 2024-08-09 07:24 | disposition home or self-care (01) ==
LOC: CT 07:23
PROVIDERS: PCP Family Medicine; Visit Provider Internal Medicine Hematology & Oncology
DX: C66.2 Malignant neoplasm of left ureter (principal); I77.4 Celiac artery compression syndrome; C64.2 Malignant neoplasm of left kidney, except renal pelvis; C67.9 Malignant neoplasm of bladder, unspecified
CPT/HCPCS: 36415; 71260; 74177; 82565; Q9967

== ENCOUNTER 2024-08-17 12:50 | Outpatient (RCR) | payer OTHER, SELFPAY ==
[2024-08-09 09:01] LABS: Albumin* 4.3 g/dL (3.3-5.0); Chloride* 105 mmol/L (96-114); Potassium* 5.2 mmol/L (3.6-5.1); Sodium* 134 mmol/L (135-149)
[2024-08-09 09:04] LABS: Alanine Aminotransferase* 44 U/L (4-50); Alkaline Phosphatase* 88 U/L (40-150); Anion Gap 7 mEq/L (7-15); Aspartate Amino Transferase* 53 U/L (12-35); Bilirubin Total* 1.1 mg/dL (0.1-1.5); Blood Urea Nitrogen* 32 mg/dL (7-30); Carbon Dioxide* 22 mmol/L (20-32); Creatinine* 1.8 mg/dL (0.5-1.5); Estimated Glomerular Filt Rate 40 ml/min; Total Protein* 7.9 g/dL (6.0-8.3)
[2024-08-09 09:05] LABS: Calcium* 9.4 mg/dL (8.4-10.6); Glucose* 117 mg/dL (60-115)
[2024-08-09 09:06] LABS: Basophils Absolute Auto 0.04 K/uL (0.00-0.30); Basophils Percent Auto 0.7 % (0.0-3.0); Eosinophils Absolute Auto 0.28 K/uL (0.00-0.50); Eosinophils Percent Auto 4.9 % (0.0-7.0); Hematocrit 47.3 % (37.0-53.0); Hemoglobin* 16.3 gm/dL (13.5-17.5); Immature Granulocytes Abs Auto 0.01 K/uL (0.00-0.30); Immature Granulocytes Pct Auto 0.2 %; Lymphocytes Percent Auto 15.3 % (20-44); Mean Corpuscular HGB Conc 35 gm/dL (32-36); Mean Corpuscular Hemoglobin 36 pg (26-34); Mean Corpuscular Volume 105 fL (80-100); Neutrophils Percent Auto 67.9 % (42.0-72.0); Platelet Count* 187 K/uL (140-440); RDW Coefficient of Variation % 12.6 % (11.5-15.5); White Blood Count* 5.74 K/uL (4.50-11.00)
[2024-08-09 09:11] LABS: Slide Review Reflex No
[2024-08-09 09:14] LABS: Cholesterol* 205 mg/dL (90-199); Triglycerides* 124 mg/dL (40-149)
[2024-08-09 09:15] LABS: HDL Cholesterol* 98 mg/dL (>=40); LDL Cholesterol Calculated 82 mg/dL (<100)
[2024-08-09 09:46] LABS: PSA Screen* 1.85 ng/mL (0.10-4.00)
[2024-08-09 10:28] LABS: Vitamin B12* 405 pg/mL (243-894)
[2024-08-10 15:05] LABS: Folate, Serum 5.6 ng/mL (>=5.9)
--- NOTE | 2024-11-02 09:26 | ONC.NURNOTE ---
Patient called asking if he needed to get a CT still since he just had a stroke and lots of test. Nela Jason reviewed and patient hadn't had a chest CT so recommended he just have that done but then patient stated he wasn't going to at this time because he is has multiple appointments due to the stroke and wanted to reschedule at a later date and wanted to call back when he had a firm administrator schedule. Offered to call him back but he stated he would take care of it.
--- NOTE | 2025-01-18 15:11 | ONC.NURNOTE ---
Left message with patient to call if interested in follow up. Did have CT scan and labs due in october but at that time patient didn't want to come in.
== END 2025-02-05 23:59 | disposition home or self-care (01) ==
LOC: CCIC 12:50
PROVIDERS: Internal Medicine Hematology & Oncology; PCP Family Medicine; Visit Provider Physician Assistant
DX: C66.2 Malignant neoplasm of left ureter (principal); C64.2 Malignant neoplasm of left kidney, except renal pelvis; N18.9 Chronic kidney disease, unspecified; C67.9 Malignant neoplasm of bladder, unspecified
CPT/HCPCS: 36415; 80053; 80061; 82607; 82746; 84443; 85025; 99215; G0103; G0463

== ENCOUNTER 2024-10-24 10:01 | Inpatient (IN) | payer OTHER, MEDICARE, SELFPAY ==
[2024-10-24] VITALS (20 sets, daily range): BP systolic 108–165; BP diastolic 65–118; PULSE 61–84; RESP 14–25; TEMP 35.9–36.8; O2SAT 93–100; BMI 31.6; BMI 32.8
--- OUTSIDE RECORDS SUMMARY | 2024-10-24 10:03 | XMS_ITS | Clinical Summary ---
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
--- NOTE | 2024-10-24 10:16 | ED.GENADULT ---
HPI - General Adult General Date Seen: 10/24/24 Chief complaint: Altered Mental Status Stated complaint: Confusion Time Seen by Provider: 10/24/24 10:12 History of Present Illness HPI narrative: 69 yo M with a history of hyperlipidemia, hypertension, elevated BMI, tobacco use, sleep apnea, mild renal insufficiency with baseline creatinine 1.6-1.8. He also reports a history of kidney cancer and bladder cancer (bladder cancer and uroepithelial malignancy). Previous left nephrectomy, chemo and radiation, Not currently on any treatment. Previous appendectomy. He is not currently on chemo or radiation. He is apparently getting surveillance for his previous malignancies. He also has a history Mild hyponatremia with a spur recent sodium of 134, last July. History of left total knee replacement in 2023. Also has history of hypertension, hyperlipidemia, GERD, Per oncology records, last visit with Dr. Solorio was in April 2024. From onc notes ... Mr. Rincon is a 67-year-old and presents today for 3 month surveillance visit and to review of imaging for recurrent high-grade uroepithelial carcinoma. He completed maintenance avelumab in April 2022; this was discontinued for concern of ICI related myalgias. -ECOG 0-1 -03/12/2023, 05/31/2023, 09/2023, 01/2024: CT chest abdomen pelvis reviewed -on 05/10/[address] chest abdomen pelvis from April and January 2023: Unremarkable -return visit in [address] chest abdomen pelvis, CBC CMP, will also obtain B12 folic acid and TSH for macrocytosis # left-sided total knee replacement 10/19/2023 # has only right kidney in place -status post left nephrectomy # lifestyle modifications reviewed and discussed # advance care planning -prognosis good Intent of treatment surveillance Plans of treatment available 2+ He presents to the ER today for evaluation of confusion, shakiness, forgetfulness. He has actually had symptoms of cough that began about 8 days ago last Wednesday or so. It sounds like he had a fairly bad cough for several days that is been getting better for the past couple of days. It sounds like his daughter felt like he was wheezy. He says his breathing has been better the past couple of days. He has not been experiencing any chest pain or shortness of breath. He is not able to tell me if the cough is productive of sputum or not. She says overall his cough is getting better. He does have a history of tobacco use and says that he has been ?wheezy,? for years. He has never been evaluated by a doctor for it and has never been diagnosed with COPD or asthma. He does not use inhalers. He had been using a lot of NyQuil for the cough. He says he was using every 6-8 hours, ?a Swig? of NyQuil last week. With concerned that the NyQuil might be causing trouble with his blood pressure his daughter had him stop it. He has not had any NyQuil for several days. They note that he seemed a little bit more confused and shaky. That definitely began last week on or Wednesday. On Wednesday he was actually driving his car and then got lost and could not find his way back home. That is not normal for him. Also he has been forgetful around the house. Daughter is notes that he has had for gotten to turn off the stove. He has also had a headache that feels like a sharp pain whenever he coughs. No recent falls. No known head trauma. He has also been unsteady. No focal weakness or numbness. He has been shaky. He also notes that he tends to be a fairly heavy alcohol user. He says he drinks roughly 4 drinks per day. He felt like drinking was too expensive and that he should probably stop so he stops drinking, roughly last Wednesday. Prior to that he had been having 4 drinks per day. He is not sure of alcohol withdrawal could be contributing. He has not had any known seizures. He did have 1 small drink last night, according to his daughter. Related Data Previous Rx's ?Medication ?Instructions ?Recorded tadalafil 20 mg tablet 20 mg PO DAILY PRN sexual activity 08/02/23 #10 tabs acetaminophen 500 mg capsule 500 - 1,000 mg (1 - 2 x 500 mg) PO 10/19/23 Q6H PRN pain #100 caps folic acid 400 mcg tablet 0.4 mg PO QDAY #90 tabs 08/17/24 chlorthalidone 25 mg tablet 25 mg PO DAILY #90 tabs 09/19/24 lisinopril 10 mg tablet 10 mg PO QDAY #90 tabs 09/19/24 potassium chloride 20 mEq 20 meq PO QDAY #90 tabs 09/19/24 tablet,extended release(part/cryst) simvastatin 20 mg tablet 20 mg PO DAILY #90 tabs 09/19/24 Allergies Allergy/AdvReac Type Severity Reaction Status Date / Time No Known Drug Allergies Allergy Verified 10/23/24 09:21 [facility] Medical History RASHEL (obstructive sleep apnea) ?G47.33 - Obstructive sleep apnea (adult) (pediatric) (ICD-10) White coat syndrome without diagnosis of hypertension ?R03.0 - Elevated blood-pressure reading, without diagnosis of hypertension (ICD-10) Tobacco use (04/15/10) ?Z72.0 - Tobacco use (ICD-10) Personal history of colonic polyps (04/15/10) ?Z86.010 - Personal history of colonic polyps (ICD-10) Obesity (07/02/11) ?E66.9 - Obesity, unspecified (ICD-10) Hypertension ?I10 - Essential (primary) hypertension (ICD-10) Hyperlipidemia ?E78.5 - Hyperlipidemia, unspecified (ICD-10) Erectile dysfunction (04/15/10) ?N52.9 - Male erectile dysfunction, unspecified (ICD-10) Surgical History History of total left knee replacement (10/19/23) ?Z96.652 - Presence of left artificial knee joint (ICD-10) History of bladder surgery ?Z98.890 - Other specified postprocedural states (ICD-10) H/O vasectomy ?Z98.52 - Vasectomy status (ICD-10) History of left nephrectomy ?Z90.5 - Acquired absence of kidney (ICD-10) History of appendectomy (07/02/11) ?Z90.49 - Acquired absence of other specified parts of digestive tract (ICD-10) Social History (Updated 09/19/24 @ 09:27 by Erinn Thakur~GARDEN CONSULTANT, GARDEN CONSULTANT) 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 Khadijah-significant other What is your current living situation?: I presently have a place to live Problems where you live: no known problems In the past 12 months, utilities in danger of being shut off: already shut off In past 12 months, lack of transportation kept you from medical appts, meetings, work, or getting things needed for daily living: no In the past 12 mos, have been you worried that your food would run out before you had money to buy more?: never true In the past 12 mos, the food you bought just didn't last and you didn't have money to buy more?: never true Leisure activities: fishing Smoking Status: Former smoker What tobacco products do you use: cigarettes Smoking quit date/years: <= 15 years ago Do you use any of these nicotine containing products: None Second hand tobacco smoke exposure: No How often do you have a drink containing alcohol: 4 or more times a week Alcohol type: beer, wine and hard liquor How many standard drinks containing alcohol do you have on a typical day: 3 or 4 How often do you have six or more drinks on one occasion: Never AUDIT-C Alcohol total score: 5 Non-prescribed substance use: denies use Caffeine: No Are you now , , , , never or living with a partner: Social isolation score (0-1 are the most socially isolated patients): 0 How often does anyone, including family, friends and others, physically hurt you: never How often does anyone, including family, friends and others, insult or talk down to you: never How often does anyone, including family, friends and others, threaten you with harm: never How often does anyone, including family, friends and others, scream or curse at you: never Exam Narrative: Exam Narrative: Primary Survey: A- patent. Speaking clearly. Phonation normal. No stridor. B- breathing easily. Lung sounds clear and equal. Oxygen saturation normal on room air C- no active bleeding. Blood pressure stable. Symmetric pulses and cap refill in 4 extremities. D- alert and oriented x3. GCS 15. No focal deficits. He is a very vague historian often jokes and laughs. For instance when we discussed getting a head CT stand, he says ?well you will not see anything!? Constitutional: Appears well-developed and well-nourished. Alert. Conversant but somewhat vague historian. Daughter is attentively decided they interact positively together. HENT: Head: Atraumatic. Nose: Nose normal. Mouth/Throat: Oral mucosa is clear and moist. no trismus. Pharynx normal. Tonsils symmetric. No tonsillar enlargement, erythema, or exudate. Eyes: Conjunctivae normal. EOM normal. Pupils equal, round, and reactive to light. No scleral icterus. Neck: Normal range of motion. Neck supple. No tracheal deviation present. No JVD Cardiovascular: Normal rate, regular rhythm. No gallop. No friction rub. No murmur heard. Symmetric radial artery pulses Pulmonary/Chest: Effort normal. No stridor. No respiratory distress. No wheezes. No rales. No rhonchi . No tenderness. Abdominal: Soft. Bowel sounds normal. No distension. No mass. No tenderness. No rebound. No guarding. No HSM. Musculoskeletal: RUE: Normal range of motion. No tenderness. No deformity LUE: Normal range of motion. No tenderness. No deformity RLE: Normal range of motion. No edema. No tenderness. No deformity LLE: Normal range of motion. No edema. No tenderness. No deformity Neurological: Mild tremor. Alert and oriented to person, place, and time. Normal strength. CN II-VII intact. No sensory deficit. GCS eye subscore is 4. GCS verbal subscore is 5. GCS motor subscore is 6. Normal coordination . Able to sit up and stand the bedside without assistance. Skin: Skin is warm and dry. No rash noted. No pallor. Normal capillary refill. Psychiatric: Normal mood. Normal affect. Makes jokes. Const: Vital Signs, click to edit/add: Vital Signs - 24 hr 10/24/24 10:07 10/24/24 11:26 10/24/24 11:30 Temperature 96.6 F L Pulse Rate 74 68 Pulse Rate [Pulse Oximeter] 79 Respiratory Rate 24 15 17 Blood Pressure Blood Pressure [Ri ght Upper Arm] 108/73 Pulse Oximetry 96 94 94 Oxygen Delivery Me thod Room Air 10/24/24 11:31 10/24/24 11:45 10/24/24 12:16 Temperature Pulse Rate 75 68 Pulse Rate [Pulse Oximeter] Respiratory Rate 25 H 18 15 Blood Pressure 123/84 Blood Pressure [Ri ght Upper Arm] Pulse Oximetry 93 94 Oxygen Delivery Me thod 10/24/24 12:17 10/24/24 12:30 10/24/24 12:32 Temperature Pulse Rate Pulse Rate [Pulse Oximeter] Respiratory Rate 15 25 H 21 Blood Pressure 120/98 H 140/81 H Blood Pressure [Ri ght Upper Arm] Pulse Oximetry Oxygen Delivery Me thod 10/24/24 12:33 10/24/24 13:07 10/24/24 13:09 Temperature Pulse Rate 66 Pulse Rate [Pulse Oximeter] Respiratory Rate 23 19 18 Blood Pressure 151/93 H Blood Pressure [Ri ght Upper Arm] Pulse Oximetry 98 Oxygen Delivery Me thod Room Air 10/24/24 13:09 10/24/24 13:15 10/24/24 13:45 Temperature Pulse Rate 68 Pulse Rate [Pulse Oximeter] Respiratory Rate 20 22 14 Blood Pressure 151/93 H Blood Pressure [Ri ght Upper Arm] Pulse Oximetry 98 Oxygen Delivery Me thod 10/24/24 14:00 Temperature Pulse Rate Pulse Rate [Pulse Oximeter] Respiratory Rate 21 Blood Pressure Blood Pressure [Ri ght Upper Arm] Pulse Oximetry Oxygen Delivery Me thod Course Vital Signs Vital signs: Initial Vital Signs Temperature 96.6 F L 10/24/24 10:07 Temperature Source Temporal Artery Scan 10/24/24 10:07 Pulse Rate 79 10/24/24 10:07 Respiratory Rate 24 10/24/24 10:07 Blood Pressure 108/73 10/24/24 10:07 Blood Pressure Mean 84 10/24/24 10:07 Blood Pressure Position Sitting 10/24/24 10:07 Pulse Oximetry 96 10/24/24 10:07 Oxygen Delivery Method Room Air 10/24/24 10:07 Vital Signs Temperature 96.6 F L 10/24/24 10:07 Pulse Rate 79 10/24/24 10:07 Respiratory Rate 24 10/24/24 10:07 Blood Pressure 108/73 10/24/24 10:07 Pulse Oximetry 96 10/24/24 10:07 Oxygen Delivery Method Room Air 10/24/24 10:07 Temperature 96.6 F L 10/24/24 10:07 Pulse Rate 68 10/24/24 13:09 Respiratory Rate 21 10/24/24 14:00 Blood Pressure 151/93 H 10/24/24 13:09 Pulse Oximetry 98 10/24/24 13:09 Oxygen Delivery Method Room Air 10/24/24 13:09 Medications Administered Medications: Discontinued Medications Generic Name Dose Route Start Last Admin Trade Name Freq PRN Reason Stop Dose Admin Aspirin 325 mg 10/24/24 13:21 10/24/24 13:40 Aspirin Ec 325 Mg Tablet PO 10/24/24 13:22 325 mg ONCE ONE Administration Sodium Chloride 1,000 mls @ 1,000 mls/hr 10/24/24 10:45 10/24/24 12:50 0.9 % Sodium Chloride 1000 Ml IV 10/24/24 11:44 Infused .Q1H LUZ MARIA Infusion Lactated Ringer's 1,000 mls @ 1,000 mls/hr 10/24/24 12:13 10/24/24 13:59 Lactated Ringers 1000 Ml IV 10/24/24 13:12 Infused .Q1H ONE Infusion Medical Decision Making MDM Narrative Medical decision making narrative: 69-year-old male presenting to the ER today with several concerns. His family is concerned because he has been forgetful and confused for the past several days, also unsteady. He has also had recent URI symptoms, although he says overall his cough is getting much better. He also has a history of alcohol use, self reporting 4 drinks per day up until last week, when he decided to quit. He is concerned that he might be having some alcohol withdrawal. 1. Neuro. He does report confusion, unsteady gait. He has a history of bladder cancer and kidney cancer/urothelial malignancy status post nephrectomy and chemo radiation. He is apparently currently only on surveillance. Consider possible brain Mets. The head CT reveals a lesion site consistent with a subacute right MCA territory infarct. Amazingly he does not have any left-sided weakness or facial droop. Discussed with Radiology who a agree that this infarct does not appear to involve his motor strip. He is denying any focal numbness in his left side. I suspect that this infarct could have occurred Wednesday, when his neurologic symptoms and confusion started. No signs of any intracranial hemorrhage.. He does not have any recent fall or head trauma. No hydrocephalus. Discussed with Stroke Neurology, Dr. Rivera. He recommends full-dose aspirin, MRI brain without neetu, MR a head and neck without gadolinium contrast. He will complete full consult tomorrow after imaging. Patient will require inpatient admission. Blood sugar is normal. No history of seizures or report of any seizure activity this week. 2. Respiratory/pulmonary. Does have recent upper respiratory symptoms and cough. He is a smoker but does not have any formal diagnosis of COPD or asthma. It also sounds like he generally does not go to doctor so may not have had an opportunity to receive a formal diagnosis. COVID/influenza/RSV PCR is negative today. Chest x-ray shows no acute infiltrate or pneumonia or CHF. Although he is a tobacco user he is not he having wheezing to suggest asthma/COPD this time. Venous blood gas shows a pH of 7.37 with a pCO2 of 36 . no evidence for hypercarbia 3. Cardiac. EKG shows sinus tachycardia with sinus arrhythmia. No ischemia. Troponin is normal. He has not been having any chest pain 4. GI/hepatic. He does report a history of alcohol use. He is not jaundiced clinically. LFTs are abnormal with a bilirubin of 2.0 and an AST of 66, ALT of 73. Alk-phos is normal at 88. Lipase is normal. Previous liver function tests in July were normal. He reports his total dose of NyQuil was about a quarter of a bottle, it sounds like a few oz over a couple of days. although his history is somewhat unreliable, if this is true, he would not have taken enough acetaminophen to create a hepatotoxic dose. He and his family confirm that he had been drinking about 4 alcoholic beverages per day but then stopped last Wednesday. He had 1 small drink last night. 5. Renal/electrolytes. BUN is elevated at 44, creatinine 3.4. This is approximately doubled from his baseline creatinine around which ranges 1.6-1.8. Bicarb is low at 19. Unclear cause. Patient says he has been drinking ?lots? of fluid and had 4 bottles of water last night. However he also says that his urine was fairly dark colored an orange this morning and he feels dehydrated. IV fluids administered. CT scan abdomen pelvis (noncontrast due to low GFR) shows bladder wall thickening, but no definite hydronephrosis , obstruction, or surgical pathology. Mild hyponatremia with a sodium of 131. Although he reports drinking ?plenty? water at home, he does clinically look dehydrated. After 2 L of crystalloid here in the ER still only a small amount of urine in his bladder. 6. Infectious disease. Does have recent coughing URI symptoms. COVID/influenza/RSV PCR negative. Chest x-ray clear. Not febrile today. White count normal. Blood culture pending. Urinalysis he has not been obtained as of this dication, but will be obtained later. Disposition: Patient will clearly require hospitalization for further stroke workup, hydration for his acute kidney injury, and monitoring for his abnormal LFTs. At this point he is hemodynamically stable. Stroke Neurology does not feel that he requires immediate transfer to [place] for intervention. He would prefer to admit here in [place], in any case. Discussed with our hospitalist, Dr. Stoll, who graciously accepts for admission. Lab Data Labs: Lab Results 10/24/24 10/24/24 Range/Units 10:15 11:12 WBC 8.11 (4.50-11.00) K/uL RBC 4.89 (4.30-5.90) m/uL Hgb 17.2 (13.5-17.5) gm/dL Hct 49.6 (37.0-53.0) % MCV 101 H (80-100) fL MCH 35 H (26-34) pg MCHC 35 (32-36) gm/dL RDW Coeff of Yonathan 11.9 (11.5-15.5) % Plt Count 172 (140-440) K/uL Neut % (Auto) 79.6 H (42.0-72.0) % Lymph % (Auto) 9.0 L (20-44) % [place] % (Auto) 9.1 (0.0-11.0) % Eos % (Auto) 1.5 (0.0-7.0) % Baso % (Auto) 0.6 (0.0-3.0) % Neut # (Auto) 6.50 (1.7-7.0) K/uL Lymph # (Auto) 0.70 L (0.90-2.90) K/uL [place] # (Auto) 0.70 (0.00-0.90) K/UL Eos # (Auto) 0.12 (0.00-0.50) K/uL Baso # (Auto) 0.05 (0.00-0.30) K/uL Abs Immat Gran (auto) 0.02 (0.00-0.30) K/uL Imm/Tot Granulo (auto) 0.2 % VBG pH 7.371 (7.32-7.43) VBG pCO2 36 L (40-50) mmHG VBG pO2 37.1 (25-47) mmHG VBG HCO3 21 (21-28) mmol/L Sodium 131 L (135-149) mmol/L Potassium 4.5 (3.6-5.1) mmol/L Chloride 96 (96-114) mmol/L Carbon Dioxide 19 L (20-32) mmol/L Anion Gap 16 H (7-15) mEq/L BUN 44 H (7-30) mg/dL Creatinine 3.4 H (0.5-1.5) mg/dL Estimated Creat Clear 20.58 Estimated GFR 19 ml/min Glucose 107 (60-115) mg/dL Lactate 1.4 (0.5-1.9) mmol/L Calcium 9.4 (8.4-10.6) mg/dL Total Bilirubin 2.0 H (0.1-1.5) mg/dL AST 66 H (12-35) U/L ALT 73 H (4-50) U/L Alkaline Phosphatase 88 (40-150) U/L Ammonia 18.8 (13.1-30.0) umol/L Troponin I 0.01 (0.01-0.04) ng/mL Total Protein 8.2 (6.0-8.3) g/dL Albumin 4.7 (3.3-5.0) g/dL Lipase 149 (23-300) U/L Acetaminophen < 10.0 L (10.0-30.0) ug/mL Ethyl Alcohol < 0.01 L (0.01-0.03) % SARS-CoV-2 (PCR) Negative SARS-CoV-2 (Negative) Influenza Type A (PCR) Negative PCR FLU A (Negative) Influenza Type B (PCR) Negative PCR FLU B (Negative) RSV (PCR) Negative PCR RSV (Negative) Imaging Data Chest x-ray: My impression: No acute infiltrate. Radiologist's impression: IMPRESSION: No focal lung consolidation. CT scan - head: Attestation: I have reviewed the pertinent imaging results. My impression: Finding suggestive for possible subacute right MCA infarct, per my read I do not see any please, hydrocephalus or mass effect Radiologist's impression: IMPRESSION: Diffuse hypoattenuation throughout the right posterior MCA territory suspicious for acute ischemia. No evidence of hemorrhagic transformation. Findings were discussed with Dr. Carrera on 10/24/2019 at 12:[address] scan - abdomen: Attestation: I have reviewed the pertinent imaging results. My impression: I do not see any obstructing kidney stone or hydronephrosis. Bladder wall looks thick. I do not see any free air or other obvious and intra-abdominal inflammation. Radiologist's impression: IMPRESSION: 1. No discrete acute abdominal or pelvic process. No nephrolithiasis. No hydroureteronephrosis. 2. Although relatively decompressed there is suggestion of circumferential wall thickening of the urinary bladder. Recommend correlation with urinalysis if not already performed to assess for underlying cystitis. ECG Data Attestation: I personally reviewed and interpreted this ECG as follows: Interpretation: Sinus tachycardia with sinus arrhythmia Rate: 103 MO: 146 QRS axis: Normal axis. No pathologic Q-waves ST segment/T wave: No ST segment elevation or depression. Nonspecific T-wave inversion V1. QTc: 455 No old EKGs available for comparison Discharge Plan Discharge Clinical Impression: Stroke, Acute confusion, Acute kidney injury, Abnormal LFTs, Cough Patient Disposition: Admitted As Observation
[2024-10-24] MEDS: 0.9 % SODIUM CHLORIDE 1000 ml 1,000 ML IV (10:50)
[2024-10-24 10:56] LABS: PCR FLU A Negative PCR FLU A (Negative); PCR FLU B Negative PCR FLU B (Negative); PCR RSV Negative PCR RSV (Negative); SARS PCR* Negative SARS-CoV-2 (Negative)
[2024-10-24 11:26] LABS: Basophils Absolute Auto 0.05 K/uL (0.00-0.30); Basophils Percent Auto 0.6 % (0.0-3.0); Eosinophils Absolute Auto 0.12 K/uL (0.00-0.50); Eosinophils Percent Auto 1.5 % (0.0-7.0); HCO3 VBG 21 mmol/L (21-28); Hematocrit 49.6 % (37.0-53.0); Hemoglobin* 17.2 gm/dL (13.5-17.5); Immature Granulocytes Abs Auto 0.02 K/uL (0.00-0.30); Immature Granulocytes Pct Auto 0.2 %; Mean Corpuscular HGB Conc 35 gm/dL (32-36); Mean Corpuscular Hemoglobin 35 pg (26-34); Mean Corpuscular Volume 101 fL (80-100); Monocytes Percent Auto 9.1 % (0.0-11.0); Neutrophils Percent Auto 79.6 % (42.0-72.0); PCO2 VBG 36 mmHG (40-50); PO2 VBG 37.1 mmHG (25-47); Platelet Count* 172 K/uL (140-440); RDW Coefficient of Variation % 11.9 % (11.5-15.5); Red Blood Count 4.89 m/uL (4.30-5.90); White Blood Count* 8.11 K/uL (4.50-11.00); pH VBG 7.371 (7.32-7.43)
[2024-10-24 11:27] LABS: Lactate* 1.4 mmol/L (0.5-1.9)
[2024-10-24 11:34] LABS: Slide Review Reflex No
[2024-10-24 11:44] LABS: Albumin* 4.7 g/dL (3.3-5.0)
[2024-10-24 11:45] LABS: Chloride* 96 mmol/L (96-114); Potassium* 4.5 mmol/L (3.6-5.1); Sodium* 131 mmol/L (135-149)
[2024-10-24 11:47] LABS: Alkaline Phosphatase* 88 U/L (40-150); Anion Gap 16 mEq/L (7-15); Aspartate Amino Transferase* 66 U/L (12-35); Blood Urea Nitrogen* 44 mg/dL (7-30); Carbon Dioxide* 19 mmol/L (20-32); Creatinine* 3.4 mg/dL (0.5-1.5); Est. Creatinine Clearance* 20.58; Estimated Glomerular Filt Rate 19 ml/min; Glucose* 107 mg/dL (60-115); Lipase* 149 U/L (23-300); Total Protein* 8.2 g/dL (6.0-8.3)
[2024-10-24 11:48] LABS: Alanine Aminotransferase* 73 U/L (4-50); Calcium* 9.4 mg/dL (8.4-10.6)
[2024-10-24 11:58] LABS: Ethanol* < 0.01 % (0.01-0.03)
[2024-10-24 11:59] LABS: Troponin I* 0.01 ng/mL (0.01-0.04)
--- OUTSIDE RECORDS SUMMARY | 2024-10-24 12:14 | XMS_ITS | Clinical Summary ---
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 Stent Left: Urethra [employer] 04/05/2023 [id number] 0 [id number] Insurance BCBS OUT OF STATE Care Teams Group Home Manager Relationship Specialty Start Date End Date Dmitri Silverio MD PCP - General Family Practice 06/10/20
--- OUTSIDE RECORDS SUMMARY | 2024-10-24 12:14 | XMS_ITS | Data Portability ---
Author Organization [place] [facility], [facility] Address [address] [facility] [address] [place] [address] Assessment No assessment recorded. Plan of Treatment Reminders Order Date Submit Date Provider Last Modified By Organization Details Last Modified Time Details Appointments None recorde d. Lab urinaly sis, dipstic k 2022 023 [facility], [address], [place], [address], 3 11:28:14 urinaly sis, dipstic k 2022 023 [email or web address] [facility], [address], [place], [address], 3 15:27:51 urinaly sis, dipstic k 2021 022 [facility], [address], [place], [address], 15:37:32 urinaly sis, dipstic k 2021 022 Not available 14:30:42 urinaly sis, dipstic k 2020 021 Not available 14:50:02 Referral oncolog ist referra l 2020 021 [email or web address] Keara Solorio MD, [address] [place], [address], 1 12:32:19 Procedures cystosc opy (PROC) 2022 023 rebbert Not available 3 12:12:10 cystosc opy (PROC) 2022 023 rebbert Not available 3 07:51:53 cystosc opy (PROC) 2021 022 rebbert Not available 07:30:17 cystosc opy (PROC) 2021 022 [email or web address] Not available 09:10:12 Surgeries None recorde d. Imaging CT, chest + abdomen + pelvis, w/o contras t 2022 023 [email or web address] [facility] , [facility], [address], 3 09:25:32 CT, abdomen + pelvis, w/o contras t - f/u with Dr. Curry on 12/01/22 @ 2:20PM [facility] [address] [place], [address], 2 16:13:02 CT, abdomen + pelvis, w/ contras t 2021 022 [email or web address] Not available 15:41:24 Medication Orders tadalaf il 20 mg tablet 2021 022 [id number], [address] [place], [place], [id number], 15:37:39 Patient TargetsNo targets recorded. Patient InstructionsNo instructions recorded. Reason for Referral Referring Physician: Bala gutierrez, Urology, Encounter Date: 06/04/2021 Results Created Date Observation Date Name Description Value Unit Range Abnormal Flag Note LastModifiedBy Organization Detail LastModifiedTime 06/04/20 21 06/04/2021 urina lysis , dipst ick Color-Status Yellow Not Available [facility] [address], [place], [address], 06/04/2021 14:49:36 06/04/20 21 06/04/2021 urina lysis , dipst ick pH-Status 5.5 Not Available [facility] [address], [place], [address], 06/04/2021 14:49:36 06/04/20 21 06/04/2021 urina lysis , dipst ick Nitrates-Sta tus negati ve Not Available [facility] [address], [place], [address], 06/04/2021 14:49:36 06/04/20 21 06/04/2021 urina lysis , dipst ick Blood-Status Trace Not Available [facility] [address], [place], [address], 06/04/2021 14:49:36 06/04/20 21 06/04/2021 urina lysis , dipst ick Leuko-Status Negati ve Not Available [facility] [address], [place], [address], 06/04/2021 14:49:36 12/04/19 22 12/03/2021 urina lysis , dipst ick Color-Status Yellow Not Available [facility] [address], [place], [address], 12/03/2021 14:30:21 12/04/19 22 12/03/2021 urina lysis , dipst ick pH-Status 5.0 Not Available [facility] [address], [place], [address], 12/03/2021 14:30:21 12/04/19 22 12/03/2021 urina lysis , dipst ick Blood-Status Trace Not Available [facility] [address], [place], [address], 12/03/2021 14:30:21 12/04/19 22 12/03/2021 urina lysis , dipst ick Leuko-Status Negati ve Not Available [facility] [address], [place], [address], 12/03/2021 14:30:21 06/03/20 22 06/03/2022 urina lysis , dipst ick Color-Status Yellow Not Available [facility] [address], [place], [address], 06/03/2022 15:24:34 12/02/19 23 12/01/2022 urina lysis , dipst ick Color-Status Yellow Not Available [facility] [address], [place], [address], 12/01/2022 15:27:24 12/02/19 23 12/01/2022 urina lysis , dipst ick Clarity-Stat us Clear Not Available [facility] [address], [place], [address], 12/01/2022 15:27:24 06/23/20 23 06/23/2023 urina lysis , dipst ick Color-Status Yellow Not Available [facility] [address], [place], [address], 06/23/2023 11:27:47 06/23/20 23 06/23/2023 urina lysis , dipst ick pH-Status 7.0 Not Available [facility] [address], [place], [address], 06/23/2023 11:27:47 06/23/20 23 06/23/2023 urina lysis , dipst ick Nitrates-Sta tus negati ve Not Available [facility] [address], [place], [address], 06/23/2023 11:27:47 06/23/20 23 06/23/2023 urina lysis , dipst ick Blood-Status Negati ve Not Available [facility] [address], [place], [address], 06/23/2023 11:27:47 06/23/20 23 06/23/2023 urina lysis , dipst ick Leuko-Status Negati ve Not Available [facility] [address], [place], [address], 06/23/2023 11:27:47 06/05/20 21 06/04/2021 CT, abdom en + pelvi s, w/ contr ast No observ ation record ed. [facility] [address], [place], [address], 06/05/2021 19:18:11 12/06/[address], abdom en + pelvi s, w/o contr ast No observ ation record ed. [facility] [address], [place], [address], 12/05/2021 12:08:02 06/04/20 22 06/03/2022 CT, abdom en + pelvi s, w/o contr ast No observ ation record ed. [email or web address] [facility] [address], [place], [address], 2022 07:35:41 12/02/19 23 12/01/2022 CT, chest + abdom en + pelvi s, w/o contr ast EXAM: CT, CHEST + ABDOME N + PELVIS , W/O CONTRA ST [facility]: [facility] DATE/T CLARITZA: 12/02/19 23 11:00 AM INDICA [...] Carmen herrera MD on 2022 at 15:21 [facility] [address] [place], [address], 12/10/2022 22:25:21 Result Notes None recorded. Procedures Surgical History Date Name Laterality Status Provider Name and Address Organization Details Recorded Time 06/23/20 23 Cystoscopy- male completed Bala Curry MD [address] [place] [address],[address], [place], [address], [facility] 06/23/2023 12:05:05 06/23/20 23 Keflex post Cysto completed Bala Curry MD [address] [place] [address],[address], [place], [address], [facility] 06/23/2023 11:27:40 12/02/19 23 Cystoscopy- male completed Bala Curry MD [address] [place] [address],[address], [place], [address], [facility] 12/01/2022 17:59:36 06/03/20 22 Cystoscopy- male completed Bala Curry MD [address] [place] [address],[address], [place], [address], [facility] 06/03/2022 18:07:44 12/04/19 22 Cystoscopy- male completed Bala Curry MD [address] [place] [address],[address], [place], [address], [facility] 12/04/2021 20:59:27 12/04/19 22 Keflex post Cysto completed Bala Curry MD [address] [place] [address],[address], [place], [address], [facility] 12/03/2021 14:30:10 12/04/19 22 Cytology completed Bala Curry MD [address] [place] [address],[address], [place], [address], [facility] 12/03/2021 14:30:51 06/04/20 21 Cystoscopy- male completed Bala Curry MD [address] [place] [address],[address], [place], [address], [facility] 06/05/2021 20:55:14 06/04/20 21 Keflex post Cysto [facility] 06/04/2021 14:52:52 12/04/19 21 Cystoscopy- male completed Bala Curry MD [address] [place] [address],[address], [place], [address], [facility] 12/03/2020 15:51:18 07/30/20 20 Fill and Pull/Voiding Trial/TOV completed Nerissa Gorman [facility] 07/30/2020 12:53:30 07/18/20 20 NEPHROURETERECTO MY, HAND ASSISTED LAPAROSCOPIC (SURG) completed Alicia Medina [facility] 07/23/2020 09:18:58 06/26/20 20 Cystoscopy with foreign body/stent removal completed Bala Curry MD [address] [place] [address],[address], [place], [address], [facility] 06/27/2020 21:40:50 06/19/20 20 CYSTOSCOPY, WITH URETEROSCOPY (SURG) completed Rani Garza [facility] 06/21/2020 11:41:18 08/30/19 16 Colonoscopy completed Bala Curry MD [address] [place] [address],[address], [place], [address], [facility] 06/04/2021 14:48:59 Appendectomy completed Bala Curry MD [address] [place] [address],[address], [place], [address], [facility] 05/29/2020 17:07:20 Imaging Results Imaging Date Name Status LastModified by Organiz [facility] Details LastModified Time 06/04/2021 CT, abdomen + pelvis, w/ contrast completed [facility] [address], [place], [address], 06/05/2021 19:18:11 12/05/2021 CT, abdomen + pelvis, w/o contrast completed [facility] [address], [place], [address], 12/05/2021 12:08:02 06/03/2022 CT, abdomen + pelvis, w/o contrast [email or web address] [address] [place], [address], 2022 07:35:41 12/01/2022 CT, chest + abdomen + pelvis, w/o contrast completed [facility] [address] [place], [address], 12/10/2022 22:25:21 Procedure Notes None recorded. Medical [...] Updated DateTime 06/03/2022 177.8 cm 29.8 kg/m2 05080.21 g Bala Curry MD [address] [facility],[address], [address], [place] [facility] 06/03/2022 15:24:07 Date Recorded Body height Body mass index (BMI) Body weight Provider Name and Address Organization Details Last Updated DateTime 12/01/2022 177.8 cm 33 kg/m2 420865.25 g Monica Alcala [facility] 12/01/2022 15:25:30 Date Recorded Body height Provider Name an d Address Organization Details Last Updated DateTime 06/23/2023 177.8 cm Nerissa Gorman [facility] 06/23/2023 11:23:18 Date Recorded Body mass index (BMI) Body weight Provider Name and Address Organization Details Last Updated DateTime 06/23/2023 32 kg/m2 183550.1 g Bala Curry MD [address] [place] [address],[address] [address] [place] [address] 06/23/2023 11:28:47 Date Recorded Body height Body mass index (BMI) Body weight Provider Name and Address Organization Details Last Updated DateTime 06/04/2021 177.8 cm 29.8 kg/m2 09010.21 g Bala Curry MD [address] [place] [address],[address] [address] [place] [address] 06/04/2021 14:47:44 Date Recorded Body height Body mass index (BMI) Body weight Provider Name and Address Organization Details Last Updated DateTime 12/03/2021 177.8 cm 29.8 kg/m2 94478.21 g Bala Curry MD [address] [place] [address],[address] [address] [place] [address] 12/03/2021 14:29:16 Social History Question Answer Notes LastModified by Organizat ion Details LastModified Time Tobacco Smoking Status Former Smoker 2012 Bala Curry MD [address] [place] [address],[address], [address], [facility] 05/29/2020 17:06:47 What Is Your Level Of [...] Of Your Most Recent Tobacco Screening? 06/23/2023 [email or web address] Information not available 06/23/2023 Are You Sexually [...] quadrivalent, preservative 0 completed Bala Curry MD [address] [place] [address],[address], [place], [address] 07/30/2020 12:28:01 Past Encounters Encounter ID Performer Location Encounter Start Date Encounter Closed Date Diagnosis/Indication Diagnosis SNOMED-CT Code Diagnosis ICD10 Code Diagnosis Note [id number] MD Lia Quigley [address] [address] 05/29/2020 16:55:45 05/30/2020 09:06:49 History of malignant neoplasm of bladder 843352991 C68.9 1. Urothelial carcinoma / H/O Bladder cancer - CT urogram revealed a 1.4 cm filling defect in the Left lower pole and proximal ureter - very likely a urothelial cancer in the Left kidney - plan Cystoscopy , Left ureterosco py with possible biopsy and stent placement - risks include bleeding, infection, and stent irritation - if ureterosco py confirms cancer - he will need a Left (LEATHA) Nephrouret erectomy [id number] MD PURVI [facility] [address] [place] [address] 06/26/2020 16:07:27 06/28/2020 08:42:18 History of malignant neoplasm of bladder 183629812 C68.9 1. Urothelial carcinoma / H/O Bladder cancer - CT urogram revealed a 1.4 cm filling defect in the Left lower pole and proximal ureter - Left ureterosco py with bx revealed high grade, non-invasi ve urothelial cancer in the Left kidney - recommend Left (LEATHA) Nephrouret erectomy - risks include bleeding, infection, bowel injury, hernia, and possible recurrence [id number] Bala Curry MD [facility] [address] [place] [address] 07/30/2020 12:21:31 08/01/2020 16:33:43 Renal cell carcinoma 812694888 C64.9 1. Urothelial carcinoma - Left kidney (pT3 Nx) and bladder (Ta - high grade, superficia l) - s/p Left LEATHA nephrouret erectomy (07/18/20) - margins were negative - last TUR-BT (05/22/13)- no heavy lifting for 4 weeks- Bactrim DS BID (today)- follow-up in 3-[address] scan (abd/pelvi s) with IV dye, Cystoscopy , and urine cytology [id number] Bala Curry MD [facility] [address] [place] [address] 12/03/2020 15:06:56 12/04/2020 10:06:09 Renal cell carcinoma [id number] C64.9 1. Urothelial carcinoma - Left kidney (pT3 Nx) and bladder (Ta - high grade, superficia l) - s/p Left LEATHA nephrouret erectomy (07/18/20) - margins were negative - last TUR-BT (05/22/13) - reviewed CT scan (12/03/20) images - no metastatic disease seen - no recurrence seen in bladder - check urine cytology - follow-up in [address] scan (abd/pelvi s) with IV dye, Cystoscopy , and urine cytology Primary er ectile dysfunction [id number] N52.9 2. ED - discussed treatment options - oral medication s, MUSE, penile injections , VI, and penile prosthesis - try increasing Cialis to 20 mg pnr [id number] Bala Curry MD [facility] [address] [place] [address] 06/04/2021 14:25:23 06/06/2021 09:09:06 Renal cell carcinoma [id number] C64.9 Primary er ectile dysfunction 298620825 N52.9 2. ED - continue Cialis 20 mg prn Malignant tumor of kidney 319186274 C64.9 1. Urothelial carcinoma - Left kidney (pT3 Nx) and bladder (Ta - high grade, superficia l) - s/p Left LEATHA nephrouret erectomy (07/18/20) - margins were negative - last TUR-BT (05/22/13) - no recurrence seen in bladder - check urine cytology - reviewed CT scan (06/04/21) images - new enlarged lymph node on Left (I doubt this can be biopsied)- Oncology referral - appears to have metastatic disease - follow-up in [address] scan (abd/pelvi s) with IV dye, Cystoscopy , and urine cytology [id number] Bala Curry MD [facility] [address] [place] [address] 12/03/2021 14:20:18 12/08/2021 10:12:25 Malignant tumor of kidney [id number] C64.9 1. Urothelial carcinoma - Left kidney (pT3 Nx) and bladder (Ta - high grade, superficia l) - s/p Left LEATHA nephrouret erectomy (07/18/20) - margins were negative - last TUR-BT (05/22/13) - complete salvage XRT - (09/05/21) - no recurrence seen in bladder on Cystoscopy today - check urine cytology - reviewed CT scan (12/03/21) images - no convincing evidence of metastatic disease- has follow-up with Oncology to discuss Avelumab- follow-up in [address] scan (abd/pelvi s) with IV dye, Cystoscopy , and urine cytology Primary er ectile dysfunction 151304996 N52.9 H/O ED - continue Cialis 20 mg prn [id number] Bala Curry MD [facility] [address] [place] [address] 06/03/2022 15:14:22 06/04/2022 16:13:01 Malignant tumor of kidney [id number] C64.9 1. Urothelial carcinoma - Left kidney (pT3 Nx) and bladder (Ta - high grade, superficia l) - s/p Left LEATHA nephrouret erectomy (07/18/20) - margins were negative - last TUR-BT (05/22/13) - complete salvage XRT - (09/05/21) - no recurrence seen in bladder on Cystoscopy today - check urine cytology - reviewed CT scan (06/03/22) images - no convincing evidence of metastatic disease- has follow-up with Oncology- Follow-up in [address] scan (abd/pelvi s) withot IV dye, Cystoscopy , and urine cytology Primary er ectile dysfunction 593024388 N52.9 H/O ED - continue Cialis 20 mg prn [id number] Bala Curry MD [facility] [address] [place] [address] 12/01/2022 15:14:02 12/04/2022 12:07:05 Malignant tumor of kidney [id number] C64.9 1. Urothelial carcinoma - Left kidney (pT3 Nx) and bladder (Ta - high grade, superficia l) - s/p Left LEATHA nephrouret erectomy (07/18/20) - margins were negative - last TUR-BT (05/22/13) - complete salvage XRT - (09/05/21) - no recurrence seen in bladder on Cystoscopy today - check urine cytology - reviewed CT scan (12/01/22 images - no convincing evidence of metastatic disease - has follow-up with Oncology as scheduled- Follow-up in [address] scan (abd/pelvi s) without IV dye, Cystoscopy , and urine cytology Primary er ectile dysfunction 198320334 N52.9 H/O ED - continue Cialis 20 mg prn [id number] Bala Curry MD [facility] [address] [place] [address] 06/23/2023 11:14:57 07/05/2023 14:04:08 Malignant tumor of kidney [id number] C64.9 1. Urothelial carcinoma - Left kidney (pT3 Nx) - Bladder (Ta - high grade, superficia l)- s/p Left LEATHA nephrouret erectomy - (07/18/20) - negative margins- last TUR-BT - (05/22/13)- Salvage XRT - (completed 09/05/21)- reviewed CT scan (05/31) images - no convincing evidence of metastatic disease- Cystoscopy (06/23/23) - no tumors- follow-up schedule with Oncology as scheduled- Follow-up in 12 months with Cystoscopy and urine cytology Primary er ectile dysfunction 418645199 N52.9 H/O ED - continue Cialis 20 mg prn Health Concerns Section Related Observation LastModified by Organization Detai ls LastModified Time None Recorded Concern Status LastModified by Organization Details LastModified Time None Recorded Advance Directives Directive None Recorded Payers Encounter Date Sequence Insurance Name Policy Number Policy Zaman Covered Member ID Zaman Member ID Guarantor Name 06/04/2021 1 [employer] [id number] Reza R Koktavy [id number] Reza Liang Koktavy 12/03/2021 1 [place] [id number] Reza R Koktavy [id number] Reza Liang Koktavy 06/03/2022 1 [place] [id number] 4 Reza R Koktavy [id number] Reza Liang Koktavy 12/01/2022 1 [place] [id number] 4 Reza R Koktavy [id number] Reza Liang Koktavy 06/23/2023 1 [employer] [id number] 4 Reza Liang Koktavy [id number] 27 Reza Liang Koktavy Notes Date Note [...] metastatic disease seen Bala Curry MD [address] [facility],[address], [place], [address], [place] [facility] 06/05/2021 20:59:30 12/03/2021 text/html 66 yo [...] on Right mid-kidney (posterior) Bala Curry MD [address] [facility],[address], [place], [address], [place] - [facility] 12/04/2021 21:04:54 06/03/2022 text/html 66 yo [...] on Right mid-kidney (posterior) Bala Curry MD [address] [place] [address],[address], [place], [address], [facility] - [facility] 06/03/2022 18:09:48 12/01/2022 text/html 67 yo [...] Right mid-kidney (posterior) Bala Curry MD [address] [facility],[address], [place], [address], [facility] - [facility] 12/01/2022 18:00:48 06/23/2023 text/html 68 yo [...] - no lymphadenopathy Bala Curry MD [address] [facility],[address], [place], [address], [facility] 06/23/2023 12:05:50
[2024-10-24] MEDS: LACTATED RINGERS 1000 ML 1,000 ML IV (12:20)
[2024-10-24 12:33] LABS: Ammonia* 18.8 umol/L (13.1-30.0)
[2024-10-24 12:45] LABS: Acetaminophen* < 10.0 ug/mL (10.0-30.0)
--- NOTE | 2024-10-24 13:21 | CRLHL7_ITS ---
For Patients: As a result of the Century Cures Act, medical imaging exams and procedure reports are released immediately into your electronic medical record. You may view this report before your referring provider. If you have questions, please contact your health care provider. FINDINGS: Please see report from MRI of the brain from the same day. Dictated by Josué Arreaga MD @ 10/24/2024 6:04:02 PM (Electronically Signed)
--- NOTE | 2024-10-24 13:21 | CRLHL7_ITS ---
For Patients: As a result of the Cures Act, medical imaging exams and procedure reports are released immediately into your electronic medical record. You may view this report before your referring provider. If you have questions, please contact your health care provider. FINDINGS: Please see dictation from MR of the brain from the same day Dictated by Josué Arreaga MD @ 10/24/2024 6:03:05 PM (Electronically Signed)
--- NOTE | 2024-10-24 13:21 | CRLHL7_ITS ---
For Patients: As a result of the Century Cures Act, medical imaging exams and procedure reports are released immediately into your electronic medical record. You may view this report before your referring provider. If you have questions, please contact your health care provider. INDICATION: Confusion. Subacute stroke. COMPARISON: CT from earlier today. TECHNIQUE: MR brain: Multiplanar T1, T2, FLAIR, gradient, and diffusion weighted sequences. Post gadolinium T1 sequences. MRA head: Vctk-sj-vpyhyl MRA. 3D reconstructed images. MRA neck: Tpmp-lt-cjckvy and gadolinium bolus MRA of the neck. 3D reconstructed images. FINDINGS: MR brain: Compared to the previous CT, there is a focal area of T2/FLAIR signal hyperintensity of the right parietal christianity lobe junction extending to involve the lateral occipital lobe and posterior insula with corresponding restricted diffusion (series 3, image 35) consistent with recent, likely subacute infarct in the right MCA distribution. Similar tiny subacute infarcts along the cortex of the right frontal lobe (series 3, image 43) and right posterior parietal lobe (series 3, images 39 and 40). No evidence of hemorrhagic transformation. No midline shift. No abnormal ventricular dilatation. Basilar cisterns are patent. No other areas restricted diffusion. No susceptibility artifact of remote hemorrhage. No abnormal enhancement. Bilateral orbits are unremarkable. Normal appearing sella. Mild mucosal thickening within the paranasal sinuses. Mastoid air cells are unremarkable. MRA head Motion artifact. Bilateral carotid siphons are patent. Patent ambler of Hooker with patent right and diminutive left posterior communicating arteries. Visualized bilateral KIERRA and MCA circulations are patent with no high-grade stenosis or aneurysm. Bilateral FREELANCE DATA ENTRY circulations are patent no high-grade stenosis or aneurysm. MRA neck: No focal flow-void on vftp-lt-oiteiq MRA to suggest high-grade stenosis. Gadolinium bolus MRA demonstrates patent bilateral carotid artery circulations from the origin to the skull base. No focal stenosis. Dominant right vertebral artery is patent from the origin through the vertebrobasilar junction. No high-grade stenosis or dissection. Left vertebral artery is hypoplastic. IMPRESSION: MR brain 1. As seen on recent CT, subacute infarct in the right MCA distribution involving the right parietotemporal lobe junction, lateral occipital lobe, and posterior insula. Associated tiny subacute infarcts along the cortex of the right frontal lobe and right posterior parietal lobe. 2. No hemorrhagic transformation. 3. No other areas restricted diffusion. 4. No abnormal enhancement MRA head 1. Motion artifact. Otherwise, normal MRA head MRA neck 1. Normal MRA neck Dictated by Josué Arreaga MD @ 10/24/2024 6:02:07 PM (Electronically Signed)
[2024-10-24] MEDS: ASPIRIN EC 325 MG TABLET PO (13:40)
--- NOTE | 2024-10-24 15:24 | PM.IMHP1 ---
Hospitalist- H&P: HPI History of Present Illness Date Seen: 10/24/24 Chief complaint: Confusion Narrative: Reza Rincon JR (butch) is a 69 year old right-handed male with hypertension, hyperlipidemia, chronic kidney disease following left nephrectomy admitted through the emergency department with 4 day history of blurry vision, forgetfulness, poor balance and unstable gait. Symptoms began this past Wednesday. His daughter, Jennifer, and his significant other, Khadijah, brought him to the emergency department. Prior to the onset of these symptoms he was having upper respiratory illness symptoms starting about 2 weeks prior to admission. Symptoms have largely resolved. Patient has a history of urologic cancer. Two thousand eleven he had diagnosis of high-grade bladder cancer. Recurrences in 2012 and 2015 and 2016. In 2019 he had ongoing evidence of cancer but negative cystoscopy and underwent evaluation of the kidneys showing left urothelial kidney carcinoma stage IV. Underwent left nephrectomy June 2020. He has had chemo and radiation. Currently without evidence of recurrence. He has a history of relatively heavy daily alcohol consumption. Reporting 3-4 drinks every day for a long time. Two weeks ago he decided to stop drinking. There was no specific event that causes but he felt like it might be better for him if he did and he said ?it is expensive?. He had some tremulousness after stopping drinking but otherwise has been doing well for the last 2 weeks without drinking. Review of Systems Narrative: Patient reports his cold symptoms for last 2 weeks are largely resolved. He has chronic postprandial diarrhea for which he takes Imodium as needed. Nonbloody. He has been able to eat and drink normally recently. [facility] Medical History (Updated 10/24/24 @ 15:51 by Evin Stoll MD) Chronic kidney disease ?N18.9 - Chronic kidney disease, unspecified (ICD-10) Malignant neoplasm of left ureter (2020) ?C66.2 - Malignant neoplasm of left ureter (ICD-10) Malignant neoplasm of left kidney ?C64.2 - Malignant neoplasm of left kidney, except renal pelvis (ICD-10) Bladder cancer (11/16/12) ?C67.9 - Malignant neoplasm of bladder, unspecified (ICD-10) RASHEL (obstructive sleep apnea) ?G47.33 - Obstructive sleep apnea (adult) (pediatric) (ICD-10) White coat syndrome without diagnosis of hypertension ?R03.0 - Elevated blood-pressure reading, without diagnosis of hypertension (ICD-10) Tobacco use (04/15/10) ?Z72.0 - Tobacco use (ICD-10) Personal history of colonic polyps (04/15/10) ?Z86.010 - Personal history of colonic polyps (ICD-10) Obesity (07/02/11) ?E66.9 - Obesity, unspecified (ICD-10) Hypertension ?I10 - Essential (primary) hypertension (ICD-10) Hyperlipidemia ?E78.5 - Hyperlipidemia, unspecified (ICD-10) Erectile dysfunction (04/15/10) ?N52.9 - Male erectile dysfunction, unspecified (ICD-10) Surgical History History of total left knee replacement (10/19/23) ?Z96.652 - Presence of left artificial knee joint (ICD-10) History of bladder surgery ?Z98.890 - Other specified postprocedural states (ICD-10) H/O vasectomy ?Z98.52 - Vasectomy status (ICD-10) History of left nephrectomy ?Z90.5 - Acquired absence of kidney (ICD-10) History of appendectomy (07/02/11) ?Z90.49 - Acquired absence of other specified parts of digestive tract (ICD-10) Social History (Updated 10/24/24 @ 15:42 by Evin Stoll MD) Narrative: 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 former smoker-quit 2020. Quit drinking alcohol 2 weeks prior to admission. Prior to that 3-4 drinks per day, long-term. Khadijah-significant other. Daughter is Jennifer. He wants Khadijah and Jennifer to be healthcare power of research attorney. Code status is DNR What is your current living situation?: I presently have a place to live Problems where you live: no known problems In the past 12 months, utilities in danger of being shut off: already shut off In past 12 months, lack of transportation kept you from medical appts, meetings, work, or getting things needed for daily living: no In the past 12 mos, have been you worried that your food would run out before you had money to buy more?: never true In the past 12 mos, the food you bought just didn't last and you didn't have money to buy more?: never true Leisure activities: fishing Smoking Status: Former smoker What tobacco products do you use: cigarettes Smoking quit date/years: <= 15 years ago Do you use any of these nicotine containing products: None Second hand tobacco smoke exposure: No How often do you have a drink containing alcohol: 4 or more times a week Alcohol type: beer, wine and hard liquor How many standard drinks containing alcohol do you have on a typical day: 3 or 4 How often do you have six or more drinks on one occasion: Never AUDIT-C Alcohol total score: 5 Non-prescribed substance use: denies use Caffeine: No Are you now , , , , never or living with a partner: Social isolation score (0-1 are the most socially isolated patients): 0 How often does anyone, including family, friends and others, physically hurt you: never How often does anyone, including family, friends and others, insult or talk down to you: never How often does anyone, including family, friends and others, threaten you with harm: never How often does anyone, including family, friends and others, scream or curse at you: never Meds Home Medications and Allergies Home Medication Comments: Cialis 20 mg p.r.n., acetaminophen 500 to a 1000 p.r.n. taken less than daily. Folic acid 400 mcg daily, chlorthalidone 25 mg daily, lisinopril 10 mg daily, potassium 20 mEq daily, simvastatin 20 mg daily, NyQuil for recent cold p.r.n., Imodium p.r.n. for diarrhea Allergies Allergy/AdvReac Type Severity Reaction Status Date / Time No Known Drug Allergies Allergy Verified 10/23/24 09:21 Exam Narrative: Exam Narrative: He is alert and appears in no distress. Speech is fluent. He has normal comprehension and fluency. Head is without evidence of trauma. There is no facial asymmetry. Eyes are normal. Extraocular movements are full. No diplopia or dysconjugate gaze. Visual buenrostro are intact. Symmetric facial sensation. Oropharynx is normal. Tongue is midline. Neck is supple without mass or adenopathy. Respirations are clear to auscultation. Cardiovascular: S1, S2, regular rate and rhythm. No murmur gallop or rub. Abdomen: Bowel sounds active. Abdomen is soft without tenderness or mass. External genitalia normal. Upper extremities and lower extremities with 5/5 strength in shoulder flexion and extension, elbow flexion and extension, wrist flexion and extension, finger extension and weighing station operator strength. Also hip flexion, knee flexion and extension, ankle dorsiflexion and plantar flexion and great toe dorsiflexion are full and symmetric. Intact sensation to soft touch. [id number] is accurate and efficient. Heel-levine is normal. Reflexes are symmetric and normal. No rash. Const: Vital Signs, click to edit/add: Vital Signs - 24 hr 10/24/24 10:07 10/24/24 11:26 10/24/24 11:30 Temperature 96.6 F L Pulse Rate 74 68 Pulse Rate [Pulse Oximeter] 79 Respiratory Rate 24 15 17 Blood Pressure Blood Pressure [Ri ght Upper Arm] 108/73 Pulse Oximetry 96 94 94 Oxygen Delivery Tn thod Room Air 10/24/24 11:31 10/24/24 11:45 10/24/24 12:16 Temperature Pulse Rate 75 68 Pulse Rate [Pulse Oximeter] Respiratory Rate 25 H 18 15 Blood Pressure 123/84 Blood Pressure [Ri ght Upper Arm] Pulse Oximetry 93 94 Oxygen Delivery Tn thod 10/24/24 12:17 10/24/24 12:30 10/24/24 12:32 Temperature Pulse Rate Pulse Rate [Pulse Oximeter] Respiratory Rate 15 25 H 21 Blood Pressure 120/98 H 140/81 H Blood Pressure [Ri ght Upper Arm] Pulse Oximetry Oxygen Delivery Tn thod 10/24/24 12:33 10/24/24 13:07 10/24/24 13:09 Temperature Pulse Rate 66 Pulse Rate [Pulse Oximeter] Respiratory Rate 23 19 18 Blood Pressure 151/93 H Blood Pressure [Ri ght Upper Arm] Pulse Oximetry 98 Oxygen Delivery Tn thod Room Air 10/24/24 13:09 10/24/24 13:15 10/24/24 13:45 Temperature Pulse Rate 68 Pulse Rate [Pulse Oximeter] Respiratory Rate 20 22 14 Blood Pressure 151/93 H Blood Pressure [Ri ght Upper Arm] Pulse Oximetry 98 Oxygen Delivery Tn thod 10/24/24 14:00 Temperature Pulse Rate Pulse Rate [Pulse Oximeter] Respiratory Rate 21 Blood Pressure Blood Pressure [Ri ght Upper Arm] Pulse Oximetry Oxygen Delivery Me thod Documenting provider has reviewed patient's vital signs: yes Hospitalist - H&P: Result Labs Labs: Short CBC 10/24/24 Range/Units 11:12 WBC 8.11 (4.50-11.00) K/uL Hgb 17.2 (13.5-17.5) gm/dL Hct 49.6 (37.0-53.0) % Plt Count 172 (140-440) K/uL BMP 10/24/24 11:12 Sodium 131 L Potassium 4.5 Chloride 96 Carbon Dioxide 19 L BUN 44 H Creatinine 3.4 H Glucose 107 Calcium 9.4 Cardiac Enzymes 10/24/24 Range/Units 11:12 Troponin I 0.01 (0.01-0.04) ng/mL Liver Function 10/24/24 Range/Units 11:12 Total Bilirubin 2.0 H (0.1-1.5) mg/dL AST 66 H (12-35) U/L ALT 73 H (4-50) U/L Alkaline Phosphatase 88 (40-150) U/L Albumin 4.7 (3.3-5.0) g/dL Assessment and Plan Assessment and plan (1) Stroke: Problem comment: Likely onset [address] shows fairly large left MCA distribution infarct. No significant right-sided motor or sensory deficits. MRI, MRA and echocardiogram and ongoing monitoring planned. Status: Acute (2) Acute kidney injury: Problem comment: Baseline creatinine 1.8. On admission 3.4. Cause uncertain. Does appear to be dehydrated. Does not appear to be obstructed. Previous left nephrectomy. Given 2 L of IV fluids. Monitor creatinine and I&O and look for other causes of GUDELIA. UA UC pending Status: Acute (3) Acute confusion: Problem comment: Likely from stroke. Relatively neurologically intact when I see him Status: Acute (4) Hyperlipidemia: Problem comment: Simvastatin held due to GUDELIA eye and elevated LFTs. If LFTs and renal function improving restart statin. Status: Acute (5) Chronic kidney disease: Problem comment: Left nephrectomy and hypertension Status: Acute (6) Bladder cancer: Problem comment: Dxed 2010, Papillary urothelial carcinoma, high grade, followed by urology. In apparent remission. Status: Acute (7) Malignant neoplasm of left kidney: Problem comment: Status post left nephrectomy. In remission Status: Acute (8) Macrocytosis without anemia: Problem comment: Has been treated with folate. I suspect alcohol is the primary cause of macrocytosis Status: Acute (9) Abnormal LFTs: Problem comment: Bilirubin 2.0, AST 66, ALT 73, alk-phos 88. These are new findings. Imaging is unremarkable. Possibly due to acute liver injury. Continued to trend and monitor. Status: Acute (10) Cough: Problem comment: Recent URI has resolved Status: Acute Plan Patient admitted to the hospital for ongoing evaluation and management of stroke and acute kidney injury. Will need to monitor vital signs, initially some permissive hypertension but should be put back on normal hypertensives as blood pressure and kidney function allows. Total time spent today is 80 minutes in coordination of care, reviewing outside records, discussion with patient and other providers ongoing evaluation management of stroke and acute kidney injury
[2024-10-24 15:36] LABS: Magnesium* 1.5 mg/dL (1.5-2.6); Phosphorus* 5.3 mg/dL (2.5-4.5)
[2024-10-24 16:23] LABS: Appearance Urine Clear (Clear); Bilirubin Urine 1+ (Negative); Blood Urine Negative (Negative); Color Urine Yellow (Yellow); Glucose Urine Negative (Negative); Ketones Urine Trace (Negative); Leukocyte Esterase Urine Negative (Negative); Nitrite Urine Negative (Negative); Protein Urine Negative (Negative); Specific Gravity Urine 1.015 (1.000-1.030); Urobilinogen Urine 0.2 (0.2-1.0); pH Urine 5.5 (5.0-8.5)
[2024-10-24 16:26] LABS: RBC Urine 0-2 (0-2); WBC Urine 0-2 (0-5)
[2024-10-24] MEDS: CALCIUM CARBONATE 500 MG CHEW PO (17:45)
--- NOTE | 2024-10-24 18:58 | PC.NURSE ---
End of shift [id number] ? Pt arrived from ED at approximately 1500. Pt alert, oriented, cooperative and talkative. Up with standby assistance, denies lightheadedness or dizziness with ambulation. Reports feeling short of breath ?most of the time? but increase work of breathing not observed during or after ambulation and oxygen saturation remained 95%+ on RA. Pt denies pain, continent of bladder and bowel during shift. Family at bedside. BP measurement noted to be high on admission. MD made aware, permissive hypertension allowed per MD. Pt appears to be resting in bed at end of shift with call light within reach.
[2024-10-24] MEDS: CALCIUM ACETATE 667 MG CAPSULE PO (20:42)
[2024-10-24] MEDS: ENOXAPARIN 30 MG/0.3ML INJ SUBCUT (20:42)
[2024-10-24] MEDS: MAGNESIUM OXIDE 400 MG TABLET PO (20:42)
[2024-10-24] MEDS: SODIUM CHLORIDE 0.9 % (FLUSH) 10 ML SYRINGE 5 ML IVF (20:43)
[2024-10-25] VITALS (7 sets, daily range): BP systolic 123–164; BP diastolic 71–111; PULSE 54–98; RESP 16–18; TEMP 36–36.6; O2SAT 93–98
--- NOTE | 2024-10-25 06:37 | PC.NURSE ---
End of shift note [id number]: Pt A&Ox4 and able to make needs known. He transfers/ambulates using SBA. He is independent with repositioning in bed. Pt has been denying pain when asked. No c/o CP or N/V noted. VSS- pt has been afebrile and on RA throughout the shift. Tele in place with sinus arrhythmia noted. Pt tolerating heart healthy diet per order. Elevated B/P noted with 0300 after ambulating to & from bathroom though pt has permissive HTN in place per MD. Pt continent of bladder using toilet. Bed alarm on and call light within reach. ?
[2024-10-25 06:56] LABS: Albumin* 3.9 g/dL (3.3-5.0); Chloride* 101 mmol/L (96-114); Sodium* 132 mmol/L (135-149)
[2024-10-25 06:59] LABS: Alanine Aminotransferase* 55 U/L (4-50); Alkaline Phosphatase* 75 U/L (40-150); Anion Gap 12 mEq/L (7-15); Aspartate Amino Transferase* 42 U/L (12-35); Bilirubin Direct* 0.4 mg/dL (0.0-0.5); Bilirubin Total* 1.3 mg/dL (0.1-1.5); Blood Urea Nitrogen* 38 mg/dL (7-30); Calcium* 8.8 mg/dL (8.4-10.6); Carbon Dioxide* 19 mmol/L (20-32); Creatinine* 2.3 mg/dL (0.5-1.5); Est. Creatinine Clearance* 30.42; Estimated Glomerular Filt Rate 30 ml/min; Glucose* 89 mg/dL (60-115); Phosphorus* 4.1 mg/dL (2.5-4.5); Total Protein* 6.8 g/dL (6.0-8.3)
[2024-10-25] MEDS: FOLIC ACID 1 MG TABLET PO (08:46)
[2024-10-25] MEDS: CALCIUM ACETATE 667 MG CAPSULE PO ×3 (08:46→17:35)
[2024-10-25] MEDS: ASPIRIN 81 MG TABLET EC PO (08:46)
[2024-10-25] MEDS: MAGNESIUM OXIDE 400 MG TABLET PO ×2 (08:46→20:32)
[2024-10-25] MEDS: SODIUM CHLORIDE 0.9 % (FLUSH) 10 ML SYRINGE 5 ML IVF ×2 (08:59→20:32)
--- NOTE | 2024-10-25 10:17 | NUTR.NU ---
RDN with diet education related to current diet order. Patient admitted with concern for stroke and GUDELIA. Medical history significant for hypertension, hyperlipidemia, chronic kidney disease following left nephrectomy, and alcohol misuse however stopped drinking about 2 weeks ago. Current weight 222lb 1.6oz; height 5ft 10in; BMI 31.9 kg/m2. Per weight records, no significant change in weight recently. Current diet order is Heart Healthy. Meal intakes since admit have been adequate at 75%+. RDN visited with patient, S/O, and daughter whom reports good appetite. He does not follow a specific diet at home. He had no questions regarding a Heart Healthy diet. RDN offered diet education, however he declined at this time. Patient aware if he has any questions or concerns to let staff know. RDN will continue to monitor.
--- NOTE | 2024-10-25 14:27 | PC.NURSE ---
End of shift . Pt A&Ox3, off on date he thought it was tues. neuro eval done this am by MD. he is very pleasant. no pain . He transfers/ambulates using SBA. Tele in place with sinus arrhythmia to Sinus Jefry he is eating drinking and voiding. Echo was done and bubble study was done by [employer] and bailee/ . Bed alarm on and call light within reach. ?
--- NOTE | 2024-10-25 15:04 | PM.IMPN1 ---
Progress Note: A&P Assessment and plan (1) Stroke: Problem details: -Likely onset [address] shows fairly large right MCA distribution infarct. No significant right-sided motor or sensory deficits. MRI, MRA and echocardiogram and ongoing monitoring planned. -MR scans of head and neck demonstrate: 1. As seen on recent CT, subacute infarct in the right MCA distribution involving the right parietotemporal lobe junction, lateral occipital lobe, and posterior insula. Associated tiny subacute infarcts along the cortex of the right frontal lobe and right posterior parietal lobe. 2. No hemorrhagic transformation. 3. No other areas restricted diffusion. 4. No abnormal enhancement MRA head 1. Motion artifact. Otherwise, normal MRA head MRA neck 1. Normal MRA neck -Dr. Lara, stroke neurology, recommends aspirin 3 and 25 mg daily, Physical, Occupational, speech therapy, normotensive, simvastatin with LDL goal less than 70, A1c goal less than 7, outpatient cardiac monitoring, transthoracic echocardiogram, outpatient follow-up with stroke neurology. Status: Acute (2) Acute kidney injury: Problem details: -Baseline creatinine 1.8. On admission 3.4. Cause uncertain. Does appear to be dehydrated. Does not appear to be obstructed. Previous left nephrectomy. Given 2 L of IV fluids. Monitor creatinine and I&O and look for other causes of GUDELIA. UA UC pending -10/25/2024 creatinine down to 2.3 Status: Acute (3) Acute confusion: Problem details: Likely from stroke. Relatively neurologically intact when I see him. -seemingly confused about right and left with decreased ability for finger-nose touch on left compared to right Status: Acute (4) Hyperlipidemia: Problem details: Simvastatin held due to GUDELIA eye and elevated LFTs. If LFTs and renal function improving restart statin. Status: Acute (5) Chronic kidney disease: Problem details: Left nephrectomy and hypertension Status: Acute (6) Bladder cancer: Problem details: Dxed 2010, Papillary urothelial carcinoma, high grade, followed by urology. In apparent remission. Status: Acute (7) Malignant neoplasm of left kidney: Problem details: Status post left nephrectomy. In remission Status: Acute (8) Macrocytosis without anemia: Problem details: Has been treated with folate. I suspect alcohol is the primary cause of macrocytosis Status: Acute (9) Abnormal LFTs: Problem details: Bilirubin 2.0, AST 66, ALT 73, alk-phos 88. These are new findings. Imaging is unremarkable. Possibly due to acute liver injury. Continued to trend and monitor. Status: Acute (10) Cough: Problem details: Recent URI has resolved Status: Acute Subjective Date Seen: 10/25/24 Exam Const: Vital Signs, click to edit/add: Vital Signs - 24 hr 10/24/24 17:02 10/24/24 17:17 10/24/24 19:41 Temperature 98.1 F Pulse Rate Pulse Rate [Pulse Oximeter] 78 64 Respiratory Rate 20 20 20 Blood Pressure [Le ft Arm] 165/118 H 123/69 Pulse Oximetry 100 100 100 Oxygen Delivery Me thod Room Air Room Air Room Air 10/24/24 22:32 10/24/24 23:00 10/24/24 23:00 Temperature 98.3 F Pulse Rate 84 Pulse Rate [Pulse Oximeter] 61 61 Respiratory Rate 18 18 Blood Pressure [Le ft Arm] 112/65 Pulse Oximetry 93 Oxygen Delivery Me thod Room Air 10/25/24 02:23 10/25/24 07:03 10/25/24 07:30 Temperature 97.7 F 97.9 F Pulse Rate 55 L Pulse Rate [Pulse Oximeter] 54 L 78 Respiratory Rate 16 16 Blood Pressure [Le ft Arm] 164/97 H 151/97 H Pulse Oximetry 97 96 Oxygen Delivery Me thod Room Air Room Air 10/25/24 07:30 10/25/24 11:55 Temperature 97.5 F L Pulse Rate Pulse Rate [Pulse Oximeter] 78 98 Respiratory Rate 16 18 Blood Pressure [Le ft Arm] 135/98 H Pulse Oximetry 93 Oxygen Delivery Me thod Room Air Labs Labs: Laboratory Results - last 24 hr 10/24/24 10/24/24 10/24/24 11:12 15:16 16:14 Sodium Potassium Chloride Carbon Dioxide Anion Gap BUN Creatinine Estimated Creat Clear Estimated GFR Glucose Calcium Phosphorus 5.3 H Magnesium 1.5 Total Bilirubin Direct Bilirubin AST ALT Alkaline Phosphatase Total Protein Albumin Urine Color Yellow Urine Appearance Urine pH Ur Specific Carman Urine Protein Urine Glucose (UA) Urine Ketones Urine Blood Urine Nitrite Urine Bilirubin Urine Urobilinogen Ur Leukocyte Esterase Urine RBC Urine WBC Ur Squamous Epith Cells Urine Bacteria Lab Acknowledgement Test Added 10/24/24 10/24/24 10/24/24 16:14 16:14 16:14 Sodium Potassium Chloride Carbon Dioxide Anion Gap BUN Creatinine Estimated Creat Clear Estimated GFR Glucose Calcium Phosphorus Magnesium Total Bilirubin Direct Bilirubin AST ALT Alkaline Phosphatase Total Protein Albumin Urine Color Cancelled Urine Appearance Clear Cancelled Urine pH 5.5 Cancelled Ur Specific Carman 1.015 Urine Protein Urine Glucose (UA) Urine Ketones Urine Blood Urine Nitrite Urine Bilirubin Urine Urobilinogen Ur Leukocyte Esterase Urine RBC Urine WBC Ur Squamous Epith Cells Urine Bacteria Lab Acknowledgement 10/24/24 10/24/24 10/24/24 16:14 16:14 16:14 Sodium Potassium Chloride Carbon Dioxide Anion Gap BUN Creatinine Estimated Creat Clear Estimated GFR Glucose Calcium Phosphorus Magnesium Total Bilirubin Direct Bilirubin AST ALT Alkaline Phosphatase Total Protein Albumin Urine Color Urine Appearance Urine pH Ur Specific Carman Cancelled Urine Protein Negative Cancelled Urine Glucose (UA) Negative Cancelled Urine Ketones Trace A Urine Blood Urine Nitrite Urine Bilirubin Urine Urobilinogen Ur Leukocyte Esterase Urine RBC Urine WBC Ur Squamous Epith Cells Urine Bacteria Lab Acknowledgement 10/24/24 10/24/24 10/24/24 16:14 16:14 16:14 Sodium Potassium Chloride Carbon Dioxide Anion Gap BUN Creatinine Estimated Creat Clear Estimated GFR Glucose Calcium Phosphorus Magnesium Total Bilirubin Direct Bilirubin AST ALT Alkaline Phosphatase Total Protein Albumin Urine Color Urine Appearance Urine pH Ur Specific Carman Urine Protein Urine Glucose (UA) Urine Ketones Cancelled Urine Blood Negative Cancelled Urine Nitrite Negative Cancelled Urine Bilirubin 1+ A Urine Urobilinogen Ur Leukocyte Esterase Urine RBC Urine WBC Ur Squamous Epith Cells Urine Bacteria Lab Acknowledgement 10/24/24 10/24/24 10/24/24 16:14 16:14 16:14 Sodium Potassium Chloride Carbon Dioxide Anion Gap BUN Creatinine Estimated Creat Clear Estimated GFR Glucose Calcium Phosphorus Magnesium Total Bilirubin Direct Bilirubin AST ALT Alkaline Phosphatase Total Protein Albumin Urine Color Urine Appearance Urine pH Ur Specific Carman Urine Protein Urine Glucose (UA) Urine Ketones Urine Blood Urine Nitrite Urine Bilirubin Cancelled Urine Urobilinogen 0.2 Cancelled Ur Leukocyte Esterase Negative Cancelled Urine RBC 0-2 Urine WBC 0-2 Ur Squamous Epith Cells None Urine Bacteria None Lab Acknowledgement 10/25/24 05:31 Sodium 132 L Potassium 4.0 Chloride 101 Carbon Dioxide 19 L Anion Gap 12 BUN 38 H Creatinine 2.3 H Estimated Creat Clear 30.42 Estimated GFR 30 Glucose 89 Calcium 8.8 Phosphorus 4.1 Magnesium Total Bilirubin 1.3 Direct Bilirubin 0.4 AST 42 H ALT 55 H Alkaline Phosphatase 75 Total Protein 6.8 Albumin 3.9 Urine Color Urine Appearance Urine pH Ur Specific Carman Urine Protein Urine Glucose (UA) Urine Ketones Urine Blood Urine Nitrite Urine Bilirubin Urine Urobilinogen Ur Leukocyte Esterase Urine RBC Urine WBC Ur Squamous Epith Cells Urine Bacteria Lab Acknowledgement
--- NOTE | 2024-10-25 15:16 | P.IMPN_ITS ---
Progress Note: A&P Assessment and plan (1) Stroke: Problem details: -Likely onset [address] shows fairly large right MCA distribution infarct. No significant right-sided motor or sensory deficits. MRI, MRA and echocardiogram and ongoing monitoring planned. -MR scans of head and neck demonstrate: 1. As seen on recent CT, subacute infarct in the right MCA distribution involving the right parietotemporal lobe junction, lateral occipital lobe, and posterior insula. Associated tiny subacute infarcts along the cortex of the right frontal lobe and right posterior parietal lobe. 2. No hemorrhagic transformation. 3. No other areas restricted diffusion. 4. No abnormal enhancement MRA head 1. Motion artifact. Otherwise, normal MRA head MRA neck 1. Normal MRA neck -Dr. Lara, stroke neurology, recommends aspirin 3 and 25 mg daily, Physical, Occupational, speech therapy, normotensive, simvastatin with LDL goal less than 70, A1c goal less than 7, outpatient cardiac monitoring, transthoracic echocardiogram, outpatient follow-up with stroke neurology. Status: Acute (2) Alcohol use disorder: Problem details: -10/25/24: Was consuming at least three 12 oz servings of whiskey daily until he quit 2 weeks ago, because it is too expensive. Claims he does not want to drink alcoholic beverages any longer. Pre-contemplative about obtaining help such as AA, counseling, outpatient or inpatient treatment. Status: Acute (3) Abnormal LFTs: Problem details: Bilirubin 2.0, AST 66, ALT 73, alk-phos 88. These are new findings. Imaging is unremarkable. Possibly due to acute liver injury. Continued to trend and monitor. Status: Acute (4) Acute confusion: Problem details: Likely from stroke. Relatively neurologically intact when I see him. -seemingly confused about right and left with decreased ability for finger-nose touch on left compared to right Status: Acute (5) Hyperlipidemia: Problem details: Simvastatin held due to GUDELIA eye and elevated LFTs. If LFTs and renal function improving restart statin. Status: Acute (6) Hypertension: Problem details: Chlorthalidone and lisinopril held due to GUDELIA and acute stroke. Status: Acute (7) Bladder cancer: Problem details: Dxed 2010, Papillary urothelial carcinoma, high grade, followed by urology. In apparent remission. Status: Acute (8) Malignant neoplasm of left kidney: Problem details: Status post left nephrectomy. In remission Status: Acute (9) Acute kidney injury: Problem details: -Baseline creatinine 1.8. On admission 3.4. Cause uncertain. Does appear to be dehydrated. Does not appear to be obstructed. Previous left nephrectomy. Given 2 L of IV fluids. Monitor creatinine and I&O and look for other causes of GUDELIA. UA UC pending -10/25/2024 creatinine down to 2.3 Status: Acute Plan 1. Reviewed impression and recommendations with patient, , daughter 2. Answered their questions 3. They are agreeable with above stated plan recommendations Time Spent With Patient Total time spent: 45 minutes Subjective Date Seen: 10/25/24 Interval history: Admission history of present illness: ?69 year old right-handed male with hypertension, hyperlipidemia, chronic kidney disease following left nephrectomy admitted through the emergency department with 4 day history of blurry vision, forgetfulness, poor balance and unstable gait. Symptoms began this past Wednesday. His daughter, Jennifer, and his significant other, Khadijah, brought him to the emergency department. Prior to the onset of these symptoms he was having upper respiratory illness symptoms starting about 2 weeks prior to admission. Symptoms have largely resolved. Patient has a history of urologic cancer. Two thousand eleven he had diagnosis of high-grade bladder cancer. Recurrences in 2012 and 2015 and 2016. In 2019 he had ongoing evidence of cancer but negative cystoscopy and underwent evaluation of the kidneys showing left urothelial kidney carcinoma stage IV. Underwent left nephrectomy June 2020. He has had chemo and radiation. Currently without evidence of recurrence. He has a history of relatively heavy daily alcohol consumption. Reporting 3-4 drinks every day for a long time. Two weeks ago he decided to stop drinking. There was no specific event that causes but he felt like it might be better for him if he did and he said ?it is expensive?. He had some tremulousness after stopping drinking but otherwise has been doing well for the last 2 weeks without drinking.? 10/25/2024: Hospital day 2. Patient and family note that he is less confused. He indicates he feels better. He wonders when he can go home. As nearly as he can tell he thinks he is getting closer to being back to baseline. Denies fevers, rigors, diaphoresis. Denies myalgias or arthralgias. States the alcohol withdrawal tremulousness that he previously had his resolved. Has baseline level of tremors which is different from the increased tremulousness and sweating he had when he was having alcohol withdrawals. Exam Narrative: Exam Narrative: I examine him in his hospital room with his and daughter present. Friendly and cooperative. Samanta Noonan of about his alcohol use some consumption. States he has no desire to consume alcohol hereafter. Decreased ability discern between right and left when following my instructions. Decreased ability to have accurate [id number] on left upper extremity compared to right. More clumsy on the left compared to the right with finger tip touching. Normal rapid alternating movement of upper and lower extremities. Decreased peripheral vision on left compared to right. Lungs are clear to auscultation. Heart tones with regular rhythm. Abdomen benign. Independent with transfer, and station. Const: Vital Signs, click to edit/add: Vital Signs - 24 hr 10/24/24 17:02 10/24/24 17:17 10/24/24 19:41 Temperature 98.1 F Pulse Rate Pulse Rate [Pulse Oximeter] 78 64 Respiratory Rate 20 20 20 Blood Pressure [Le ft Arm] 165/118 H 123/69 Pulse Oximetry [address] thod Room Air Room Air Room Air 10/24/24 22:32 10/24/24 23:00 10/24/24 23:00 Temperature 98.3 F Pulse Rate 84 Pulse Rate [Pulse Oximeter] 61 61 Respiratory Rate 18 18 Blood Pressure [Le ft Arm] 112/65 Pulse [facility]xim[facility] 10/25/24 02:23 10/25/24 07:03 10/25/24 07:30 Temperature 97.7 F 97.9 F Pulse Rate 55 L Pulse Rate [Pulse Oximeter] 54 L 78 Respiratory Rate 16 16 Blood Pressure [Le ft Arm] 164/97 H 151/97 H Pulse Oximetry 97 [facility] 10/25/24 07:30 10/25/24 11:55 Temperature 97.5 F L Pulse Rate Pulse Rate [Pulse Oximeter] 78 98 Respiratory Rate 16 18 Blood Pressure [Le ft Arm] 135/98 H Pulse Oximetry [address] thod Room Air Labs Labs: Laboratory Results - last 24 hr 10/24/24 10/24/24 10/24/24 11:12 15:16 16:14 Sodium Potassium Chloride Carbon Dioxide Anion Gap BUN Creatinine Estimated Creat Clear Estimated GFR Glucose Calcium Phosphorus 5.3 H Magnesium 1.5 Total Bilirubin Direct Bilirubin AST ALT Alkaline Phosphatase Total Protein Albumin Urine Color Yellow Urine Appearance Urine pH Ur Specific [place] Urine Protein Urine Glucose (UA) Urine Ketones Urine Blood Urine Nitrite Urine Bilirubin Urine Urobilinogen Ur Leukocyte Esterase Urine RBC Urine WBC Ur Squamous Epith Cells Urine Bacteria Lab Acknowledgement Test Added 10/24/24 10/24/24 10/24/24 16:14 16:14 16:14 Sodium Potassium Chloride Carbon Dioxide Anion Gap BUN Creatinine Estimated Creat Clear Estimated GFR Glucose Calcium Phosphorus Magnesium Total Bilirubin Direct Bilirubin AST ALT Alkaline Phosphatase Total Protein Albumin Urine Color Cancelled Urine Appearance Clear Cancelled Urine pH 5.5 Cancelled Ur Specific [place] 1.015 Urine Protein Urine Glucose (UA) Urine Ketones Urine Blood Urine Nitrite Urine Bilirubin Urine Urobilinogen Ur Leukocyte Esterase Urine RBC Urine WBC Ur Squamous Epith Cells Urine Bacteria Lab Acknowledgement 10/24/24 10/24/24 10/24/24 16:14 16:14 16:14 Sodium Potassium Chloride Carbon Dioxide Anion Gap BUN Creatinine Estimated Creat Clear Estimated GFR Glucose Calcium Phosphorus Magnesium Total Bilirubin Direct Bilirubin AST ALT Alkaline Phosphatase Total Protein Albumin Urine Color Urine Appearance Urine pH Ur Specific [place] Cancelled Urine Protein Negative Cancelled Urine Glucose (UA) Negative Cancelled Urine Ketones Trace A Urine Blood Urine Nitrite Urine Bilirubin Urine Urobilinogen Ur Leukocyte Esterase Urine RBC Urine WBC Ur Squamous Epith Cells Urine Bacteria Lab Acknowledgement 10/24/24 10/24/24 10/24/24 16:14 16:14 16:14 Sodium Potassium Chloride Carbon Dioxide Anion Gap BUN Creatinine Estimated Creat Clear Estimated GFR Glucose Calcium Phosphorus Magnesium Total Bilirubin Direct Bilirubin AST ALT Alkaline Phosphatase Total Protein Albumin Urine Color Urine Appearance Urine pH Ur Specific [place] Urine Protein Urine Glucose (UA) Urine Ketones Cancelled Urine Blood Negative Cancelled Urine Nitrite Negative Cancelled Urine Bilirubin 1+ A Urine Urobilinogen Ur Leukocyte Esterase Urine RBC Urine WBC Ur Squamous Epith Cells Urine Bacteria Lab Acknowledgement 10/24/24 10/24/24 10/24/24 16:14 16:14 16:14 Sodium Potassium Chloride Carbon Dioxide Anion Gap BUN Creatinine Estimated Creat Clear Estimated GFR Glucose Calcium Phosphorus Magnesium Total Bilirubin Direct Bilirubin AST ALT Alkaline Phosphatase Total Protein Albumin Urine Color Urine Appearance Urine pH Ur Specific [place] Urine Protein Urine Glucose (UA) Urine Ketones Urine Blood Urine Nitrite Urine Bilirubin Cancelled Urine Urobilinogen 0.2 Cancelled Ur Leukocyte Esterase Negative Cancelled Urine RBC 0-2 Urine WBC 0-2 Ur Squamous Epith Cells None Urine Bacteria None Lab Acknowledgement 10/25/24 05:31 Sodium 132 L Potassium 4.0 Chloride 101 Carbon Dioxide 19 L Anion Gap 12 BUN 38 H Creatinine 2.3 H Estimated Creat Clear 30.42 Estimated GFR 30 Glucose 89 Calcium 8.8 Phosphorus 4.1 Magnesium Total Bilirubin 1.3 Direct Bilirubin 0.4 AST 42 H ALT 55 H Alkaline Phosphatase 75 Total Protein 6.8 Albumin 3.9 Urine Color Urine Appearance Urine pH Ur Specific [place] Urine Protein Urine Glucose (UA) Urine Ketones Urine Blood Urine Nitrite Urine Bilirubin Urine Urobilinogen Ur Leukocyte Esterase Urine RBC Urine WBC Ur Squamous Epith Cells Urine Bacteria Lab Acknowledgement
[2024-10-25] MEDS: FAMOTIDINE 20 MG TABLET PO (17:35)
[2024-10-25] MEDS: ENOXAPARIN 30 MG/0.3ML INJ SUBCUT (20:32)
[2024-10-26 00:20] VITALS: BP 162/98; PULSE 54; RESP 20; TEMP 36.8; O2SAT 96
[2024-10-26 06:44] LABS: Chloride* 101 mmol/L (96-114); Sodium* 134 mmol/L (135-149)
[2024-10-26 06:46] LABS: Anion Gap 11 mEq/L (7-15); Bilirubin Direct* 0.3 mg/dL (0.0-0.5); Bilirubin Total* 1.2 mg/dL (0.1-1.5); Blood Urea Nitrogen* 34 mg/dL (7-30); Carbon Dioxide* 22 mmol/L (20-32); Cholesterol* 171 mg/dL (90-199); Creatinine* 1.8 mg/dL (0.5-1.5); Est. Creatinine Clearance* 38.87; Estimated Glomerular Filt Rate 40 ml/min; Glucose* 98 mg/dL (60-115); Total Protein* 7.1 g/dL (6.0-8.3)
[2024-10-26 06:47] LABS: Alanine Aminotransferase* 64 U/L (4-50); Alkaline Phosphatase* 76 U/L (40-150); Aspartate Amino Transferase* 51 U/L (12-35); Calcium* 9.1 mg/dL (8.4-10.6); HDL Cholesterol* 48 mg/dL (>=40); LDL Cholesterol Calculated 94 mg/dL (<100); Triglycerides* 147 mg/dL (40-149)
--- NOTE | 2024-10-26 06:59 | PC.NURSE ---
End of shift summary: Pt has been A&O, afebrile and VSS overnight. He is up independently in the room with a steady gait. Baseline tremor noted to bilateral hands. Pt has no c/o pain, nausea or dizziness. PIV in right AC intact & tender per pt. TELE read SB rate in the 40s-50s. Neuro checks unremarkable besides tremor. Pt is hopeful on discharging home today 10/26. ?
[2024-10-26 07:00] VITALS: BP 155/98; PULSE 50; PULSE 67; RESP 16; TEMP 36.7; O2SAT 99
[2024-10-26] MEDS: SIMVASTATIN 20 MG TABLET PO (08:44)
[2024-10-26] MEDS: ASPIRIN 81 MG TABLET EC PO (08:44)
[2024-10-26] MEDS: FOLIC ACID 1 MG TABLET PO (08:44)
[2024-10-26] MEDS: MAGNESIUM OXIDE 400 MG TABLET PO (08:45)
[2024-10-26] MEDS: CALCIUM ACETATE 667 MG CAPSULE PO (08:45)
--- NOTE | 2024-10-26 15:23 | PC.NURSE ---
The patient discharged with ziopatch on... instructions were given. All other discharge instructions were reviewed and questions were answered. Lexus AGOSTO BSN
--- NOTE | 2024-10-26 16:32 | PM.DS1 ---
DS: Providers Provider Date Seen: 10/26/24 Date of admission: 10/24/24 15:44 Primary care physician: Dmitri Silverio MD Admitting Clinician: Evin Stoll MD Consults: 10/24/24 15:13 Consult to Occupational Therapy [CONS] Routine Comment: Reason(s) for OT Consult:: Evaluate and Treat Any Restrictions?:: No Restrictions Consult to Physical Therapy [CONS] Routine Comment: Reason(s) for PT Consult:: Evaluate and Treat Any Restrictions?:: No Restrictions Consult to [employer] [CONS] Routine Comment: Reason for Consult:: Discharge Planning Needs 10/25/24 09:04 Consult to Speech Therapy [CONS] Routine Comment: Reason(s) for Speech Consult:: Speech/Swallowing Eval Comment: new, subacute right MCA distribution stroke Attending Physician on discharge: Brett Maciel MD Date of Discharge: 10/26/24 DS: Diagnosis Discharge Diagnosis (1) Acute confusion: Status: Acute Problem details: -Likely from stroke. Relatively neurologically on 1st admission -seemingly confused about right and left with decreased ability for finger-nose touch on left compared to right -back to baseline on 10/25/2024 (2) Stroke: Status: Acute Problem details: -Likely onset [address] shows fairly large right MCA distribution infarct. No significant right-sided motor or sensory deficits. MRI, MRA and echocardiogram and ongoing monitoring planned. -MR scans of head and neck demonstrate: 1. As seen on recent CT, subacute infarct in the right MCA distribution involving the right parietotemporal lobe junction, lateral occipital lobe, and posterior insula. Associated tiny subacute infarcts along the cortex of the right frontal lobe and right posterior parietal lobe. 2. No hemorrhagic transformation. 3. No other areas restricted diffusion. 4. No abnormal enhancement MRA head 1. Motion artifact. Otherwise, normal MRA head MRA neck 1. Normal MRA neck -Dr. Lara, stroke neurology, recommends aspirin 3 and 25 mg daily, Physical, Occupational, speech therapy, normotensive, simvastatin with LDL goal less than 70, A1c goal less than 7, outpatient cardiac monitoring, transthoracic echocardiogram, outpatient follow-up with stroke neurology. (3) Alcohol use disorder: Status: Acute Problem details: -10/25/24: Was consuming at least three 12 oz servings of whiskey daily until he quit 2 weeks ago, because it is too expensive. Claims he does not want to drink alcoholic beverages any longer. Pre-contemplative about obtaining help such as AA, counseling, outpatient or inpatient treatment. (4) Abnormal LFTs: Status: Acute Problem details: Bilirubin 2.0, AST 66, ALT 73, alk-phos 88. These are new findings. Imaging is unremarkable. Possibly due to acute liver injury. Continued to trend and monitor. (5) Acute kidney injury: Status: Acute Problem details: -Baseline creatinine 1.8. On admission 3.4. Cause uncertain. Does appear to be dehydrated. Does not appear to be obstructed. Previous left nephrectomy. Given 2 L of IV fluids. Monitor creatinine and I&O and look for other causes of GUDELIA. UA UC pending -10/25/2024 creatinine down to 2.3 (6) Macrocytosis without anemia: Status: Acute Problem details: Has been treated with folate. I suspect alcohol is the primary cause of macrocytosis (7) Hypertension: Status: Acute Problem details: Chlorthalidone and lisinopril held due to GUDELIA and acute stroke. (8) Bladder cancer: Status: Acute Problem details: Dxed 2010, Papillary urothelial carcinoma, high grade, followed by urology. In apparent remission. (9) Malignant neoplasm of left kidney: Status: Acute Problem details: Status post left nephrectomy. In remission DS: Summary Hospital Course Hospital Course: Admission history of present illness: ?69 year old right-handed male with hypertension, hyperlipidemia, chronic kidney disease following left nephrectomy admitted through the emergency department with 4 day history of blurry vision, forgetfulness, poor balance and unstable gait. Symptoms began this past Wednesday. His daughter, Jennifer, and his significant other, Khadijah, brought him to the emergency department. Prior to the onset of these symptoms he was having upper respiratory illness symptoms starting about 2 weeks prior to admission. Symptoms have largely resolved. Patient has a history of urologic cancer. Two thousand eleven he had diagnosis of high-grade bladder cancer. Recurrences in 2012 and 2015 and 2016. In 2019 he had ongoing evidence of cancer but negative cystoscopy and underwent evaluation of the kidneys showing left urothelial kidney carcinoma stage IV. Underwent left nephrectomy June 2020. He has had chemo and radiation. Currently without evidence of recurrence. He has a history of relatively heavy daily alcohol consumption. Reporting 3-4 drinks every day for a long time. Two weeks ago he decided to stop drinking. There was no specific event that causes but he felt like it might be better for him if he did and he said ?it is expensive?. He had some tremulousness after stopping drinking but otherwise has been doing well for the last 2 weeks without drinking.? As noted above his condition improved substantially within a relatively short period of time. MR scan demonstrated subacute strokes as specified. Follow-up plan as specified. Time Spent with Patient Time attestation: Total time spent providing and/or coordinating discharge services: Exam Narrative: Exam Narrative: I examine him in his hospital room with his and daughter present. Friendly and cooperative. Samanta Saran of about his alcohol use some consumption. States he has no desire to consume alcohol hereafter. Decreased ability discern between right and left when following my instructions. Decreased ability to have accurate [id number] on left upper extremity compared to right. More clumsy on the left compared to the right with finger tip touching. Normal rapid alternating movement of upper and lower extremities. Decreased peripheral vision on left compared to right. Lungs are clear to auscultation. Heart tones with regular rhythm. Abdomen benign. Independent with transfer, and station. Const: Vital Signs, click to edit/add: Vital Signs - 24 hr 10/25/24 19:00 10/25/24 23:00 10/26/24 00:20 Temperature 96.8 F L Pulse Rate 56 L Pulse Rate [Pulse Oximeter] 60 54 L Respiratory Rate 18 20 Blood Pressure [Le ft Arm] 123/71 Pulse Oximetry 98 Oxygen Delivery Me thod Room Air 10/26/24 00:20 10/26/24 07:00 10/26/24 07:00 Temperature 98.3 F 98.0 F Pulse Rate 67 Pulse Rate [Pulse Oximeter] 54 L 50 L Respiratory Rate 20 16 Blood Pressure [Le ft Arm] 162/98 H 155/98 H Pulse Oximetry 96 99 Oxygen Delivery Me thod Room Air Room Air DS: Data Data Completed and Pending Labs on day of discharge: Labs from last 24 hours 10/26/24 05:42 Sodium 134 L Potassium 4.0 Chloride 101 Carbon Dioxide 22 Anion Gap 11 BUN 34 H Creatinine 1.8 H Estimated Creat Clear 38.87 Estimated GFR 40 Glucose 98 Calcium 9.1 Total Bilirubin 1.2 Direct Bilirubin 0.3 AST 51 H ALT 64 H Alkaline Phosphatase 76 Total Protein 7.1 Albumin 4.0 Triglycerides 147 Cholesterol 171 LDL Cholesterol, Calc 94 HDL Cholesterol 48 Preliminary micro results at discharge 10/24/24 11:12 Blood Culture - Preliminary Blood NO GROWTH AFTER 48 HOURS Imaging MR Brain: Radiologist's impression: IMPRESSION: MR brain 1. As seen on recent CT, subacute infarct in the right MCA distribution involving the right parietotemporal lobe junction, lateral occipital lobe, and posterior insula. Associated tiny subacute infarcts along the cortex of the right frontal lobe and right posterior parietal lobe. 2. No hemorrhagic transformation. 3. No other areas restricted diffusion. 4. No abnormal enhancement MRA head 1. Motion artifact. Otherwise, normal MRA head MRA neck 1. Normal MRA neck Discharge Plan Discharge Disposition: Home, Self-Care Date of Admission: 10/24/24 15:44 Attending Provider on Discharge: Brett Maciel Primary Care Provider: Dmitri Silverio Condition: Stable Anticipated Discharge Date/Time: 10/26/24 12:30 Discharge Medications: New aspirin 81 mg Tablet,Delayed Release (Dr/Ec) 81 mg PO DAILY 30 Days Qty: 100 1RF calcium acetate(phosphat bind) 667 mg Capsule 667 mg PO TIDWM 30 Days Qty: 90 0RF Continued tadalafil 20 mg tablet 20 mg PO DAILY PRN (Reason: sexual activity) Qty: 10 11RF chlorthalidone 25 mg tablet 25 mg PO DAILY Qty: 90 3RF simvastatin 20 mg tablet 20 mg PO DAILY Qty: 90 3RF folic acid 400 mcg tablet 0.4 mg PO QDAY Qty: 90 1RF Rx Instructions: Take once daily to replace folate. loperamide 2 mg capsule 2 mg PO Q6H PRN potassium chloride 20 mEq tablet,ER particles/crystals 10 meq PO DAILY lisinopril 10 mg tablet 10 mg PO DAILY Discharge Orders: Discharge Order (Routine); Ordered 10/26/24 Ordered By: Brett Maciel Patient Education: Aspirin (By mouth), Calcium Acetate (By mouth), Ischemic Stroke (DC), Self Care Measures After a Stroke (DC), Right Hemispheric Stroke (DC), Zio (Home Heart Monitor) Additional Instructions: 1. Zio patch for 14 days 2. follow-up with primary care physician in 5-10 days, to set up outpatient stroke neuro consultation and determine when can return to work safely 3. Occupational and Speech therapy outpatient evaluation and treatment s/p Right MCA stroke 4. No driving for a minimum of 1 month, to be determined by primary care physician 5. Lifelong sobriety efforts, including AA, counseling, outpatient treatment options 6. Lifelong tobacco free Activity Level: Activity as Tolerated Discharge Diet: Heart Healthy (2 gm sodium, low fat) Follow Up Appointments: Dmitri Silverio MD [Primary Care Provider] - 11/02/24 10:30 am (Follow up [facility] [place]) Forms: Pins Info Instructions
== END 2024-10-26 13:34 | disposition home or self-care (01) | DRG 65 ==
LOC: ED 14:18 → MEDSURG 14:56
PROVIDERS: Internal Medicine; Admitting Provider Family Medicine; Emergency Provider Emergency Medicine; PCP Family Medicine; Visit Provider Family Medicine
DX: I63.511 Cerebral infarction due to unspecified occlusion or stenosis of right middle cerebral artery (principal); F05 Delirium due to known physiological condition; N17.9 Acute kidney failure, unspecified; I12.9 Hypertensive chronic kidney disease with stage 1 through stage 4 chronic kidney disease, or unspecified chronic kidney disease; N18.32 Chronic kidney disease, stage 3b; J06.9 Acute upper respiratory infection, unspecified; E86.0 Dehydration; F10.10 Alcohol abuse, uncomplicated; G47.33 Obstructive sleep apnea (adult) (pediatric); R00.0 Tachycardia, unspecified; R94.5 Abnormal results of liver function studies; E66.9 Obesity, unspecified; K21.9 Gastro-esophageal reflux disease without esophagitis; R40.2142 Coma scale, eyes open, spontaneous, at arrival to emergency department; R40.2252 Coma scale, best verbal response, oriented, at arrival to emergency department; R40.2362 Coma scale, best motor response, obeys commands, at arrival to emergency department; D75.89 Other specified diseases of blood and blood-forming organs; Z85.51 Personal history of malignant neoplasm of bladder; Z85.528 Personal history of other malignant neoplasm of kidney; Z90.5 Acquired absence of kidney; E78.5 Hyperlipidemia, unspecified; Z87.891 Personal history of nicotine dependence; Z68.31 Body mass index [BMI] 31.0-31.9, adult
CPT/HCPCS: 36415; 51798; 70450; 70544; 70549; 70553; 71046; 74176; 80048; 80053; 80061; 80076; 80143; 81001; 81003; 82077; 82140; 82803; 83605; 83690; 83735; 84100; 84484; 85025; 87040; 87086; 87631; 93005; 93246; 93306; 96125; 97110; 97116; 97129; 97130; 97161; 97165; 97530; 97535; 99285; G0427; A9270; A9575; J1650; J7030; J7120

== ENCOUNTER 2024-11-29 13:45 | Outpatient (RCR) | payer OTHER, SELFPAY ==
--- NOTE | 2024-10-30 14:28 | SLP.EVAL ---
MIKEY Herron Start: 10/30/24 12:27 Freq: Status: Active Protocol: Document 10/30/24 12:28 AMBIKA (Rec: 10/30/24 14:19 AMBIKA [id number]) E-signed By Raj Iniguez, MIKEY SMALL PARTS ASSEMBLER System Review History & Reason For Referral Type of Speech Evaluation Cognition Rehabilitation Order Evaluation and Treat Date of Order 10/26/24 Reason for Referral Cognitive changes after stroke Onset Date Of Patient's Problem 10/24/26 Medical Diagnosis Right MCA CVA Treatment Diagnosis Cognitive deficits Pertinent Medical History Per provider Reza Glover (butch)lamberto GUARDADO is a 69 year old right-handed male with hypertension, hyperlipidemia, chronic kidney disease following left nephrectomy admitted through the emergency department with 4 day history of blurry vision, forgetfulness, poor balance and unstable gait. Symptoms began this past Wednesday. His daughter, Jennifer, and his significant other, Khadijah, brought him to the emergency department. Prior to the onset of these symptoms he was having upper respiratory illness symptoms starting about 2 weeks prior to admission. Symptoms have largely resolved. Patient has a history of urologic cancer. Two thousand eleven he had diagnosis of high-grade bladder cancer. Recurrences in 2012 and 2015 and 2016. In 2019 he had ongoing evidence of cancer but negative cystoscopy and underwent evaluation of the kidneys showing left urothelial kidney carcinoma stage IV. Underwent left nephrectomy June 2020. He has had chemo and radiation. Currently without evidence of recurrence. He has a history of relatively heavy daily alcohol consumption. Reporting 3-4 drinks every day for a long time. Two weeks ago he decided to stop drinking. There was no specific event that causes but he felt like it might be better for him if he did and he said ?it is expensive?. He had some tremulousness after stopping drinking but otherwise has been doing well for the last 2 weeks without drinking. Patient was seen in the hospital by PT, OT and ST. Medications Reviewed. Pain Pain Location & Comments Patient reports no pain. Hearing Information Hearing Status Hearing aid. Vision Information Vision Status Glasses Patient Orientation Orientation & Mental Status A&Ox4 SMALL [employer]S ASSEMBLER Initial Assessment/POC Subjective Information Subjective/Pain Comment Patient feels that he has made significant improvements since leaving the hospital. His daughter takes him for drives and he is watching both ditches and able to say all the things he sees. He states he is trying to slow down and think before he does things. Caregiver's Name Khadijah, significant other. Assessment & Impression Rehabilitation Potential Comments Patient demonstrates excellent rehab potential based on previous level of function, motivation and family support. Assessment/Impression ASSESSMENT The Repeatable Battery for the Assessment of Neuropsychological Status ( RBANS) is a neuropsychological assessment that consists of twelve subtests which give five scores, one for each of the five domains tested ( immediate memory, visuospatial /constructional, language, attention, delayed memory). The RBANS was administered with the following results: Immediate Memory List Learnin/40 Story Memory: Visuospatial/Constructional Figure Copy: 02/16 Line Orientation: 01/16 Language Picture Namin/10 Semantic Fluency: Attention Digit Span: 06/14 Codin/89 Delayed Memory List Recall: 02/06 List Recognition: Story Recall: 05/11 Figure Recall: 12/17 Sum of Index Scores = 425 Total Scale = 80 The Test of Sustained Attention and Tracking (TSAT) is a test that assesses sustained, flexible and alternating attention. It was completed in 207 seconds with 11 errors. Norms for patient's age and gender is 84.96 seconds (SD of 23.70) with 2. 11 errors (SD of 2.38). IMPRESSION: Patient was seen for a cognitive evaluation per provider orders. The RBANS and TSAT were administered and results suggest that Franklyn is demonstrating overall mild to moderate cognitive deficits across multiple domains, specifically in the areas of attention, memory, visuospatial/constructional and executive functions. Patient wishes to return to driving and work. Recommend outpatient speech therapy 1-2 times per week for 12 weeks to address deficit areas. Functional Limitations & Outcome/Goals Primary Functional Limitations Cognitive deficits affect patient's ability to return to work. Goals/Functional Outcomes Patient goal: Return to driving and work. LTG: Patient will report cognitive skills that are at or near his baseline abilities . By 11/27/24... STG 1: Patient will verbalize understanding of results of cognitive assessment. STG 2: SMALL PARTS ASSEMBLER will provided education on brain and stroke, cognitive changes after right stroke, and executive functions. STG 3: Patient will complete memory exercises of increased complexity with 90% accuracy with minimal cues for strategies for return to work. STG 4: Patient will complete attention exercises of increased complexity with 90% accuracy for return to work. STG 5: Patient will complete executive function tasks of increased complexity with 90% accuracy for return to work. Intervention Plan & Frequency Intervention Plan Education Compensatory strategies Therapeutic exercises/ cognitive retraining Frequency/Duration 1-2x/week for 12 weeks Discharge Plan Patient Will be Discharged from Therapy Completion of LTG(s) Therapist Signature & License # I Certify That Therapy Plan Established, Therapy Plan Reviewed Therapist Signature & License Number Raj UrbanoIsael MS [facility]-[employer]SEMBLER # [id number] Certification Date Date of First Visit for Therapy 10/30/24 Clinic Certification # #[id number] Recertification Due Date 01/28/25 Physician Signature Signature of Physician Indicates Treatment Plan,Certification Plan,Medically Needed Services Physician Signature & Date Required Please Sign/Date Here Speech/Language Pathology Billing Units Billing Units Speech 1 Hr Cogn Perf Test 1
--- NOTE | 2024-11-01 09:48 | OT.OPGNE2 ---
OT Outpatient General/Neuro Eval OT Outpatient General/Neuro Eval* Start: 10/31/24 14:13 Freq: Status: Active Protocol: Document 10/31/24 14:13 CSS (Rec: 10/31/24 15:50 CSS [id number]) E-signed By Prisca Clifton OTR/L OT Outpatient Evaluation Details Type Type Eval Complexity Low Insurance Information Insurance Information Insurance Information [facility] Outpatient History/Precautions Current Condition Referring Provider Dr. Maciel Medical Diagnoses cerebral vascular disease, unspecified- I67.9 Treatment Diagnoses Z91.89- potential for cognitive impairment Z74.1- need for assistance with personal care Medical/Functional History Medical History Reviewed Yes: CVA 09/2024; hypertension , hyperlipidemia, chronic kidney disease Prior Level of Function/Mobility Indep at baseline: working, driving, etc Prior Medical History Prior Medical History CVA- September 2024 Social History Type of Dwelling Rambler Home Number of Stairs to Enter (Stairs) 1 Lives With: Significant Other,Children Employment Status [employer] 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 Pt currently not working or driving at this time. Pt does not notice any major deficits. Pt denies any weakness. Pt reports he has been trying to compensate and over look towards left to compensate for neglect. Pt notes increased sense of smell . Pain Assessment Pain Pain No Objective Measures Shoulder Shoulder 5/5 MMT- L and R shoulder; WNL B AROM shoulders Elbow Elbow 5/5 MMT- L and R shoulder; WNL elbow AROM Wrist Wrist WNL B wrist AROM Hand Hand B hand WNL AROM; B gross mushroom laborer symmetrical Sensation Assessment Sensation Assessment Side Sensation Assessment Side Left Side,Right Side Left Side Light Touch Intact/Normal Right Side Light Touch Intact/Normal Cognitive Assessments Performed Oriented Patient oriented Person,Place,Time,Situation Cognitive Assessments Performed Oseas Cognitive Assessment (MOCA) Results MOCA 8.2 administered to assess cognition. Pt scores the followin/30 A score of 26-30 is considered normal cognitive processing . Montverde Making A and B Results Montverde Making A and B tests administered to look at visual scanning and sustained attention skills. Pt completes Montverde A in 50 seconds w/no errors and Montverde B in 115 seconds w 9 errors. A score of greater than 78 seconds is considered a deficit for Montverde A. A score greater than 273 seconds is considered a deficit for Montverde B. Other Assessment Results MAZE test- pt provided w practice maze test and maze test with maze test being timed. Maze test to look at visual spatial skills, problem solving, and reasoning skills . Pt completed maze test in 150 seconds w/ 2+ errors. A score of less than 61 seconds indicates appropriate skills and typically safe driving skills. Pt feels this assessment wouldn't have been easier for him before the CVA. Cognitive Performance Test ( CPT) subtests administered to help assess functional cognition. Subtests completed: Medbox: 4.5/6 (flomaxofen and fluida errors; able to correct fluida with general cue. Not able to correct flomaxofen with general and specific cues ) Vision/Hearing Vision Tracking Comments to be assessed Acuity to be assessed Vision Changes Comments no vision changes since CVA; wears corrective lenses at baseline. Visual scanning task completed searching for letter A throughout variety of letters. Pt had 3 errors out of 18 letters; errors occurred in R quadrant. Assessment Assessment Assessment Pt is a 69 year old who is referred to OT due to recent CVA with deficits with cognitive functioning. 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 Since CVA, pt currently receiving transportation from family and assistance with medications. Pt is currently not working at this time due to current deficits but would like to return back to work. Pt would benefit from ongoing skilled OT to continue to assess cognition and address deficits that impact indep with ADLs/ IADLs to help pt return back to functional baseline. Occupational Therapy Treatment Plan - OP Potential Rehabilitation Potential Good Set Goals Goals Set with Patient Yes Goals Goals Goals to be met by January 23, 2025: 1) Pt will return to prior level functional status including IADLs. 2) Pt will demonstrate ability to set up medications without errors. 3) Pt will score >25/30 on MOCA to indicate normal cognitive processing. 4) Pt will participate in OP driving assessments to ensure ability and safety prior to return back to driving. Treatment Plan Treatment Plan Evaluation,Therapeutic Exercise,Therapeutic Activities,Self-Care/Home Management,Caregiver Training, Education,Functional/Cognitive Skills Expected Frequency 1-2x Week Expected Duration 12 weeks Certification Certification Statement I Certify That: Therapy Services Provided, Therapy Plan Established, Therapy Plan Reviewed Certification Information Clinic ID # [id number] Initial Certification Date 10/31/24 Recertification Due Date 01/23/25 Provider Signature Required Yes Provider Signature Shows Agreement With POC & Medical Necessity Physician NPI Number Write NPI# Here Physician Comment/Change Comment or Changes Physician Signature & Date Requested Please Sign/Date Here
--- NOTE | 2024-11-22 09:47 | ONC.NURNOTE ---
Pt did not show up for CT scan today, pt at this time does not have a follow up with oncology to review scan. Hedis Specialist called pt to schedule follow up and pt stated he did not have his schedule at this time. Instructed pt to call back to schedule. Pt verbalized plan of care.
--- NOTE | 2024-12-01 11:39 | SLP.DPN ---
SUPERVISOR COVERING [employer] LINING Daily Progress Note/Discharge Summary [employer]PERVIS[employer]ING Daily Progress Note Start: 10/30/24 14:20 Freq: Status: Active Protocol: Document 11/29/24 14:31 AMBIKA (Rec: 11/29/24 15:47 AMBIKA [id number]) E-signed By Raj Iniguez, SUPERVISOR [employer]OVERING [employer] LINING SUPERVISOR COVERING AND LINING Daily Progress Note Subjective Note Type Daily Note Visit Number 10 Subjective/Pain Comments As usual, Franklyn is on time and motivated for therapy. He reports things are going well for him at home and at work. Pain Since Last Visit None Daily Treatment Information Interventions Provided Today Reviewed new card game from last session. Patient was able to recall general rules of play and needed only x2 verbal cues for missing a move during an entire game. Patient was given written instructions as he plans on playing this at home-both by himself and teaching to his grandkids. Reviewed all goals with patient. He completed the driving assessment today with OT and passed. His goals for therapy were to return to driving and work, both achieved. He reports that he is at about 90% back to baseline. He had stopped drinking two weeks prior to his stroke and has not returned to drinking. He reports that he is able to go to the bar to hang out with friends and not drink. He feels that he could have one drink and not let it get out of control but also discussed with daughter at the end of our sessions and she reiterated to Franklyn that drinking also increased his risk of recurring stroke so it would be better to not return to drinking, even if it was an occasional drink. Total Treatment Time (Minutes) 60 Query Text:Eval and Treatment total time Goals/Functional Outcomes Goals/Functional Outcomes Patient goal: Return to driving and work. GOAL MET 11/29. Patient passed driving evaluation with OT today and he is working about six hours per day at work. LTG: Patient will report cognitive skills that are at or near his baseline abilities . GOAL MET 11/29/24. Patient feels that he is about 90% back to baseline. By 11/27/24... STG 1: Patient will verbalize understanding of results of cognitive assessment. GOAL MET 11/03/24. STG 2: SUPERVISOR COVERING AND LINING will provided education on brain and stroke, cognitive changes after right stroke, and executive functions. GOAL MET 11/10/24 STG 3: Patient will complete memory exercises of increased complexity with 90% accuracy with minimal cues for strategies for return to work. (GOAL MET 11/23/24). STG 4: Patient will complete attention exercises of increased complexity with 90% accuracy for return to work. GOAL MET 11/29/24. Patient has been completing sustained, alternating and divided attention tasks with an average of 90% accuracy. STG 5: Patient will complete executive function tasks of increased complexity with 90% accuracy for return to work. GOAL MET 11/27/24. Daily Assessment/POC Assessment Franklyn has made great stride in therapy and is near his baseline cognitive function. Home Program Information Good Compliance Teaching Methods Written Daily Plan of Care Discharge Discharge Information Date of First Visit for Therapy 10/30/24 Date of Last Visit for Therapy 11/29/24 Total Number of Visits 10 Initial Primary Functional Limitations/ Cognitive deficits that were Concerns impacting his ability to return to driving and work. Comments Regarding Expected Functional Patient was highly motivated Outcomes to improve his function and continually pushed himself during therapy and was consistent with completing his HEP, which all impacted his success in therapy and meeting all of his goals. Interventions Provided During Treatment Evaluation, education, Comments strategy training and cognitive retraining were all used to improve cognitive function for safe return to work. Reasons for Discharge Met All Therapy Goals Discharge Instructions Continue to implement strategies and HEP. Speech/Language Pathology Billing Units Billing Units Cognitive Function Initial 15 1 Cognitive Function Subseq 15 3
--- NOTE | 2024-12-04 11:26 | SLP.DPN ---
MANAGER INVESTMENT BANKING Daily Progress Note MANAGER IN[employer]ANKING Daily Progress Note Start: 10/30/24 14:20 Freq: Status: Active Protocol: Document 11/29/24 14:31 AMBIKA (Rec: 11/29/24 15:47 AMBIKA [id number]) E-signed By Raj Iniguez, MANAGER INVESTMENT BANKING MANAGER INVESTMENT BANKING Daily Progress Note Subjective Note Type Daily Note Visit Number 10 Subjective/Pain Comments As usual, Franklyn is on time and motivated for therapy. He reports things are going well for him at home and at work. Pain Since Last Visit None Daily Treatment Information Interventions Provided Today Reviewed new card game from last session. Patient was able to recall general rules of play and needed only x2 verbal cues for missing a move during an entire game. Patient was given written instructions as he plans on playing this at home-both by himself and teaching to his grandkids. Reviewed all goals with patient. He completed the driving assessment today with OT and passed. His goals for therapy were to return to driving and work, both achieved. He reports that he is at about 90% back to baseline. He had stopped drinking two weeks prior to his stroke and has not returned to drinking. He reports that he is able to go to the bar to hang out with friends and not drink. He feels that he could have one drink and not let it get out of control but also discussed with daughter at the end of our sessions and she reiterated to Franklyn that drinking also increased his risk of recurring stroke so it would be better to not return to drinking, even if it was an occasional drink. Total Treatment Time (Minutes) 60 Query Text:Eval and Treatment total time Goals/Functional Outcomes Goals/Functional Outcomes Patient goal: Return to driving and work. GOAL MET 11/29. Patient passed driving evaluation with OT today and he is working about six hours per day at work. LTG: Patient will report cognitive skills that are at or near his baseline abilities . GOAL MET 11/29/24. Patient feels that he is about 90% back to baseline. By 11/27/24... STG 1: Patient will verbalize understanding of results of cognitive assessment. GOAL MET 11/03/24. STG 2: MANAGER INVESTMENT BANKING will provided education on brain and stroke, cognitive changes after right stroke, and executive functions. GOAL MET 11/10/24 STG 3: Patient will complete memory exercises of increased complexity with 90% accuracy with minimal cues for strategies for return to work. (GOAL MET 11/23/24). STG 4: Patient will complete attention exercises of increased complexity with 90% accuracy for return to work. GOAL MET 11/29/24. Patient has been completing sustained, alternating and divided attention tasks with an average of 90% accuracy. STG 5: Patient will complete executive function tasks of increased complexity with 90% accuracy for return to work. GOAL MET 11/27/24. Daily Assessment/POC Assessment Franklyn has made great stride in therapy and is near his baseline cognitive function. Home Program Information Good Compliance Teaching Methods Written Daily Plan of Care Discharge Discharge Information Date of First Visit for Therapy 10/30/24 Date of Last Visit for Therapy 11/29/24 Total Number of Visits 10 Initial Primary Functional Limitations/ Cognitive deficits that were Concerns impacting his ability to return to driving and work. Comments Regarding Expected Functional Patient was highly motivated Outcomes to improve his function and continually pushed himself during therapy and was consistent with completing his HEP, which all impacted his success in therapy and meeting all of his goals. Interventions Provided During Treatment Evaluation, education, Comments strategy training and cognitive retraining were all used to improve cognitive function for safe return to work. Reasons for Discharge Met All Therapy Goals Discharge Instructions Continue to implement strategies and HEP. Speech/Language Pathology Billing Units Billing Units Cognitive Function Initial 15 1 Cognitive Function Subseq 15 3
== END 2024-12-06 10:48 | disposition home or self-care (01) ==
PROVIDERS: PCP Family Medicine; Visit Provider Internal Medicine
DX: I63.511 Cerebral infarction due to unspecified occlusion or stenosis of right middle cerebral artery (principal); R41.89 Other symptoms and signs involving cognitive functions and awareness; H53.8 Other visual disturbances; Z74.1 Need for assistance with personal care; Z51.89 Encounter for other specified aftercare
CPT/HCPCS: 96125; 97129; 97130; 97165; 97535

== ENCOUNTER 2025-05-07 08:10 | Outpatient (CLI) | payer OTHER, SELFPAY ==
--- NOTE | 2025-05-07 09:00 | CRLHL7_ITS ---
For Patients: As a result of the Century Cures Act, medical imaging exams and procedure reports are released immediately into your electronic medical record. You may view this report before your referring provider. If you have questions, please contact your health care provider. INDICATION: MALIGNANT NEOPLASM OF LEFT KIDNEY TECHNIQUE: CT chest, abdomen, and pelvis acquired with 111 mL Isovue 370 IV contrast. COMPARISON: CT abdomen/pelvis dated 10/24/2024. CT chest/abdomen/pelvis dated 08/09/2024. FINDINGS: CHEST: Lungs and pleura: Stable 0.5 cm perifissural nodule in the right middle lobe (series 3, image 53). No focal consolidation. No new suspicious pulmonary nodule. Heart and vessels: No cardiomegaly, no pericardial effusion. Atherosclerotic coronary artery calcifications. Thyroid and lower neck: No suspicious thyroid nodule. Mediastinum/maggi: No lymphadenopathy. Chest wall: No axillary lymphadenopathy. ABDOMEN/PELVIS: Liver: No suspicious focal hepatic lesion. Gallbladder and bile ducts: Unremarkable. Pancreas: Unremarkable. Spleen: Unremarkable. Adrenal glands: Unremarkable. Kidneys: Postsurgical changes of left nephrectomy, no evidence of local recurrence. Unremarkable enhancement pattern of the right kidney, without hydronephrosis. Multiple right renal cysts and too small to characterize hypodense lesions, not significantly changed. Retroperitoneum: No lymphadenopathy. Bowel and mesentery: Bowel is not obstructed. No significant ascites, no pneumoperitoneum. Extensive colonic diverticulosis, without evidence of acute diverticulitis. Bladder: Unremarkable for degree of distention. Reproductive organs: Mild prostatomegaly, unchanged. Pelvic lymph nodes: No lymphadenopathy. Vessels: Extensive atherosclerotic calcifications. 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 Abdominal wall: Small ventral abdominal wall hernias, unchanged. Bones: Multilevel degenerative changes of the spine. Bones are osteopenic. Stable lytic lesion in the left iliac bone. IMPRESSION: 1. Postsurgical changes of left nephrectomy, no evidence of local recurrence or new metastatic disease. 2. Stable lytic osseous lesion in the left iliac bone. 3. Stable additional incidental findings as above. Please note that all CT scans at this facility use dose modulation, iterative reconstruction, and/or weight-based dosing when appropriate to reduce radiation dose to as low as reasonably achievable. Dictated by Giuseppe Ruvalcaba MD @ 05/07/2025 12:56:29 PM (Electronically Signed)
== END 2025-05-07 08:11 | disposition home or self-care (01) ==
LOC: CT 08:11
PROVIDERS: PCP Family Medicine; Visit Provider Clinical Nurse Specialist
DX: C64.2 Malignant neoplasm of left kidney, except renal pelvis (principal); C67.9 Malignant neoplasm of bladder, unspecified; M89.9 Disorder of bone, unspecified; E87.1 Hypo-osmolality and hyponatremia; E87.5 Hyperkalemia; N18.9 Chronic kidney disease, unspecified
CPT/HCPCS: 36415; 71260; 74177; 80048; 99215; G0463; Q9967